=== PATIENT | female | born 1950 | race Caucasian/White ===

== ENCOUNTER → 2016-12-08 | Outpatient (CLI) | payer OTHER ==
[~2016-12-08] MED LIST: ADVIN25/60 INH; ALBU1AER9 INH; BROM0.07 OPL; BUME1TAB43 PO; DIFL0.0519 OPL; FOLI1TAB7 PO; LEVO-459 PO; LPR25 PO; MELO15TA4 PO; METH2.5T PO; METO25TA56 PO; MULTTAB5 PO; PLQ200 PO; PRD20 PO; VTMB12 PO
--- NOTE | 2016-12-08 15:45 | DIAGNOSTIC IMAGING REPORT ---
RIGHT HAND MIN 3 VIEWS ROUTINE CLINICAL HISTORY: M06.9 Rheumatoid [id number] SS-A antibody [id number] right hand pain COMPARISON: None. DISCUSSION: The bones are mildly osteopenic. There are mild osteoarthritic type changes at the level of the proximal distal interphalangeal joints. No acute fractures are visualized. There is no erosive disease. There is mild joint space narrowing at the level the second metacarpal phalangeal joint. IMPRESSION: Mild osteopenia. Mild osteoarthritic type changes. No definite bony erosions. Electronically signed by: Hemanth Hernandez M.D. 12/08/2016 3:43 PM Dictated Date/Time: 12/08/2016 3:42 PM
--- NOTE | 2016-12-08 15:47 | DIAGNOSTIC IMAGING REPORT ---
LEFT HAND 3 VIEWS; LEFT WRIST 4 VIEWS CLINICAL HISTORY: Left wrist and hand pain. Rheumatoid arthritis. FINDINGS: 3 views of the left hand and 4 views of the left wrist are obtained. No prior studies are available for comparison at the time of dictation. The skeletal structures are osteopenic. No fracture is identified in the left wrist or hand. There is degenerative narrowing at the radiocarpal articulation. Advanced osteoarthritic changes present at the first carpometacarpal joint with bony sclerosis, overgrowth, subchondral cyst formation, and mild subluxation. Mild arthritic change is seen at the second carpometacarpal joint. There is mild osteoarthritic change involving the interphalangeal joints, distal greater than proximal as well as at the first metacarpophalangeal joint. No significant erosive change is identified. The overlying soft tissues are within normal limits. IMPRESSION: 1. There is no acute bony abnormality seen in the left wrist or hand. 2. Osteoarthritic change as above, greatest involving the first carpometacarpal articulation. 3. No erosive change is identified. Electronically signed by: Ludwig Red M.D. 12/08/2016 3:45 PM Dictated Date/Time: 12/08/2016 3:41 PM
--- NOTE | 2016-12-08 15:48 | DIAGNOSTIC IMAGING REPORT ---
RIGHT WRIST 4 VIEWS CLINICAL HISTORY: Rheumatoid arthritis. FINDINGS: 4 views of the right wrist are obtained. No prior studies are available for comparison at the time of dictation. The skeletal structures are osteopenic. No fracture is seen. There is mild narrowing at the radiocarpal articulation. Mild osteoarthritic change is noted at the first carpometacarpal and metacarpophalangeal joints. No erosive change is suspected. The overlying soft tissues are within normal limits. IMPRESSION: Osteopenia and mild osteoarthritic change as above. No acute bony abnormality is identified. Electronically signed by: Ludwig Red M.D. 12/08/2016 3:46 PM Dictated Date/Time: 12/08/2016 3:45 PM
[2016-12-08 16:57] LABS: URINE APPEARANCE CLEAR (CLEAR); URINE BILIRUBIN NEG (NEG); URINE COLOR YELLOW; URINE EPITHELIAL CELL AUTO 20-30 /lpf (0-5); URINE NITRITE NEG (NEG); URINE SPECIFIC GRAVITY 1.012 (1.000-1.030); UROBILINOGEN NEG (NEG)
[2016-12-08 17:28] LABS: MANUAL MICROSCOPIC REQUIRED? NO; REVIEW REQ? NO
[2016-12-08 20:42] LABS: LYME DISEASE AB IGG NEG (NEG); LYME DISEASE AB IGM NEG (NEG)
[2016-12-14 06:31] LABS: ANTI-CENTROMERE AB <1.0 NEG AI (<1.0 NEG); ANTI-SS-A <1.0 NEG AI (<1.0 NEG); ANTI-SS-B <1.0 NEG AI (<1.0 NEG); CYCLIC CITRULLINATED PEPT IGG >250 UNITS (<20); DNA ds CRITHIDIA NEGATIVE (NEGATIVE); MICROSOMAL AB <1 IU/ML (<9); Sm Antibody <1.0 NEG AI (<1.0 NEG)
== END | disposition home or self-care (01) ==
LOC: C.RAD1850 15:03
PROVIDERS: ATTEND Internal Medicine Rheumatology
DX: M06.9 Rheumatoid arthritis, unspecified (principal); R76.8 Other specified abnormal immunological findings in serum; M79.1 Myalgia; M19.90 Unspecified osteoarthritis, unspecified site

== ENCOUNTER → 2017-03-21 | Outpatient (CLI) | payer OTHER ==
[~2017-03-21] MED LIST changes: +CYAN250T PO; +PRED10TA PO; +VBRT100 PO
[2017-03-21 12:39] LABS: BASO % 0.3 %; BASO ABS # 0.03 K/uL (0-0.2); COMPLETE YES; EOS % 1.9 %; HEMATOCRIT 46.8 % (37-47); IG% 0.2 %; LYMPH % 22.6 %; LYMPH ABS # 2.05 K/uL (1.2-3.4); MEAN CELL VOLUME 98.1 fL (80-100); MEAN CORPUSCULAR HEMOGLOBIN 31.7 pg (25-34); MEAN CORPUSCULAR HGB CONC 32.3 g/dl (32-36); MEAN PLATELET VOLUME 10.2 fL (7.4-10.4); MONO % 5.1 %; NEUT % 69.9 %; PLATELET COUNT 304 K/uL (130-400); RED BLOOD COUNT 4.77 M/uL (4.2-5.4); WHITE BLOOD COUNT 9.06 K/uL (4.8-10.8)
[2017-03-21 13:11] LABS: ALT/SGPT 24 U/L (12-78)
[2017-03-21 13:14] LABS: ALKALINE PHOSPHATASE 73 U/L (45-117); AST/SGOT 22 U/L (15-37)
== END | disposition home or self-care (01) ==
LOC: C.LABPBG 10:32
PROVIDERS: ATTEND Internal Medicine Rheumatology
DX: M79.1 Myalgia (principal); M06.9 Rheumatoid arthritis, unspecified; R76.8 Other specified abnormal immunological findings in serum; Z51.81 Encounter for therapeutic drug level monitoring; Z79.1 Long term (current) use of non-steroidal anti-inflammatories (NSAID); Z79.899 Other long term (current) drug therapy

== ENCOUNTER → 2017-04-01 | Outpatient (CLI) | payer OTHER ==
--- NOTE | 2017-04-01 14:38 | DIAGNOSTIC IMAGING REPORT ---
CHEST 2 VIEWS ROUTINE CLINICAL HISTORY: Abnormal lung sounds. Possible pneumonia. COMPARISON STUDY: 10/29/2016 FINDINGS: The cardiac and mediastinal contours are normal. There is no evidence of focal pulmonary consolidation. There is no evidence of failure. No pleural effusions are visualized.[ There is prominence of central pulmonary arteries. Pulmonary arterial hypertension is suspected. IMPRESSION: No active disease in the chest. Electronically signed by: Hemanth Hernandez M.D. 04/01/2017 2:37 PM Dictated Date/Time: 04/01/2017 2:35 PM
== END | disposition home or self-care (01) ==
LOC: C.RAD1850 14:23
PROVIDERS: ATTEND Physician Assistant
DX: R07.89 Other chest pain (principal)

== ENCOUNTER → 2017-06-06 | Outpatient (CLI) | payer OTHER ==
[~2017-06-06] MED LIST changes: -CYAN250T PO; -PRED10TA PO; -VBRT100 PO
--- NOTE | 2017-06-13 08:40 | CODING QUERY MEDICAL NECESSITY ---
SUPPORTING DIAGNOSIS NEEDED A supporting diagnosis is required for the test/procedure performed on this patient in order for us to be reimbursed by the patient's insurance. Please provide a supporting diagnosis for the following test/procedure listed below next to the test name along with your signature. *If there is no additional diagnosis for this patient that would support the following test/procedure please document that below next to the test/procedure. Test(s)/Procedure(s) that require a supporting diagnosis: * VITAMIN D, 25-HYDROXY DIAGNOSIS: Provider Signature: Date: Thank you Yaneth Macedo [employer] Once completed, please kindly fax back to [phone] For questions please call [phone]
== END | disposition home or self-care (01) ==
LOC: C.LABPBG 10:06
PROVIDERS: ATTEND Physician Assistant
DX: R53.83 Other fatigue (principal); Z13.21 Encounter for screening for nutritional disorder

== ENCOUNTER → 2017-06-28 | Outpatient (CLI) | payer OTHER ==
[~2017-06-28] MED LIST changes: -LEVO-459 PO; -LPR25 PO; -PRD20 PO; -VTMB12 PO
--- NOTE | 2017-06-28 11:46 | DIAGNOSTIC IMAGING REPORT ---
CHEST 2 VIEWS ROUTINE CLINICAL HISTORY: R09.89 Abnormal lung [id number] COMPARISON STUDY: 04/01/2017 FINDINGS: The cardiac and mediastinal contours are normal. There is no evidence of focal pulmonary consolidation. There is no evidence of failure. No pleural effusions are visualized.[ There is persistent prominence of the central pulmonary arteries. This could indicate pulmonary arterial hypertension IMPRESSION: No active disease in the chest. Electronically signed by: Hemanth Hernandez M.D. 06/28/2017 11:45 AM Dictated Date/Time: 06/28/2017 11:44 AM
== END | disposition home or self-care (01) ==
LOC: C.RAD1850 10:49
PROVIDERS: ATTEND Physician Assistant
DX: R09.89 Other specified symptoms and signs involving the circulatory and respiratory systems (principal)

== ENCOUNTER → 2017-07-05 | Day surgery (SDC) | payer OTHER ==
[2017-06-10 15:04] VITALS: Ht 170.2 cm; Wt 79.1 kg
[~2017-07-05] VITALS: Ht 170.2 cm; Wt 79.1 kg
[~2017-07-05] MED LIST changes: +500ML BSS 0.3ML EPI 1:1000PF IRRIG ONE; +ACETAMINOPHEN 325 MG TAB PO PRN; +ALBUT/IPRATROP 3MG/0.5MG NEB 3 ML VIAL INH STA; +ALBUT/IPRATROP 3MG/0.5MG NEB 3 ML VIAL ONE; +AMVISC PLUS 0.8ML SYRINGE INT OCU ONE; +ATROPINE SULFATE 0.1 MG/ML 5ML SYR IV PRN; +BSS FLUSH ONE; +EpHEDrine SULFATE INJ 50 MG/ML AMP IV PRN; +EpINEphrine INJ 1MG/ML AMP 1 MG/ML AMP ONE; +LACTATED RINGER'S 1000ML 500 ML IV SCH; +LIDOCAINE 3.5% OPH GEL PER APPLICATION CHARGE ONE; +LIDOCAINE HCL 1% MPF 2 ML VIAL ONE; +MIDAZOLAM HCL 1 MG/ML 2ML VIAL ONE; +OCUCOAT 1 ML SOLN IO ONE; +POVIDONE-IODINE OP SOLN 30 ML BTL ONE; +PROPARACAINE 0.5% OP SOLN PER DROP CHARGE OPL SCH; +TOBRAMYCIN/DEXAMETHASONE OPH OINT PER APPLN CHARGE ONE
[2017-07-05] MEDS: PHENYLEPHRINE HCL 2.5% OP SOLN PER DROP CHARGE OPL SCH ×2 (08:22→08:27)
[2017-07-05] MEDS: TROPICAMIDE 1% OP SOLN PER DROP CHARGE OPL SCH ×2 (08:23→08:28)
[2017-07-05] MEDS: CYCLOPENTOLATE HCL 1% OP SOLN PER DROP CHARGE OPL SCH ×2 (08:24→08:29)
[2017-07-05] MEDS: KETOROLAC 0.5% OP SOLN PER DROP CHARGE OPL SCH ×2 (08:25→08:30)
[2017-07-05] MEDS: GATIFLOXACIN OP SOLN PER DROP CHARGE OPL SCH ×2 (08:26→08:36)
--- NOTE | 2017-07-05 08:26 | History & Physical Bridge - [place] ---
H&P Re-Evaluation Bridge Note: I have examined the patient, reviewed the History & Physical and in the interval since the performance of the History & Physical I have noted the following changes of clinical significance: Diagnosis: Left Cataract Procedure: Left Cataract Removal with Lens Implant No changes noted
--- NOTE | 2017-07-05 09:02 | Discharge Instructions-SurgCtr ---
Discharge Instructions Date of Service Jul 05, 2017. Visit Reason for Visit: Left Cataract Discharge Discharge Diagnosis / Problem: cataract Discharge Goals Goal(s): Improve function Activity Recommendations Activity Limitations: per Instructions/Follow-up section Anesthesia . Post Anesthesia Instructions: If you have had General Anesthesia or IV Sedation: * Do not drive today. * Resume driving when surgeon permits. * Do not make important decisions or sign legal documents today. * Call surgeon for: 1. Temperature elevations greater than 101 degrees F. 2. Uncontrollable pain. 3. Excessive bleeding. 4. Persistent nausea and vomiting. 5. Medication intolerance (nausea, vomiting or rash). * For nausea and vomiting use only clear liquids such as: tea, soda, bouillon until nausea subsides, then gradually increase diet as tolerated. * If you have any concerns or questions, call your surgeon's office. If physician is unavailable and it is an emergency, call 911 or go to the nearest emergency room. . Instructions / Follow-Up Instructions / Follow-Up ACTIVITY RECOMMENDATIONS: * No strenuous lifting, jogging or running for 4 days * No swimming or yard work for 1 week. * Limited bending is permitted, such as putting on shoes. RETURN TO SCHOOL/WORK: No work until seen by physician in office. MEDICATIONS: Resume previous medications unless instructed otherwise by your surgeon. This includes eye drops for glaucoma. Zymaxid/Gatifloxacin (burgos cap) - one drop every 2 hours until bedtime Nevanac/Ilevro/Prolensa/Ketorolac (solis cap) - one drop every 4 hours until bedtime Prednisolone/Durezol (white/pink cap, SHAKE WELL) - one drop every 2 hours until bedtime Starting tomorrow - all 3 drops every 4 hours until seen in the office Optive drops - as needed for discomfort SPECIAL CARE INSTRUCTIONS: * Wear eyeshield when sleeping, for four nights. * You may wear your own glasses or sunglasses while awake. * You may read or watch TV * You may shower and wash your face, but be gentle around the eye and pat dry. * Blurry vision and mild irritation are normal. * Call office if pain is more severe or vision becomes dark at . FOLLOW UP VISIT: Follow-up with Dr Dia tomorrow. Diet Recommendations Home Diet: resume previous diet Procedures Procedures Performed: Left Cataract Phacoemulsification With Intraocular Lens Implant Pending Studies Studies pending at discharge: no Medical Emergencies . Who to Call and When: Medical Emergencies: If at any time you feel your situation is an emergency, please call 911 immediately. . Non-Emergent Contact Non-Emergency issues call your: [employer] . . "Provider Documentation" section prepared by Wesley Dia. .
--- NOTE | 2017-07-05 09:02 | [facility] Operative Report ---
Operative Report Date of Service Jul 05, 2017. Operative Report 1. PREOPERATIVE DIAGNOSIS: Cataract of the left eye. 2. POSTOPERATIVE DIAGNOSIS: Same. 3. PROCEDURE: Phacoemulsification with intraocular lens implantation of the left eye. SURGEON: Dr. Wesley Dia. ANESTHESIA: Topical Lidocaine gel, 1% Non- Preserved intracameral Lidocaine, and monitored intravenous sedation. INDICATIONS FOR THE PROCEDURE: The patient is a 66 - year-old female with a history of cataract of the left eye causing significant visual impairment. The details of the proposed procedure were explained to the patient who asked appropriate questions and following discussion of all risks, benefits and alternatives agreed to have the procedure done. 4. OPERATION AND FINDINGS: DESCRIPTION OF PROCEDURE: After informed consent was obtained, the patient was brought to the Operating Room at the [facility]. The patient was placed in a supine position and then the left eye was prepped and draped in the usual sterile fashion for intraocular surgery. A drop of topical Lidocaine gel was placed in the operative eye. A wire lid speculum was then placed in the fornices. A corneal paracentesis was then created temporally. The Non-Preserved Lidocaine was then instilled into the anterior chamber. The anterior chamber was then pressurized with viscoelastic. A 2.0 mm clear corneal incision was then created temporally. A cystotome was inserted into the anterior chamber and used to create a tear in the anterior lens capsule. This capsular tear was then used to create a small flap and the flap was dragged in a counterclockwise direction in order to create a continuous curvilinear capsulorrhexis. Hydrodissection was accomplished with balanced salt solution. Phacoemulsification of the lens nucleus was then performed in a standard [id number] technique. The phaco time was 26 seconds with an average power of 15 %. The remaining cortical material was removed using irrigation aspiration. The capsular bag was then filled with viscoelastic. A [employer]ch [employer] Lomb MI60L +18.0 diopters lens was then loaded into the injector and injected into the capsular bag. The remaining viscoelastic was removed with the irrigation aspiration handpiece. The wound was hydrated and then checked and found to be watertight. The intraocular pressure was checked and found to be adequate. The wire lid speculum was removed and the patient's face was cleaned and dried. TobraDex ointment was placed in the inferior fornix. The patient was discharged to the Recovery Room having tolerated the procedure well. There were no complications. The patient will be seen tomorrow in the office for follow-up. I attest to the content of the Intraoperative Record and any orders documented therein. Any exceptions are noted below.
[2017-07-05 09:05] VITALS: TEMP 36.9
--- NOTE | 2017-07-05 09:08 | Anesthesia Progress Nt - [facility] ---
Anesthesia Post Op Note Date & Time Jul 05, 2017 at 09:08 Vital Signs Pain Intensity: 0 Vital Signs Past 12 Hours Date Time Temp Pulse Resp B/P (MAP) Pulse Ox O2 Delivery O2 Flow Rate FiO2 07/05/17 07:40 36.6 70 16 114/73 (87) 95 Room Air Notes Mental Status: alert / awake / arousable, participated in evaluation Pt Amnestic to Procedure: Yes Nausea / Vomiting: adequately controlled Pain: adequately controlled Airway Patency, RR, SpO2: stable & adequate BP & HR: stable & adequate Hydration State: stable & adequate Anesthetic Complications: no major complications apparent
[2017-07-05 09:30] VITALS: BP 106/65; PULSE 73; O2SAT 95
== END | disposition home or self-care (01) ==
LOC: X.SURG 07:10
PROVIDERS: ATTEND Ophthalmology
DX: H26.9 Unspecified cataract (principal); M19.90 Unspecified osteoarthritis, unspecified site; I27.81 Cor pulmonale (chronic); I11.0 Hypertensive heart disease with heart failure; I50.9 Heart failure, unspecified; J44.9 Chronic obstructive pulmonary disease, unspecified; M06.9 Rheumatoid arthritis, unspecified; F17.200 Nicotine dependence, unspecified, uncomplicated; I27.2 Other secondary pulmonary hypertension; Z82.49 Family history of ischemic heart disease and other diseases of the circulatory system; Z82.3 Family history of stroke

== ENCOUNTER → 2017-07-26 | Day surgery (SDC) | payer OTHER ==
[2017-07-19 08:47] VITALS: Ht 170.2 cm; Wt 79.1 kg
[~2017-07-26] VITALS: Ht 170.2 cm; Wt 79.1 kg
[~2017-07-26] MED LIST changes: -ALBUT/IPRATROP 3MG/0.5MG NEB 3 ML VIAL INH STA; -ALBUT/IPRATROP 3MG/0.5MG NEB 3 ML VIAL ONE; +LACTATED RINGER'S 1000ML 1,000 ML IV SCH; -LACTATED RINGER'S 1000ML 500 ML IV SCH; -PROPARACAINE 0.5% OP SOLN PER DROP CHARGE OPL SCH; +PROPARACAINE 0.5% OP SOLN PER DROP CHARGE OPR SCH
[2017-07-26] MEDS: PHENYLEPHRINE HCL 2.5% OP SOLN PER DROP CHARGE OPR SCH ×2 (09:30→09:43)
[2017-07-26] MEDS: TROPICAMIDE 1% OP SOLN PER DROP CHARGE OPR SCH ×2 (09:33→09:44)
[2017-07-26] MEDS: CYCLOPENTOLATE HCL 1% OP SOLN PER DROP CHARGE OPR SCH ×2 (09:34→09:46)
[2017-07-26] MEDS: KETOROLAC 0.5% OP SOLN PER DROP CHARGE OPR SCH ×2 (09:35→09:47)
[2017-07-26] MEDS: GATIFLOXACIN OP SOLN PER DROP CHARGE OPR SCH ×2 (09:37→09:48)
--- NOTE | 2017-07-26 09:42 | History & Physical Bridge - [place] ---
H&P Re-Evaluation Bridge Note: I have examined the patient, reviewed the History & Physical and in the interval since the performance of the History & Physical I have noted the following changes of clinical significance: Diagnosis: Right Cataract Procedure: Right Cataract Removal with Lens Implant No changes noted
--- NOTE | 2017-07-26 10:34 | [facility] Operative Report ---
Operative Report Date of Service Jul 26, 2017. Operative Report 1. PREOPERATIVE DIAGNOSIS: Cataract of the right eye. 2. POSTOPERATIVE DIAGNOSIS: Same. 3. PROCEDURE: Phacoemulsification with intraocular lens implantation of the right eye. SURGEON: Dr. Wesley Dia. ANESTHESIA: Topical Lidocaine gel, 1% Non- Preserved intracameral Lidocaine, and monitored intravenous sedation. INDICATIONS FOR THE PROCEDURE: The patient is a 66 - year-old female with a history of cataract of the right eye causing significant visual impairment. The details of the proposed procedure were explained to the patient who asked appropriate questions and following discussion of all risks, benefits and alternatives agreed to have the procedure done. 4. OPERATION AND FINDINGS: DESCRIPTION OF PROCEDURE: After informed consent was obtained, the patient was brought to the Operating Room at the [facility]. The patient was placed in a supine position and then the right eye was prepped and draped in the usual sterile fashion for intraocular surgery. A drop of topical Lidocaine gel was placed in the operative eye. A wire lid speculum was then placed in the fornices. A corneal paracentesis was then created temporally. The Non-Preserved Lidocaine was then instilled into the anterior chamber. The anterior chamber was then pressurized with viscoelastic. A 2.0 mm clear corneal incision was then created temporally. A cystotome was inserted into the anterior chamber and used to create a tear in the anterior lens capsule. This capsular tear was then used to create a small flap and the flap was dragged in a counterclockwise direction in order to create a continuous curvilinear capsulorrhexis. Hydrodissection was accomplished with balanced salt solution. Phacoemulsification of the lens nucleus was then performed in a standard [id number] technique. The phaco time was 25 seconds with an average power of 14 %. The remaining cortical material was removed using irrigation aspiration. The capsular bag was then filled with viscoelastic. A Bausch & Lomb MI60L +18.5 diopters lens was then loaded into the injector and injected into the capsular bag. The remaining viscoelastic was removed with the irrigation aspiration handpiece. The wound was hydrated and then checked and found to be watertight. The intraocular pressure was checked and found to be adequate. The wire lid speculum was removed and the patient's face was cleaned and dried. TobraDex ointment was placed in the inferior fornix. The patient was discharged to the Recovery Room having tolerated the procedure well. There were no complications. The patient will be seen tomorrow in the office for follow-up. I attest to the content of the Intraoperative Record and any orders documented therein. Any exceptions are noted below.
--- NOTE | 2017-07-26 10:34 | Discharge Instructions-SurgCtr ---
Discharge Instructions Date of Service Jul 26, 2017. Visit Reason for Visit: Cataract Right Eye Discharge Discharge Diagnosis / Problem: cataract Discharge Goals Goal(s): Improve function Activity Recommendations Activity Limitations: per Instructions/Follow-up section Anesthesia . Post Anesthesia Instructions: If you have had General Anesthesia or IV Sedation: * Do not drive today. * Resume driving when surgeon permits. * Do not make important decisions or sign legal documents today. * Call surgeon for: 1. Temperature elevations greater than 101 degrees F. 2. Uncontrollable pain. 3. Excessive bleeding. 4. Persistent nausea and vomiting. 5. Medication intolerance (nausea, vomiting or rash). * For nausea and vomiting use only clear liquids such as: tea, soda, bouillon until nausea subsides, then gradually increase diet as tolerated. * If you have any concerns or questions, call your surgeon's office. If physician is unavailable and it is an emergency, call 911 or go to the nearest emergency room. . Instructions / Follow-Up Instructions / Follow-Up ACTIVITY RECOMMENDATIONS: * No strenuous lifting, jogging or running for 4 days * No swimming or yard work for 1 week. * Limited bending is permitted, such as putting on shoes. RETURN TO SCHOOL/WORK: No work until seen by physician in office. MEDICATIONS: Resume previous medications unless instructed otherwise by your surgeon. This includes eye drops for glaucoma. Zymaxid/Gatifloxacin (burgos cap) - one drop every 2 hours until bedtime Nevanac/Ilevro/Prolensa/Ketorolac (solis cap) - one drop every 4 hours until bedtime Prednisolone/Durezol (white/pink cap, SHAKE WELL) - one drop every 2 hours until bedtime Starting tomorrow - all 3 drops every 4 hours until seen in the office Optive drops - as needed for discomfort SPECIAL CARE INSTRUCTIONS: * Wear eyeshield when sleeping, for four nights. * You may wear your own glasses or sunglasses while awake. * You may read or watch TV * You may shower and wash your face, but be gentle around the eye and pat dry. * Blurry vision and mild irritation are normal. * Call office if pain is more severe or vision becomes dark at . FOLLOW UP VISIT: Follow-up with Dr Dia tomorrow. Diet Recommendations Home Diet: resume previous diet Procedures Procedures Performed: Right Cataract Phacoemulsification With Intraocular Lens Implant Pending Studies Studies pending at discharge: no Medical Emergencies . Who to Call and When: Medical Emergencies: If at any time you feel your situation is an emergency, please call 911 immediately. . Non-Emergent Contact Non-Emergency issues call your: [employer] . . "Provider Documentation" section prepared by Wesley Dia. .
[2017-07-26 10:35] VITALS: TEMP 36.5
--- NOTE | 2017-07-26 10:54 | Anesthesia Progress Nt - [facility] ---
Anesthesia Post Op Note Date & Time Jul 26, 2017 at 10:54 Vital Signs Pain Intensity: 0 Vital Signs Past 12 Hours Date Time Temp Pulse Resp B/P (MAP) Pulse Ox O2 Delivery O2 Flow Rate FiO2 07/26/17 10:35 36.5 70 16 106/68 (81) 97 Room Air 07/26/17 09:10 36.9 64 20 120/72 (88) 97 Nasal Cannula 2 Notes Mental Status: alert / awake / arousable, participated in evaluation Pt Amnestic to Procedure: Yes Nausea / Vomiting: adequately controlled Pain: adequately controlled Airway Patency, RR, SpO2: stable & adequate BP & HR: stable & adequate Hydration State: stable & adequate Anesthetic Complications: no major complications apparent
[2017-07-26 10:55] VITALS: BP 116/70; PULSE 69; O2SAT 96
== END | disposition home or self-care (01) ==
LOC: X.SURG 08:43
PROVIDERS: ATTEND Ophthalmology
DX: H26.9 Unspecified cataract (principal); I27.81 Cor pulmonale (chronic); J44.9 Chronic obstructive pulmonary disease, unspecified; I11.0 Hypertensive heart disease with heart failure; I50.9 Heart failure, unspecified; I51.9 Heart disease, unspecified; F17.210 Nicotine dependence, cigarettes, uncomplicated; I07.1 Rheumatic tricuspid insufficiency; I27.2 Other secondary pulmonary hypertension; I87.2 Venous insufficiency (chronic) (peripheral); M13.0 Polyarthritis, unspecified; M06.9 Rheumatoid arthritis, unspecified; Z79.1 Long term (current) use of non-steroidal anti-inflammatories (NSAID); Z79.899 Other long term (current) drug therapy

== ENCOUNTER → 2017-10-10 | Outpatient (CLI) | payer OTHER ==
[~2017-10-10] MED LIST changes: -500ML BSS 0.3ML EPI 1:1000PF IRRIG ONE; -ACETAMINOPHEN 325 MG TAB PO PRN; -AMVISC PLUS 0.8ML SYRINGE INT OCU ONE; -ATROPINE SULFATE 0.1 MG/ML 5ML SYR IV PRN; -BROM0.07 OPL; -BSS FLUSH ONE; +CYAN250T PO; -DIFL0.0519 OPL; -EpHEDrine SULFATE INJ 50 MG/ML AMP IV PRN; -EpINEphrine INJ 1MG/ML AMP 1 MG/ML AMP ONE; -LACTATED RINGER'S 1000ML 1,000 ML IV SCH; -LIDOCAINE 3.5% OPH GEL PER APPLICATION CHARGE ONE; -LIDOCAINE HCL 1% MPF 2 ML VIAL ONE; -MIDAZOLAM HCL 1 MG/ML 2ML VIAL ONE; -OCUCOAT 1 ML SOLN IO ONE; -POVIDONE-IODINE OP SOLN 30 ML BTL ONE; +PRED10TA PO; -PROPARACAINE 0.5% OP SOLN PER DROP CHARGE OPR SCH; -TOBRAMYCIN/DEXAMETHASONE OPH OINT PER APPLN CHARGE ONE; +VBRT100 PO
[2017-10-10 12:24] LABS: BASO % 0.1 %; BASO ABS # 0.01 K/uL (0-0.2); COMPLETE YES; EOS % 0.2 %; HEMATOCRIT 42.2 % (37-47); IG% 0.4 %; LYMPH % 6.5 %; LYMPH ABS # 1.03 K/uL (1.2-3.4); MEAN CELL VOLUME 101.7 fL (80-100); MEAN CORPUSCULAR HEMOGLOBIN 32.3 pg (25-34); MEAN CORPUSCULAR HGB CONC 31.8 g/dl (32-36); MEAN PLATELET VOLUME 10.3 fL (7.4-10.4); MONO % 3.1 %; NEUT % 89.7 %; PLATELET COUNT 257 K/uL (130-400); RED BLOOD COUNT 4.15 M/uL (4.2-5.4); WHITE BLOOD COUNT 15.78 K/uL (4.8-10.8)
[2017-10-10 12:33] LABS: ARTERIAL BLD GAS O2 SATURATION 87.2 % (90-95); ARTERIAL BLOOD GAS BASE EXCESS 10.8 mEq/L (-9-1.8); ARTERIAL BLOOD GAS HCO3 37 mmol/L (19-24); ARTERIAL BLOOD GAS PO2 53 mm/Hg (80-95); ARTERIAL BLOOD GAS pH 7.43 (7.35-7.45)
[2017-10-10 12:36] LABS: ALLEN TEST POS (POS); O2 ADMINISTRATION ROOM AIR
[2017-10-10 12:46] LABS: ALT/SGPT 28 U/L (12-78); BLOOD UREA NITROGEN 21 mg/dl (7-18); BUN/CREATININE RATIO 28.8 (10-20); CALCIUM 9.1 mg/dl (8.5-10.1); CARBON DIOXIDE 34 mmol/L (21-32); CHLORIDE 95 mmol/L (98-107); CHOLESTEROL 197 mg/dl (0-200); CREATININE 0.74 mg/dl (0.60-1.20); GLUCOSE 112 mg/dl (70-99); POTASSIUM 4.1 mmol/L (3.5-5.1); SODIUM 135 mmol/L (136-145); TRIGLYCERIDES 76 mg/dl (0-150); VERY LOW DENSITY LIPOPROT CALC 15 mg/dl
[2017-10-10 12:49] LABS: ALB/GLOB RATIO 0.9 (0.9-2); ALKALINE PHOSPHATASE 48 U/L (45-117); AST/SGOT 19 U/L (15-37); CHOLESTEROL/HDL RATIO 1.9; HDL CHOLESTEROL 104 mg/dl; LDL CHOLESTEROL CALCULATED 78 mg/dl
== END | disposition home or self-care (01) ==
LOC: C.LAB 11:37
PROVIDERS: ATTEND Internal Medicine Pulmonary Disease
DX: J44.9 Chronic obstructive pulmonary disease, unspecified (principal); I50.9 Heart failure, unspecified; I10 Essential (primary) hypertension; I27.81 Cor pulmonale (chronic); I51.9 Heart disease, unspecified; M06.9 Rheumatoid arthritis, unspecified; R76.8 Other specified abnormal immunological findings in serum; Z79.899 Other long term (current) drug therapy

== ENCOUNTER → 2017-12-08 | Outpatient (CLI) | payer OTHER ==
[~2017-12-08] MED LIST changes: -FOLI1TAB7 PO; +FOLI1TAB8 PO; -PRED10TA PO
[2017-12-08 18:12] LABS: BASO % 0.7 %; BASO ABS # 0.07 K/uL (0-0.2); EOS % 2.1 %; EOS ABS # 0.21 K/uL (0-0.5); HEMATOCRIT 43.6 % (37-47); IG# 0.03 K/uL (0.00-0.02); LYMPH % 25.8 %; LYMPH ABS # 2.54 K/uL (1.2-3.4); MEAN CELL VOLUME 101.2 fL (80-100); MEAN CORPUSCULAR HEMOGLOBIN 32.5 pg (25-34); MEAN CORPUSCULAR HGB CONC 32.1 g/dl (32-36); MEAN PLATELET VOLUME 10.5 fL (7.4-10.4); MONO % 9.1 %; NEUT ABS # 6.11 K/uL (1.4-6.5); PLATELET COUNT 316 K/uL (130-400); RED CELL DISTRIBUTION WIDTH SD 48.2 fL (36.4-46.3); WHITE BLOOD COUNT 9.86 K/uL (4.8-10.8)
[2017-12-08 18:36] LABS: ALBUMIN 3.7 gm/dl (3.4-5.0); ALT/SGPT 24 U/L (12-78); AST/SGOT 17 U/L (15-37); CREATININE 0.92 mg/dl (0.60-1.20)
[2017-12-08 18:39] LABS: ALKALINE PHOSPHATASE 75 U/L (45-117); TOTAL PROTEIN 7.8 gm/dl (6.4-8.2)
== END | disposition home or self-care (01) ==
LOC: C.LABPBG 11:34
PROVIDERS: ATTEND Internal Medicine Rheumatology
DX: M06.9 Rheumatoid arthritis, unspecified (principal); M35.1 Other overlap syndromes; Z51.81 Encounter for therapeutic drug level monitoring; Z79.899 Other long term (current) drug therapy; R76.8 Other specified abnormal immunological findings in serum

== ENCOUNTER 2020-10-08 17:41 | Inpatient (IN) ==
[2020-10-08] MEDS ORDERED: ACETAMINOPHEN 325 MG TAB PO STA (18:44)
--- NOTE | 2020-10-08 18:50 | Emergency Department Note ---
History of Present Illness General Chief complaint: Shortness of Breath/Dyspnea Stated complaint: COV + 10/08, DYSPNEA, HYPOXIC Time Seen by Provider: 10/08/20 18:32 Source: patient History of Present Illness Provider complaint: Flulike symptoms Onset (ago): week(s) Location: chest Severity: moderate Pain Consistency: + other (Now improving) Quality: + other (Cough and shortness of breath) Relieved By: + other (Oxygen) Associated symptoms: + cough, + fever/chills and + shortness of breath; no chest pain and no nausea/vomiting This is a 70-year-old female with a history of COPD presenting with flulike symptoms for the past 8 days. She was tested 3 days ago and was told today that she had COVID-19. She has had a productive cough with green sputum for 8 days with some shortness of breath. She normally uses oxygen in the evenings but has been using it all day recently. She had a fever of 100. She has loss of taste and smell. She denies any chest discomfort or pain, vomiting, abdominal pain, diarrhea, leg swelling or pain or prior history of PE or DVT. She states currently she is feeling better and her symptoms have been improving. Her daughter had called the emergency department today after getting the positive result and she had been advised to bring her mother in for evaluation. Home Medications Medication Instructions Recorded Confirmed Type oxyyedbwzetd-uhnszqwb-upswkh tablet 1 tab PO DAILY 08/17/19 10/08/20 History albuterol sulfate 2.5 mg INH Q4H PRN #540 ml 08/22/19 10/08/20 Rx albuterol sulfate 90 mcg/actuation 1 - 2 puffs INHALATION Q4H PRN #51 09/27/19 10/08/20 History aerosol inhaler gm bumetanide 1 mg tablet 1 mg PO DAILY #90 tab 09/27/19 10/08/20 History hydroxychloroquine 200 mg tablet 200 mg PO DAILY #90 tab 09/27/19 10/08/20 History methotrexate sodium 2.5 mg tablet 15 mg PO WEEKLY #39 tab 09/27/19 10/08/20 History fluticasone fur. 100 mcg-umeclid 1 puffs INH DAILY #90 ea 02/27/20 10/08/20 Rx 62.5 mcg-vilant 25 mcg inhalat.powder folic acid 1 mg tablet 2 mg PO DAILY #180 tab 03/26/20 10/08/20 Rx sertraline 50 mg tablet 75 mg PO DAILY #135 tab 09/22/20 10/08/20 Rx metoprolol tartrate 25 mg tablet 12.5 mg PO BID #90 tab 09/30/20 10/08/20 Rx prednisone 5 mg PO DAILY PRN 10/08/20 10/08/20 History Allergies Allergy/AdvReac Type Severity Reaction Status Date / Time No Known Drug Allergies Allergy Unknown . Verified 10/08/20 21:26 Past Med/Surg History Medical History (Updated 10/08/20 @ 22:20 by Aminah Herrmann DO) Basal cell carcinoma of chest Benign neoplasm of colon COPD (chronic obstructive pulmonary disease) Cor pulmonale (chronic) HTN (hypertension) Immunosuppression due to drug therapy Lung nodule NSAID long-term use Pneumonia Pulmonary arterial hypertension Pulmonary hypertension Rheumatoid arthritis Tricuspid regurgitation Venous insufficiency Surgical History H/O arthroscopic knee surgery H/O colonoscopy H/O tubal ligation S/P left knee arthroscopy 1978 Family History Brother Coronary heart disease Father Cardiomegaly Stroke Hypertension Denies family history of Ovarian cancer Prostate cancer Myocardial infarction Breast cancer Lung cancer Colorectal cancer Social History Smoking Status: Former smoker Tobacco Type: Cigarettes Age Started Using Tobacco: 23; packs per day: 1; Years Smoked: 45; Cigarettes Per Day: 20; Hx Alcohol Use: No Hx Substance Use: No Preferred Language: Georgian Communication Ability: Effective Visual Impairment: No Limitations Hearing Ability: Normal Hematologist Oncologist Required: No Beliefs That Will Affect Care: None marital status: / Current Living Situation: Alone current occupational status: retired Feels Safe at Home: Yes Childhood Exposure to Second-Hand Smoke: No Diet Comment: regular caffeine: Yes (coffee) during the past year weight has: other Dental Care, Regularly: Yes Physical Activity Frequency: 3-4 Times per Week Physical Activity Frequency Comment: walk Seatbelt Use: always Sunscreen Use: Yes Assistive Devices: Denture - Upper, Denture - Lower and Glasses Review of Systems See HPI for pertinent positives & negatives. and A total of 10 systems reviewed and were otherwise negative Physical Exam Vital Signs Vital Signs - 24 hr 10/08/20 17:59 10/08/20 18:00 10/08/20 18:04 Temperature 38.3 C H Temperature Source Oral Pulse Rate 79 80 Pulse Rate [Left Brachial] Pulse Rate from SpO2 Sensor 80 Pulse Rhythm Regular Pulse Strength Normal Respiratory Rate 30 H 20 Respiratory Effort / Characteristics Respiratory Depth Shallow Respiratory Pattern Tachypnea Blood Pressure 121/69 121/69 Blood Pressure [Right Arm] Blood Pressure Mean 86 81 Blood Pressure Mean [Right Arm] Blood Pressure Position Sitting Pulse Oximetry 84 L 94 95 Oxygen Delivery Method Room Air Nasal Cannula Oxygen Flow Rate 3 Sepsis Recent Fever Within 48 Hours Yes Sepsis New/Unexplained Change in Mental Status No Sepsis Action Taken by Nursing No Action Required 10/08/20 18:05 10/08/20 18:15 10/08/20 18:30 Temperature Temperature Source Pulse Rate 79 78 Pulse Rate [Left Brachial] Pulse Rate from SpO2 Sensor 79 78 Pulse Rhythm Pulse Strength Respiratory Rate 24 25 H Respiratory Effort / Characteristics Short of Breath SOB on Exertion Respiratory Depth Normal Respiratory Pattern Tachypnea Blood Pressure 121/56 L Blood Pressure [Right Arm] Blood Pressure Mean 84 Blood Pressure Mean [Right Arm] Blood Pressure Position Pulse Oximetry 95 98 Oxygen Delivery Method Oxygen Flow Rate Sepsis Recent Fever Within 48 Hours Sepsis New/Unexplained Change in Mental Status Sepsis Action Taken by Nursing 10/08/20 18:47 10/08/20 19:00 10/08/20 19:30 Temperature Temperature Source Pulse Rate 80 72 Pulse Rate [Left Brachial] Pulse Rate from SpO2 Sensor 73 Pulse Rhythm Pulse Strength Respiratory Rate 17 22 Respiratory Effort / Characteristics Respiratory Depth Respiratory Pattern Blood Pressure 109/61 117/60 Blood Pressure [Right Arm] Blood Pressure Mean 65 73 Blood Pressure Mean [Right Arm] Blood Pressure Position Pulse Oximetry 94 94 Oxygen Delivery Method Nasal Cannula Oxygen Flow Rate Sepsis Recent Fever Within 48 Hours Sepsis New/Unexplained Change in Mental Status Sepsis Action Taken by Nursing 10/08/20 19:31 10/08/20 20:00 10/08/20 20:01 Temperature Temperature Source Pulse Rate 69 70 72 Pulse Rate [Left Brachial] Pulse Rate from SpO2 Sensor 69 71 72 Pulse Rhythm Pulse Strength Respiratory Rate 20 21 24 Respiratory Effort / Characteristics Respiratory Depth Respiratory Pattern Blood Pressure 110/53 L Blood Pressure [Right Arm] Blood Pressure Mean 72 Blood Pressure Mean [Right Arm] Blood Pressure Position Pulse Oximetry 94 91 93 Oxygen Delivery Method Oxygen Flow Rate Sepsis Recent Fever Within 48 Hours Sepsis New/Unexplained Change in Mental Status Sepsis Action Taken by Nursing 10/08/20 20:30 10/08/20 20:31 10/08/20 21:00 Temperature Temperature Source Pulse Rate 66 68 67 Pulse Rate [Left Brachial] Pulse Rate from SpO2 Sensor 66 68 67 Pulse Rhythm Pulse Strength Respiratory Rate 22 23 24 Respiratory Effort / Characteristics Respiratory Depth Respiratory Pattern Blood Pressure 106/59 L 98/53 L Blood Pressure [Right Arm] Blood Pressure Mean 65 72 Blood Pressure Mean [Right Arm] Blood Pressure Position Pulse Oximetry 92 94 93 Oxygen Delivery Method Nasal Cannula Oxygen Flow Rate 3 Sepsis Recent Fever Within 48 Hours Sepsis New/Unexplained Change in Mental Status Sepsis Action Taken by Nursing 10/08/20 21:30 10/08/20 21:31 10/08/20 21:39 Temperature 36.8 C Temperature Source Oral Pulse Rate 62 66 Pulse Rate [Left Brachial] Pulse Rate from SpO2 Sensor 62 66 Pulse Rhythm Pulse Strength Respiratory Rate 24 25 H Respiratory Effort / Characteristics Respiratory Depth Respiratory Pattern Blood Pressure 115/65 Blood Pressure [Right Arm] Blood Pressure Mean 82 Blood Pressure Mean [Right Arm] Blood Pressure Position Pulse Oximetry 93 93 Oxygen Delivery Method Oxygen Flow Rate Sepsis Recent Fever Within 48 Hours Sepsis New/Unexplained Change in Mental Status Sepsis Action Taken by Nursing 10/08/20 22:00 10/08/20 22:30 10/08/20 22:31 Temperature Temperature Source Pulse Rate 66 65 63 Pulse Rate [Left Brachial] Pulse Rate from SpO2 Sensor 65 66 64 Pulse Rhythm Pulse Strength Respiratory Rate 23 23 23 Respiratory Effort / Characteristics Respiratory Depth Respiratory Pattern Blood Pressure 104/52 L 130/69 Blood Pressure [Right Arm] Blood Pressure Mean 67 88 Blood Pressure Mean [Right Arm] Blood Pressure Position Pulse Oximetry 95 92 93 Oxygen Delivery Method Oxygen Flow Rate Sepsis Recent Fever Within 48 Hours Sepsis New/Unexplained Change in Mental Status Sepsis Action Taken by Nursing 10/08/20 23:00 10/08/20 23:01 10/08/20 23:30 Temperature Temperature Source Pulse Rate 60 61 60 Pulse Rate [Left Brachial] Pulse Rate from SpO2 Sensor 60 61 60 Pulse Rhythm Pulse Strength Respiratory Rate 23 17 26 H Respiratory Effort / Characteristics Respiratory Depth Respiratory Pattern Blood Pressure 112/58 L 107/57 L Blood Pressure [Right Arm] Blood Pressure Mean 74 74 Blood Pressure Mean [Right Arm] Blood Pressure Position Pulse Oximetry 93 94 94 Oxygen Delivery Method Oxygen Flow Rate Sepsis Recent Fever Within 48 Hours Sepsis New/Unexplained Change in Mental Status Sepsis Action Taken by Nursing 10/08/20 23:31 10/09/20 00:05 Temperature 36.4 C L Temperature Source Oral Pulse Rate 59 L Pulse Rate [Left Brachial] 75 Pulse Rate from SpO2 Sensor 59 L Pulse Rhythm Pulse Strength Respiratory Rate 22 20 Respiratory Effort / Characteristics Respiratory Depth Respiratory Pattern Blood Pressure Blood Pressure [Right Arm] 129/75 Blood Pressure Mean Blood Pressure Mean [Right Arm] 93 Blood Pressure Position Pulse Oximetry 94 93 Oxygen Delivery Method Nasal Cannula Oxygen Flow Rate 3 Sepsis Recent Fever Within 48 Hours Sepsis New/Unexplained Change in Mental Status Sepsis Action Taken by Nursing Constitutional: Vital signs reviewed. Eyes: Pupils are equal round reactive to light. Conjunctiva are noninjected. ENT: Pharynx is clear without erythema or exudate. Mucous membranes are moist. Neck supple without meningeal signs. Respiratory: Clear to auscultation bilaterally with minimal scattered wheezing. Breath sounds are equal bilaterally. Cardiovascular: Regular rate and rhythm. No rubs or gallops. GI: Soft, nondistended and nontender. Bowel sounds are present. Musculoskeletal: No peripheral edema. No lower extremity tenderness. Integumentary: No cyanosis. or jaundice. Neurological: The patient is awake and alert. No focal deficits. Psychiatric: Normal affect. Not anxious appearing. Course Administered Medications Discontinued Medications Acetaminophen (Acetaminophen 325 Mg Tab) 650 mg PO NOW STA Stop: 10/08/20 18:45 Last Admin: 10/08/20 19:14 Dose: 650 mg Documented by: [id number] Dexamethasone (Dexamethasone Sod Inj 4 Mg/Ml Vial) 6 mg IV NOW STA Stop: 10/08/20 20:03 Last Admin: 10/08/20 20:20 Dose: 6 mg Documented by: [id number] Medical Decision Making Differential Diagnosis COVID-19, pneumonia, COPD exacerbation, hypoxemia, cardiac Medical Records Attestation: I reviewed the patient's medical records. The patient had a positive COVID-19 test from October 05. Home Medications Current Medication List: was personally reviewed by me Laboratory Data Attestation: I reviewed the patient's lab results. Result diagrams: 10/08/20 18:10 10/08/20 18:10 Lab Results 11/18/20 11/18/20 11/18/20 Range/Units 18:10 18:10 18:10 WBC 6.93 (4.8-10.8) K/uL RBC 4.27 (4.2-5.4) M/uL Hgb 13.5 (12.0-16.0) g/dL Hct 41.5 (37-47) % MCV 97.2 (80-100) fL MCH 31.6 (25-34) pg MCHC 32.5 (32-36) g/dL RDW Std Deviation 47.0 H (36.4-46.3) fL RDW Coeff of Marc 13.4 (11.5-14.5) % Plt Count 266 (130-400) K/uL MPV 10.7 H (7.4-10.4) fL Immature Gran % (Auto) 0.1 % Neut % (Auto) 78.9 % Lymph % (Auto) 13.3 % Leake % (Auto) 7.6 % Eos % (Auto) 0.0 % Baso % (Auto) 0.1 % Neut # (Auto) 5.46 (1.4-6.5) K/uL Lymph # (Auto) 0.92 L (1.2-3.4) K/uL Leake # (Auto) 0.53 (0.11-0.59) K/uL Eos # (Auto) 0.00 (0-0.5) K/uL Baso # (Auto) 0.01 (0-0.2) K/uL Immature Gran # (Auto) 0.01 (0.00-0.02) K/uL PT 10.9 (9.0-12.0) Seconds INR 1.0 (0.9-1.1) APTT 26.8 (21.0-31.0) Seconds PTT Ratio 1.0 Sodium 132 L (136-145) mmol/L Potassium (3.5-5.1) mmol/L Chloride 92 L (98-107) mmol/L Carbon Dioxide 35 H (21-32) mmol/L Anion Gap 5.0 (3-11) BUN 17 (7-18) mg/dl Creatinine 1.05 (0.6-1.2) mg/dl Est Cr Clr Drug Dosing 62.8 ml/min Est GFR ( Amer) 61.4 Est GFR (Non-Af Amer) 53.0 BUN/Creatinine Ratio 15.8 (10-20) Glucose 99 (70-99) mg/dl Calcium 8.7 (8.5-10.1) mg/dl Total Bilirubin 0.5 (0.2-1) mg/dl AST (15-37) U/L ALT 46 (12-78) U/L Alkaline Phosphatase 71 (45-117) U/L Troponin I < 0.015 (0-0.045) ng/ml Total Protein 8.4 H (6.4-8.2) gm/dl Albumin 3.2 L (3.4-5.0) gm/dl Globulin 5.2 H (2.5-4.0) gm/dl Albumin/Globulin Ratio 0.6 L (0.9-2) Imaging Data Radiologist's Impression: SINGLE VIEW CHEST CLINICAL HISTORY: Covid. FINDINGS: 2 AP, portable, upright chest radiographs are compared to study dated 10/05/2020 and correlated with chest CT dated 06/26/2020. The heart is top normal for projection noting atherosclerotic calcification of the thoracic aorta. The pulmonary vasculature is noncongested. Emphysema and chronic interstitial thickening is similar to previous. Increasing airspace opacities are seen at the left lung base. No large pleural effusion or pneumothorax is seen. The skeletal structures are osteopenic. The bony thorax is grossly intact. IMPRESSION: 1. Emphysema. 2. There are increasing airspace opacities at the left lung base. This could represent scarring/atelectasis versus an infectious/inflammatory pneumonitis and clinical correlation will be required. ACT 112: Negative or not required by law. Electronically signed by: Ludwig Red M.D. 10/08/2020 7:35 PM ECG Data Attestation: I personally reviewed and interpreted this ECG as follows: Indication: + SOB/dyspnea Rate (beats per minute): 79 Rhythm: + normal sinus ECG [place]: + Normal ECG ST segments: + Nonspecific ST abnormalities ECG Findings: no PVCs MDM Narrative I did evaluate the patient as noted above. The patient was placed in respiratory isolation. She was placed on supplemental oxygen via nasal cannula 3 L with an O2 sat of 94%. IV access was established. I did place an order for continuous cardiac monitoring. The monitor showed normal sinus rhythm at a rate of 78 bpm. I did order and personally review the patient's 12-lead EKG as described above. She does have some nonspecific ST abnormalities. I did order and personally reviewed the images of the patient's chest x-ray as described above. She does appear to have some infiltrates at the left lung base. I did order and review the patient's blood work as noted in the electronic medical record. Her white blood cell count is not elevated. She is not anemic. She has hyponatremia. Her carbon dioxide is 35 which is baseline for her. Troponin is negative. I did discuss the test results with the patient. She was given Tylenol for her fever. She remains tachypneic here and requiring oxygen /. I did treat her with Decadron 6 mg IV. She will be hospitalized for further care and evaluation. I did discuss case with the hospitalist and case briefer. Impression & Plan Pneumonia due to COVID-19 virus, COPD (chronic obstructive pulmonary disease), Hypoxemia, Acute hyponatremia Discharge Plan Visit Data Chief Complaint: Shortness of Breath/Dyspnea Stated Complaint: COV + 10/08, DYSPNEA, HYPOXIC ED Provider: Sony Acevedo Discharge Problem: Pneumonia due to COVID-19 virus, COPD (chronic obstructive pulmonary disease), Hypoxemia, Acute hyponatremia Patient Disposition: Being Evaluated by Hospitalist Discharge Instructions Interventions: ED Discharge Assessment Last Done: 10/08/20 23:48 Forms Stand Alone Forms: My [facility] [place]ena Prescriptions Prescriptions: No Action folic acid 1 mg tablet 2 mg PO DAILY Qty: 180 RF: 3 sertraline 50 mg tablet 75 mg PO DAILY Qty: 135 RF: 1 metoprolol tartrate 25 mg tablet 12.5 mg PO BID Qty: 90 RF: 3 albuterol sulfate 2.5 mg /3 mL (0.083 %) solution for nebulization 2.5 mg INH Q4H PRN (Reason: shortness of breath or wheezing) Qty: 540 RF: 0 Trelegy Ellipta 100-62.5-25 mcg blister with device 1 puffs INH DAILY Qty: 90 RF: 3 ctperahbzofy-bnkbfrwz-qnlvmm tablet 1 tab PO DAILY RF: 0 bumetanide 1 mg tablet 1 mg PO DAILY Qty: 90 RF: 0 hydroxychloroquine 200 mg tablet 200 mg PO DAILY Qty: 90 RF: 0 methotrexate sodium 2.5 mg tablet 15 mg PO WEEKLY Qty: 39 RF: 0 albuterol sulfate 90 mcg/actuation HFA aerosol inhaler 1 - 2 puffs inhalation Q4H PRN (Reason: shortness of breath) Qty: 51 RF: 0 prednisone 5 mg tablet 5 mg PO DAILY PRN (Reason: flare ups) RF: 0 Referrals Referrals: Demetris Gonzalez MD [Primary Care Provider] - Discharge Problem: COPD (chronic obstructive pulmonary disease) Qualifiers: COPD type: unspecified COPD Qualified Code(s): J44.9 - Chronic obstructive pulmonary disease, unspecified
[2020-10-08 19:00] LABS: Basophils # (auto) 0.01 K/uL (0-0.2); Basophils % (auto) 0.1 %; Hematocrit (blood only) 41.5 % (37-47); Hemoglobin 13.5 g/dL (12.0-16.0); Immature Granulocytes # (auto) 0.01 K/uL (0.00-0.02); Immature Granulocytes % (auto) 0.1 %; Lymphocytes # (auto) 0.92 K/uL (1.2-3.4); Lymphocytes % (auto) 13.3 %; Mean Corpuscular Hemoglobin 31.6 pg (25-34); Mean Corpuscular Hgb Conc 32.5 g/dL (32-36); Mean Corpuscular Volume 97.2 fL (80-100); Mean Platelet Volume 10.7 fL (7.4-10.4); Monocytes # (auto) 0.53 K/uL (0.11-0.59); Monocytes % (auto) 7.6 %; Neutrophils # (auto) 5.46 K/uL (1.4-6.5); Neutrophils % (auto) 78.9 %; Platelet Count 266 K/uL (130-400); RDW Coefficient of Variation 13.4 % (11.5-14.5); Red Blood Count 4.27 M/uL (4.2-5.4); White Blood Count 6.93 K/uL (4.8-10.8)
[2020-10-08 19:11] LABS: Partial Thromboplastin Time 26.8 Seconds (21.0-31.0); Prothrombin Time 10.9 Seconds (9.0-12.0)
[2020-10-08 19:15] LABS: Alanine Aminotransferase 46 U/L (12-78); Albumin Globulin Ratio 0.6 (0.9-2); Albumin Level 3.2 gm/dl (3.4-5.0); Alkaline Phosphatase 71 U/L (45-117); BUN Creatinine Ratio 15.8 (10-20); Bilirubin,Total 0.5 mg/dl (0.2-1); Blood Urea Nitrogen 17 mg/dl (7-18); Calcium 8.7 mg/dl (8.5-10.1); Carbon Dioxide 35 mmol/L (21-32); Chloride 92 mmol/L (98-107); Creatinine Clr Calc Pharmacy 62.8 ml/min; Est GFR (African American) 61.4; Globulin 5.2 gm/dl (2.5-4.0); Glucose 99 mg/dl (70-99); Sodium 132 mmol/L (136-145); Total Protein 8.4 gm/dl (6.4-8.2); Troponin I < 0.015 ng/ml (0-0.045)
--- NOTE | 2020-10-08 19:36 | XRay Report ---
SINGLE VIEW CHEST CLINICAL HISTORY: Covid. FINDINGS: 2 AP, portable, upright chest radiographs are compared to study dated 10/05/2020 and correl ated with chest CT dated 06/26/2020. The heart is top normal for projection noting atherosclerotic calc ification of the thoracic aorta. The pulmonary vasculature is noncongested. Emphysema and chronic int erstitial thickening is similar to previous. Increasing airspace opacities are seen at the left lung base. No large pleural effusion or pneumothorax is seen. The skeletal structures are osteopenic. The bony thorax is grossly intact. IMPRESSION: 1. Emphysema. 2. There are increasing airspace opacities at the left lung base. This could represent scarring/atele ctasis versus an infectious/inflammatory pneumonitis and clinical correlation will be required. ACT 112: Negative or not required by law. Electronically signed by: Ludwig Red M.D. 10/08/2020 7:35 PM
[2020-10-08] MEDS ORDERED: DEXAMETHASONE SOD INJ 4 MG/ML VIAL IV STA (20:02)
--- NOTE | 2020-10-08 20:56 | History & Physical Report ---
Date of Service October 08, 2020 Assessment & Plan (1) Pneumonia due to COVID-19 virus: 70yo C female with severe, O2 dependent COPD, recent Covid-19 diagnosis presenting with productive cough, SOB and hypoxia. Some concern for superimposed bacterial process as well as patient is coughing up thick, green sputum. Patient's saturation of 84% on room air not helpful as she is on home oxygen - she does not worsening SOB and increase in O2 requirement, however. She is currently doing well with adequate oxygenation on 3L. No respiratory distress. Lymphopenic with Lymph=0.92 -Admit to Covid unit, medical with telemetry -Isolation precautions - Airborne and contact -Continue supplemental O2 - goal saturation 90% in patient with COPD -Check inflammatory markers - ESR, CRP, Ferritin, Ddimer, LDH -Check Procalcitonin -Dexamethasone 6mg IV daily -Convalescent plasma - patient consented in the ER - form placed in chart -Remdesivir to be discussed with Pulmonary team -Zinc 220 mg po daily -Pepcid 20mg IV BID -Melatonin qHS -Lovenox 40 BID -Tylenol as needed for fever Present on Admission?: Yes (2) HTN (hypertension): Blood pressure stable -Continue metoprolol BID -Continue to monitor Present on Admission?: Yes (3) Rheumatoid arthritis: Chronic. Stable with no active flare. -Continue Hydroxychloroquine 200mg po daily for RA -Continue MTX at home dosage -Continue Folic acid Present on Admission?: Yes (4) Acute hyponatremia: Tj=[id number]. No neurological issues at present. Patient appears euvolemic on exam -continue to monitor -Repeat labs in AM Present on Admission?: Yes (5) COPD (chronic obstructive pulmonary disease): Chronic. Concern for exacerbation in setting of active Covid-19 disease -Continue Trelegy inhaler -Albuterol HFA as needed -Supplemental O2 as needed - goal saturation 90% -Dexamethasone as above -Patient on Bumex 1mg po daily for edema, ?cor pulmonale. Will continue. She may need an extra dose after receiving plasma Present on Admission?: Yes (6) Depression: Chronic. Stable -Continue Sertraline 75mg po daily F/E/N - Heplock. Hyponatremia as above, K not resulted due to hemolysis, checking Mg and PO4, Regular diet as tolerated Ppx - Lovenox BID Code - Full Dispo - Admit to medical/telemetry Present on Admission?: Yes History of Present Illness Chief Complaint: SOB Primary Care Provider: Demetris Gonzalez MD Bharati Kenney is a 70yo C female with history of severe, O2 dependent COPD (PFTs on 02/19/19 with FEV1 35% predicted, patient uses 2L O2 qHS, with exertion and PRN), RA on MTX/Hydroxychloroquine, HTN. She has been having flu-like symptoms for the last 8 days. Found to be positive for SARS-CoV-2 virus three days ago. She has fevers, chills, body aches, loss of taste and smell as well as watery diarrhea. Cough over the last two days productive for thick, green sputum. She has been feeling short of breath and has been wearing her O2 constantly over the last 2 days. Patient febrile on arrival, HD stable. Tachypneic to 30bpm, saturating 84% on room air. Oxygenation improved with nasal cannula, currently 93% on 3L ER course: Tylenol, Dexamethasone Allergies Allergy/AdvReac Type Severity Reaction Status Date / Time No Known Drug Allergies Allergy Unknown . Verified 10/08/20 21:26 Home Medications Medication Instructions Recorded Confirmed Type agecdstigzhg-drgeuvvi-xddtpp tablet 1 tab PO DAILY 08/17/19 10/08/20 History albuterol sulfate 2.5 mg INH Q4H PRN #540 ml 08/22/19 10/08/20 Rx albuterol sulfate 90 mcg/actuation 1 - 2 puffs INHALATION Q4H PRN #51 09/27/19 10/08/20 History aerosol inhaler gm bumetanide 1 mg tablet 1 mg PO DAILY #90 tab 09/27/19 10/08/20 History hydroxychloroquine 200 mg tablet 200 mg PO DAILY #90 tab 09/27/19 10/08/20 History methotrexate sodium 2.5 mg tablet 15 mg PO WEEKLY #39 tab 09/27/19 10/08/20 History fluticasone fur. 100 mcg-umeclid 1 puffs INH DAILY #90 ea 02/27/20 10/08/20 Rx 62.5 mcg-vilant 25 mcg inhalat.powder folic acid 1 mg tablet 2 mg PO DAILY #180 tab 03/26/20 10/08/20 Rx sertraline 50 mg tablet 75 mg PO DAILY #135 tab 09/22/20 10/08/20 Rx metoprolol tartrate 25 mg tablet 12.5 mg PO BID #90 tab 09/30/20 10/08/20 Rx prednisone 5 mg PO DAILY PRN 10/08/20 10/08/20 History Past Med/Surg History Medical History (Updated 10/08/20 @ 22:20 by Aminah Herrmann DO) Basal cell carcinoma of chest Benign neoplasm of colon COPD (chronic obstructive pulmonary disease) Cor pulmonale (chronic) HTN (hypertension) Immunosuppression due to drug therapy Lung nodule NSAID long-term use Pneumonia Pulmonary arterial hypertension Pulmonary hypertension Rheumatoid arthritis Tricuspid regurgitation Venous insufficiency Surgical History H/O arthroscopic knee surgery H/O colonoscopy H/O tubal ligation S/P left knee arthroscopy 1978 Family History Brother Coronary heart disease Father Cardiomegaly Stroke Hypertension Denies family history of Ovarian cancer Prostate cancer Myocardial infarction Breast cancer Lung cancer Colorectal cancer Social History Smoking Status: Former smoker Tobacco Type: Cigarettes Age Started Using Tobacco: 23; packs per day: 1; Years Smoked: 45; Cigarettes Per Day: 20; Hx Alcohol Use: No Hx Substance Use: No Preferred Language: Croatian Communication Ability: Effective Visual Impairment: No Limitations Hearing Ability: Normal Net Repairer Required: No Beliefs That Will Affect Care: None marital status: / Current Living Situation: Alone current occupational status: retired Feels Safe at Home: Yes Childhood Exposure to Second-Hand Smoke: No Diet Comment: regular caffeine: Yes (coffee) during the past year weight has: other Dental Care, Regularly: Yes Physical Activity Frequency: 3-4 Times per Week Physical Activity Frequency Comment: walk Seatbelt Use: always Sunscreen Use: Yes Review of Systems Review of Systems: All systems reviewed & are unremarkable except as noted in HPI & below Physical Exam Physical Exam: General: patient resting comfortably, NAD, non-toxic in appearance, AA&O x 4 Skin: warm, dry, intact, no rashes or lesions HEENT: NC/AT, PERRL, EOMI, anicteric sclera, conjunctiva without injection, external ear normal to inspection and nontender, nares patent, moist mucus m embranes, dentition intact, no oropharyngeal lesions, neck supple, trachea midline, no LAD, no thyromegaly, no JVD Heart: +S1/S2, regular, no m/r/g Lungs: equal air entry bilaterally, +crackles and focal wheezing noted in left base and lateral lung field, no wheezing Abd: +BS, soft, NT/ND, no masses/organomegaly/ascites Ext: warm, 2+ pulses in UE/LE bilaterally, no clubbing/cyanosis or edema Neuro: nonfocal, patient AA&O x 4, speech intact, no facial droop, moving all extremities on command with equal strength 5/5 Results & Data Results & Data ([facility]) Vital Signs (Past 12 Hours) Vital Signs Temp Pulse Resp BP Pulse Ox 10/08/20 18:47 94 10/08/20 18:30 78 25 H 121/56 L 98 10/08/20 18:05 79 24 95 10/08/20 18:04 95 10/08/20 18:00 80 20 121/69 94 10/08/20 17:59 38.3 C H 79 30 H 121/69 84 L Laboratory Results Lab Results 10/08/20 10/08/20 10/08/20 Range/Units 18:10 18:10 18:10 WBC 6.93 (4.8-10.8) K/uL RBC 4.27 (4.2-5.4) M/uL Hgb 13.5 (12.0-16.0) g/dL Hct 41.5 (37-47) % MCV 97.2 (80-100) fL MCH 31.6 (25-34) pg MCHC 32.5 (32-36) g/dL RDW Std Deviation 47.0 H (36.4-46.3) fL RDW Coeff of Marc 13.4 (11.5-14.5) % Plt Count 266 (130-400) K/uL MPV 10.7 H (7.4-10.4) fL Immature Gran % (Auto) 0.1 % Neut % (Auto) 78.9 % Lymph % (Auto) 13.3 % Perkins % (Auto) 7.6 % Eos % (Auto) 0.0 % Baso % (Auto) 0.1 % Neut # (Auto) 5.46 (1.4-6.5) K/uL Lymph # (Auto) 0.92 L (1.2-3.4) K/uL Perkins # (Auto) 0.53 (0.11-0.59) K/uL Eos # (Auto) 0.00 (0-0.5) K/uL Baso # (Auto) 0.01 (0-0.2) K/uL Immature Gran # (Auto) 0.01 (0.00-0.02) K/uL PT 10.9 (9.0-12.0) Seconds INR 1.0 (0.9-1.1) APTT 26.8 (21.0-31.0) Seconds PTT Ratio 1.0 Sodium 132 L (136-145) mmol/L Potassium (3.5-5.1) mmol/L Chloride 92 L (98-107) mmol/L Carbon Dioxide 35 H (21-32) mmol/L Anion Gap 5.0 (3-11) BUN 17 (7-18) mg/dl Creatinine 1.05 (0.6-1.2) mg/dl Est Cr Clr Drug Dosing 62.8 ml/min Est GFR ( Amer) 61.4 Est GFR (Non-Af Amer) 53.0 BUN/Creatinine Ratio 15.8 (10-20) Glucose 99 (70-99) mg/dl Calcium 8.7 (8.5-10.1) mg/dl Total Bilirubin 0.5 (0.2-1) mg/dl AST (15-37) U/L ALT 46 (12-78) U/L Alkaline Phosphatase 71 (45-117) U/L Troponin I < 0.015 (0-0.045) ng/ml Total Protein 8.4 H (6.4-8.2) gm/dl Albumin 3.2 L (3.4-5.0) gm/dl Globulin 5.2 H (2.5-4.0) gm/dl Albumin/Globulin Ratio 0.6 L (0.9-2) Diagnostic Findings SINGLE VIEW CHEST CLINICAL HISTORY: Covid. FINDINGS: 2 AP, portable, upright chest radiographs are compared to study dated 10/05/2020 and correlated with chest CT dated 06/26/2020. The heart is top normal for projection noting atherosclerotic calcification of the thoracic aorta. The pulmonary vasculature is noncongested. Emphysema and chronic interstitial thickening is similar to previous. Increasing airspace opacities are seen at the left lung base. No large pleural effusion or pneumothorax is seen. The skeletal structures are osteopenic. The bony thorax is grossly intact. IMPRESSION: 1. Emphysema. 2. There are increasing airspace opacities at the left lung base. This could represent scarring/atelectasis versus an infectious/inflammatory pneumonitis and clinical correlation will be required. ACT 112: Negative or not required by law. Electronically signed by: Ludwig Red M.D. 10/08/2020 7:35 PM Dictated: 10/08/201931Transcribed: 10/08/201931 Code Status & VTE Plan VTE Prophylaxis Plan VTE Prophylaxis will be ordered: Yes PG Care Time/CCT Total # of Minutes Spent Total Time Spent with Patient: Total time spent is greater than 50% in coordination of care (as documented) at patient's floor/unit and/or counseling patient: Coding Level of Care Code 28613 Initial Inpt Care Lvl 3 Diagnoses Pneumonia due to COVID-19 virus U07.1; J12.89 HTN (hypertension) I10 Hypertension type: essential hypertension Rheumatoid arthritis M06.9 Rheumatoid arthritis location: unspecified site Rheumatoid factor presence: unspecified presence Acute hyponatremia E87.1 COPD (chronic obstructive pulmonary disease) J44.9 COPD type: unspecified COPD Depression F32.9 Depression Type: unspecified (1) HTN (hypertension) Hypertension type: essential hypertension Qualified Code(s): I10 - Essential (primary) hypertension (2) Rheumatoid arthritis Rheumatoid arthritis location: unspecified site Rheumatoid factor presence: unspecified presence Qualified Code(s): M06.9 - Rheumatoid arthritis, unspecified (3) COPD (chronic obstructive pulmonary disease) COPD type: unspecified COPD Qualified Code(s): J44.9 - Chronic obstructive pulmonary disease, unspecified (4) Depression Depression Type: unspecified Qualified Code(s): F32.9 - Major depressive disorder, single episode, unspecified
[2020-10-09] MEDS ORDERED: ONDANSETRON INJ 2 MG/ML 2 ML VIAL IV PRN (00:52)
[2020-10-09] MEDS ORDERED: ALBUTEROL HFA 8 GM INHALER INH PRN (00:52)
[2020-10-09] MEDS ORDERED: ACETAMINOPHEN 325 MG TAB PO PRN (00:52)
[2020-10-09] MEDS: MELATONIN 3 MG TAB PO SCH ×2 (01:45→21:17)
[2020-10-09] MEDS: DOXYCYCLINE HYCLATE 100 MG CAP PO SCH ×3 (01:45→21:16)
[2020-10-09] MEDS: FAMOTIDINE 20 MG in SYRINGE 3 ML IV SCH ×3 (01:48→21:13)
[2020-10-09 02:05] LABS: C Reactive Protein 12.9 mg/dl (0-0.29); D Dimer 1690 ug/L FEU (0-500); Ferritin 233.4 ng/ml (8-388); Magnesium 2.3 mg/dl (1.8-2.4); Phosphorus 3.9 mg/dl (2.5-4.9)
[2020-10-09 06:15] LABS: Hematocrit (blood only) 39.2 % (37-47); Hemoglobin 12.4 g/dL (12.0-16.0); Immature Granulocytes # (auto) 0.01 K/uL (0.00-0.02); Immature Granulocytes % (auto) 0.2 %; Lymphocytes # (auto) 0.47 K/uL (1.2-3.4); Lymphocytes % (auto) 11.5 %; Mean Corpuscular Hemoglobin 30.8 pg (25-34); Mean Corpuscular Hgb Conc 31.6 g/dL (32-36); Mean Corpuscular Volume 97.5 fL (80-100); Mean Platelet Volume 10.6 fL (7.4-10.4); Monocytes # (auto) 0.29 K/uL (0.11-0.59); Monocytes % (auto) 7.1 %; Neutrophils # (auto) 3.32 K/uL (1.4-6.5); Neutrophils % (auto) 81.2 %; Platelet Count 234 K/uL (130-400); RDW Coefficient of Variation 13.2 % (11.5-14.5); RDW Standard Deviation 46.8 fL (36.4-46.3); Red Blood Count 4.02 M/uL (4.2-5.4); White Blood Count 4.09 K/uL (4.8-10.8)
[2020-10-09 06:43] LABS: Albumin Level 2.8 gm/dl (3.4-5.0); BUN Creatinine Ratio 22.2 (10-20); Bilirubin Direct 0.2 mg/dl (0-0.2); Calcium 8.5 mg/dl (8.5-10.1); Creatinine Clr Calc Pharmacy 65.3 ml/min; Est GFR (African American) 82.9; Est GFR (Non-African American) 71.5
[2020-10-09 06:45] LABS: Bilirubin,Total 0.5 mg/dl (0.2-1); Total Protein 7.4 gm/dl (6.4-8.2)
--- NOTE | 2020-10-09 08:20 | Hospitalist Progress Note ---
Date of Service October 09, 2020 Assessment & Plan (1) Pneumonia due to COVID-19 virus: 70yo C female with severe, O2 dependent COPD, recent Covid-19 diagnosis presenting with productive cough, SOB and hypoxia. Some concern for superimposed bacterial process as well as patient is coughing up thick, green sputum. Patient's saturation of 84% on room air not helpful as she is on home oxygen - she does not worsening SOB and increase in O2 requirement, however. She is currently doing well with adequate oxygenation on 3L. No respiratory distress. Lymphopenic with Lymph=0.92 -Continue supplemental O2 - goal saturation 90% in patient with COPD -Elevated inflammatory markers - Ferritin & Ddimer are elevated Negative procalcitonin -Dexamethasone 6mg IV daily -Convalescent plasma - patient consented in the ER - form placed in chart -Remdesivir started 10/09 -Zinc 220 mg po daily -Pepcid 20mg IV BID -Melatonin qHS -Lovenox 40 BID -Tylenol as needed for fever (2) HTN (hypertension): Blood pressure stable -Continue metoprolol BID (3) Rheumatoid arthritis: Chronic. Stable with no active flare. We will need to hold hydroxychloroquine 200mg po daily for RA while taking remdesivir -Hold methotrexate in the face of acute infection -Continue Folic acid (4) Acute hyponatremia: [id number]=[id number]. Has improved but not normalized (5) COPD (chronic obstructive pulmonary disease): Chronic. Concern for exacerbation in setting of active Covid-19 disease -Continue Trelegy inhaler -Albuterol HFA as needed -Supplemental O2 as needed - goal saturation 90% -Dexamethasone as above -Patient on Bumex 1mg po daily for edema, ?cor pulmonale. continue. (6) Depression: Chronic. Stable -Continue Sertraline 75mg po daily F/E/N - Heplock. Hyponatremia as above, K not resulted due to hemolysis, checking Mg and PO4, Regular diet as tolerated Ppx - Lovenox BID Code - Full Dispo - Admit to medical/telemetry Admission and Anticipated Discharge Date Admission Date: October 09, 2020 Subjective Patient is agreeable taking remdesivir. She has increased oxygen demands over her baseline. Evidence of pneumonia on x-ray did receive convalescent plasma and dexamethasone she remains febrile to 100 degrees Review of Systems Review of Systems: Mild distress and fatigue no headache, blurry or double vision no speech or swallowing issues no chest pain, pressure or palpitations Increase shortness of breath over baseline coughing that is loose and productive at times no abdominal pain, nausea or vomiting, diarrhea or constipation no dysuria, hematuria or frequency no focal joint pain or swelling no back pain, CVA tenderness or radicular pain no bruising, bleeding or rashes no focal signs of weakness or numbness or altered sensation no complaints of anxiety or depression. Physical Exam Physical Exam: The patient appeared chronically ill and in mild distress Vital signs as documented. Head exam is normocephalic atraumatic no scleral icterus Neck is without JVD, thyromegaly, or carotid bruits. Lungs are coarse bilaterally prolonged expiratory phase consistent with COPD Cardiac exam, Rhythm is regular.. No murmurs, rubs or gallops. Abdominal exam reveals normal bowel sounds, soft non tender, no masses Extremities are nonedematous and both pedal pulses are present Neurologic exam is alert and oriented, no focal loss of strength or sensation Skin is without bruises or rashes Psychologically is without concerns for anxiety or depression. Results & Data Results & Data ([facility]) Vital Signs (Past 12 Hours) Vital Signs Temp Pulse Pulse Pulse Resp BP BP 10/09/20 04:47 98.4 F 64 16 102/60 10/09/20 02:04 65 10/09/20 00:05 97.5 F L 75 20 10/08/20 23:31 59 L 22 10/08/20 23:30 60 26 H 107/57 L 10/08/20 23:01 61 17 10/08/20 23:00 60 23 112/58 L 10/08/20 22:31 63 23 10/08/20 22:30 65 23 130/69 10/08/20 22:00 66 23 104/52 L 10/08/20 21:39 98.2 F 10/08/20 21:31 66 25 H 10/08/20 21:30 62 24 115/65 10/08/20 21:00 67 24 98/53 L 10/08/20 20:31 68 23 10/08/20 20:30 66 22 106/59 L BP Pulse Ox 10/09/20 04:47 98 10/09/20 02:04 10/09/20 00:05 129/75 93 10/08/20 23:31 94 11/18/20 23:30 94 10/08/20 23:01 94 10/08/20 23:00 93 10/08/20 22:31 93 10/08/20 22:30 92 10/08/20 22:00 95 10/08/20 21:39 10/08/20 21:31 93 10/08/20 21:30 93 10/08/20 21:00 93 10/08/20 20:31 94 10/08/20 20:30 92 PG Care Time/CCT Total # of Minutes Spent Total Time Spent with Patient: Total time spent is greater than 50% in coordination of care (as documented) at patient's floor/unit and/or counseling patient: Coding Level of Care Code 53577 Subseq Hosp Care Lvl 3 Diagnoses Pneumonia due to COVID-19 virus U07.1; J12.89 HTN (hypertension) I10 Hypertension type: essential hypertension Rheumatoid arthritis M06.9 Rheumatoid arthritis location: unspecified site Rheumatoid factor presence: unspecified presence Acute hyponatremia E87.1 COPD (chronic obstructive pulmonary disease) J44.9 COPD type: unspecified COPD Depression F32.9 Depression Type: unspecified (1) Rheumatoid arthritis Rheumatoid arthritis location: unspecified site Rheumatoid factor presence: unspecified presence Qualified Code(s): M06.9 - Rheumatoid arthritis, unspecified (2) Depression Depression Type: unspecified Qualified Code(s): F32.9 - Major depressive disorder, single episode, unspecified (3) COPD (chronic obstructive pulmonary disease) COPD type: unspecified COPD Qualified Code(s): J44.9 - Chronic obstructive pulmonary disease, unspecified (4) HTN (hypertension) Hypertension type: essential hypertension Qualified Code(s): I10 - Essential (primary) hypertension
[2020-10-09] MEDS: ZINC SULFATE 220 MG CAPSULE PO SCH (08:42)
[2020-10-09] MEDS: FLUTICASONE FUROATE 100MCG 14 PUFFS/INHALER INH SCH (08:42)
[2020-10-09] MEDS: UMECLIDINIUM/VILANTEROL 62.5/25MCG 7 PUFFS/INHALER INH SCH (08:42)
[2020-10-09] MEDS: BUMETANIDE 1 MG TAB PO SCH (08:43)
[2020-10-09] MEDS: METOPROLOL TARTRATE 25 MG TAB PO SCH ×2 (08:44→21:16)
[2020-10-09] MEDS: FOLIC ACID 1 MG TAB PO SCH (08:44)
[2020-10-09] MEDS: ENOXAPARIN INJ 40 MG/0.4 ML SYR SQ SCH ×2 (08:45→21:17)
[2020-10-09] MEDS: SERTRALINE HCL 50 MG TABLET PO SCH (08:46)
[2020-10-09] MEDS ORDERED: ZINC SULFATE 220 MG CAPSULE PO SCH (09:00)
[2020-10-09] MEDS ORDERED: HYDROXYCHLOROQUINE SULFATE 200 MG TAB PO SCH (09:00)
[2020-10-09] MEDS ORDERED: DEXAMETHASONE SOD INJ 10 MG/ML VIAL IV SCH (09:00)
[2020-10-09] MEDS ORDERED: REMDESIVIR 200 MG in SODIUM CHLORIDE 0.9% 210 ML IV ONE (12:00)
--- NOTE | 2020-10-09 15:19 | Electrocardiogram Report ---
Test Reason : Blood Pressure : / mmHG Vent. Rate : 076 BPM Atrial Rate : 076 BPM P-R Int : 132 ms QRS Dur : 072 ms QT Int : 396 ms P-R-T Axes : 084 065 070 degrees QTc Int : 445 ms Normal sinus rhythm Possible Left atrial enlargement When compared with ECG of 25-SEP-2017 17:47, No significant change Confirmed by Aston Grayson ([id number]) on 10/09/2020 3:19:28 PM Referred By: REFERRED SELF Confirmed By:Aston Grayson
[2020-10-09] MEDS: SODIUM CHLORIDE 0.9% 10ML FLUSH IV SCH (16:02)
[2020-10-09] MEDS: DEXAMETHASONE SOD PHOSPHATE 6 MG in SYRINGE 0 ML IV SCH (19:52)
[2020-10-10] MEDS: UMECLIDINIUM/VILANTEROL 62.5/25MCG 7 PUFFS/INHALER INH SCH (08:19)
[2020-10-10] MEDS: FLUTICASONE FUROATE 100MCG 14 PUFFS/INHALER INH SCH (08:19)
[2020-10-10] MEDS: ZINC SULFATE 220 MG CAPSULE PO SCH (08:19)
[2020-10-10] MEDS: BUMETANIDE 1 MG TAB PO SCH (08:20)
[2020-10-10] MEDS: METOPROLOL TARTRATE 25 MG TAB PO SCH ×2 (08:20→20:17)
[2020-10-10] MEDS: FOLIC ACID 1 MG TAB PO SCH (08:20)
[2020-10-10] MEDS: DOXYCYCLINE HYCLATE 100 MG CAP PO SCH ×2 (08:21→20:16)
[2020-10-10] MEDS: SERTRALINE HCL 50 MG TABLET PO SCH (08:22)
[2020-10-10] MEDS: ENOXAPARIN INJ 40 MG/0.4 ML SYR SQ SCH ×2 (09:14→20:17)
[2020-10-10] MEDS: FAMOTIDINE 20 MG TAB PO SCH ×2 (09:14→20:18)
[2020-10-10] MEDS: REMDESIVIR 100 MG in SODIUM CHLORIDE 0.9% 230 ML IV SCH (11:55)
[2020-10-10] MEDS: SODIUM CHLORIDE 0.9% 10ML FLUSH IV SCH (12:58)
--- NOTE | 2020-10-10 18:56 | Hospitalist Progress Note ---
Date of Service October 10, 2020 Assessment & Plan (1) Pneumonia due to COVID-19 virus: 70yo C female with severe, O2 dependent COPD, recent Covid-19 diagnosis presenting with productive cough, SOB and hypoxia. Some concern for superimposed bacterial process as well as patient is coughing up thick, green sputum. Patient's saturation of 84% on room air not helpful as she is on home oxygen - she does not worsening SOB and increase in O2 requirement, however. She is currently doing well with adequate oxygenation on 3L. No respiratory distress. Lymphopenic with Lymph=0.92 -Continue supplemental O2 - goal saturation 90% in patient with COPD -Elevated inflammatory markers - Ferritin & Ddimer are elevated Negative procalcitonin -Dexamethasone 6mg IV daily -Convalescent plasma - patient consented in the ER - form placed in chart -Remdesivir started 10/09 -Zinc 220 mg po daily -Pepcid 20mg IV BID -Melatonin qHS -Lovenox 40 BID -Tylenol as needed for fever (2) HTN (hypertension): Blood pressure stable -Continue metoprolol BID (3) Rheumatoid arthritis: Chronic. Stable with no active flare. We will need to hold hydroxychloroquine 200mg po daily for RA while taking remdesivir -Hold methotrexate in the face of acute infection -Continue Folic acid (4) Acute hyponatremia: Hd=162. Has improved but not normalized (5) COPD (chronic obstructive pulmonary disease): Chronic. Concern for exacerbation in setting of active Covid-19 disease -Continue Trelegy inhaler -Albuterol HFA as needed -Supplemental O2 as needed - goal saturation 90% -Dexamethasone as above -Patient on Bumex 1mg po daily for edema, ?cor pulmonale. continue. (6) Depression: Chronic. Stable -Continue Sertraline 75mg po daily F/E/N - Heplock. Hyponatremia as above, K not resulted due to hemolysis, checking Mg and PO4, Regular diet as tolerated Ppx - Lovenox BID Code - Full Dispo - Admit to medical/telemetry Admission and Anticipated Discharge Date Admission Date: October 08, 2020 Subjective Patient is doing well after taking remdesivir. She has increased oxygen demands over her baseline. Evidence of pneumonia on x-ray she did receive convalescent plasma and dexamethasone Review of Systems Review of Systems: Mild distress and fatigue no headache, blurry or double vision no speech or swallowing issues no chest pain, pressure or palpitations Increase shortness of breath over baseline coughing that is loose and productive at times no abdominal pain, nausea or vomiting, diarrhea or constipation no dysuria, hematuria or frequency no focal joint pain or swelling no back pain, CVA tenderness or radicular pain no bruising, bleeding or rashes no focal signs of weakness or numbness or altered sensation no complaints of anxiety or depression. Physical Exam Physical Exam: The patient appeared chronically ill and in mild distress Vital signs as documented. Head exam is normocephalic atraumatic no scleral icterus Neck is without JVD, thyromegaly, or carotid bruits. Lungs are coarse bilaterally prolonged expiratory phase consistent with COPD Cardiac exam, Rhythm is regular.. No murmurs, rubs or gallops. Abdominal exam reveals normal bowel sounds, soft non tender, no masses Extremities are nonedematous and both pedal pulses are present Neurologic exam is alert and oriented, no focal loss of strength or sensation Skin is without bruises or rashes Psychologically is without concerns for anxiety or depression. Results & Data Results & Data ([facility]) Vital Signs (Past 12 Hours) Vital Signs Temp Pulse Pulse Resp BP BP Pulse Ox 10/10/20 15:09 82 10/10/20 12:24 77 92 10/10/20 11:57 98.4 F 16 119/64 10/10/20 08:17 98.4 F 60 16 110/57 L 95 10/10/20 07:36 58 L PG Care Time/CCT Total # of Minutes Spent Total Time Spent with Patient: Total time spent is greater than 50% in coordination of care (as documented) at patient's floor/unit and/or counseling patient: Coding Level of Care Code 24315 Subseq Hosp Care Lvl 3 Diagnoses Pneumonia due to COVID-19 virus U07.1; J12.89 HTN (hypertension) I10 Hypertension type: essential hypertension Rheumatoid arthritis M06.9 Rheumatoid arthritis location: unspecified site Rheumatoid factor presence: unspecified presence Acute hyponatremia E87.1 COPD (chronic obstructive pulmonary disease) J44.9 COPD type: unspecified COPD Depression F32.9 Depression Type: unspecified (1) HTN (hypertension) Hypertension type: essential hypertension Qualified Code(s): I10 - Essential (primary) hypertension (2) Rheumatoid arthritis Rheumatoid arthritis location: unspecified site Rheumatoid factor presence: unspecified presence Qualified Code(s): M06.9 - Rheumatoid arthritis, unspecified (3) COPD (chronic obstructive pulmonary disease) COPD type: unspecified COPD Qualified Code(s): J44.9 - Chronic obstructive pulmonary disease, unspecified (4) Depression Depression Type: unspecified Qualified Code(s): F32.9 - Major depressive disorder, single episode, unspecified
[2020-10-10] MEDS: DEXAMETHASONE SOD PHOSPHATE 6 MG in SYRINGE 0 ML IV SCH (20:16)
[2020-10-10] MEDS: MELATONIN 3 MG TAB PO SCH (20:16)
[2020-10-11 05:54] LABS: Hematocrit (blood only) 35.8 % (37-47); Hemoglobin 11.5 g/dL (12.0-16.0); Mean Corpuscular Hgb Conc 32.1 g/dL (32-36); Mean Corpuscular Volume 96.5 fL (80-100); Platelet Count 239 K/uL (130-400); RDW Coefficient of Variation 13.1 % (11.5-14.5); RDW Standard Deviation 46.1 fL (36.4-46.3); Red Blood Count 3.71 M/uL (4.2-5.4); White Blood Count 5.57 K/uL (4.8-10.8)
[2020-10-11 06:19] LABS: BUN Creatinine Ratio 22.8 (10-20); Calcium 8.1 mg/dl (8.5-10.1); Creatinine Clr Calc Pharmacy 80.9 ml/min; Est GFR (African American) 100.3; Est GFR (Non-African American) 86.6; Potassium 3.7 mmol/L (3.5-5.1)
[2020-10-11] MEDS: FLUTICASONE FUROATE 100MCG 14 PUFFS/INHALER INH SCH (07:56)
[2020-10-11] MEDS: DOXYCYCLINE HYCLATE 100 MG CAP PO SCH ×2 (07:56→21:14)
[2020-10-11] MEDS: UMECLIDINIUM/VILANTEROL 62.5/25MCG 7 PUFFS/INHALER INH SCH (07:56)
[2020-10-11] MEDS: SERTRALINE HCL 50 MG TABLET PO SCH (07:56)
[2020-10-11] MEDS: FAMOTIDINE 20 MG TAB PO SCH ×2 (07:57→21:13)
[2020-10-11] MEDS: METOPROLOL TARTRATE 25 MG TAB PO SCH ×2 (07:57→21:11)
[2020-10-11] MEDS: BUMETANIDE 1 MG TAB PO SCH (07:57)
[2020-10-11] MEDS: ENOXAPARIN INJ 40 MG/0.4 ML SYR SQ SCH ×2 (07:57→21:13)
[2020-10-11] MEDS: ZINC SULFATE 220 MG CAPSULE PO SCH (07:58)
[2020-10-11] MEDS: FOLIC ACID 1 MG TAB PO SCH (07:58)
--- NOTE | 2020-10-11 08:12 | Hospitalist Progress Note ---
Date of Service October 11, 2020 Assessment & Plan (1) Pneumonia due to COVID-19 virus: 70yo C female with severe, O2 dependent COPD, recent Covid-19 diagnosis presenting with productive cough, SOB and hypoxia. Some concern for superimposed bacterial process as well as patient is coughing up thick, green sputum. Patient's saturation of 84% on room air not helpful as she is on home oxygen - she does not worsening SOB and increase in O2 requirement, however. She is currently doing well with adequate oxygenation on 3L. No respiratory distress. Lymphopenic with Lymph=0.92 -Continue supplemental O2 - goal saturation 90% in patient with COPD -Elevated inflammatory markers - Ferritin & Ddimer are elevated Negative procalcitonin -Dexamethasone 6mg IV daily LD 10/18 -Convalescent plasma - patient consented in the ER - form placed in chart -Remdesivir started 10/09-> LD 10/13 -Zinc 220 mg po daily -Pepcid 20mg IV BID -Melatonin qHS -Lovenox 40 BID -Tylenol as needed for fever (2) HTN (hypertension): Blood pressure stable remains on 12.5 metoprolol BID (3) Rheumatoid arthritis: Chronic. Stable with no active flare. We will need to hold hydroxychloroquine 200mg po daily for RA while taking remdesivir -Hold methotrexate in the face of acute infection -Continue Folic acid (4) Acute hyponatremia: Kp=514. Has improved now normalized (5) COPD (chronic obstructive pulmonary disease): Chronic. Not concern for exacerbation in setting of active Covid-19 disease -Continue Trelegy inhaler -Albuterol HFA as needed -Supplemental O2 as needed - goal saturation 90% -Dexamethasone as above -Patient on Bumex 1mg po daily for edema, ?cor pulmonale. continue. (6) Depression: Chronic. Stable -Continue Sertraline 75mg po daily F/E/N - Heplock. Hyponatremia as above, K not resulted due to hemolysis, checking Mg and PO4, Regular diet as tolerated Ppx - Lovenox BID Code - Full Dispo - Admit to medical/telemetry Admission and Anticipated Discharge Date Admission Date: October 08, 2020 Subjective Patient continues to do well after taking remdesivir. She has reduced her oxygen demands to her baseline. Evidence of pneumonia on x-ray she did receive convalescent plasma and dexamethasone Review of Systems Review of Systems: Mild distress and fatigue no headache, blurry or double vision no speech or swallowing issues no chest pain, pressure or palpitations Increase shortness of breath over baseline coughing that is loose and productive at times no abdominal pain, nausea or vomiting, diarrhea or constipation no dysuria, hematuria or frequency no focal joint pain or swelling no back pain, CVA tenderness or radicular pain no bruising, bleeding or rashes no focal signs of weakness or numbness or altered sensation no complaints of anxiety or depression. Physical Exam Physical Exam: The patient appeared chronically ill and in mild distress Vital signs as documented. Head exam is normocephalic atraumatic no scleral icterus Neck is without JVD, thyromegaly, or carotid bruits. Lungs are coarse bilaterally prolonged expiratory phase consistent with COPD Cardiac exam, Rhythm is regular.. No murmurs, rubs or gallops. Abdominal exam reveals normal bowel sounds, soft non tender, no masses Extremities are nonedematous and both pedal pulses are present Neurologic exam is alert and oriented, no focal loss of strength or sensation Skin is without bruises or rashes Psychologically is without concerns for anxiety or depression. Results & Data Results & Data ([facility]) Vital Signs (Past 12 Hours) Vital Signs Temp Pulse Pulse Resp BP Pulse Ox 10/11/20 03:43 98.1 F 65 18 96/51 L 93 10/11/20 00:00 72 10/10/20 23:45 98.2 F 72 22 105/58 L 90 PG Care Time/CCT Total # of Minutes Spent Total Time Spent with Patient: Total time spent is greater than 50% in coordination of care (as documented) at patient's floor/unit and/or counseling patient: Coding Level of Care Code 84870 Subseq Hosp Care Lvl 2 Diagnoses Pneumonia due to COVID-19 virus U07.1; J12.89 HTN (hypertension) I10 Hypertension type: essential hypertension Rheumatoid arthritis M06.9 Rheumatoid arthritis location: unspecified site Rheumatoid factor presence: unspecified presence Acute hyponatremia E87.1 COPD (chronic obstructive pulmonary disease) J44.9 COPD type: unspecified COPD Depression F32.9 Depression Type: unspecified (1) Rheumatoid arthritis Rheumatoid arthritis location: unspecified site Rheumatoid factor presence: unspecified presence Qualified Code(s): M06.9 - Rheumatoid arthritis, unspecified (2) Depression Depression Type: unspecified Qualified Code(s): F32.9 - Major depressive disorder, single episode, unspecified (3) COPD (chronic obstructive pulmonary disease) COPD type: unspecified COPD Qualified Code(s): J44.9 - Chronic obstructive pulmonary disease, unspecified (4) HTN (hypertension) Hypertension type: essential hypertension Qualified Code(s): I10 - Essential (primary) hypertension
[2020-10-11] MEDS ORDERED: metHOTREXate sodium 2.5 MG TAB PO SCH (09:00)
[2020-10-11] MEDS: REMDESIVIR 100 MG in SODIUM CHLORIDE 0.9% 230 ML IV SCH (12:15)
[2020-10-11] MEDS: SODIUM CHLORIDE 0.9% 10ML FLUSH IV SCH (13:44)
[2020-10-11] MEDS: DEXAMETHASONE SOD PHOSPHATE 6 MG in SYRINGE 0 ML IV SCH (17:03)
[2020-10-11] MEDS: MELATONIN 3 MG TAB PO SCH (21:15)
[2020-10-12] MEDS: ENOXAPARIN INJ 40 MG/0.4 ML SYR SQ SCH ×2 (08:17→20:54)
[2020-10-12] MEDS: FLUTICASONE FUROATE 100MCG 14 PUFFS/INHALER INH SCH (08:17)
[2020-10-12] MEDS: UMECLIDINIUM/VILANTEROL 62.5/25MCG 7 PUFFS/INHALER INH SCH (08:17)
[2020-10-12] MEDS: SERTRALINE HCL 50 MG TABLET PO SCH (08:17)
[2020-10-12] MEDS: FOLIC ACID 1 MG TAB PO SCH (08:18)
[2020-10-12] MEDS: DOXYCYCLINE HYCLATE 100 MG CAP PO SCH ×2 (08:18→20:55)
[2020-10-12] MEDS: METOPROLOL TARTRATE 25 MG TAB PO SCH ×2 (08:18→22:41)
[2020-10-12] MEDS: ZINC SULFATE 220 MG CAPSULE PO SCH (08:18)
[2020-10-12] MEDS: BUMETANIDE 1 MG TAB PO SCH (08:18)
[2020-10-12] MEDS: FAMOTIDINE 20 MG TAB PO SCH ×2 (08:18→20:56)
[2020-10-12] MEDS: REMDESIVIR 100 MG in SODIUM CHLORIDE 0.9% 230 ML IV SCH (11:58)
[2020-10-12] MEDS: SODIUM CHLORIDE 0.9% 10ML FLUSH IV SCH (13:28)
--- NOTE | 2020-10-12 15:35 | Hospitalist Progress Note ---
Date of Service October 12, 2020 Assessment & Plan (1) Pneumonia due to COVID-19 virus: 70yo C female with severe, O2 dependent COPD, recent Covid-19 diagnosis presenting with productive cough, SOB and hypoxia. Some concern for superimposed bacterial process as well as patient is coughing up thick, green sputum. Patient's saturation of 84% on room air not helpful as she is on home oxygen - she does not worsening SOB and increase in O2 requirement, however. She is currently doing well with adequate oxygenation on 3L. No respiratory distress. Lymphopenic with Lymph=0.92 -Continue supplemental O2 - goal saturation 90% in patient with COPD -Elevated inflammatory markers - Ferritin & Ddimer are elevated Negative procalcitonin goes against bacterial infection -Dexamethasone 6mg IV daily LD 10/18 -Convalescent plasma - patient consented in the ER - form placed in chart -Remdesivir started 10/09-> LD 10/13 -Zinc 220 mg po daily -Pepcid 20mg IV BID -Melatonin qHS -Lovenox 40 BID -Tylenol as needed for fever (2) HTN (hypertension): Blood pressure stable remains on 12.5 metoprolol BID (3) Rheumatoid arthritis: Chronic. Stable with no active flare. We will need to hold hydroxychloroquine 200mg po daily for RA while taking remdesivir -Hold methotrexate in the face of acute infection -Continue Folic acid (4) Acute hyponatremia: Nm=401. Has improved now normalized (5) COPD (chronic obstructive pulmonary disease): Chronic. Not concern for exacerbation in setting of active Covid-19 disease -Continue Trelegy inhaler -Albuterol HFA as needed -Supplemental O2 as needed - goal saturation 90% -Dexamethasone as above -Patient on Bumex 1mg po daily for edema, ?cor pulmonale. continue. (6) Depression: Chronic. Stable -Continue Sertraline 75mg po daily F/E/N - Heplock. Hyponatremia as above, K not resulted due to hemolysis, checking Mg and PO4, Regular diet as tolerated Ppx - Lovenox BID Code - Full Dispo - Admit to medical/telemetry Admission and Anticipated Discharge Date Admission Date: October 08, 2020 Subjective Patient continues to do well after taking remdesivir. She has reduced her oxygen demands to her baseline. Evidence of pneumonia on x-ray suspected to be viral she did receive convalescent plasma and dexamethasone Review of Systems Review of Systems: Mild distress and fatigue no headache, blurry or double vision no speech or swallowing issues no chest pain, pressure or palpitations Increase shortness of breath over baseline coughing that is loose and productive at times no abdominal pain, nausea or vomiting, diarrhea or constipation no dysuria, hematuria or frequency no focal joint pain or swelling no back pain, CVA tenderness or radicular pain no bruising, bleeding or rashes no focal signs of weakness or numbness or altered sensation no complaints of anxiety or depression. Physical Exam Physical Exam: The patient appeared chronically ill and in mild distress Vital signs as documented. Head exam is normocephalic atraumatic no scleral icterus Neck is without JVD, thyromegaly, or carotid bruits. Lungs are coarse bilaterally prolonged expiratory phase consistent with COPD Cardiac exam, Rhythm is regular.. No murmurs, rubs or gallops. Abdominal exam reveals normal bowel sounds, soft non tender, no masses Extremities are nonedematous and both pedal pulses are present Neurologic exam is alert and oriented, no focal loss of strength or sensation Skin is without bruises or rashes Psychologically is without concerns for anxiety or depression. Results & Data Results & Data ([facility]) Vital Signs (Past 12 Hours) Vital Signs Temp Pulse Pulse Resp BP BP Pulse Ox 10/12/20 15:09 57 L 10/12/20 15:03 101.3 F H 60 20 122/68 96 10/12/20 12:33 97.5 F L 59 L 20 113/70 90 10/12/20 07:24 97.7 F 55 L 18 117/64 95 10/12/20 04:00 97.7 F 59 L 18 112/68 97 PG Care Time/CCT Total # of Minutes Spent Total Time Spent with Patient: Total time spent is greater than 50% in coordination of care (as documented) at patient's floor/unit and/or counseling patient: Coding Level of Care Code 90387 Subseq Hosp Care Lvl 2 Diagnoses Pneumonia due to COVID-19 virus U07.1; J12.89 HTN (hypertension) I10 Hypertension type: essential hypertension Rheumatoid arthritis M06.9 Rheumatoid arthritis location: unspecified site Rheumatoid factor presence: unspecified presence Acute hyponatremia E87.1 COPD (chronic obstructive pulmonary disease) J44.9 COPD type: unspecified COPD Depression F32.9 Depression Type: unspecified (1) HTN (hypertension) Hypertension type: essential hypertension Qualified Code(s): I10 - Essential (primary) hypertension (2) Rheumatoid arthritis Rheumatoid arthritis location: unspecified site Rheumatoid factor presence: unspecified presence Qualified Code(s): M06.9 - Rheumatoid arthritis, unspecified (3) COPD (chronic obstructive pulmonary disease) COPD type: unspecified COPD Qualified Code(s): J44.9 - Chronic obstructive pulmonary disease, unspecified (4) Depression Depression Type: unspecified Qualified Code(s): F32.9 - Major depressive disorder, single episode, unspecified
[2020-10-12] MEDS: DEXAMETHASONE SOD PHOSPHATE 6 MG in SYRINGE 0 ML IV SCH (16:12)
[2020-10-12] MEDS: MELATONIN 3 MG TAB PO SCH (21:06)
[2020-10-13 06:46] LABS: Hematocrit (blood only) 36.6 % (37-47); Hemoglobin 11.8 g/dL (12.0-16.0); Mean Corpuscular Hemoglobin 31.1 pg (25-34); Mean Corpuscular Hgb Conc 32.2 g/dL (32-36); Mean Corpuscular Volume 96.3 fL (80-100); Mean Platelet Volume 10.1 fL (7.4-10.4); Platelet Count 301 K/uL (130-400); RDW Standard Deviation 45.3 fL (36.4-46.3); White Blood Count 5.97 K/uL (4.8-10.8)
[2020-10-13 07:11] LABS: BUN Creatinine Ratio 31.2 (10-20); Calcium 8.3 mg/dl (8.5-10.1); Creatinine Clr Calc Pharmacy 92.9 ml/min; Est GFR (African American) 104.4; Est GFR (Non-African American) 90.1; Potassium 3.5 mmol/L (3.5-5.1)
[2020-10-13] MEDS: ENOXAPARIN INJ 40 MG/0.4 ML SYR SQ SCH (08:19)
[2020-10-13] MEDS: FLUTICASONE FUROATE 100MCG 14 PUFFS/INHALER INH SCH (08:19)
[2020-10-13] MEDS: UMECLIDINIUM/VILANTEROL 62.5/25MCG 7 PUFFS/INHALER INH SCH (08:19)
[2020-10-13] MEDS: FAMOTIDINE 20 MG TAB PO SCH (08:20)
[2020-10-13] MEDS: ZINC SULFATE 220 MG CAPSULE PO SCH (08:20)
[2020-10-13] MEDS: SERTRALINE HCL 50 MG TABLET PO SCH (08:20)
[2020-10-13] MEDS: METOPROLOL TARTRATE 25 MG TAB PO SCH (08:20)
[2020-10-13] MEDS: BUMETANIDE 1 MG TAB PO SCH (08:20)
[2020-10-13] MEDS: DOXYCYCLINE HYCLATE 100 MG CAP PO SCH (08:20)
[2020-10-13] MEDS: FOLIC ACID 1 MG TAB PO SCH (08:21)
[2020-10-13] MEDS: REMDESIVIR 100 MG in SODIUM CHLORIDE 0.9% 230 ML IV SCH (12:05)
[2020-10-13] MEDS: SODIUM CHLORIDE 0.9% 10ML FLUSH IV SCH (13:20)
--- NOTE | 2020-10-13 13:51 | Discharge Summary ---
Date of Service October 13, 2020 Admission HPI Per Admitting Provider Bharati Kenney is a 70yo C female with history of severe, O2 dependent COPD (PFTs on 02/19/19 with FEV1 35% predicted, patient uses 2L O2 qHS, with exertion and PRN), RA on MTX/Hydroxychloroquine, HTN. She has been having flu-like symptoms for the last 8 days. Found to be positive for SARS-CoV-2 virus three days ago. She has fevers, chills, body aches, loss of taste and smell as well as watery diarrhea. Cough over the last two days productive for thick, green sputum. She has been feeling short of breath and has been wearing her O2 constantly over the last 2 days. Patient febrile on arrival, HD stable. Tachypneic to 30bpm, saturating 84% on room air. Oxygenation improved with nasal cannula, currently 93% on 3L ER course: Tylenol, Dexamethasone Principal Diagnosis COVID 19 pneumonia Discharge Exam Constitutional WD/WN, vitals as above Neck trachea midline, no thyromegaly Respiratory normal respiratory effort, lungs clear to auscultation Cardiovascular RRR, no murmur, no edema Gastrointestinal (Abdomen) normal bowel sounds, soft, nontender, no hepatosplenomegaly Musculoskeletal no cyanosis or clubbing, extremities motor strength 5/5 Skin no rashes, warm and dry Neurologic patellar DTR's 2+ bilat, sensation intact and PERRL, EOMI, accommodation nl, no face palsy, no dysarthria Psychiatric A+Ox3, euthymic affect Lymphatic no cervical or axillary lymphadenopathy Discharge Data Allergies Allergy/AdvReac Type Severity Reaction Status Date / Time No Known Drug Allergies Allergy Unknown . Verified 10/08/20 21:26 Consultations 10/08/20 20:02 ED Decision to Admit Stat Hospital Course (1) Pneumonia due to COVID-19 virus: 70yo C female with severe, O2 dependent COPD, recent Covid-19 diagnosis presenting with productive cough, SOB and hypoxia. Some concern for superimposed bacterial process as well as patient is coughing up thick, green sp utum. Patient's saturation of 84% on room air not helpful as she is on home oxygen - she does not worsening SOB and increase in O2 requirement, however. She is currently doing well with adequate oxygenation on 3L. No respiratory distress. Lymphopenic with Lymph=0.92 responded well to treatment completed 5 days of Remdesivir continue on Dexamethasone, several more days needed instructed to remain in quarantine until 10/19 (2) HTN (hypertension): Blood pressure stable remains on 12.5 metoprolol BID (3) Rheumatoid arthritis: Chronic. Stable with no active flare. resume hydroxychloroquine 200mg po daily for RA can resume Methotrexate next week -Continue Folic acid (4) Acute hyponatremia: most likely due to poor solute intake Has improved now normalized (5) COPD (chronic obstructive pulmonary disease): Chronic. Not concern for exacerbation in setting of active Covid-19 disease -Continue Trelegy inhaler -Albuterol HFA as needed -Supplemental O2 as needed - goal saturation 90% -Dexamethasone as above -Patient on Bumex 1mg po daily for edema (6) Depression: Chronic. Stable -Continue Sertraline 75mg po daily F/E/N - Heplock. Hyponatremia as above, K not resulted due to hemolysis, checking Mg and PO4, Regular diet as tolerated Ppx - Lovenox BID Code - Full discharge to home Total Time Total Time Spent Total Time Spent (In Minutes): 33 minutes Total Time Includes: Examination of the Patient, Discharge Planning and Medication Reconciliation Discharge Plan Discharge Items Patient Disposition: Home - Self-Care Reason For Visit: COV + PNA, HYPOXIA Discharge Diagnosis: Acute hypoxic respiratory failure COVID 19 pneumonia Condition on Discharge: Good Goals: stay well rested and well hydrated, well nourished Activity: Resume your previous activity Activity Comment: stay in quarantine until 10/19 Exercise/Sports: Gradually increase as tolerated Weightbearing: Full weightbearing Non-emergency contact: Primary Care Provider Call non-emergency contact if: you have any medication questions, your symptoms worsen and you have a fever Follow-up/Referrals: Demetris Gonzalez MD [Primary Care Provider] - (The office will call you with a follow up appt date and time ) Diet: Heart Healthy Addtl Attending Provider Instructions: Medications: - DEXAMETHASONE: continue to take 6mg daily for several more days, script sent, this will complete 10 days total therapy COVID 19 pneumonia with acute hypoxic respiratory failure much improved over past several days completed Remdesivir today, need several more days of dexamethasone I recommend that you remain in quarantine until 10/19, this would be 14 days from beginning of your symptoms if you have family visit I recommend that you and family wear a mask, maintain 6 feet separation most of the time and keep visits brief for their safety continue on the oxygen 2L at all times, use your finger pulse oximeter, if your oxygen levels are above 90% on room air then you don't have to wear the oxygen Pending Studies at Discharge: No Stand-Alone Forms: My [facility], Smoking Cessation Medications and DC Order Prescriptions: Continued folic acid 1 mg tablet 2 mg PO DAILY Qty: 180 RF: 3 sertraline 50 mg tablet 75 mg PO DAILY Qty: 135 RF: 1 metoprolol tartrate 25 mg tablet 12.5 mg PO BID Qty: 90 RF: 3 albuterol sulfate 2.5 mg /3 mL (0.083 %) solution for nebulization 2.5 mg INH Q4H PRN (Reason: shortness of breath or wheezing) Qty: 540 RF: 0 Trelegy Ellipta 100-62.5-25 mcg blister with device 1 puffs INH DAILY Qty: 90 RF: 3 rmzvhxydbbxb-lsipixbc-mwytub tablet 1 tab PO DAILY RF: 0 bumetanide 1 mg tablet 1 mg PO DAILY Qty: 90 RF: 0 hydroxychloroquine 200 mg tablet 200 mg PO DAILY Qty: 90 RF: 0 methotrexate sodium 2.5 mg tablet 15 mg PO WEEKLY Qty: 39 RF: 0 albuterol sulfate 90 mcg/actuation HFA aerosol inhaler 1 - 2 puffs inhalation Q4H PRN (Reason: shortness of breath) Qty: 51 RF: 0 prednisone 5 mg tablet 5 mg PO DAILY PRN (Reason: flare ups) RF: 0 Discharge Orders: Discharge Order (Routine); Ordered 10/13/20 Ordered By: Brown Cardoza Admission Data Admit Date/Time: 10/08/20 20:55 Attending Provider: Brown Cardoza Admit Provider: Aminah Herrmann Primary Care Provider: Demetris Gonzalez Other Providers: Aminah Herrmann Other Interventions: Discharge Summary Assessment (RN) Last Done: 10/13/20 13:54 Coding Level of Care Code D/C Day Management >30 mins Diagnoses Pneumonia due to COVID-19 virus U07.1; J12.89 HTN (hypertension) I10 Hypertension type: essential hypertension Rheumatoid arthritis M06.9 Rheumatoid arthritis location: unspecified site Rheumatoid factor presence: unspecified presence Acute hyponatremia E87.1 COPD (chronic obstructive pulmonary disease) J44.9 COPD type: unspecified COPD Depression F32.9 Depression Type: unspecified
== END 2020-10-13 15:33 | disposition home or self-care (01) | DRG 177 ==
LOC: ED 17:41 → SUATTDRO 20:55 → 2N 23:48 → SUATTDRO 10-09

== ENCOUNTER 2021-04-03 12:51 | Inpatient (IN) ==
--- NOTE | 2021-03-31 10:08 | Anesthesiology Consultation ---
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 Verified 03/30/21 12:42 Medications Home Medications Medication Instructions Recorded Confirmed Last Taken hlquvjpqammn-xpfcpsml-ywunqw tablet 1 tab PO DAILY 08/17/19 03/30/21 Unknown albuterol sulfate 2.5 mg INH Q4H PRN #540 ml 08/22/19 03/30/21 Unknown albuterol sulfate 90 mcg/actuation 1 - 2 puffs INHALATION Q4H PRN #51 09/27/19 03/30/21 Unknown aerosol inhaler gm bumetanide 1 mg tablet 1 mg PO QAM #90 tab 09/27/19 03/30/21 Unknown hydroxychloroquine 200 mg tablet 200 mg PO BID #90 tab 09/27/19 03/30/21 Unknown methotrexate sodium 2.5 mg tablet 20 mg PO WEEKLY #39 tab 09/27/19 03/30/21 Unknown metoprolol tartrate 25 mg tablet 12.5 mg PO BID #90 tab 09/30/20 03/30/21 Unknown prednisone 5 mg PO DAILY PRN 10/08/20 03/30/21 Unknown cholecalciferol (vitamin D3) 125 mcg PO QAM 03/30/21 03/30/21 Unknown [Vitamin D3] crxupjpcejs-jnmepjggp-lbzuirsq 1 inh INH QAM 03/30/21 03/30/21 Unknown [Trelegy Ellipta] folic acid 2 mg PO QAM 03/30/21 03/30/21 Unknown sertraline 75 mg PO QAM 03/30/21 03/30/21 Unknown Past Medical History Medical History Basal cell carcinoma of chest Chronic steroid use Congestive heart failure COPD (chronic obstructive pulmonary disease) Cor pulmonale (chronic) History of COVID-09 October 2020. hospitalized at [facility] for 5 days. symptoms included fever, difficulty standing, hallucinations/brain fog, sob & loss of taste/smell. no current symptoms. History of Holter monitoring current holter monitor prescribed by Dr Alston "to monitor for a stroke" HTN (hypertension) Hx of colonic polyps Lung nodule monitoring Nocturnal hypoxemia On home oxygen therapy lpm via n/c HS AIRAM (obstructive sleep apnea) no sleep study done. Pneumonia due to COVID-19 virus Pulmonary hypertension hx Rheumatoid arthritis Tricuspid regurgitation Venous insufficiency Past Family History Family History Brother Coronary heart disease Father Cardiomegaly Hypertension Stroke Other No family history of adverse response to anesthesia Denies family history of Ovarian cancer Prostate cancer Myocardial infarction Breast cancer Lung cancer Colorectal cancer Past Surgical History Surgical History H/O arthroscopic knee surgery left knee H/O colonoscopy History of bilateral tubal ligation History of cataract surgery bilateral Social History Smoking Status: Former smoker tobacco type: cigarettes Do You Dip or Chew Tobacco: No Smoking End Date: 2014 Hx Alcohol Use: No Hx Substance Use: No substance use type: does not use Testing Laboratory Results Laboratory Tests 10/01/19 10/08/20 10/13/20 15:18 18:10 06:28 WBC 5.97 Hgb 11.8 L Hct 36.6 L Plt Count 301 PT 10.9 INR 1.0 APTT 26.8 Sodium Potassium Chloride Carbon Dioxide BUN Creatinine Glucose TSH 1.990 10/13/20 06:28 WBC Hgb Hct Plt Count PT INR APTT Sodium 141 Potassium 3.5 Chloride 102 Carbon Dioxide 38 H BUN 19 H Creatinine 0.62 Glucose 89 TSH Electrocardiogram Date: 10/08/20 Findings: + NSR @ (HR 76) Echocardiogram Date: 11/05/19 EF: 55-59% LV Function: normal Other Findings: + diastolic dysfunction (grade 1) Valvular Disease: + no significant valvular disease
--- NOTE | 2021-04-03 15:01 | History & Physical Report ---
Date of Service April 03, 2021 Assessment & Plan (1) Encounter for pre-operative examination: Patient was explained in detail regarding risks, benefits, limitations and alternatives of the above endoscopic procedure. Risks of intravenous sedation used for procedure were also explained. Risks include, but not limited to perforation, bleeding, infection, respiratory distress, cardiac arrest and . Patient is also aware about the possibility of missed lesion. Patient's questions were answered. The patient verbalized understanding the information and agreed to undergo the procedure. History of Present Illness Primary Care Provider: Demetris Gonzalez MD Colonoscopy for diarrhea Allergies Allergy/AdvReac Type Severity Reaction Status Date / Time No Known Drug Allergies Allergy Unknown . Verified 04/03/21 13:33 Home Medications Medication Instructions Recorded Confirmed Type vjyseeclyrtm-xpehefjg-wmzmry tablet 1 tab PO DAILY 08/17/19 04/03/21 History albuterol sulfate 2.5 mg INH Q4H PRN #540 ml 08/22/19 04/03/21 Rx albuterol sulfate 90 mcg/actuation 1 - 2 puffs INHALATION Q4H PRN #51 09/27/19 04/03/21 History aerosol inhaler gm bumetanide 1 mg tablet 1 mg PO QAM #90 tab 09/27/19 04/03/21 History hydroxychloroquine 200 mg tablet 200 mg PO BID #90 tab 09/27/19 04/03/21 History methotrexate sodium 2.5 mg tablet 20 mg PO WEEKLY #39 tab 09/27/19 04/03/21 History metoprolol tartrate 25 mg tablet 12.5 mg PO BID #90 tab 09/30/20 04/03/21 Rx prednisone 5 mg PO DAILY PRN 10/08/20 04/03/21 History cholecalciferol (vitamin D3) 125 mcg PO QAM 03/30/21 04/03/21 History [Vitamin D3] jotxqkoqkde-ofmkxxgcr-opmpovhp 1 inh INH QAM 03/30/21 04/03/21 History [Trelegy Ellipta] folic acid 2 mg PO QAM 03/30/21 04/03/21 History sertraline 75 mg PO QAM 03/30/21 04/03/21 History Past Med/Surg History Medical History Basal cell carcinoma of chest Chronic steroid use Congestive heart failure COPD (chronic obstructive pulmonary disease) Cor pulmonale (chronic) History of COVID-09 October 2020. hospitalized at [facility] for 5 days. symptoms included fever, difficulty standing, hallucinations/brain fog, sob & loss of taste/smell. no current symptoms. History of Holter monitoring current holter monitor prescribed by Dr Alston "to monitor for a stroke" HTN (hypertension) Hx of colonic polyps Lung nodule monitoring Nocturnal hypoxemia On home oxygen therapy lpm via n/c HS AIRAM (obstructive sleep apnea) no sleep study done. Pneumonia due to COVID-19 virus Pulmonary hypertension hx Rheumatoid arthritis Tricuspid regurgitation Venous insufficiency Surgical History H/O arthroscopic knee surgery left knee H/O colonoscopy History of bilateral tubal ligation History of cataract surgery bilateral Family History Brother Coronary heart disease Father Cardiomegaly Hypertension Stroke Other No family history of adverse response to anesthesia Denies family history of Ovarian cancer Prostate cancer Myocardial infarction Breast cancer Lung cancer Colorectal cancer Social History Smoking Status: Former smoker Tobacco Type: Cigarettes Age Started Using Tobacco: 23; packs per day: 1; Years Smoked: 43; Smoking End Date: 2014; Second Hand Exposure: Yes (hx); Do You Dip or Chew Tobacco: No; Tobacco Cessation Education Requested by Patient: No Hx Alcohol Use: No Hx Substance Use: No Preferred Language: Occitan Communication Ability: Effective Visual Impairment: No Limitations Hearing Ability: Normal Proof Technician Helper Required: No Beliefs That Will Affect Care: None marital status: / Current Living Situation: Alone current occupational status: retired Other Information That Helps Us Care for You: No Feels Safe at Home: Yes Safety Concerns: Feels Safe At This Time Childhood Exposure to Second-Hand Smoke: No Diet Comment: regular caffeine: Yes (coffee) during the past year weight has: other Dental Care, Regularly: Yes Physical Activity Frequency: 3-4 Times per Week Physical Activity Frequency Comment: walk Seatbelt Use: always Sunscreen Use: Yes Assistive Devices: Denture - Upper, Denture - Lower, Glasses and Oxygen - at Night Review of Systems All systems reviewed & are unremarkable except as noted in HPI & below Physical Exam Constitutional: comfortable; no acute distress Respiratory: normal respiratory effort, lungs clear to auscultation Cardiovascular: RRR, no murmur, no edema Gastrointestinal (Abdomen): normal bowel sounds, soft, nontender, no hepatosplenomegaly Results & Data ([facility]) Vital Signs (Past 12 Hours) Vital Signs Temp Pulse Resp BP Pulse Ox 04/03/21 13:38 37.4 C 73 20 118/89 97
[2021-04-03] MEDS ORDERED: LIDOCAINE 2% 2 ML VIAL/AMP(20MG/ML) INFIL ONE ×2 (16:07→18:26)
[2021-04-03] MEDS ORDERED: PROPOFOL IV EMULSION 10 MG/ML 20 ML VIAL IV ONE ×2 (16:07→18:26)
--- NOTE | 2021-04-03 17:02 | GI REPORT ---
Patient Name: Bharati Kenney Procedure Date: 04/03/2021 3:17 PM Date of : 1950 Admit Type: Outpatient Age: 70 Gender: Female Attending MD: Fabiana Munroe MD Procedure: Colonoscopy Providers: Fabiana Munroe MD Referring MD: Demetris Gonzalez Indications: Change in bowel habits Medicines: Propofol per Anesthesia Complications: No immediate complications. Estimated Blood Loss: Estimated blood loss: none. Procedure: Pre-Anesthesia Assessment: - Prior to the procedure, a History and Physical was performed, and patient medications, allergies and sensitivities were reviewed. The patient's tolerance of previous anesthesia was reviewed. - The risks and benefits of the procedure and the sedation options and risks were discussed with the patient. All questions were answered and informed consent was obtained. - Patient identification and proposed procedure were verified prior to the procedure by the physician and the nurse. The procedure was verified in the procedure room. - Pre-procedure physical examination revealed no contraindications to sedation. After I obtained informed consent, the scope was passed under direct vision. Throughout the procedure, the patient's blood pressure, pulse, and oxygen saturations were monitored continuously. The scope was introduced through the anus with the intention of advancing to the cecum. The scope was advanced to the ascending colon before the procedure was aborted. Medications were given. The colonoscopy was technically difficult and complex due to bowel stenosis and restricted mobility of the colon. The patient tolerated the procedure well. The quality of the bowel preparation was fair. Findings: The perianal and digital rectal examinations were normal. Restricted colon mobility due to a benign-appearing, intrinsic severe diverticular related stenosis was found in the sigmoid colon and at 20 cm proximal to the anus and was traversed. This could not be traversed with adult or pediatrics colonoscope. The adult gastroscope was then used and after extensive maneuvering was able to pass that area. There was upstream colonic dilation and liquid fecal retention. Scattered small and large-mouthed diverticula were found in the sigmoid colon. Normal mucosa was found in the entire colon. Biopsies for histology were taken with a cold forceps for evaluation of microscopic colitis. Verification of patient identification for the specimen was done by the physician and nurse using the patient's name and date. The pathology specimen was placed into Bottle A. 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 - Normal mucosa in the entire examined colon. Biopsied. Recommendation: - Discharge patient to home. - Await pathology results. - Refer to a colorectal surgeon. - Return to referring physician. Fabiana Munroe MD 04/03/2021 5:01:34 PM This report has been signed electronically. Note Initiated On: 04/03/2021 3:17 PM Number of Addenda: 0 I attest to the content of the Intraoperative Record and orders documented therein, exceptions below {[id number]}
--- NOTE | 2021-04-03 17:18 | Anesthesiology Progress Note ---
Date of Service April 03, 2021 Anesthesia Post Procedure Vital Signs Vital Signs: Temp Pulse Resp BP Pulse Ox 04/03/21 17:01 74 20 142/81 H 98 04/03/21 16:46 74 20 124/60 98 04/03/21 13:38 37.4 C 73 20 118/89 97 Transfer of Care Handoff Completed per policy Notes Mental Status: alert / awake / arousable and participated in evaluation Patient Amnestic to Procedure: Yes Nausea / Vomiting: adequately controlled Pain: adequately controlled Airway Patency, RR, SpO2: stable & adequate BP & HR: stable & adequate Hydration State: stable & adequate Anesthetic Complications: no major complications apparent
--- NOTE | 2021-04-03 17:49 | XRay Report ---
KUB CLINICAL HISTORY: colon stricture, check for trapped gas COMPARISON STUDY: None. FINDINGS: Sensitivity for detection of free air is diminished on this supine exam but there is no karen dence for free air on this exam. Mild gaseous distention of the transverse colon is noted. Inferior p eliud was not included on this exam. IMPRESSION: No free air identified although sensitivity decreased on this supine exam. If indicated, an upright abdominal radiograph could be obtained. ACT 112: Negative or not required by law. Electronically signed by: Nabeel Clancy M.D. 04/03/2021 5:47 PM
[2021-04-03] MEDS ORDERED: PIPERACILL/TAZOBAC CONSULT ACTIVE PRN ×2 (17:56→22:28)
--- NOTE | 2021-04-03 17:59 | XRay Report ---
KUB CLINICAL HISTORY: colonic distention. Evaluate for perforation. COMPARISON STUDY: KUB April 03, 2021 at 5:19 PM. FINDINGS: Note is made of lucency under the hemidiaphragms consistent with small to moderate pneumope ritoneum. Device projects over the left chest. IMPRESSION: Small to moderate pneumoperitoneum suggestive of a perforated hollow viscus. Findings di scussed with Dr. Munroe at time of dictation. ACT 112: Negative or not required by law. Electronically signed by: Nabeel Clancy M.D. 04/03/2021 5:57 PM
--- NOTE | 2021-04-03 18:05 | Gastroenterology Progress Note ---
Date of Service April 03, 2021 Subjective Patient underwent colonoscopy today for change in bowel habit, the colonoscopy was extremely difficult due to severe diverticular stenosis in the sigmoid colon which could be eventually passed with a small size adult gastroscope. Post procedure patient has mild abdominal distension with 5/10 abdominal pain, KUB showed air under the diaphragm. She may have leak from the stricture or one of the surrounding diverticulate. Will consult surgery for possible sigmoid resection. Discussed with patient and her daughter at bedside. Results & Data ([facility]) Vital Signs (Past 12 Hours) Vital Signs Temp Pulse Resp BP Pulse Ox 04/03/21 17:28 69 20 136/83 95 04/03/21 17:16 71 20 111/60 96 04/03/21 17:01 74 20 142/81 H 98 04/03/21 16:46 74 20 124/60 98 04/03/21 13:38 37.4 C 73 20 118/89 97
[2021-04-03] MEDS: PIPERACILLIN/TAZOBACTAM 3.375 GM in DEXTROSE 5% 100 ML IV ONE ×2 (18:14→22:32)
[2021-04-03] MEDS ORDERED: ONDANSETRON INJ 2 MG/ML 2 ML VIAL ONE (18:26)
[2021-04-03] MEDS ORDERED: DEXAMETHASONE SOD INJ 4 MG/ML VIAL ONE (18:26)
[2021-04-03] MEDS ORDERED: NEOSTIGMINE METHYLSULFATE 5 MG/5 ML SYR ONE (18:26)
[2021-04-03] MEDS ORDERED: GLYCOPYRROLATE 0.2 MG/ML VIAL ONE (18:26)
[2021-04-03] MEDS ORDERED: MIDAZOLAM HCL 1 MG/ML 2ML VIAL ONE ×2 (18:27→21:25)
[2021-04-03] MEDS ORDERED: fentaNYL citrate 100 MCG/2 ML VIAL ONE (18:27)
--- NOTE | 2021-04-03 19:04 | Anesthesiology Consultation ---
Date of Service April 03, 2021 Assessment & Plan Chart Review Chart Review: Acceptable Risk for Surgery Consults Requested none History Surgery Operation Date: 04/03/21 13:45 Proposed Procedures p Colonoscopy Dr Munroe - Fabiana Munroe MD Operation Date: 04/03/21 18:15 Proposed Procedures p Exploratory Laparotomy - Lavelle José DO Height/Weight Height: 5 ft 7 in Weight: 88.7 kg Allergies Allergy/AdvReac Type Severity Reaction Status Date / Time No Known Drug Allergies Allergy Unknown . Verified 04/03/21 13:33 Medications Home Medications Medication Instructions Recorded Confirmed Last Taken gdudfpjllrbx-vvmexdyy-mfseib tablet 1 tab PO DAILY 08/17/19 04/03/21 04/02/21 albuterol sulfate 2.5 mg INH Q4H PRN #540 ml 08/22/19 04/03/21 03/20/21 albuterol sulfate 90 mcg/actuation 1 - 2 puffs INHALATION Q4H PRN #51 09/27/19 04/03/21 02/01/21 aerosol inhaler gm bumetanide 1 mg tablet 1 mg PO QAM #90 tab 09/27/19 04/03/21 04/02/21 hydroxychloroquine 200 mg tablet 200 mg PO BID #90 tab 09/27/19 04/03/21 04/03/21 methotrexate sodium 2.5 mg tablet 20 mg PO WEEKLY #39 tab 09/27/19 04/03/21 03/28/21 metoprolol tartrate 25 mg tablet 12.5 mg PO BID #90 tab 09/30/20 04/03/21 04/03/21 prednisone 5 mg PO DAILY PRN 10/08/20 04/03/21 Unknown Trelegy Ellipta 1 inh INH QAM 03/30/21 04/03/21 04/03/21 08:00 cholecalciferol (vitamin D3) 125 mcg PO QAM 03/30/21 04/03/21 04/02/21 [Vitamin D3] folic acid 2 mg PO QAM 03/30/21 04/03/21 04/02/21 sertraline 75 mg PO QAM 03/30/21 04/03/21 04/03/21 NPO Date Last Intake of Fluids: 04/03/21 Time Last Intake of Fluids: 08:00 Date Last Intake of Solids: 04/01/21 Time Last Intake of Solids: 20:00 Past Medical History Medical History Basal cell carcinoma of chest Chronic steroid use Congestive heart failure COPD (chronic obstructive pulmonary disease) Cor pulmonale (chronic) History of COVID-09 October 2020. hospitalized at [facility] for 5 days. symptoms included fever, difficulty standing, hallucinations/brain fog, sob & loss of taste/smell. no current symptoms. History of Holter monitoring current holter monitor prescribed by Dr Alston "to monitor for a stroke" HTN (hypertension) Hx of colonic polyps Lung nodule monitoring Nocturnal hypoxemia On home oxygen therapy lpm via n/c HS AIRAM (obstructive sleep apnea) no sleep study done. Pneumonia due to COVID-19 virus Pulmonary hypertension hx Rheumatoid arthritis Tricuspid regurgitation Venous insufficiency Past Family History Family History Brother Coronary heart disease Father Cardiomegaly Hypertension Stroke Other No family history of adverse response to anesthesia Denies family history of Ovarian cancer Prostate cancer Myocardial infarction Breast cancer Lung cancer Colorectal cancer Past Surgical History Surgical History H/O arthroscopic knee surgery left knee H/O colonoscopy History of bilateral tubal ligation History of cataract surgery bilateral Social History Smoking Status: Former smoker tobacco type: cigarettes Do You Dip or Chew Tobacco: No Smoking End Date: 2014 Hx Alcohol Use: No Hx Substance Use: No substance use type: does not use Physical Exam Vital Signs Last Vital Signs Temp 36.1 C L 04/03/21 18:37 Pulse 65 04/03/21 18:37 Resp 20 04/03/21 18:37 BP 111/60 04/03/21 18:37 Pulse Ox 95 04/03/21 18:37
--- NOTE | 2021-04-03 19:06 | History & Physical Report ---
Date of Service April 03, 2021 Assessment & Plan (1) Large bowel perforation: -CXR revealed free air and patient has peritoneal signs on exam -Will proceed with exploratory laparotomy, possible bowel resection, possible ostomy -Consent obtained, risks discussed including bleeding, infection, anastomotic leak, abscess, hernia formation -Will plan on resection of the diseased area with anastomosis but she may need diversion due to her chronic steroid and RA meds History of Present Illness Chief Complaint: Abdominal pain Primary Care Provider: Demetris Gonzalez MD This is a 70 yo female who is seen urgently at the request of GI in the endoscopy suite. She was undergoing a colonoscopy and developed abdominal pain after the procedure. She currently has 5/10 abdominal pain, generalized, worse with palpation, no relieving factors, no radiation. She denies any N/V. She is on chronic steroids, methotrexate and hydroxychloroquine for RA. No blood thinners. Allergies Allergy/AdvReac Type Severity Reaction Status Date / Time No Known Drug Allergies Allergy Unknown . Verified 04/03/21 13:33 Home Medications Medication Instructions Recorded Confirmed Type uppbnasytlxf-csmolgaj-hfbnxq tablet 1 tab PO DAILY 08/17/19 04/03/21 History albuterol sulfate 2.5 mg INH Q4H PRN #540 ml 08/22/19 04/03/21 Rx albuterol sulfate 90 mcg/actuation 1 - 2 puffs INHALATION Q4H PRN #51 09/27/19 04/03/21 History aerosol inhaler gm bumetanide 1 mg tablet 1 mg PO QAM #90 tab 09/27/19 04/03/21 History hydroxychloroquine 200 mg tablet 200 mg PO BID #90 tab 09/27/19 04/03/21 History methotrexate sodium 2.5 mg tablet 20 mg PO WEEKLY #39 tab 09/27/19 04/03/21 History metoprolol tartrate 25 mg tablet 12.5 mg PO BID #90 tab 09/30/20 04/03/21 Rx prednisone 5 mg PO DAILY PRN 10/08/20 04/03/21 History Trelegy Ellipta 1 inh INH QAM 03/30/21 04/03/21 History cholecalciferol (vitamin D3) 125 mcg PO QAM 03/30/21 04/03/21 History [Vitamin D3] folic acid 2 mg PO QAM 03/30/21 04/03/21 History sertraline 75 mg PO QAM 03/30/21 04/03/21 History Past Med/Surg History Medical History Basal cell carcinoma of chest Chronic steroid use Congestive heart failure COPD (chronic obstructive pulmonary disease) Cor pulmonale (chronic) History of COVID-09 October 2020. hospitalized at [facility] for 5 days. symptoms included fever, difficulty standing, hallucinations/brain fog, sob & loss of taste/smell. no current symptoms. History of Holter monitoring current holter monitor prescribed by Dr Alston "to monitor for a stroke" HTN (hypertension) Hx of colonic polyps Lung nodule monitoring Nocturnal hypoxemia On home oxygen therapy lpm via n/c HS AIRAM (obstructive sleep apnea) no sleep study done. Pneumonia due to COVID-19 virus Pulmonary hypertension hx Rheumatoid arthritis Tricuspid regurgitation Venous insufficiency Surgical History H/O arthroscopic knee surgery left knee H/O colonoscopy History of bilateral tubal ligation History of cataract surgery bilateral Family History Brother Coronary heart disease Father Cardiomegaly Hypertension Stroke Other No family history of adverse response to anesthesia Denies family history of Ovarian cancer Prostate cancer Myocardial infarction Breast cancer Lung cancer Colorectal cancer Social History Smoking Status: Former smoker Tobacco Type: Cigarettes Age Started Using Tobacco: 23; packs per day: 1; Years Smoked: 43; Smoking End Date: 2014; Second Hand Exposure: Yes (hx); Do You Dip or Chew Tobacco: No; Tobacco Cessation Education Requested by Patient: No Hx Alcohol Use: No Hx Substance Use: No Preferred Language: Grenadian Communication Ability: Effective Visual Impairment: No Limitations Hearing Ability: Normal Sponge Clipper Required: No Beliefs That Will Affect Care: None marital status: / Current Living Situation: Alone current occupational status: retired Other Information That Helps Us Care for You: No Feels Safe at Home: Yes Safety Concerns: Feels Safe At This Time Childhood Exposure to Second-Hand Smoke: No Diet Comment: regular caffeine: Yes (coffee) during the past year weight has: other Dental Care, Regularly: Yes Physical Activity Frequency: 3-4 Times per Week Physical Activity Frequency Comment: walk Seatbelt Use: always Sunscreen Use: Yes Assistive Devices: Denture - Upper, Denture - Lower, Glasses and Oxygen - at Night Review of Systems Review of Systems: All systems reviewed & are unremarkable except as noted in HPI & below Physical Exam Constitutional: well developed, well nourished and + obese Eyes: PERRL, conjunctivae normal, anicteric sclerae ENMT: external ear and nose normal, oropharynx normal Neck: trachea midline, no thyromegaly Respiratory: normal respiratory effort, lungs clear to auscultation Cardiovascular: RRR, no murmur, no edema Gastrointestinal (Abdomen): Inspection/Auscultation: + abdomen distended Percussion/Palpation: + abdomen tender (generalized), + guarding and abdomen soft; abdomen not rigid Musculoskeletal: no cyanosis or clubbing, extremities motor strength 5/5 Skin: no rashes, warm and dry Neurologic: PERRL, EOMI, accommodation nl, no face palsy, no dysarthria Psychiatric: A+Ox3, euthymic affect Results & Data Results & Data ([facility]) Vital Signs (Past 12 Hours) Vital Signs Temp Pulse Resp BP Pulse Ox 04/03/21 18:37 36.1 C L 65 20 111/60 95 04/03/21 17:28 69 20 136/83 95 04/03/21 17:16 71 20 111/60 96 04/03/21 17:01 74 20 142/81 H 98 04/03/21 16:46 74 20 124/60 98 04/03/21 13:38 37.4 C 73 20 118/89 97 PG Care Time/CCT Total # of Minutes Spent Total Time Spent with Patient: Total time spent is greater than 50% in coordina tion of care (as documented) at patient's floor/unit and/or counseling patient: Coding Level of Care Code 60539 Initial Inpt Care Lvl 3 Diagnoses Large bowel perforation K63.1
[2021-04-03] MEDS ORDERED: METOCLOPRAMIDE HCL INJ 5 MG/ML 2 ML VIAL IV PRN (19:11)
[2021-04-03] MEDS ORDERED: ATROPINE SULFATE 0.1 MG/ML 10ML SYR IV PRN (19:11)
[2021-04-03] MEDS ORDERED: HYDROmorphone INJ 2 MG/ML SYR/VIAL IV PRN (19:11)
[2021-04-03] MEDS ORDERED: ONDANSETRON INJ 2 MG/ML 2 ML VIAL IV PRN ×2 (19:11→22:28)
[2021-04-03] MEDS ORDERED: PROMETHAZINE HCL 12.5 MG in SODIUM CHLORIDE 0.9% 50 ML IV PRN (19:11)
[2021-04-03] MEDS ORDERED: fentaNYL citrate 100 MCG/2 ML VIAL IV PRN (19:11)
[2021-04-03] MEDS ORDERED: ePHEDrine sulfate 50 MG/ML AMP IV PRN (19:11)
[2021-04-03 19:29] LABS: Hematocrit (blood only) 41.3 % (37-47); Hemoglobin 13.5 g/dL (12.0-16.0); Mean Corpuscular Hemoglobin 31.4 pg (25-34); Mean Platelet Volume 9.7 fL (7.4-10.4); Platelet Count 376 K/uL (130-400); RDW Coefficient of Variation 13.8 % (11.5-14.5); RDW Standard Deviation 48.1 fL (36.4-46.3); White Blood Count 9.36 K/uL (4.8-10.8)
[2021-04-03 19:31] LABS: Mean Corpuscular Hgb Conc 32.7 g/dL (32-36)
[2021-04-03 19:46] LABS: BUN Creatinine Ratio 16.9 (10-20); Creatinine Clr Calc Pharmacy 78.6 ml/min; Est GFR (African American) 93.8 ml/min; Est GFR (Non-African American) 80.9 ml/min; Potassium 3.6 mmol/L (3.5-5.1)
[2021-04-03] MEDS ORDERED: HYDROmorphone INJ 2 MG/ML SYR/VIAL ONE (21:25)
[2021-04-03] MEDS ORDERED: MoRPHine SULFATE PF 1 MG/ML 10 ML AMP/VIAL ONE (21:29)
--- NOTE | 2021-04-03 22:09 | Post Operative Brief Note ---
PG Immediate Post Op with CF Date of Surgery April 03, 2021 Pre & Post Diagnosis Operation Date: 04/03/21 18:15 Pre-Op Diagnosis: Large bowel perforation Post-Op Diagnosis: Cecal perforation I identified the patient and participated in the time-out.: Yes Procedure Operation Date: 04/03/21 18:15 Actual Procedures p Exploratory Laparotomy, Partial Omentectomy, Right Hemicolectomy with Ileocolonic Anastomosis(Not Applicable) - Lavelle José DO Surgeon Lavelle José DO Astronautical Engineer Fredo Anderson PA-C Estimated Blood Loss 50 Findings See Below 2cm Cecal perforation Fluids 2200mL Crystalloid Specimens Specimen Description: A. Right Colon B. Omentum Drains Nichole Catheter and Angel Drain (Midline Abdomen, 1/2") Anesthesia Type General Complications none Disposition Disposition: Recovery Room
[2021-04-03] MEDS ORDERED: ALBUTEROL 0.083% NEBU SOLN 3 ML VIAL INH PRN (22:28)
[2021-04-03] MEDS ORDERED: MoRPHine SULFATE 4 MG/ML 1 ML CARP\\VIAL IV PRN (22:28)
[2021-04-03] MEDS ORDERED: PROPOFOL BOLUS FROM BAG IV PRN (22:32)
[2021-04-03] MEDS ORDERED: ICU PROTOCOL FOR HYPERGLYCEMIA PRN (22:32)
[2021-04-03] MEDS ORDERED: STAT IV Infusion **Titration per Protocol STA (22:32)
--- NOTE | 2021-04-03 22:32 | Operative Report ---
PG Post Operative Report Pre & Post Diagnosis Operation Date: 04/03/21 18:15 Pre-Op Diagnosis: Large bowel perforation Post-Op Diagnosis: Cecal perforation I identified the patient and participated in the time-out.: Yes Procedure Operation Date: 04/03/21 18:15 Actual Procedures p Exploratory Laparotomy, Partial omentectomy, Right Hemicolectomy with Ile ocolonic Anastomosis(Not Applicable) - Lavelle José DO Surgeon Lavelle José DO Spare Hand Fredo Anderson PA-C Estimated Blood Loss 50 Findings See Below 2cm cecal perforation with fecal contamination Fluids 2200mL crystalloid Specimens Right colon and omentum to pathology Drains None Anesthesia Type General Complications none Disposition Disposition: Recovery Room Indications 70 yo female with free intraperitoneal air s/p colonoscopy Description of Procedure The patient was brought to the OR and placed in the supine position with both arms abducted. At this time she underwent general endotracheal anesthesia without any problems. She was given appropriate pre-operative antibiotics. Her abdomen was prepped and draped in the usual sterile fashion. Timeout was called. The procedure was verified as Exploratory laparotomy, possible bowel resection, possible ostomy. Surgical, anesthesia and nursing teams agreed and the procedure was begun. A standard lower midline incision was made using a #10 blade scalpel. This was carried down to the fascia using electrocautery. The midline fascia was then incised with electrocautery. The peritoneum was then entered bluntly. The incision was then opened up through its entirety. There was immediate murky brown fluid found and suctioned. At this point the small bowel was eviscerated and ran from the ligament of Treitz to the cecum and was normal. There was no ischemic changes noted. The bowel was of normal caliber. The contamination was coming from a 2cm perforation from the cecum. There was fecal spillage initially, but this was controlled using a Joshua clamp. The entire anterior portion of the cecum had ischemic changes. I then made the decision to proceed with a right hemicolectomy. The right colon was mobilized laterally along the white line of Toldt using sharp dissection. The hepatic flexure was then mobilized. The duodenum was visualized swept downwards and protected. At this time using a HENRI 60mm purple load stapler the ileum was transected about 10cm proximal to the ileocecal valve. The middle colic vessels were identified and preserved. The colon was then transected using a HENRI 60mm purple load stapler just proximal to the middle colic vessels. The mesentery was then transected using Ligasure device. The specimen was passed off. Next a side to side stapled anastomosis was fashioned using a HENRI 60 mm purple load stapler to form the common channel. Next the enterotomy was closed using a [id number] purple load as well. The staple line was then oversewn in a Lembert fashion using 3-0 silk suture. The anastomosis was free of tension, had excellent blood supply and widely patent. The resulting mesenteric defect was closed using a 2-0 Vicryl suture in a running fashion. The bowel was then placed back into the abdomen. At this point the abdomen was then irrigated until clear with multiple liters of warm saline. Hemostasis was achieved using electrocautery. Hemostasis was complete. The fascia was then closed in a running fashion using 2 #1 looped PDS suture starting superiorly and inferiorly and meeting in the middle. Skin was closed with saman over a Angel drain. Sterile dressing was applied. All needle and sponge counts were correct x 2. At this point the patient was awakened from anesthesia, and transported to PACU in stable condition. The physician's wet process assistant head miller was present and scrubbed for the entirety of the case. He was critical in positioning the patient, prepping and draping, retraction and exposure, closure of the incision and placement of the dressings. I attest to the content of the Intraoperative Record and any orders documented therein. Any exceptions are noted below.
[2021-04-03] MEDS ORDERED: fentaNYL DRIP 1,250 MCG/250 ML BAG IV SCH (22:45)
--- NOTE | 2021-04-03 22:45 | Critical Care Consultation ---
Date of Consultation April 03, 2021 Assessment & Plan (1) Admitted to intensive care unit: Reason Critically Ill: 70-year-old female with large bowel perforation who is status post exploratory laparotomy with partial lobectomy and RIGHT hemicolectomy with ileocolonic anastomosis requiring ongoing ventilator management status post surgical intervention. NEURO - * CAM ICU: Unable to assess secondary to level of sedation * Sedation: Propofol * Pain: Fentanyl CARDIAC/VASCULAR - * Hypertension: * Hold current home medications currently while requiring multiple drips. * Monitor on telemetry. RESPIRATORY - * Ventilator management: * Unfortunately, the patient has extensive underlying lung disease including COPD, cor pulmonale, obstructive sleep apnea, nocturnal hypoxia, and chronic respiratory failure. * Given the extent of the patient's surgical intervention and likely tenuous status over the next several hours, agree with keeping the patient intubated and sedated. * Will titrate down ventilator settings as tolerated. * ABGs as needed. * Continue with home inhalers as needed. * Chest x-ray without infiltrative findings. GI/NUTRITION - * Large bowel perforation: * Status post ex lap with hemicolectomy and ileocecal anastomosis. * Reported spillage of GI contents. * Hopefully source control achieved status post surgical intervention. * Extensive abdominal washout performed. * Currently covered with Zosyn. Please see ID * NGT in place to LIS * Continue per general surgery recommendations. * Prophylaxis: Famotidine RENAL/LYTES - * No significant electrolyte derangements noted. * Monitor urine output closely status post extensive abdominal surgery. * Fluid boluses as needed. Anticipate ongoing fluid shifting. * IVF: LR at 125 mL's per hour. - * Nichole in place - Strict I&Os. ENDO - * No history of diabetes or thyroid disease. * BSGs per unit protocol. ISS --> gtt per unit policy. HEME - * Stable H&H. ID - * Large bowel perforation with feculent spillage into abdominal cavity. * Agree with broad-spectrum antibiotics to include anaerobic coverage. * Continue with Zosyn. * Patient chronically immunosuppressed with history of RA as well as mixed connective tissue disease. Patient on methotrexate and utilizes steroids as well. * Given the level of likely underlying immunosuppression, will cover her aggressively with antifungals in the setting of GI contamination. * Received first dose of caspofungin. * Thankfully, patient without overt symptoms of sepsis. Would obtain systemic blood cultures in the event of development of fever or other signs/symptoms of bacteremia. LINES/IV ACCESS - * PIVs x2 * ET tube * NG tube * ARIE drain * Nichole catheter DVT PROPHYLAXIS - * Will hold pending general surgery recommendation. * SCDs CODE STATUS - * Spoke with patient's daughter, Mallory Jimenez ([phone]). FULL CODE per our conversation. Mallory gives verbal consent for any/all life saving procedures including CVL and a-line placement. I have personally spent 45 minutes of critical care time in the direct management of this patient. This is a life/limb threatening event. This includes time spent evaluating patient, direct bedside care, chart review, placing orders, interpretation of diagnostic studies, discussion with consultants, patient, and family members, as well as other required patient management activities. This time is exclusive of all separately billable procedures, and teaching time and separate from and in addition to any other critical care service time. Thank you for allowing us to participate in the care of this patient. Please refer to my attending physician's documentation for any further recommendations. (2) Large bowel perforation: (3) Immunosuppression due to drug therapy: (4) Mixed connective tissue disease: (5) Chronic respiratory failure: (6) Nocturnal hypoxemia: (7) AIRAM (obstructive sleep apnea): (8) Cor pulmonale (chronic): (9) HTN (hypertension): (10) Rheumatoid arthritis: (11) COPD (chronic obstructive pulmonary disease): History of Present Illness Attending Physician: Fabiana Munroe MD History of Present Illness Patient is a 70-year-old female with a significant past medical history of COPD, cor pulmonale, obstructive sleep apnea, nocturnal hypoxia, chronic respiratory failure, hypertension, rheumatoid arthritis, and mixed connective tissue disease. Patient underwent outpatient colonoscopy today. This was complicated by large bowel perforation. Patient was taken emergently to the operating room where she underwent exploratory laparotomy, partial omentectomy, and right hemic olectomy with ileal cecal anastomosis. Reported large amounts of feculent material noted in the intra-abdominal cavity. Patient had extensive abdominal washout status post repair of bowel. Patient remains intubated status post intervention where she is transported to the ICU for ongoing management. Upon arrival in the ICU, the patient is intubated and sedated. She is unable to contribute to history of present illness. Allergies Allergy/AdvReac Type Severity Reaction Status Date / Time No Known Drug Allergies Allergy Unknown . Verified 04/03/21 13:33 Home Medications Medication Instructions Recorded Confirmed Type uwzsysxpxkdm-[id number]-wwcqsw tablet 1 tab PO DAILY 08/17/19 04/03/21 History albuterol sulfate 2.5 mg INH Q4H PRN #540 ml 08/22/19 04/03/21 Rx albuterol sulfate 90 mcg/actuation 1 - 2 puffs INHALATION Q4H PRN #51 09/27/19 04/03/21 History aerosol inhaler gm bumetanide 1 mg tablet 1 mg PO QAM #90 tab 09/27/19 04/03/21 History hydroxychloroquine 200 mg tablet 200 mg PO BID #90 tab 09/27/19 04/03/21 History methotrexate sodium 2.5 mg tablet 20 mg PO WEEKLY #39 tab 09/27/19 04/03/21 History metoprolol tartrate 25 mg tablet 12.5 mg PO BID #90 tab 09/30/20 04/03/21 Rx prednisone 5 mg PO DAILY PRN 10/08/20 04/03/21 History Trelegy Ellipta 1 inh INH QAM 03/30/21 04/03/21 History cholecalciferol (vitamin D3) 125 mcg PO QAM 03/30/21 04/03/21 History [Vitamin D3] folic acid 2 mg PO QAM 03/30/21 04/03/21 History sertraline 75 mg PO QAM 03/30/21 04/03/21 History Patient History Medical History Basal cell carcinoma of chest Chronic steroid use Congestive heart failure COPD (chronic obstructive pulmonary disease) Cor pulmonale (chronic) History of COVID-09 October 2020. hospitalized at [facility] for 5 days. symptoms included fever, difficulty standing, hallucinations/brain fog, sob & loss of taste/smell. no current symptoms. History of Holter monitoring current holter monitor prescribed by Dr Alston "to monitor for a stroke" HTN (hypertension) Hx of colonic polyps Lung nodule monitoring Nocturnal hypoxemia On home oxygen therapy lpm via n/c HS AIRAM (obstructive sleep apnea) no sleep study done. Pneumonia due to COVID-19 virus Pulmonary hypertension hx Rheumatoid arthritis Tricuspid regurgitation Venous insufficiency Surgical History H/O arthroscopic knee surgery left knee H/O colonoscopy History of bilateral tubal ligation History of cataract surgery bilateral Family History Brother Coronary heart disease Father Cardiomegaly Hypertension Stroke Other No family history of adverse response to anesthesia Denies family history of Ovarian cancer Prostate cancer Myocardial infarction Breast cancer Lung cancer Colorectal cancer Social History Smoking Status: Unknown if ever smoked Tobacco Type: Cigarettes Age Started Using Tobacco: 23; packs per day: 1; Years Smoked: 45; Smoking End Date: 2014; Second Hand Exposure: Yes (hx); Tobacco Cessation Education Requested by Patient: No Hx Substance Use: No Preferred Language: Urdu Communication Ability: Effective Visual Impairment: No Limitations Hearing Ability: Normal Funeral Location Manager Required: No Beliefs That Will Affect Care: None marital status: / Current Living Situation: Alone current occupational status: retired Other Information That Helps Us Care for You: No Feels Safe at Home: Yes Safety Concerns: Feels Safe At This Time Childhood Exposure to Second-Hand Smoke: No Diet Comment: regular caffeine: Yes (coffee) during the past year weight has: other Dental Care, Regularly: Yes Physical Activity Frequency: 3-4 Times per Week Physical Activity Frequency Comment: walk Seatbelt Use: always Sunscreen Use: Yes Assistive Devices: Denture - Upper, Denture - Lower, Glasses and Oxygen - at Night Review of Systems Review of Systems: Unobtainable due to endotracheal tube and Unobtainable due to reduced consciousness Physical Exam Physical Exam: VITAL SIGNS - Vital signs and nursing notes were reviewed. GENERAL - 70-year-old female appearing her stated age who is in no acute distress. Intubated and sedated. HEAD - NC/AT. EYES - PERRL bilaterally. Sclera anicteric. EARS - No deformities of external structures noted on gross examination bilaterally. NOSE - Midline and without cyanosis. No epistaxis or purulent drainage noted. NGT in place. MOUTH/OROPHARYNX - Without perioral cyanosis. ET Tube in place. Buccal mucosa pink and moist and without leukoplakia. NECK - Neck with FROM. Supple to palpation. No nuchal rigidity. LUNGS - Chest wall symmetric without accessory muscle use, intercostals retractions, or central cyanosis. Distant breath sounds noted. CARDIAC - RRR with S1/S2. No murmur, rubs, or gallops appreciated. ABDOMEN - Abdominal contour obese without pulsations or visible masses. Midline incision dressing clean, dry, and intact. No bowel sounds appreciated. EXTREMITIES - No clubbing or peripheral cyanosis. No pretibial edema present. +3/5 radial and dorsalis pedis pulses palpated throughout. NEUROLOGIC - No focal neurological deficits noted. Unable to fully assess secondary to level of sedation. Results & Data Results & Data ([facility]) Vital Signs (Past 12 Hours) Vital Signs Temp Pulse Pulse Resp BP BP Pulse Ox 04/03/21 22:41 98 H 18 94 04/03/21 22:27 37.4 C 104 H 132/82 93 04/03/21 22:25 37.4 C 104 H 139/85 96 04/03/21 22:22 37.3 C 102 H 139/85 97 04/03/21 22:20 102 H 140/84 100 04/03/21 22:17 37.6 C H 101 H 143/85 H 100 04/03/21 22:07 95 H 18 136/79 04/03/21 18:37 36.1 C L 65 20 111/60 95 04/03/21 17:28 69 20 136/83 95 04/03/21 17:16 71 20 111/60 96 04/03/21 17:01 74 20 142/81 H 98 04/03/21 16:46 74 20 124/60 98 04/03/21 13:38 37.4 C 73 20 118/89 97 Coding Level of Care Code Critical Care 1st 30-74 mins Diagnoses Admitted to intensive care unit Z78.9 Large bowel perforation K63.1 Immunosuppression due to drug therapy Z79.899 Mixed connective tissue disease M35.1 Chronic respiratory failure J96.10 Nocturnal hypoxemia G47.34 AIRAM (obstructive sleep apnea) G47.33 Cor pulmonale (chronic) I27.81 HTN (hypertension) I10 Hypertension type: essential hypertension Rheumatoid arthritis M06.9 Rheumatoid arthritis location: unspecified site Rheumatoid factor presence: unspecified presence COPD (chronic obstructive pulmonary disease) J44.9 COPD type: unspecified COPD Time Spent (min) 45 (1) Rheumatoid arthritis Rheumatoid arthritis location: unspecified site Rheumatoid factor presence: unspecified presence Qualified Code(s): M06.9 - Rheumatoid arthritis, unspecified (2) COPD (chronic obstructive pulmonary disease) COPD type: unspecified COPD Qualified Code(s): J44.9 - Chronic obstructive pulmonary disease, unspecified (3) HTN (hypertension) Hypertension type: essential hypertension Qualified Code(s): I10 - Essential (primary) hypertension
[2021-04-03] MEDS ORDERED: CASPOFUNGIN 70 MG in SODIUM CHLORIDE 0.9% 250 ML IV ONE (23:00)
--- NOTE | 2021-04-03 23:01 | Anesthesiology Progress Note ---
Date of Service April 03, 2021 Anesthesia Post Procedure Vital Signs Vital Signs: Temp Pulse Pulse Pulse Resp BP BP 04/03/21 22:41 98 H 18 04/03/21 22:34 37.5 C 103 H 22 129/76 04/03/21 22:27 37.4 C 104 H 132/82 04/03/21 22:25 37.4 C 104 H 139/85 04/03/21 22:22 37.3 C 102 H 139/85 04/03/21 22:20 102 H 140/84 04/03/21 22:17 37.6 C H 101 H 143/85 H 04/03/21 22:07 95 H 18 136/79 04/03/21 18:37 36.1 C L 65 20 111/60 04/03/21 17:28 69 20 136/83 04/03/21 17:16 71 20 111/60 04/03/21 17:01 74 20 142/81 H 04/03/21 16:46 74 20 124/60 04/03/21 13:38 37.4 C 73 20 118/89 Pulse Ox 04/03/21 22:41 94 04/03/21 22:34 92 04/03/21 22:27 93 04/03/21 22:25 96 04/03/21 22:22 97 04/03/21 22:20 100 04/03/21 22:17 100 04/03/21 22:07 04/03/21 18:37 95 04/03/21 17:28 95 04/03/21 17:16 96 04/03/21 17:01 98 04/03/21 16:46 98 04/03/21 13:38 97 Transfer of Care Handoff Completed per policy Notes Patient Amnestic to Procedure: Yes Nausea / Vomiting: adequately controlled Pain: adequately controlled Airway Patency, RR, SpO2: stable & adequate BP & HR: stable & adequate Hydration State: stable & adequate Anesthetic Complications: no major complications apparent Notes: Pt had exploratory laparotomy for perforated bowel. Intraoperatively, SaO2 fell from high 90's to 80% despite increasing FiO2 to 100%. No rales were audible on auscultation but suspected possible pulmonary vascular congestion in pt with CHF by history. 2 two liters of crystalloid had infused intraoperatively. Furosemide 20 mg IV plus morphine 10 mg IV was given. Diuresis ensued. SaO2 improved to 90's by end of case. Pt not emerged. Discussed need for post-op vent with SICU staff. Transported to SICU with 100% O2 Ambu-bag, ECG, NIBP, SaO2 monitored and stable during transport. Report given. CXR Pending
[2021-04-03] MEDS: propofoL 1,000 MG/100 ML VIAL IV SCH (23:07)
[2021-04-03] MEDS: PIPERACILLIN/TAZOBACTAM 4.5 GM in DEXTROSE 5% 100 ML IV SCH (23:07)
[2021-04-03] MEDS: ACETAMINOPHEN 1,000 MG/100 ML VIAL IV SCH (23:07)
[2021-04-03] MEDS: FAMOTIDINE 20 MG in SYRINGE 3 ML IV SCH (23:07)
[2021-04-03] MEDS: LACTATED RINGER'S 1,000 ML IV SCH (23:08)
[2021-04-03 23:31] LABS: Hemoglobin 16.3 g/dL (12.0-16.0)
[2021-04-03 23:49] LABS: BUN Creatinine Ratio 17.1 (10-20); Bilirubin Direct 0.8 mg/dl (0-0.2); Calcium 8.8 mg/dl (8.5-10.1); Creatinine Clr Calc Pharmacy 80.8 ml/min; Est GFR (Non-African American) 83.7 ml/min; Magnesium 2.2 mg/dl (1.8-2.4); Potassium 3.7 mmol/L (3.5-5.1)
[2021-04-03 23:52] LABS: Bilirubin,Total 1.3 mg/dl (0.2-1); Phosphorus 3.6 mg/dl (2.5-4.9); Total Protein 7.5 gm/dl (6.4-8.2)
[2021-04-04 04:10] LABS: iSTAT Arterial Blood Gas HCO3 24 meg/L (19-24); iSTAT Arterial Blood Gas pCO2 32 mmHg (35-46); iSTAT Arterial Blood Gas pH 7.48 (7.35-7.45); iSTAT Arterial Blood Gas pO2 78 mmHg (80-95); iSTAT Carbon Dioxide 25 mmol/L (24-31); iSTAT Hematocrit 38 % (37-47); iSTAT Hemoglobin 12.9 g/dl (12.0-16.0); iSTAT Potassium 3.4 mmol/L (3.3-5.0); iSTAT Sodium 134 mmol/L (135-144)
[2021-04-04 04:57] LABS: Hematocrit (blood only) 42.3 % (37-47); Hemoglobin 13.7 g/dL (12.0-16.0); Mean Corpuscular Volume 95.7 fL (80-100); Mean Platelet Volume 9.7 fL (7.4-10.4); Platelet Count 364 K/uL (130-400); RDW Coefficient of Variation 13.8 % (11.5-14.5); RDW Standard Deviation 48.1 fL (36.4-46.3); Red Blood Count 4.42 M/uL (4.2-5.4); White Blood Count 5.88 K/uL (4.8-10.8)
[2021-04-04 05:22] LABS: Eosinophils # (auto) 0.01 K/uL (0-0.5); Eosinophils % (auto) 0.2 %; Immature Granulocytes # (auto) 0.03 K/uL (0.00-0.02); Immature Granulocytes % (auto) 0.5 %; Lymphocytes # (auto) 0.48 K/uL (1.2-3.4); Lymphocytes % (auto) 8.2 %; Mean Corpuscular Hgb Conc 32.4 g/dL (32-36); Monocytes # (auto) 0.43 K/uL (0.11-0.59); Monocytes % (auto) 7.3 %; Neutrophils # (auto) 4.93 K/uL (1.4-6.5); Neutrophils % (auto) 83.8 %; Toxic Vacuolation 1+
[2021-04-04 05:23] LABS: Albumin Level 2.2 gm/dl (3.4-5.0); BUN Creatinine Ratio 15.9 (10-20); Bilirubin Direct 0.7 mg/dl (0-0.2); Bilirubin,Total 1.1 mg/dl (0.2-1); Calcium 7.2 mg/dl (8.5-10.1); Creatinine Clr Calc Pharmacy 68.4 ml/min; Est GFR (African American) 79.3 ml/min; Est GFR (Non-African American) 68.5 ml/min; Magnesium 1.8 mg/dl (1.8-2.4); Phosphorus 3.4 mg/dl (2.5-4.9); Potassium 3.7 mmol/L (3.5-5.1); Total Protein 5.7 gm/dl (6.4-8.2)
[2021-04-04] MEDS: ACETAMINOPHEN 1,000 MG/100 ML VIAL IV SCH ×3 (06:19→21:04)
[2021-04-04] MEDS: propofoL 1,000 MG/100 ML VIAL IV SCH (07:09)
--- NOTE | 2021-04-04 07:30 | XRay Report ---
XR chest 1V portable CLINICAL HISTORY: Respiratory failure COMPARISON STUDY: 10/08/2020 FINDINGS: There is an endotracheal tube 6 cm above the kaley. There is an enteric tube which passes into the stomach. The cardiac and mediastinal contours remain stable. No pneumothorax is visualized. There are no significant pleural effusions. There are linear left basilar opacities likely atelectati c. Electronic device projects over the left upper chest wall.[ IMPRESSION: 1. Enteric tube which passes into the stomach 2. Endotracheal tube 6 cm above the kaley ACT 112: Negative or not required by law. Electronically signed by: Hemanth Hernandez M.D. 04/04/2021 7:29 AM
--- NOTE | 2021-04-04 07:34 | Surgery Progress Note ---
Date of Service April 04, 2021 Assessment & Plan (1) Large bowel perforation: Postop day #1 right hemicolectomy Vent management as directed by the ICU team We will keep the patient n.p.o. while on vent and once extubated until return of bowel function is noted Continue analgesics Provide antiemetics if needed Once extubated mobilize as able and encourage use of incentive spirometer SCDs are in place for DVT prevention. We will consider adding subcutaneous heparin or Lovenox. Admission and Anticipated Discharge Date Admission Date: April 03, 2021 Subjective Patient has remained on ventilator overnight. She is currently awake and responding appropriately to commands. Discussed with maintenance supervisor 2nd shift RN and no issues have been identified overnight. Physical Exam Neck: trachea midline Respiratory: Breath sounds are present bilaterally Cardiovascular: Rate/Rhythm: regular rate and regular rhythm Gastrointestinal (Abdomen): Abdomen is mildly distended. Bowel sounds are hypoactive. Neurologic: Patient can follow simple commands and move all 4 extremities Results & Data ([facility]) Vital Signs (Past 12 Hours) Vital Signs Temp Pulse Pulse Pulse Resp BP BP 04/04/21 06:00 37.1 C 78 04/04/21 05:47 37.1 C 80 110/73 04/04/21 05:32 37.2 C 81 114/69 04/04/21 05:17 37.2 C 80 113/67 04/04/21 05:02 37.2 C 79 107/68 04/04/21 05:00 37.2 C 79 04/04/21 04:47 37.3 C 79 102/67 04/04/21 04:32 37.3 C 81 102/62 04/04/21 04:17 37.3 C 81 109/74 04/04/21 04:02 37.3 C 80 111/69 04/04/21 04:00 37.3 C 81 04/04/21 03:47 37.3 C 80 103/70 04/04/21 03:32 37.3 C 82 108/73 04/04/21 03:25 81 18 04/04/21 03:17 37.3 C 83 111/69 04/04/21 03:02 37.3 C 83 101/70 04/04/21 03:00 37.3 C 84 04/04/21 02:47 37.4 C 84 104/72 04/04/21 02:32 37.4 C 86 108/72 04/04/21 02:17 37.4 C 85 103/71 04/04/21 02:02 37.5 C 86 106/72 04/04/21 02:00 37.5 C 86 04/04/21 01:46 37.5 C 86 111/71 04/04/21 01:31 37.5 C 85 104/73 04/04/21 01:16 37.6 C H 87 102/73 04/04/21 01:01 37.7 C H 89 112/70 04/04/21 01:00 37.7 C H 89 04/04/21 00:46 37.7 C H 91 H 105/72 04/04/21 00:31 37.8 C H 91 H 107/72 04/04/21 00:16 37.8 C H 91 H 101/73 04/04/21 00:01 37.9 C H 92 H 102/69 04/04/21 00:00 37.9 C H 91 H 04/03/21 23:47 37.9 C H 90 106/04/03/21 23:45 37.9 C H 88 04/03/21 23:32 37.9 C H 90 108/69 04/03/21 23:30 37.9 C H 90 04/03/21 23:19 37.9 C H 91 H 121/04/03/21 23:15 37.8 C H 93 H 04/03/21 23:01 37.7 C H 95 H 04/03/21 22:59 37.7 C H 94 H 04/03/21 22:55 37.7 C H 90 126/71 04/03/21 22:52 37.6 C H 96 H 119/73 04/03/21 22:50 37.6 C H 96 H 122/75 04/03/21 22:47 37.6 C H 98 H 114/89 04/03/21 22:45 37.5 C 98 H 131/75 04/03/21 22:42 37.5 C 98 H 121/76 04/03/21 22:41 98 H 18 04/03/21 22:40 37.5 C 100 H 134/77 04/03/21 22:37 37.5 C 102 H 127/75 04/03/21 22:35 37.5 C 102 H 129/76 04/03/21 22:34 37.5 C 103 H 22 129/76 04/03/21 22:33 04/03/21 22:32 37.4 C 104 H 134/77 04/03/21 22:30 37.4 C 105 H 136/80 04/03/21 22:27 37.4 C 104 H 132/82 04/03/21 22:25 37.4 C 104 H 139/85 04/03/21 22:22 37.3 C 102 H 139/85 04/03/21 22:20 102 H 140/84 04/03/21 22:17 37.6 C H 101 H 143/85 H 04/03/21 22:07 95 H 18 136/79 Pulse Ox Pulse Ox 04/04/21 06:00 97 04/04/21 05:47 98 04/04/21 05:32 99 04/04/21 05:17 97 04/04/21 05:02 97 04/04/21 05:00 98 04/04/21 04:47 98 04/04/21 04:32 98 04/04/21 04:17 99 04/04/21 04:02 97 04/04/21 04:00 97 04/04/21 03:47 97 04/04/21 03:32 97 04/04/21 03:25 97 04/04/21 03:17 100 04/04/21 03:02 100 04/04/21 03:00 100 04/04/21 02:47 100 04/04/21 02:32 100 04/04/21 02:17 100 04/04/21 02:02 100 04/04/21 02:00 04/04/21 01:46 100 04/04/21 01:31 100 04/04/21 01:16 100 04/04/21 01:01 04/04/21 01:00 04/04/21 00:46 93 04/04/21 00:31 92 04/04/21 00:16 92 04/04/21 00:01 94 04/04/21 00:00 94 04/03/21 23:47 96 04/03/21 23:45 95 04/03/21 23:32 95 04/03/21 23:30 95 04/03/21 23:19 97 04/03/21 23:15 96 04/03/21 23:01 96 04/03/21 22:59 96 04/03/21 22:55 95 04/03/21 22:52 95 04/03/21 22:50 95 04/03/21 22:47 96 04/03/21 22:45 95 04/03/21 22:42 94 04/03/21 22:41 94 04/03/21 22:40 93 04/03/21 22:37 93 04/03/21 22:35 92 04/03/21 22:34 92 04/03/21 22:33 95 04/03/21 22:32 91 04/03/21 22:30 91 04/03/21 22:27 93 04/03/21 22:25 96 04/03/21 22:22 97 04/03/21 22:20 100 04/03/21 22:17 100 04/03/21 22:07 PG Care Time/CCT Total # of Minutes Spent Total Time Spent with Patient: Total time spent is greater than 50% in coordination of care (as documented) at patient's floor/unit and/or counseling patient: Coding Level of Care Code None Diagnoses Large bowel perforation K63.1
[2021-04-04] MEDS: LACTATED RINGER'S 1,000 ML IV SCH ×2 (07:45→15:40)
[2021-04-04] MEDS: FAMOTIDINE 20 MG in SYRINGE 3 ML IV SCH ×2 (08:49→21:04)
[2021-04-04] MEDS: PIPERACILLIN/TAZOBACTAM 4.5 GM in DEXTROSE 5% 100 ML IV SCH ×2 (08:49→16:41)
[2021-04-04] MEDS ORDERED: MAGNESIUM SULFATE / D5W 1 GM/100 ML BAG IV ONE (09:00)
--- NOTE | 2021-04-04 09:01 | XRay Report ---
XR chest 1V portable CLINICAL HISTORY: Respiratory failure. Follow-up study COMPARISON STUDY: 04/03/2021 FINDINGS: r the endotracheal tube termination is difficult to visualize but appears to be approximate ly 6.5 cm above the kaley. There is an enteric tube which passes into the stomach. The cardiac and m ediastinal contours remain stable. There is no lobar consolidation. There are no pleural effusions. T here is minor left basilar atelectasis. An electronic device projects over the left upper chest.[ IMPRESSION: 1. Lines and tubes as described above 2. No evidence of failure. No evidence of lobar consolidation ACT 112: Negative or not required by law. Electronically signed by: Hemanth Hernandez M.D. 04/04/2021 9:00 AM
--- NOTE | 2021-04-04 12:12 | Critical Care Progress Note ---
Date of Service April 04, 2021 Assessment & Plan (1) Admitted to intensive care unit: Reason Critically Ill: 70-year-old female with large bowel perforation who is status post exploratory laparotomy with partial lobectomy and RIGHT hemicolectomy with ileocolonic anastomosis requiring ongoing ventilator management status post surgical intervention. NEURO - CAM ICU: Negative Sedation: Propofol Pain: Fentanyl CARDIAC/VASCULAR - Hypertension: Hold current home medications currently while requiring multiple drips. Monitor on telemetry. RESPIRATORY - Ventilator management: Unfortunately, the patient has extensive underlying lung disease including COPD, cor pulmonale, obstructive sleep apnea, nocturnal hypoxia, and chronic respiratory failure. Given the extent of the patient's surgical intervention and likely tenuous status over the next several hours, agree with keeping the patient intubated and sedated. Will titrate down ventilator settings as tolerated. ABGs as needed. Continue with home inhalers as needed. Chest x-ray without infiltrative findings. GI/NUTRITION - Large bowel perforation: Status post ex lap with hemicolectomy and ileocecal anastomosis. 04/03/2021 Reported spillage of GI contents. Extensive abdominal washout performed. NGT in place to LIS Continue per general surgery recommendations. RENAL/LYTES - No significant electrolyte derangements noted. Monitor urine output closely status post extensive abdominal surgery. - Nichole in place - Strict I&Os. ENDO - No history of diabetes or thyroid disease. BSGs per unit protocol. ISS --> gtt per unit policy. HEME - Stable H&H. ID - Large bowel perforation with feculent spillage into abdominal cavity. Agree with broad-spectrum antibiotics to include anaerobic coverage. Continue with Zosyn. Patient chronically immunosuppressed with history of RA as well as mixed connective tissue disease. Patient on methotrexate and utilizes steroids as well. Given the level of likely underlying immunosuppression, will cover her aggressively with antifungals in the setting of GI contamination. --Prophylaxis VTE: Heparin GI: Pepcid Lines:PIVs x2, ARIE drain, Nichole catheter Diet: N.p.o. Plan: In/out: +318, urine output 1400 mL AB.48 Continue with Zosyn to cover for gram-negative and anaerobic the belly. Patient does have history of methotrexate which makes her immunosuppressed. There is no acute indication to cover for antifungals she is currently on caspo fungin. Can discontinue it unless surgery wants to be continued. Hypomagnesemia being replaced. Trial of extubation today. DC IV fluids. I have personally spent 38 minutes of critical care time in the direct management of this patient. This is a life/limb threatening event. This includes time spent evaluating patient, direct bedside care, chart review, placing orders, interpretation of diagnostic studies, discussion with consultants, patient, and family members, as well as other required patient management activities. This time is exclusive of all separately billable procedures, and teaching time and separate from and in addition to any other critical care service time. Please note the above document was generated using voice recognition software. It may contain grammatical, syntax or spelling errors. (2) Large bowel perforation: (3) Immunosuppression due to drug therapy: (4) Mixed connective tissue disease: (5) Chronic respiratory failure: (6) Nocturnal hypoxemia: (7) AIRAM (obstructive sleep apnea): (8) Cor pulmonale (chronic): (9) HTN (hypertension): (10) Rheumatoid arthritis: (11) COPD (chronic obstructive pulmonary disease): Admission and Anticipated Discharge Date Admission Date: April 03, 2021 Subjective Patient seen and examined at bedside. No acute distress, no adverse events overnight. Patient was on 10 of propofol 25 fentanyl at the time of examination. She was RASS -1. Answering all the questions appropriately. Moving all extremities. Denies any chest pain, no abdominal pain, no nausea or vomiting. No headache, no dizziness. Review of Systems Review of Systems: All systems reviewed & are unremarkable except as noted in Subjective Physical Exam Physical Exam: Constitutional: No acute distress HEENT: EOMI, PERRLA, positive ETT Respiratory system: Good air entry bilaterally, no wheeze, rhonchi, mild crackles bilateral lower lobes CVS: S1-S2 positive, no murmurs or gallops Abdomen: Soft, nontender, nondistended, positive bowel sounds x4, surgical dressing in place Extremities: +2 pulses bilaterally radialis/ dorsalis pedis, no cyanosis, no edema Neuro: Awake alert oriented x3 Psych: Normal mood and affect G/U: Positive Nichole Skin: no rashes, warm and dry Lymphatic: no cervical or axillary lymphadenopathy Results & Data Results & Data ([facility]) Vital Signs (Past 12 Hours) Vital Signs Temp Pulse Resp BP Pulse Ox 04/04/21 09:10 92 H 24 96 04/04/21 09:00 37.5 C 89 97 04/04/21 08:47 37.5 C 85 115/68 97 04/04/21 08:32 37.4 C 86 116/68 98 04/04/21 08:17 37.4 C 86 125/68 98 04/04/21 08:02 37.3 C 85 110/72 98 04/04/21 08:00 37.3 C 86 97 04/04/21 07:47 37.3 C 86 109/71 97 04/04/21 07:32 37.3 C 85 107/66 98 04/04/21 07:20 82 20 97 04/04/21 07:17 37.2 C 85 106/64 97 04/04/21 07:02 37.2 C 82 110/68 97 04/04/21 07:00 37.2 C 82 96 04/04/21 06:00 37.1 C 78 97 04/04/21 05:47 37.1 C 80 110/73 98 04/04/21 05:32 37.2 C 81 114/69 99 04/04/21 05:17 37.2 C 80 113/67 97 04/04/21 05:02 37.2 C 79 107/68 97 04/04/21 05:00 37.2 C 79 98 04/04/21 04:47 37.3 C 79 102/67 98 04/04/21 04:32 37.3 C 81 102/62 98 04/04/21 04:17 37.3 C 81 109/74 99 04/04/21 04:02 37.3 C 80 111/69 97 04/04/21 04:00 37.3 C 81 97 04/04/21 03:47 37.3 C 80 103/70 97 04/04/21 03:32 37.3 C 82 108/73 97 04/04/21 03:25 81 18 97 04/04/21 03:17 37.3 C 83 111/69 100 04/04/21 03:02 37.3 C 83 101/70 100 04/04/21 03:00 37.3 C 84 100 04/04/21 02:47 37.4 C 84 104/72 100 04/04/21 02:32 37.4 C 86 108/72 100 04/04/21 02:17 37.4 C 85 103/71 100 04/04/21 02:02 37.5 C 86 106/72 100 04/04/21 02:00 37.5 C 86 100 04/04/21 01:46 37.5 C 86 111/71 100 04/04/21 01:31 37.5 C 85 104/73 100 04/04/21 01:16 37.6 C H 87 102/73 100 04/04/21 01:01 37.7 C H 89 112/70 91 04/04/21 01:00 37.7 C H 89 92 04/04/21 00:46 37.7 C H 91 H 105/72 93 04/04/21 00:31 37.8 C H 91 H 107/72 92 04/04/21 00:16 37.8 C H 91 H 101/73 92 04/04/21 04:43 04/04/21 04:43 Coding Level of Care Code Critical Care 1st 30-74 mins Diagnoses Admitted to intensive care unit Z78.9 Large bowel perforation K63.1 Immunosuppression due to drug therapy Z79.899 Mixed connective tissue disease M35.1 Chronic respiratory failure J96.10 Nocturnal hypoxemia G47.34 AIRAM (obstructive sleep apnea) G47.33 Cor pulmonale (chronic) I27.81 HTN (hypertension) I10 Hypertension type: essential hypertension Rheumatoid arthritis M06.9 Rheumatoid arthritis location: unspecified site Rheumatoid factor presence: unspecified presence COPD (chronic obstructive pulmonary disease) J44.9 COPD type: unspecified COPD Time Spent (min) 38 (1) HTN (hypertension) Hypertension type: essential hypertension Qualified Code(s): I10 - Essential (primary) hypertension (2) Rheumatoid arthritis Rheumatoid arthritis location: unspecified site Rheumatoid factor presence: unspecified presence Qualified Code(s): M06.9 - Rheumatoid arthritis, unspecified (3) COPD (chronic obstructive pulmonary disease) COPD type: unspecified COPD Qualified Code(s): J44.9 - Chronic obstructive pulmonary disease, unspecified
[2021-04-04] MEDS ORDERED: ALBUT/IPRATROP 3MG/0.5MG NEB 3 ML VIAL NEB PRN (12:41)
[2021-04-04] MEDS: UMECLIDINIUM BROMIDE 62.5MCG/BLISTER 7 PUFFS/INHALER INH SCH (14:21)
[2021-04-04] MEDS: FLUTICASONE/VILANTEROL 100/25MCG 14 PUFFS/INHALER INH SCH (14:22)
[2021-04-04] MEDS: HEPARIN SOD 5,000 UNIT/0.5 ML VIAL SQ SCH ×2 (14:22→21:06)
[2021-04-04] MEDS ORDERED: CASPOFUNGIN 50 MG in SODIUM CHLORIDE 0.9% 250 ML IV SCH (22:00)
[2021-04-05] MEDS: PIPERACILLIN/TAZOBACTAM 4.5 GM in DEXTROSE 5% 100 ML IV SCH ×3 (00:07→16:29)
[2021-04-05] MEDS: LACTATED RINGER'S 1,000 ML IV SCH ×3 (04:47→21:10)
[2021-04-05 05:02] LABS: Hematocrit (blood only) 35.8 % (37-47); Hemoglobin 11.6 g/dL (12.0-16.0); Mean Corpuscular Hemoglobin 31.2 pg (25-34); Mean Corpuscular Hgb Conc 32.4 g/dL (32-36); Mean Corpuscular Volume 96.2 fL (80-100); Mean Platelet Volume 9.7 fL (7.4-10.4); Platelet Count 322 K/uL (130-400); RDW Coefficient of Variation 13.9 % (11.5-14.5); RDW Standard Deviation 48.6 fL (36.4-46.3); Red Blood Count 3.72 M/uL (4.2-5.4)
[2021-04-05 05:31] LABS: Immature Granulocytes # (auto) 0.09 K/uL (0.00-0.02); Immature Granulocytes % (auto) 0.6 %; Lymphocytes # (auto) 0.65 K/uL (1.2-3.4); Lymphocytes % (auto) 4.4 %; Monocytes # (auto) 0.65 K/uL (0.11-0.59); Monocytes % (auto) 4.4 %; Neutrophils # (auto) 13.51 K/uL (1.4-6.5); Neutrophils % (auto) 90.6 %; Toxic Granulation 1+
[2021-04-05 05:32] LABS: BUN Creatinine Ratio 25.1 (10-20); Bilirubin Direct 0.3 mg/dl (0-0.2); Bilirubin,Total 0.6 mg/dl (0.2-1); Calcium 7.9 mg/dl (8.5-10.1); Creatinine Clr Calc Pharmacy 74.6 ml/min; Magnesium 2.3 mg/dl (1.8-2.4); Phosphorus 2.8 mg/dl (2.5-4.9); Potassium 3.6 mmol/L (3.5-5.1); Total Protein 5.7 gm/dl (6.4-8.2)
--- NOTE | 2021-04-05 05:46 | Surgery Progress Note ---
Date of Service April 05, 2021 Assessment & Plan (1) Large bowel perforation: Postop day #2 right hemicolectomy We will keep the patient n.p.o. until return of bowel function is noted -Continue NG tube for the present time. It is drained 500 cc last shift. Continue analgesics Provide antiemetics if needed Encourage use of incentive spirometer -Increase mobilization -Continue antibiotics in the form of Zosyn Continue IV fluids until oral intake is able to be increased Subcu heparin is in place for DVT prevention Admission and Anticipated Discharge Date Admission Date: April 03, 2021 Supervising Physician Co-Signing Physician Notes I personally saw and evaluated the patient with Fredo Anderson PA-C and agree with the assessment and plan 70 yo female POD#2 Exploratory laparotomy, right hemicolectomy, partial omentectomy -Doing well s/p extubation -D/C NGT, start sips/chips -Encourage ambulation/IS -Ok to transfer out of ICU -Hospitalist consult for medical co-management -DVT prophylaxis with Heparin TID Subjective Patient successfully extubated yesterday. Patient does note some abdominal pain related to her surgery. She denies any nausea or vomiting with her NG tube in place. She denies passing any gas or having a bowel movement since her surgery. She was up out of bed in a chair yesterday. Physical Exam Neck: trachea midline Respiratory: normal respiratory effort; no respiratory distress and no labored breathing Gastrointestinal (Abdomen): Abdomen is soft. There is pain with palpation near surgical incisions. Bowel sounds are hypoactive. Psychiatric: A+Ox3, euthymic affect Results & Data ([facility]) Vital Signs (Past 12 Hours) Vital Signs Temp Pulse Resp BP Pulse Ox Pulse Ox 04/05/21 04:00 93 H 24 95 04/05/21 03:41 36.6 C 95 H 23 125/74 94 04/05/21 03:00 93 H 22 95 04/05/21 02:41 93 H 24 124/73 95 04/05/21 02:00 92 H 26 H 95 04/05/21 01:41 90 28 H 128/71 96 04/05/21 01:00 94 H 22 94 04/05/21 00:41 96 H 21 127/75 94 04/05/21 00:05 36.5 C 04/05/21 00:00 102 H 28 H 89 L 04/04/21 23:41 92 H 22 140/80 95 04/04/21 23:00 94 H 24 95 04/04/21 22:41 91 H 22 129/68 96 04/04/21 22:00 98 H 24 96 04/04/21 21:41 101 H 25 H 115/78 95 04/04/21 21:00 119 H 25 H 04/04/21 20:41 37.6 C H 103 H 29 H 128/72 89 L 04/04/21 20:00 37.6 C H 101 H 26 H 89 L 04/04/21 19:50 89 L 04/04/21 19:41 37.5 C 101 H 27 H 127/76 88 L 04/04/21 19:00 37.4 C 99 H 24 90 04/04/21 18:57 37.4 C 97 H 28 H 119/76 87 L 04/04/21 18:41 37.4 C 102 H 25 H 119/76 88 L 04/04/21 18:00 37.3 C 97 H 24 89 L PG Care Time/CCT Total # of Minutes Spent Total Time Spent with Patient: Total time spent is greater than 50% in coordination of care (as documented) at patient's floor/unit and/or counseling patient: Coding Level of Care Code None Diagnoses Large bowel perforation K63.1
[2021-04-05] MEDS: HEPARIN SOD 5,000 UNIT/0.5 ML VIAL SQ SCH ×3 (06:35→21:07)
[2021-04-05] MEDS: ACETAMINOPHEN 1,000 MG/100 ML VIAL IV SCH ×3 (06:35→21:07)
--- NOTE | 2021-04-05 09:23 | Critical Care Progress Note ---
Date of Service April 05, 2021 Assessment & Plan (1) Admitted to intensive care unit: Reason Critically Ill: 70-year-old female with large bowel perforation who is status post exploratory laparotomy with partial lobectomy and RIGHT hemicolectomy with ileocolonic anastomosis requiring ongoing ventilator management status post surgical intervention. 24-hour events: Patient is extubated. She is on nasal cannula. She is tolerating it well. She is been hemodynamically stable. NEURO -no current issues. Pain management per surgery CARDIAC/VASCULAR -hypertension: Restarting home medications as tolerated. RESPIRATORY -hypoxemic respiratory failure. Continue to titrate oxygen as needed. History of COPD. Continue inhalers as needed GI/NUTRITION - Large bowel perforation: Status post ex lap with hemicolectomy and ileocecal anastomosis. 04/03/2021. Diet per surgery. RENAL/LYTES - No significant electrolyte derangements noted. Monitor urine output closely status post extensive abdominal surgery. - Okay to discontinue Nichole catheter at this point. ENDO - Glycemic control per protocol. At risk for relative adrenal insufficiency given chronic prednisone use. Follow closely and consider stress dose steroids should she develop signs of adrenal insufficiency. HEME - Stable H&H. ID - Large bowel perforation with feculent spillage into abdominal cavity. She is chronically immunosuppressed on methotrexate, Plaquenil, and prednisone. Day #3 Zosyn/caspofungin. No current culture data. Defer antibiotics to surgery. Given her immunocompromise state, consultation with ID may be beneficial. Procalcitonin is trending down --Prophylaxis VTE: Heparin GI: Pepcid Lines:PIVs x2, ARIE drain, Nichole catheter Diet: Per surgery I have personally spent 38 minutes of critical care time in the direct management of this patient. This is a life/limb threatening event. This includes time spent evaluating patient, direct bedside care, chart review, placing orders, interpretation of diagnostic studies, discussion with consultants, patient, and family members, as well as other required patient management activities. This time is exclusive of all separately billable procedures, and teaching time and separate from and in addition to any other critical care service time. Please note the above document was generated using voice recognition software. It may contain grammatical, syntax or spelling errors. Patient stable to transfer out of the ICU. We will sign off when she leaves the intensive care unit. (2) Large bowel perforation: (3) Immunosuppression due to drug therapy: (4) Mixed connective tissue disease: (5) Chronic respiratory failure: (6) Nocturnal hypoxemia: (7) AIRAM (obstructive sleep apnea): (8) Cor pulmonale (chronic): (9) HTN (hypertension): (10) Rheumatoid arthritis: (11) COPD (chronic obstructive pulmonary disease): Admission and Anticipated Discharge Date Admission Date: April 03, 2021 Subjective She is being transferred out of the ICU to the floor. Patient seen and examined. Discussed with off going supervisor cigar making hand. Discussed with the critical care nurse at bedside and with patient. The patient is doing well clinically. She complains of some mild abdominal tenderness but is having no chest pain palpitations or shortness of breath. She tolerated liquids without a problem. Review of Systems Review of Systems: All systems reviewed & are unremarkable except as noted in HPI & below Physical Exam Neck: trachea midline Respiratory: normal respiratory effort; no respiratory distress and no labored breathing Gastrointestinal (Abdomen): Abdomen is soft. There is pain with palpation near surgical incisions. Bowel sounds are hypoactive. Psychiatric: A+Ox3, euthymic affect Results & Data Results & Data ([facility]) Vital Signs (Past 12 Hours) Vital Signs Temp Pulse Resp BP Pulse Ox 04/05/21 06:00 95 H 23 95 04/05/21 05:41 94 H 22 125/71 94 04/05/21 05:00 92 H 22 95 04/05/21 04:41 92 H 22 123/69 94 04/05/21 04:00 93 H 24 95 04/05/21 03:41 36.6 C 95 H 23 125/74 94 04/05/21 03:00 93 H 22 95 04/05/21 02:41 93 H 24 124/73 95 04/05/21 02:00 92 H 26 H 95 04/05/21 01:41 90 28 H 128/71 96 04/05/21 01:00 94 H 22 94 04/05/21 00:41 96 H 21 127/75 94 04/05/21 00:05 36.5 C 04/05/21 00:00 102 H 28 H 89 L 04/04/21 23:41 92 H 22 140/80 95 04/04/21 23:00 94 H 24 95 04/04/21 22:41 91 H 22 129/68 96 04/04/21 22:00 98 H 24 96 04/04/21 21:41 101 H 25 H 115/78 95 Laboratory Results 04/05/21 04:25 04/05/21 04:25 Diagnostic Findings No new imaging Coding Level of Care Code 37367 Subseq Hosp Care Lvl 3 Diagnoses Admitted to intensive care unit Z78.9 Large bowel perforation K63.1 Immunosuppression due to drug therapy Z79.899 Mixed connective tissue disease M35.1 Chronic respiratory failure J96.10 Nocturnal hypoxemia G47.34 AIRAM (obstructive sleep apnea) G47.33 Cor pulmonale (chronic) I27.81 HTN (hypertension) I10 Hypertension type: essential hypertension Rheumatoid arthritis M06.9 Rheumatoid arthritis location: unspecified site Rheumatoid factor presence: unspecified presence COPD (chronic obstructive pulmonary disease) J44.9 COPD type: unspecified COPD Time Spent (min) 40 (1) HTN (hypertension) Hypertension type: essential hypertension Qualified Code(s): I10 - Essential (primary) hypertension (2) Rheumatoid arthritis Rheumatoid arthritis location: unspecified site Rheumatoid factor presence: unspecified presence Qualified Code(s): M06.9 - Rheumatoid arthritis, unspecified (3) COPD (chronic obstructive pulmonary disease) COPD type: unspecified COPD Qualified Code(s): J44.9 - Chronic obstructive pulmonary disease, unspecified
[2021-04-05] MEDS: UMECLIDINIUM BROMIDE 62.5MCG/BLISTER 7 PUFFS/INHALER INH SCH (09:41)
[2021-04-05] MEDS: FAMOTIDINE 20 MG in SYRINGE 3 ML IV SCH ×2 (09:41→21:04)
--- NOTE | 2021-04-05 09:41 | Gastroenterology Progress Note ---
Date of Service April 05, 2021 Assessment & Plan (1) Spontaneous perforation of colon: Admission and Anticipated Discharge Date Admission Date: April 03, 2021 Subjective I have seen and examined the patient today, she is doing very well, extubated and sitting on the chair reading her newspaper. Denies any abdominal pain, nausea or vomiting. Did not require pain meds. Feels rumbling of her bowel but did not pass gas yet. Recall she had colonoscopy which could only be advanced to the ascending colon due to a diverticular related sigmoid stricture. Post procedure she developed abdominal distention and mild pain, later found to have a spontaneous cecal perforation likely related to trapped air. On exam: Vitals normal. Abdomen, soft , nontender with no distention. Impression: Spontaneous cecal perforation due to trapped air post colonoscopy with underlying tight sigmoid colon diverticular stricture. Recommend: Continue ABx. Encourage ambulation. Avoid Opioids. Diet per surgery team. We discussed future management of her sigmoid stricture, will need to try medical therapy first and see how she does. I will continue to follow up the patient, please contact me as needed anytime. Results & Data ([facility]) Vital Signs (Past 12 Hours) Vital Signs Temp Pulse Resp BP Pulse Ox 04/05/21 06:00 95 H 23 95 04/05/21 05:41 94 H 22 125/71 94 04/05/21 05:00 92 H 22 95 04/05/21 04:41 92 H 22 123/69 94 04/05/21 04:00 93 H 24 95 04/05/21 03:41 36.6 C 95 H 23 125/74 94 04/05/21 03:00 93 H 22 95 04/05/21 02:41 93 H 24 124/73 95 04/05/21 02:00 92 H 26 H 95 04/05/21 01:41 90 28 H 128/71 96 04/05/21 01:00 94 H 22 94 04/05/21 00:41 96 H 21 127/75 94 04/05/21 00:05 36.5 C 04/05/21 00:00 102 H 28 H 89 L 04/04/21 23:41 92 H 22 140/80 95 04/04/21 23:00 94 H 24 95 04/04/21 22:41 91 H 22 129/68 96 04/04/21 22:00 98 H 24 96
[2021-04-05] MEDS: FLUTICASONE/VILANTEROL 100/25MCG 14 PUFFS/INHALER INH SCH (09:42)
[2021-04-05] MEDS: propofoL 1,000 MG/100 ML VIAL IV SCH (09:49)
--- NOTE | 2021-04-05 10:20 | Hospitalist Consultation ---
Date of Consultation April 05, 2021 Assessment & Plan (1) Large bowel perforation: Occurring after colonoscopy S/p right hemicolectomy with ileocolonic anastomosis 04/03/2021. Not yet passing flatus with no bowel sounds on auscultation. Continue Zosyn. Can discontinue caspofungin, preparation was lower GI no blood or peritoneal cultures taken at the time to suggest need coverage for this. Procalcitonin downtrending although WBC increased. Appreciate surgery management of postoperative pain and diet. NG tube removed this morning. (2) Chronic respiratory failure: Baseline 2 LPM O2 at night. (3) AIRAM (obstructive sleep apnea): Mild without CPAP supplementation. Nocturnal hypoxia with 2 LPM O2. (4) Cor pulmonale (chronic): Continue to monitor for fluid overload. We will continue LR @ 80 ml/hr currently but if becoming more hypoxic would recommend repeat chest x-ray. (5) HTN (hypertension): Restart metoprolol tartrate 12.5 mg p.o. twice daily (6) COPD (chronic obstructive pulmonary disease): Continue Breo Ellipta and Incruse Ellipta inhalers once daily (7) Depression: Restart sertraline 75 mg p.o. every morning (8) Immunosuppression due to drug therapy: Hold methotrexate, prednisone and hydroxychloroquine. (9) Mixed connective tissue disease: As above (10) Rheumatoid arthritis: Methotrexate and prednisone on hold as above. (11) DVT prophylaxis: Continue heparin 5000 units every 8 hourly History of Present Illness Reason for Consultation: Medical management Requesting Physician: Jimmy Anderson PA-C Attending Physician: Lavelle José DO History of Present Illness Bharati Kenney is a 70 year old female who underwent colonoscopy 2 days ago performed by Dr. Munroe due to change in bowel habit. 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 The colonoscopy was notably extremely difficult due to severe diverticular stenosis. Initial plan was to discharge home. Postoperatively the patient had mild abdominal distention with 5/2 abdominal pain and subsequent KUB showing underneath the diaphragm. She was admitted to hospital under surgery and exploratory laparotomy showed a cecal perforation requiring right hemicolectomy with ileocolonic anastomosis the same night. Extensive abdominal washout performed. NG tube placed postoperatively. Postoperatively she was admitted to the ICU as she remained intubated and sedated. Today she has been extubated and NG tube is being removed. She is doing well on 2 LPM O2. She is hemodynamically stable. She has not yet had a bowel movement or pass flatus since the operation. No nausea, vomiting or abdominal pain. Allergies Allergy/AdvReac Type Severity Reaction Status Date / Time No Known Drug Allergies Allergy Unknown . Verified 04/03/21 13:33 Home Medications Medication Instructions Recorded Confirmed Type sqrceupizumo-[id number]-[id number] tablet 1 tab PO DAILY 08/17/19 04/03/21 History albuterol sulfate 2.5 mg INH Q4H PRN #540 ml 08/22/19 04/03/21 Rx albuterol sulfate 90 mcg/actuation 1 - 2 puffs INHALATION Q4H PRN #51 09/27/19 04/03/21 History aerosol inhaler gm bumetanide 1 mg tablet 1 mg PO QAM #90 tab 09/27/19 04/03/21 History hydroxychloroquine 200 mg tablet 200 mg PO BID #90 tab 09/27/19 04/03/21 History methotrexate sodium 2.5 mg tablet 20 mg PO WEEKLY #39 tab 09/27/19 04/03/21 History metoprolol tartrate 25 mg tablet 12.5 mg PO BID #90 tab 09/30/20 04/03/21 Rx prednisone 5 mg PO DAILY PRN 10/08/20 04/03/21 History Trelegy Ellipta 1 inh INH QAM 03/30/21 04/03/21 History cholecalciferol (vitamin D3) 125 mcg PO QAM 03/30/21 04/03/21 History [Vitamin D3] folic acid 2 mg PO QAM 03/30/21 04/03/21 History sertraline 75 mg PO QAM 03/30/21 04/03/21 History Patient History Medical History Basal cell carcinoma of chest Chronic steroid use Congestive heart failure COPD (chronic obstructive pulmonary disease) Cor pulmonale (chronic) History of COVID-09 October [address] [facility] for 5 days. symptoms included fever, difficulty standing, hallucinations/brain fog, sob & loss of taste/smell. no current symptoms. History of Holter monitoring current holter monitor prescribed by Dr Alston "to monitor for a stroke" HTN (hypertension) Hx of colonic polyps Lung nodule monitoring Nocturnal hypoxemia On home oxygen therapy lpm via n/c HS AIRAM (obstructive sleep apnea) no sleep study done. Pneumonia due to COVID-19 virus Pulmonary hypertension hx Rheumatoid arthritis Tricuspid regurgitation Venous insufficiency Surgical History H/O arthroscopic knee surgery left knee H/O colonoscopy History of bilateral tubal ligation History of cataract surgery bilateral Family History Brother Coronary heart disease Father Cardiomegaly Hypertension Stroke Other No family history of adverse response to anesthesia Denies family history of Ovarian cancer Prostate cancer Myocardial infarction Breast cancer Lung cancer Colorectal cancer Social History (Updated 04/05/21 @ 23:18 by Taye Briscoe MD) Smoking Status: Former smoker Tobacco Type: Cigarettes Age Started Using Tobacco: 23; packs per day: 1; Years Smoked: 45; Smoking End Date: 2014; Second Hand Exposure: Yes (hx); Tobacco Cessation Education Requested by Patient: No Hx Substance Use: No Preferred Language: Turkmen Communication Ability: Effective Visual Impairment: No Limitations Hearing Ability: Normal Etl Consultant Required: No Beliefs That Will Affect Care: None marital status: / Current Living Situation: Alone current occupational status: retired Other Information That Helps Us Care for You: No Feels Safe at Home: Yes Safety Concerns: Feels Safe At This Time Childhood Exposure to Second-Hand Smoke: No Diet Comment: regular caffeine: Yes (coffee) during the past year weight has: other Dental Care, Regularly: Yes Physical Activity Frequency: 3-4 Times per Week Physical Activity Frequency Comment: walk Seatbelt Use: always Sunscreen Use: Yes Assistive Devices: Glasses, Oxygen - Continuous and Walker Review of Systems Review of Systems: All systems reviewed & are unremarkable except as noted in HPI & below Physical Exam Constitutional: WD/WN, vitals as above Eyes: + anicteric sclerae; normal pupil size Neck: trachea midline Respiratory: normal respiratory effort; no respiratory distress Auscultation: + wheezes (Mild end expiratory); no diminished lung sounds and no crackles Cardiovascular: Rate/Rhythm: regular rate and regular rhythm Heart Sounds: no murmur Extremities: normal capillary refill; no calf tenderness and no pedal edema Gastrointestinal (Abdomen): Inspection/Auscultation: + abdomen distended; + abnormal bowel sounds (absent) Percussion/Palpation: abdomen soft; abdomen nontender, no guarding and abdomen not rigid Musculoskeletal: no cyanosis or clubbing, extremities motor strength 5/5 Skin: no rashes, warm and dry Neurologic: moves all extremities and awake; not confused Psychiatric: A+Ox3, euthymic affect Genitourinary: no CVA tenderness Results & Data Results & Data ([facility]) Vital Signs (Past 12 Hours) Vital Signs Temp Pulse Resp BP Pulse Ox 04/05/21 10:00 91 04/05/21 09:00 93 H 24 95 04/05/21 08:41 94 H 24 123/73 95 04/05/21 08:00 96 H 20 94 04/05/21 07:41 95 H 23 122/69 95 04/05/21 07:00 95 H 24 95 04/05/21 06:41 96 H 24 123/74 95 04/05/21 06:00 95 H 23 95 04/05/21 05:41 94 H 22 125/71 94 04/05/21 05:00 92 H 22 95 04/05/21 04:41 92 H 22 123/69 94 04/05/21 04:00 93 H 24 95 04/05/21 03:41 36.6 C 95 H 23 125/74 94 04/05/21 03:00 93 H 22 95 04/05/21 02:41 93 H 24 124/73 95 04/05/21 02:00 92 H 26 H 95 04/05/21 01:41 90 28 H 128/71 96 04/05/21 01:00 94 H 22 94 04/05/21 00:41 96 H 21 127/75 94 04/05/21 00:05 36.5 C 04/05/21 00:00 102 H 28 H 89 L 04/04/21 23:41 92 H 22 140/80 95 04/04/21 23:00 94 H 24 95 04/04/21 22:41 91 H 22 129/68 96 PG Care Time/CCT Total # of Minutes Spent Total Time Spent with Patient: Total time spent is greater than 50% in coordination of care (as documented) at patient's floor/unit and/or counseling patient: Coding Level of Care Code 75525 Inpt Consult Level 5 Diagnoses Large bowel perforation K63.1 Chronic respiratory failure J96.10 AIRAM (obstructive sleep apnea) G47.33 Cor pulmonale (chronic) I27.81 HTN (hypertension) I10 Hypertension type: essential hypertension COPD (chronic obstructive pulmonary disease) J44.9 COPD type: unspecified COPD Depression F32.9 Depression Type: unspecified Immunosuppression due to drug therapy Z79.899 Mixed connective tissue disease M35.1 Rheumatoid arthritis M06.9 Rheumatoid arthritis location: unspecified site Rheumatoid factor presence: unspecified presence DVT prophylaxis Z29.9 (1) Rheumatoid arthritis Rheumatoid arthritis location: unspecified site Rheumatoid factor presence: unspecified presence Qualified Code(s): M06.9 - Rheumatoid arthritis, unspecified (2) Depression Depression Type: unspecified Qualified Code(s): F32.9 - Major depressive disorder, single episode, unspecified (3) COPD (chronic obstructive pulmonary disease) COPD type: unspecified COPD Qualified Code(s): J44.9 - Chronic obstructive pulmonary disease, unspecified (4) HTN (hypertension) Hypertension type: essential hypertension Qualified Code(s): I10 - Essential (primary) hypertension
[2021-04-05] MEDS: METOPROLOL TARTRATE 25 MG TAB PO SCH (21:06)
[2021-04-06] MEDS: PIPERACILLIN/TAZOBACTAM 4.5 GM in DEXTROSE 5% 100 ML IV SCH ×4 (00:15→23:23)
[2021-04-06] MEDS: ACETAMINOPHEN 1,000 MG/100 ML VIAL IV SCH ×3 (05:51→21:37)
[2021-04-06] MEDS: HEPARIN SOD 5,000 UNIT/0.5 ML VIAL SQ SCH ×3 (05:53→21:41)
[2021-04-06 07:19] LABS: Eosinophils # (auto) 0.01 K/uL (0-0.5); Eosinophils % (auto) 0.1 %; Hematocrit (blood only) 30.8 % (37-47); Hemoglobin 9.9 g/dL (12.0-16.0); Immature Granulocytes # (auto) 0.06 K/uL (0.00-0.02); Immature Granulocytes % (auto) 0.4 %; Lymphocytes # (auto) 0.77 K/uL (1.2-3.4); Lymphocytes % (auto) 5.6 %; Mean Corpuscular Hemoglobin 31.2 pg (25-34); Mean Corpuscular Hgb Conc 32.1 g/dL (32-36); Mean Corpuscular Volume 97.2 fL (80-100); Mean Platelet Volume 9.4 fL (7.4-10.4); Monocytes # (auto) 0.51 K/uL (0.11-0.59); Monocytes % (auto) 3.7 %; Neutrophils # (auto) 12.49 K/uL (1.4-6.5); Neutrophils % (auto) 90.2 %; Platelet Count 304 K/uL (130-400); RDW Coefficient of Variation 13.8 % (11.5-14.5); RDW Standard Deviation 48.5 fL (36.4-46.3); Red Blood Count 3.17 M/uL (4.2-5.4); White Blood Count 13.84 K/uL (4.8-10.8)
[2021-04-06 08:04] LABS: BUN Creatinine Ratio 22.6 (10-20); Calcium 8.5 mg/dl (8.5-10.1); Creatinine Clr Calc Pharmacy 127.7 ml/min; Est GFR (African American) 114.4 ml/min; Est GFR (Non-African American) 98.7 ml/min; Magnesium 2.4 mg/dl (1.8-2.4); Phosphorus 1.9 mg/dl (2.5-4.9); Potassium 3.2 mmol/L (3.5-5.1)
--- NOTE | 2021-04-06 08:26 | Hospitalist Progress Note ---
Date of Service April 06, 2021 Assessment & Plan (1) Large bowel perforation: Occurring after colonoscopy with Dr. Reddy and brought from endo suite to medical bed Found to have perforated large bowel (likely secondary to stricture/c-scope and air trapping) POD #3 S/p right hemicolectomy with ileocolonic anastomosis 04/03/2021. NPO except chips/sips No flatus/BM yet No NGT Repeat imaging per attending Continued on Zosyn (no further antifungal) Procalcitonin downtrending although WBC increased. Appreciate surgery management of postoperative pain and diet. K low today as well as phos -- ordered K riders and Kphos Labs/electrolyte replacement as needed (2) Chronic respiratory failure: Baseline 2 LPM O2 at night. (3) AIRAM (obstructive sleep apnea): Mild without CPAP supplementation. Nocturnal hypoxia with 2 LPM O2. Currently requiring 1L for O2 sat 94% -- continuing incentive spirometer and titrate O2 to maintain O2 sat >=92% (4) Cor pulmonale (chronic): Continue to monitor for fluid overload. We will continue LR @ 80 ml/hr currently but if becoming more hypoxic would recommend repeat chest x-ray. (5) HTN (hypertension): Metoprolol tartrate 12.5 mg p.o. twice daily BP 116/71 Continue to monitor (6) COPD (chronic obstructive pulmonary disease): Continue Breo Ellipta and Incruse Ellipta inhalers once daily (7) Depression: Restart sertraline 75 mg p.o. every morning (8) Immunosuppression due to drug therapy: Hold methotrexate, prednisone and hydroxychloroquine. --> patient states MTX to be increased at last visit but she did not have worsening symptoms and does not believe she will be continuing this in the future (9) Mixed connective tissue disease: As above (10) Rheumatoid arthritis: Methotrexate and prednisone on hold as above. (11) DVT prophylaxis: Continue heparin 5000 units every 8 hourly Dispo: continued inpatient stay Admission and Anticipated Discharge Date Admission Date: April 03, 2021 Subjective Patient evaluated this afternoon. Feeling ok. No flatus or BM yet. Tolerating sips/chips. Questions regarding repeating abdominal imaging --- discussed RN to notify attending but given no worsening. Discussed if they do worsen that would warrant more urgent evaluation. She states breathing about the same but because she had been in bed for days. Continues to use incentive spirometer. Voiding without difficulty. No fever, chills, chest pain, nausea or vomiting at this time. Review of Systems Review of Systems: All systems reviewed & are unremarkable except as noted in HPI & below Physical Exam Constitutional: WD/WN, vitals as above Eyes: + anicteric sclerae; normal pupil size ENMT: dry mm Neck: trachea midline Respiratory: normal respiratory effort; no respiratory distress Auscultation: + diminished lung sounds (bases); no crackles and no wheezes Cardiovascular: Rate/Rhythm: regular rate and regular rhythm Heart Sounds: no murmur Extremities: normal capillary refill; no calf tenderness and no pedal edema Gastrointestinal (Abdomen): Inspection/Auscultation: + abdomen distended; + abnormal bowel sounds (hypoactive) Percussion/Palpation: + abdomen tender (carmen-incisional, dressing c/d/i) and abdomen soft; no guarding and abdomen not rigid Musculoskeletal: no cyanosis or clubbing, extremities motor strength 5/5 (RA appearance b/l hands) Skin: no rashes, warm and dry Neurologic: moves all extremities and awake; not confused Psychiatric: A+Ox3, euthymic affect Genitourinary: no CVA tenderness Results & Data Results & Data ([facility]) Vital Signs (Past 12 Hours) Vital Signs Temp Pulse Pulse Pulse Pulse Resp BP 04/06/21 07:37 36.6 C 75 18 117/71 04/06/21 04:30 36.7 C 85 18 04/06/21 00:11 36.8 C 93 H 18 04/05/21 22:20 96 H 04/05/21 21:24 111 H 152/77 H BP Pulse Ox 04/06/21 07:37 97 04/06/21 04:30 125/75 95 04/06/21 00:11 109/63 94 04/05/21 22:20 04/05/21 21:24 Laboratory Results 04/06/21 04/06/21 04/06/21 Range/Units 06:48 06:48 06:01 WBC 13.84 H (4.8-10.8) K/uL RBC 3.17 L (4.2-5.4) M/uL Hgb 9.9 L (12.0-16.0) g/dL Hct 30.8 L (37-47) % MCV 97.2 (80-100) fL MCH 31.2 (25-34) pg MCHC 32.1 (32-36) g/dL RDW Std Deviation 48.5 H (36.4-46.3) fL RDW Coeff of Marc 13.8 (11.5-14.5) % Plt Count 304 (130-400) K/uL MPV 9.4 (7.4-10.4) fL Immature Gran % (Auto) 0.4 % Neut % (Auto) 90.2 % Lymph % (Auto) 5.6 % Fountain % (Auto) 3.7 % Eos % (Auto) 0.1 % Baso % (Auto) 0.0 % Neut # (Auto) 12.49 H (1.4-6.5) K/uL Lymph # (Auto) 0.77 L (1.2-3.4) K/uL Fountain # (Auto) 0.51 (0.11-0.59) K/uL Eos # (Auto) 0.01 (0-0.5) K/uL Baso # (Auto) 0.00 (0-0.2) K/uL Immature Gran # (Auto) 0.06 H (0.00-0.02) K/uL Sodium 142 (136-145) mmol/L Potassium 3.2 L (3.5-5.1) mmol/L Chloride 104 (98-107) mmol/L Carbon Dioxide 34 H (21-32) mmol/L Anion Gap 3.0 (3-11) BUN 11 (7-18) mg/dl Creatinine 0.47 L D (0.6-1.2) mg/dl Est Cr Clr Drug Dosing 127.7 ml/min Est GFR ( Amer) 114.4 ml/min Est GFR (Non-Af Amer) 98.7 ml/min BUN/Creatinine Ratio 22.6 H (10-20) Glucose 78 (70-99) mg/dl POC Glucose 73 (70-99) mg/dl Calcium 8.5 (8.5-10.1) mg/dl Phosphorus 1.9 L (2.5-4.9) mg/dl Magnesium 2.4 (1.8-2.4) mg/dl 04/06/21 04/05/21 04/05/21 Range/Units 00:16 16:26 11:11 WBC (4.8-10.8) K/uL RBC (4.2-5.4) M/uL Hgb (12.0-16.0) g/dL Hct (37-47) % MCV (80-100) fL MCH (25-34) pg MCHC (32-36) g/dL RDW Std Deviation (36.4-46.3) fL RDW Coeff of Marc (11.5-14.5) % Plt Count (130-400) K/uL MPV (7.4-10.4) fL Immature Gran % (Auto) % Neut % (Auto) % Lymph % (Auto) % Fountain % (Auto) % Eos % (Auto) % Baso % (Auto) % Neut # (Auto) (1.4-6.5) K/uL Lymph # (Auto) (1.2-3.4) K/uL Fountain # (Auto) (0.11-0.59) K/uL Eos # (Auto) (0-0.5) K/uL Baso # (Auto) (0-0.2) K/uL Immature Gran # (Auto) (0.00-0.02) K/uL Sodium (136-145) mmol/L Potassium (3.5-5.1) mmol/L Chloride (98-107) mmol/L Carbon Dioxide (21-32) mmol/L Anion Gap (3-11) BUN (7-18) mg/dl Creatinine (0.6-1.2) mg/dl Est Cr Clr Drug Dosing ml/min Est GFR ( Amer) ml/min Est GFR (Non-Af Amer) ml/min BUN/Creatinine Ratio (10-20) Glucose (70-99) mg/dl POC Glucose 92 91 95 (70-99) mg/dl Calcium (8.5-10.1) mg/dl Phosphorus (2.5-4.9) mg/dl Magnesium (1.8-2.4) mg/dl PG Care Time/CCT Total # of Minutes Spent Total Time Spent with Patient: Total time spent is greater than 50% in coordination of care (as documented) at patient's floor/unit and/or counseling patient: Coding Level of Care Code 77346 Subseq Hosp Care Lvl 3 Diagnoses Large bowel perforation K63.1 Chronic respiratory failure J96.10 AIRAM (obstructive sleep apnea) G47.33 Cor pulmonale (chronic) I27.81 HTN (hypertension) I10 Hypertension type: essential hypertension COPD (chronic obstructive pulmonary disease) J44.9 COPD type: unspecified COPD Depression F32.9 Depression Type: unspecified Immunosuppression due to drug therapy Z79.899 Mixed connective tissue disease M35.1 Rheumatoid arthritis M06.9 Rheumatoid arthritis location: unspecified site Rheumatoid factor presence: unspecified presence DVT prophylaxis Z29.9 (1) Rheumatoid arthritis Rheumatoid arthritis location: unspecified site Rheumatoid factor presence: unspecified presence Qualified Code(s): M06.9 - Rheumatoid arthritis, unspecified (2) Depression Depression Type: unspecified Qualified Code(s): F32.9 - Major depressive disorder, single episode, unspecified (3) COPD (chronic obstructive pulmonary disease) COPD type: unspecified COPD Qualified Code(s): J44.9 - Chronic obstructive pulmonary disease, unspecified (4) HTN (hypertension) Hypertension type: essential hypertension Qualified Code(s): I10 - Essential (primary) hypertension
[2021-04-06] MEDS: SERTRALINE HCL 50 MG TABLET PO SCH (08:49)
[2021-04-06] MEDS: FAMOTIDINE 20 MG in SYRINGE 3 ML IV SCH ×2 (08:50→20:14)
[2021-04-06] MEDS: UMECLIDINIUM BROMIDE 62.5MCG/BLISTER 7 PUFFS/INHALER INH SCH (08:50)
[2021-04-06] MEDS: FLUTICASONE/VILANTEROL 100/25MCG 14 PUFFS/INHALER INH SCH (08:50)
[2021-04-06] MEDS: METOPROLOL TARTRATE 25 MG TAB PO SCH ×2 (08:50→20:15)
[2021-04-06] MEDS: POTASSIUM CHLORIDE / WTR 10 MEQ/100 ML PLCT IV SCH ×4 (09:22→14:05)
--- NOTE | 2021-04-06 09:44 | Surgery Progress Note ---
Date of Service April 06, 2021 Assessment & Plan (1) Spontaneous perforation of colon: POD#3 right hemicolectomy WBC 13, VSS Denies nausea/vomiting, pain controlled. Awaiting return of bowel function, continue ice/sips for now Incision c/d/i with michele in place, dressing changed Encouraged ambulating in the hallways as tolerates Admission and Anticipated Discharge Date Admission Date: April 03, 2021 Subjective Patient says she is feeling okay. No flatus or BM yet, says she is burping some. Has some carmen-incisional pain that is being managed. Denies nausea/vomiting. Not much of an appetite. Physical Exam Physical Exam: awake/alert Constitutional: no acute distress Respiratory: normal respiratory effort Gastrointestinal (Abdomen): Inspection/Auscultation: + abdomen distended (mild) and + abdominal surgical incision (c/d/i with surgical saman and michele drain (dressing changed)) Percussion/Palpation: + abdomen tender (mild carmen-incisional ttp) and abdomen soft Results & Data ([facility]) Vital Signs (Past 12 Hours) Vital Signs Temp Pulse Pulse Pulse Resp BP BP 04/06/21 07:37 36.6 C 75 18 117/71 04/06/21 04:30 36.7 C 85 18 125/75 04/06/21 00:11 36.8 C 93 H 18 109/63 04/05/21 22:20 96 H Pulse Ox 04/06/21 07:37 97 04/06/21 04:30 95 04/06/21 00:11 94 04/05/21 22:20 PG Care Time/CCT Total # of Minutes Spent Total Time Spent with Patient: Total time spent is greater than 50% in coordination of care (as documented) at patient's floor/unit and/or counseling patient: Coding Level of Care Code None Diagnoses Spontaneous perforation of colon K63.1
[2021-04-06] MEDS ORDERED: POTASSIUM PHOS 3 MMOL/1 ML INFUSION IV STA (12:24)
[2021-04-06] MEDS ORDERED: POTASSIUM PHOSPHATE 15 MMOL in SODIUM CHLORIDE 0.9% 250 ML IV SCH (13:00)
[2021-04-06] MEDS: LACTATED RINGER'S 1,000 ML IV SCH ×2 (15:13→23:42)
[2021-04-07] MEDS: LACTATED RINGER'S 1,000 ML IV SCH (03:14)
[2021-04-07] MEDS: HEPARIN SOD 5,000 UNIT/0.5 ML VIAL SQ SCH ×3 (06:31→22:36)
--- NOTE | 2021-04-07 07:06 | XRay Report ---
XR chest 1V portable HISTORY: 70 years-old Female f/u hypoxia, volume status acute hypoxia with volume loss COMPARISON: Chest radiograph 04/04/2021 TECHNIQUE: Portable AP view of the chest FINDINGS: Cardiac mediastinal and hilar silhouettes are within normal limits. Interval extubation with removal of the enteric tube. A battery pack projects over the left chest wall. No pneumothorax, pleural effus ion or overt pulmonary edema. Mild somewhat linear bibasilar opacities. Degenerative changes of the s houlders and spine. IMPRESSION: 1. Interval extubation with removal of the enteric tube. 2. No overt pulmonary edema. 3. Mild bibasilar opacities suggest atelectasis. ACT 112: Negative or not required by law. The above report was generated using voice recognition software. It may contain grammatical, syntax o r spelling errors. Electronically signed by: David Ramos M.D. 04/07/2021 7:05 AM
[2021-04-07] MEDS ORDERED: ACETAMINOPHEN 325 MG TAB PO PRN (07:49)
[2021-04-07] MEDS ORDERED: oxyCODONE HCL IR 5 MG TAB (IMMEDIATE RELEASE) PO PRN (07:49)
--- NOTE | 2021-04-07 07:49 | Surgery Progress Note ---
Date of Service April 07, 2021 Assessment & Plan (1) Spontaneous perforation of colon: POD#4 right hemicolectomy VSS, on 2L nasal cannula Patient feeling well, denies much abdominal pain. No nausea/vomiting Had a BM this AM, still not passing much flatus yet Tolerating clears...will advance to full liquids this AM Will order prn PO pain medication Encourage ongoing ambulation as tolerates Admission and Anticipated Discharge Date Admission Date: April 03, 2021 Supervising Physician Co-Signing Physician Notes I personally saw and evaluated the patient with Sherrie Koroma PA-C and agree with the assessment and plan 70 yo female POD#4 Exploratory laparotomy, right hemicolectomy, partial omentectomy -Advance to full liquids -Encourage ambulation/IS -WBC trending down -DVT prophylaxis with Heparin TID Subjective Patient evaluated resting in bed. Says her abdominal pain is manageable. She is tolerating clears without nausea/vomiting. She had a loose BM this AM. Not passing much flatus yet. Said she ambulated yesterday. Physical Exam 2 Physical Exam: awake Constitutional: no acute distress Respiratory: normal respiratory effort Gastrointestinal (Abdomen): Inspection/Auscultation: + abdomen distended (mild) and + abdominal surgical incision (c/d/i) Percussion/Palpation: abdomen soft; abdomen nontender Results & Data ([facility]) Vital Signs (Past 12 Hours) Vital Signs Temp Pulse Pulse Resp BP Pulse Ox 04/07/21 06:49 36.6 C 79 20 132/74 98 04/07/21 03:59 36.7 C 77 20 130/73 95 04/06/21 23:30 36.5 C 75 18 129/76 94 04/06/21 22:19 81 PG Care Time/CCT Total # of Minutes Spent Total Time Spent with Patient: Total time spent is greater than 50% in coordination of care (as documented) at patient's floor/unit and/or counseling patient: Coding Level of Care Code None Diagnoses Spontaneous perforation of colon K63.1
[2021-04-07 08:17] LABS: Hematocrit (blood only) 33.2 % (37-47); Hemoglobin 10.8 g/dL (12.0-16.0); Mean Corpuscular Hgb Conc 32.5 g/dL (32-36); Mean Corpuscular Volume 95.4 fL (80-100); Mean Platelet Volume 9.5 fL (7.4-10.4); Platelet Count 359 K/uL (130-400); RDW Coefficient of Variation 13.9 % (11.5-14.5); RDW Standard Deviation 47.8 fL (36.4-46.3); Red Blood Count 3.48 M/uL (4.2-5.4); White Blood Count 11.54 K/uL (4.8-10.8)
--- NOTE | 2021-04-07 08:33 | Hospitalist Progress Note ---
Date of Service April 07, 2021 Assessment & Plan (1) Large bowel perforation: Occurring after colonoscopy with Dr. Reddy and brought from endo suite to medical bed Found to have perforated large bowel (likely secondary to stricture/c-scope and air trapping) POD #4 S/p right hemicolectomy with ileocolonic anastomosis 04/03/2021. +BM 04/07 -- diet advanced to full liquid No flatus/BM yet No NGT Continued on Zosyn (no further antifungal) Procalcitonin downtrending, WBC now also downtrending, afebrile Appreciate surgery management of postoperative pain and diet. -- ordered K phos today for phos 2.2, K 3.2. Also 20meq PO Kcl Labs/electrolyte replacement as needed (2) Chronic respiratory failure: Baseline 2 LPM O2 at night. (3) AIRAM (obstructive sleep apnea): Mild without CPAP supplementation. Nocturnal hypoxia with 2 LPM O2. Currently requiring 2L for O2 sat 98% -- continuing incentive spirometer and titrate O2 to maintain O2 sat >=92% CXR without congestion but does note atelectasis -- encouraged continued use of incentive spirometer 98% on 2L currently (4) Cor pulmonale (chronic): Continue to monitor for fluid overload. CXR without congestion Continued on LR @ 80cc/hr for now -- consider d/c if able to keep up with PO (5) HTN (hypertension): Metoprolol tartrate 12.5 mg p.o. twice daily BP 132/74 Continue to monitor (6) COPD (chronic obstructive pulmonary disease): Continue Breo Ellipta and Incruse Ellipta inhalers once daily (7) Depression: Restart sertraline 75 mg p.o. every morning (8) Immunosuppression due to drug therapy: Hold methotrexate, prednisone and hydroxychloroquine. --> patient states MTX to be increased at last visit but she did not have worsening symptoms and does not believe she will be continuing this in the future (9) Mixed connective tissue disease: As above (10) Rheumatoid arthritis: Methotrexate and prednisone on hold as above. (11) DVT prophylaxis: Continue heparin 5000 units every 8 hourly Hypokalemia/Hypophosphatemia --K 3.2 -- ordered 20meq PO in addition to 21mmol K Phos for phos 2.2 Labs in AM Dispo: continued inpatient stay Admission and Anticipated Discharge Date Admission Date: April 03, 2021 Subjective Patient evaluated this morning. Did not get much sleep but has been passing gas and having multiple bowel movements, loose. Twice last night and a "mess" overnight, then twice again this morning. Had some apple juice this morning and no n/v. Currently with liquid diet and eating some but looking forward to getting some sleep tonight. She does not feel she needs any medication to help with sleep. Abdominal bloating/distension less, not endorsing pain. Dressing changed this morning. No fever, chills, chest pain, nausea, vomiting, dysuria at this time. Shortness of breath reported but better, thoughts from laying in bed. Has been using incentive spirometer and encouraged continued use. Questions/concerns addressed at this time. Review of Systems Review of Systems: All systems reviewed & are unremarkable except as noted in HPI & below Physical Exam Constitutional: WD/WN, vitals as above Eyes: + anicteric sclerae; normal pupil size Neck: trachea midline Respiratory: normal respiratory effort; no respiratory distress Auscultation: + diminished lung sounds (bases) and + crackles (bibasilar); no wheezes Cardiovascular: Rate/Rhythm: regular rate and regular rhythm Heart Sounds: no murmur Extremities: normal capillary refill; no calf tenderness and no pedal edema Gastrointestinal (Abdomen): Inspection/Auscultation: + abdomen distended (less) and normal bowel sounds Percussion/Palpation: + abdomen tender ( minimal. dressing c/d/i) and abdomen soft; no guarding and abdomen not rigid Musculoskeletal: no cyanosis or clubbing, extremities motor strength 5/5 (RA appearance b/l hands) Skin: no rashes, warm and dry Neurologic: moves all extremities and awake; not confused Psychiatric: A+Ox3, euthymic affect Genitourinary: no CVA tenderness Results & Data Results & Data ([facility]) Vital Signs (Past 12 Hours) Vital Signs Temp Pulse Pulse Resp BP Pulse Ox 04/07/21 06:49 36.6 C 79 20 132/74 98 04/07/21 03:59 36.7 C 77 20 130/73 95 04/06/21 23:30 36.5 C 75 18 129/76 94 04/06/21 22:19 81 Laboratory Results 04/07/21 04/07/21 04/07/21 Range/Units 07:39 07:39 07:39 WBC 11.54 H (4.8-10.8) K/uL RBC 3.48 L (4.2-5.4) M/uL Hgb 10.8 L (12.0-16.0) g/dL Hct 33.2 L (37-47) % MCV 95.4 (80-100) fL MCH 31.0 (25-34) pg MCHC 32.5 (32-36) g/dL RDW Std Deviation 47.8 H (36.4-46.3) fL RDW Coeff of Marc 13.9 (11.5-14.5) % Plt Count 359 (130-400) K/uL MPV 9.5 (7.4-10.4) fL Sodium 141 (136-145) mmol/L Potassium 3.2 L (3.5-5.1) mmol/L Chloride 104 (98-107) mmol/L Carbon Dioxide 32 (21-32) mmol/L Anion Gap 5.0 (3-11) BUN 10 (7-18) mg/dl Creatinine 0.45 L (0.6-1.2) mg/dl Est Cr Clr Drug Dosing 134.1 ml/min Est GFR ( Amer) 116.0 ml/min Est GFR (Non-Af Amer) 100.1 ml/min BUN/Creatinine Ratio 22.4 H (10-20) Glucose 90 (70-99) mg/dl Calcium 8.3 L (8.5-10.1) mg/dl Phosphorus 2.2 L (2.5-4.9) mg/dl Magnesium 2.2 (1.8-2.4) mg/dl Total Bilirubin 0.7 (0.2-1) mg/dl AST 29 (15-37) U/L ALT 23 (12-78) U/L Alkaline Phosphatase 72 (45-117) U/L Total Protein 5.8 L (6.4-8.2) gm/dl Albumin 1.8 L (3.4-5.0) gm/dl Globulin 4.0 (2.5-4.0) gm/dl Albumin/Globulin Ratio 0.5 L (0.9-2) Vitamin B12 > 2000 H (193-986) pg/ml Folate 15.60 (>5.38) ng/ml Random Cortisol mcg/dl 04/04/21 Range/Units 04:43 WBC (4.8-10.8) K/uL RBC (4.2-5.4) M/uL Hgb (12.0-16.0) g/dL Hct (37-47) % MCV (80-100) fL MCH (25-34) pg MCHC (32-36) g/dL RDW Std Deviation (36.4-46.3) fL RDW Coeff of Marc (11.5-14.5) % Plt Count (130-400) K/uL MPV (7.4-10.4) fL Sodium (136-145) mmol/L Potassium (3.5-5.1) mmol/L Chloride (98-107) mmol/L Carbon Dioxide (21-32) mmol/L Anion Gap (3-11) BUN (7-18) mg/dl Creatinine (0.6-1.2) mg/dl Est Cr Clr Drug Dosing ml/min Est GFR ( Amer) ml/min Est GFR (Non-Af Amer) ml/min BUN/Creatinine Ratio (10-20) Glucose (70-99) mg/dl Calcium (8.5-10.1) mg/dl Phosphorus (2.5-4.9) mg/dl Magnesium (1.8-2.4) mg/dl Total Bilirubin (0.2-1) mg/dl AST (15-37) U/L ALT (12-78) U/L Alkaline Phosphatase (45-117) U/L Total Protein (6.4-8.2) gm/dl Albumin (3.4-5.0) gm/dl Globulin (2.5-4.0) gm/dl Albumin/Globulin Ratio (0.9-2) Vitamin B12 (193-986) pg/ml Folate (>5.38) ng/ml Random Cortisol 114.82 mcg/dl PG Care Time/CCT Total # of Minutes Spent Total Time Spent with Patient: Total time spent is greater than 50% in coordination of care (as documented) at patient's floor/unit and/or counseling patient: Coding Level of Care Code 93020 Subseq Hosp Care Lvl 3 Diagnoses Large bowel perforation K63.1 Chronic respiratory failure J96.10 AIRAM (obstructive sleep apnea) G47.33 Cor pulmonale (chronic) I27.81 HTN (hypertension) I10 Hypertension type: essential hypertension COPD (chronic obstructive pulmonary disease) J44.9 COPD type: unspecified COPD Depression F32.9 Depression Type: unspecified Immunosuppression due to drug therapy Z79.899 Mixed connective tissue disease M35.1 Rheumatoid arthritis M06.9 Rheumatoid arthritis location: unspecified site Rheumatoid factor presence: unspecified presence DVT prophylaxis Z29.9 (1) Rheumatoid arthritis Rheumatoid arthritis location: unspecified site Rheumatoid factor presence: unspecified presence Qualified Code(s): M06.9 - Rheumatoid arthritis, unspecified (2) Depression Depression Type: unspecified Qualified Code(s): F32.9 - Major depressive disorder, single episode, unspecified (3) COPD (chronic obstructive pulmonary disease) COPD type: unspecified COPD Qualified Code(s): J44.9 - Chronic obstructive pulmonary disease, unspecified (4) HTN (hypertension) Hypertension type: essential hypertension Qualified Code(s): I10 - Essential (primary) hypertension
[2021-04-07 08:44] LABS: Albumin Level 1.8 gm/dl (3.4-5.0); BUN Creatinine Ratio 22.4 (10-20); Calcium 8.3 mg/dl (8.5-10.1); Creatinine Clr Calc Pharmacy 134.1 ml/min; Est GFR (Non-African American) 100.1 ml/min; Magnesium 2.2 mg/dl (1.8-2.4); Potassium 3.2 mmol/L (3.5-5.1)
[2021-04-07 08:47] LABS: Albumin Globulin Ratio 0.5 (0.9-2); Bilirubin,Total 0.7 mg/dl (0.2-1); Phosphorus 2.2 mg/dl (2.5-4.9); Total Protein 5.8 gm/dl (6.4-8.2)
[2021-04-07 09:06] LABS: Vitamin B12 > 2000 pg/ml (193-986)
[2021-04-07] MEDS: FAMOTIDINE 20 MG in SYRINGE 3 ML IV SCH ×2 (09:26→20:28)
[2021-04-07] MEDS: METOPROLOL TARTRATE 25 MG TAB PO SCH ×2 (09:26→20:28)
[2021-04-07] MEDS: SERTRALINE HCL 50 MG TABLET PO SCH (09:26)
[2021-04-07] MEDS: PIPERACILLIN/TAZOBACTAM 4.5 GM in DEXTROSE 5% 100 ML IV SCH ×3 (09:26→23:48)
[2021-04-07] MEDS: FLUTICASONE/VILANTEROL 100/25MCG 14 PUFFS/INHALER INH SCH (09:27)
[2021-04-07] MEDS: UMECLIDINIUM BROMIDE 62.5MCG/BLISTER 7 PUFFS/INHALER INH SCH (09:27)
[2021-04-07] MEDS ORDERED: POTASSIUM PHOS 3 MMOL/1 ML INFUSION IV STA (09:42)
[2021-04-07] MEDS ORDERED: POTASSIUM CHLORIDE CRTAB 20 MEQ TABCR PO STA ×2 (09:45→10:26)
[2021-04-07] MEDS ORDERED: POTASSIUM PHOSPHATE 21 MMOL in SODIUM CHLORIDE 0.9% 500 ML IV ONE (10:00)
[2021-04-07] MEDS: POTASSIUM CHLORIDE 20 MEQ in LACTATED RINGER'S 1,000 ML IV SCH ×2 (11:23→22:36)
[2021-04-08] MEDS: HEPARIN SOD 5,000 UNIT/0.5 ML VIAL SQ SCH ×3 (05:47→22:18)
[2021-04-08 07:36] LABS: Hemoglobin 10.5 g/dL (12.0-16.0); Mean Corpuscular Hemoglobin 30.3 pg (25-34); Mean Corpuscular Hgb Conc 31.8 g/dL (32-36); Mean Corpuscular Volume 95.1 fL (80-100); Platelet Count 347 K/uL (130-400); RDW Standard Deviation 48.4 fL (36.4-46.3); Red Blood Count 3.47 M/uL (4.2-5.4); White Blood Count 7.98 K/uL (4.8-10.8)
--- NOTE | 2021-04-08 07:56 | Hospitalist Progress Note ---
Date of Service April 08, 2021 Assessment & Plan (1) Large bowel perforation: Occurring after colonoscopy with Dr. Reddy and brought from endo suite to medical bed Found to have perforated large bowel (likely secondary to stricture/c-scope and air trapping) * POD #5 S/p right hemicolectomy with ileocolonic anastomosis 04/03/2021. * +BM 04/07 and multipe today --> diet being advaned to low fiber today * Continued on Zosyn (no further antifungal) * Procalcitonin downtrending, WBC now also downtrending (now wnl), afebrile * Appreciate surgery management of postoperative pain and diet. * -- repeat IV Kphos for phos 2.2. K wnl 3.9 but trying to maintain >4. Mag wnl. * No further IVF * Labs/electrolyte replacement as needed (2) Chronic respiratory failure: * Baseline 2 LPM O2 at night. * CXR 04/07 without congestion but does note atelectasis -- encouraged continued use of incentive spirometer * 98% on 2L this AM -- repeat CXR with progression of R basilar opacity pneumonitis vs PNA * --> WBC wnl, afebrile * On Room air currently. * States breathing improved after duoneb -- keep scheduled for now * No further IVF * Carbon dioxide elevated -- likely due to continued O2 with sats in upper 90s over past 2 days without titration down * Will monitor CXR in AM * Has albuterol HFA at home can continue * 2 step prior to d/c if needed (3) AIRAM (obstructive sleep apnea): * Mild without CPAP supplementation. * Nocturnal hypoxia with 2 LPM O2. * Currently requiring 2L for O2 sat 98% this morning-- continuing incentive spirometer and titrate O2 to maintain O2 sat >=90 (4) Cor pulmonale (chronic): * Continue to monitor for fluid overload. * CXR without congestion * Resuming bumex 1mg daily today * No further IVF as above (5) HTN (hypertension): * BP 132/82 * Metoprolol tartrate 12.5 mg p.o. twice daily * Continue to monitor (6) COPD (chronic obstructive pulmonary disease): * Chronic * Continue Breo Ellipta and Incruse Ellipta inhalers once daily * Duonebs as above * Can add atypical coverage for COPD exacerbation if needed/pneumonitis as above (7) Depression: * Sertraline 75 mg p.o. every morning (8) Immunosuppression due to drug therapy: * Hold methotrexate, prednisone and hydroxychloroquine --> resume prednisone * --> patient states MTX to be increased at last visit but she did not have worsening symptoms and does not believe she will be continuing this in the future (9) Mixed connective tissue disease: * As above (10) Rheumatoid arthritis: * Methotrexate and prednisone on hold as above (resuming prednisone) (11) DVT prophylaxis: * Continue heparin 5000 units every 8 hourly Hypokalemia/Hypophosphatemia No further hypokalemia. Replacing phos with IV today 9mmol. Follow on AM labs Dispo: continued inpatient stay. hopeful for d/c tomorrow with home health services. CM following Hospitalist service will follow along. Admission and Anticipated Discharge Date Admission Date: April 03, 2021 Supervising Physician Co-Signing Physician Notes IVANA Supervision Note: I did not personally see or examine the patient today, but I verified all terrell points of IVANA Ortiz's assessment and plan with the following exceptions/additions: Improving, advancing diet as per Surgery Subjective Patient evaluated this afternoon. Feeling better. Still with diarrhea but not as bad. Pain better. Eating/drinking without issue -- currently on low fiber diet. Intermittent need for O2. CXR with aspiration pneumonitis but could also be concerning for pneumonia. Patient states SOB not worsened. Got duoneb this morning which did make her cough but stated breathing improved. She has hx chronic resp failure and bronchitis requiring zpack. She states it has been several years since she needed this but also has an albuterol inhaler at home. Discussed will repeat imaging in am. Patient now on Room Air 91%. WBC wnl. Afebrile. Continues to use incentive spirometer. No fever, chills, chest pain, nausea, vomiting, dysuria at this time. Review of Systems Review of Systems: All systems reviewed & are unremarkable except as noted in HPI & below Physical Exam Constitutional: WD/WN, vitals as above Eyes: + anicteric sclerae; normal pupil size Neck: trachea midline Respiratory: normal respiratory effort and able to speak in complete sentences; no respiratory distress, no labored breathing, no cough and not tachypneic Auscultation: + diminished lung sounds (bases) and + crackles (R base (improved with cough)); no rales, no rhonchi and no wheezes (faint end expiratory wheeze R posterior field) Cardiovascular: Rate/Rhythm: regular rate and regular rhythm Heart Sounds: no murmur Extremities: normal capillary refill; no calf tenderness and no pedal edema Gastrointestinal (Abdomen): Inspection/Auscultation: + abdomen distended (less) and normal bowel sounds Percussion/Palpation: + abdomen tender (minimal. dressing c/d/i) and abdomen soft; no guarding and abdomen not rigid Musculoskeletal: no cyanosis or clubbing, extremities motor strength 5/5 (RA appearance b/l hands) Skin: no rashes, warm and dry Neurologic: moves all extremities and awake; not confused Psychiatric: A+Ox3, euthymic affect Genitourinary: no CVA tenderness Results & Data Results & Data ([facility]) Vital Signs (Past 12 Hours) Vital Signs Temp Pulse Pulse Pulse Resp BP BP 04/08/21 07:16 36.6 C 76 14 146/80 H 04/08/21 03:41 75 04/08/21 03:00 36.6 C 78 20 129/67 04/07/21 23:00 36.7 C 75 20 132/79 Pulse Ox 04/08/21 07:16 99 04/08/21 03:41 04/08/21 03:00 96 04/07/21 23:00 98 Laboratory Results 04/08/21 04/08/21 04/07/21 Range/Units 07:19 07:19 21:30 WBC 7.98 (4.8-10.8) K/uL RBC 3.47 L (4.2-5.4) M/uL Hgb 10.5 L (12.0-16.0) g/dL Hct 33.0 L (37-47) % MCV 95.1 (80-100) fL MCH 30.3 (25-34) pg MCHC 31.8 L (32-36) g/dL RDW Std Deviation 48.4 H (36.4-46.3) fL RDW Coeff of Marc 14.0 (11.5-14.5) % Plt Count 347 (130-400) K/uL MPV 9.0 (7.4-10.4) fL Sodium 141 (136-145) mmol/L Potassium 3.9 D (3.5-5.1) mmol/L Chloride 104 (98-107) mmol/L Carbon Dioxide 36 H (21-32) mmol/L Anion Gap 0 L (3-11) BUN 7 (7-18) mg/dl Creatinine 0.46 L (0.6-1.2) mg/dl Est Cr Clr Drug Dosing 133.7 ml/min Est GFR ( Amer) 115.2 ml/min Est GFR (Non-Af Amer) 99.4 ml/min BUN/Creatinine Ratio 15.9 (10-20) Glucose 100 H (70-99) mg/dl Calcium 8.1 L (8.5-10.1) mg/dl Phosphorus 2.2 L (2.5-4.9) mg/dl Magnesium 2.0 (1.8-2.4) mg/dl Vitamin B12 (193-986) pg/ml Folate (>5.38) ng/ml Stl C. diff Tox B Gene Negative Cdiff Gene (Neg) 04/07/21 Range/Units 07:39 WBC (4.8-10.8) K/uL RBC (4.2-5.4) M/uL Hgb (12.0-16.0) g/dL Hct (37-47) % MCV (80-100) fL MCH (25-34) pg MCHC (32-36) g/dL RDW Std Deviation (36.4-46.3) fL RDW Coeff of Marc (11.5-14.5) % Plt Count (130-400) K/uL MPV (7.4-10.4) fL Sodium (136-145) mmol/L Potassium (3.5-5.1) mmol/L Chloride (98-107) mmol/L Carbon Dioxide (21-32) mmol/L Anion Gap (3-11) BUN (7-18) mg/dl Creatinine (0.6-1.2) mg/dl Est Cr Clr Drug Dosing ml/min Est GFR ( Amer) ml/min Est GFR (Non-Af Amer) ml/min BUN/Creatinine Ratio (10-20) Glucose (70-99) mg/dl Calcium (8.5-10.1) mg/dl Phosphorus (2.5-4.9) mg/dl Magnesium (1.8-2.4) mg/dl Vitamin B12 > 2000 H (193-986) pg/ml Folate 15.60 (>5.38) ng/ml Stl C. diff Tox B Gene (Neg) PG Care Time/CCT Total # of Minutes Spent Total Time Spent with Patient: Total time spent is greater than 50% in coordination of care (as documented) at patient's floor/unit and/or counseling patient: Coding Level of Care Code 81959 Subseq Hosp Care Lvl 3 Diagnoses Large bowel perforation K63.1 Chronic respiratory failure J96.10 AIRAM (obstructive sleep apnea) G47.33 Cor pulmonale (chronic) I27.81 HTN (hypertension) I10 Hypertension type: essential hypertension COPD (chronic obstructive pulmonary disease) J44.9 COPD type: unspecified COPD Depression F32.9 Depression Type: unspecified Immunosuppression due to drug therapy Z79.899 Mixed connective tissue disease M35.1 Rheumatoid arthritis M06.9 Rheumatoid arthritis location: unspecified site Rheumatoid factor presence: unspecified presence DVT prophylaxis Z29.9 (1) Rheumatoid arthritis Rheumatoid arthritis location: unspecified site Rheumatoid factor presence: unspecified presence Qualified Code(s): M06.9 - Rheumatoid arthritis, unspecified (2) Depression Depression Type: unspecified Qualified Code(s): F32.9 - Major depressive disorder, single episode, unspecified (3) COPD (chronic obstructive pulmonary disease) COPD type: unspecified COPD Qualified Code(s): J44.9 - Chronic obstructive pulmonary disease, unspecified (4) HTN (hypertension) Hypertension type: essential hypertension Qualified Code(s): I10 - Essential (primary) hypertension
[2021-04-08 08:12] LABS: BUN Creatinine Ratio 15.9 (10-20); Calcium 8.1 mg/dl (8.5-10.1); Creatinine Clr Calc Pharmacy 133.7 ml/min; Est GFR (African American) 115.2 ml/min; Est GFR (Non-African American) 99.4 ml/min; Phosphorus 2.2 mg/dl (2.5-4.9); Potassium 3.9 mmol/L (3.5-5.1)
--- NOTE | 2021-04-08 08:43 | Surgery Progress Note ---
Date of Service April 08, 2021 Assessment & Plan (1) Spontaneous perforation of colon: POD#5 right hemicolectomy WBC 7.9. VSS, afebrile Patient clinically doing well Denies abdominal complaints, having + bowel function Doing well with liquid diet, will advance to low fiber this AM Continue ongoing ambulation and pulmonary toilet Hopeful for discharge to home tomorrow pt seen.. +BM's. doing well. as above. advance diet. d/c planning Admission and Anticipated Discharge Date Admission Date: April 03, 2021 Subjective Patient says she is feeling well. Having + bowel function. Tolerating full liquid diet. Offers no complaints. Physical Exam Physical Exam: awake/alert Constitutional: well developed and well nourished; no acute distress Gastrointestinal (Abdomen): Inspection/Auscultation: + abdominal surgical incision (c/d/i) Results & Data ([facility]) Vital Signs (Past 12 Hours) Vital Signs Temp Pulse Pulse Pulse Resp BP BP 04/08/21 07:16 36.6 C 76 14 146/80 H 04/08/21 03:41 75 04/08/21 03:00 36.6 C 78 20 129/67 04/07/21 23:00 36.7 C 75 20 132/79 Pulse Ox 04/08/21 07:16 99 04/08/21 03:41 04/08/21 03:00 96 04/07/21 23:00 98 PG Care Time/CCT Total # of Minutes Spent Total Time Spent with Patient: Total time spent is greater than 50% in coordination of care (as documented) at patient's floor/unit and/or counseling patient: Coding Level of Care Code None Diagnoses Spontaneous perforation of colon K63.1
[2021-04-08] MEDS: SERTRALINE HCL 50 MG TABLET PO SCH (08:51)
[2021-04-08] MEDS: FLUTICASONE/VILANTEROL 100/25MCG 14 PUFFS/INHALER INH SCH (08:51)
[2021-04-08] MEDS: UMECLIDINIUM BROMIDE 62.5MCG/BLISTER 7 PUFFS/INHALER INH SCH (08:51)
[2021-04-08] MEDS: METOPROLOL TARTRATE 25 MG TAB PO SCH ×2 (08:52→22:17)
[2021-04-08] MEDS: PIPERACILLIN/TAZOBACTAM 4.5 GM in DEXTROSE 5% 100 ML IV SCH ×2 (08:52→16:05)
[2021-04-08] MEDS: FAMOTIDINE 20 MG in SYRINGE 3 ML IV SCH ×2 (08:52→22:18)
[2021-04-08] MEDS ORDERED: POTASSIUM PHOS 3 MMOL/1 ML INFUSION IV STA (08:54)
[2021-04-08] MEDS ORDERED: POTASSIUM PHOSPHATE 9 MMOL in SODIUM CHLORIDE 0.9% 250 ML IV ONE (09:30)
--- NOTE | 2021-04-08 10:34 | XRay Report ---
XR chest 1V portable HISTORY: 70 years-old Female f/u atelectasis, hypoxia acute hypoxia COMPARISON: Chest radiograph 04/07/2021, chest CT 12/08/2020 TECHNIQUE: Portable AP view of the chest FINDINGS: Cardiac mediastinal and hilar silhouettes are within normal limits. Battery pack of the left chest wa ll. There are persistent mild right greater left bibasilar opacities, progressively worsened on the r ight. No pneumothorax, large pleural effusion or overt pulmonary edema. Degenerative changes of the s houlders and spine. IMPRESSION: Progressively worsened right lung base opacities suspicious for pneumonia or aspiration p neumonitis. ACT 112: Negative or not required by law. The above report was generated using voice recognition software. It may contain grammatical, syntax o r spelling errors. Electronically signed by: David Ramos M.D. 04/08/2021 10:33 AM
[2021-04-08] MEDS: ALBUT/IPRATROP 3MG/0.5MG NEB 3 ML VIAL NEB SCH ×3 (11:43→19:10)
[2021-04-08] MEDS ORDERED: predniSONE 5 MG TAB PO SCH (14:00)
[2021-04-08 14:27] LABS: Basophils # (auto) 0.01 K/uL (0-0.2); Basophils % (auto) 0.1 %; Eosinophils # (auto) 0.04 K/uL (0-0.5); Eosinophils % (auto) 0.5 %; Immature Granulocytes # (auto) 0.16 K/uL (0.00-0.02); Lymphocytes # (auto) 1.26 K/uL (1.2-3.4); Lymphocytes % (auto) 15.9 %; Monocytes # (auto) 1.06 K/uL (0.11-0.59); Monocytes % (auto) 13.4 %; Neutrophils # (auto) 5.37 K/uL (1.4-6.5); Neutrophils % (auto) 68.1 %
[2021-04-08] MEDS: BUMETANIDE 1 MG TAB PO SCH (14:44)
[2021-04-08] MEDS ORDERED: FUROSEMIDE 20 MG in SYRINGE 0 ML IV ONE (18:00)
[2021-04-08] MEDS ORDERED: POTASSIUM CHLORIDE CRTAB 20 MEQ TABCR PO STA (18:29)
[2021-04-08] MEDS ORDERED: FUROSEMIDE 40 MG in SYRINGE 0 ML IV ONE (18:45)
[2021-04-09] MEDS: PIPERACILLIN/TAZOBACTAM 4.5 GM in DEXTROSE 5% 100 ML IV SCH ×2 (01:37→08:47)
[2021-04-09] MEDS: HEPARIN SOD 5,000 UNIT/0.5 ML VIAL SQ SCH ×2 (06:05→13:17)
[2021-04-09 06:37] LABS: Basophils # (auto) 0.02 K/uL (0-0.2); Basophils % (auto) 0.2 %; Eosinophils # (auto) 0.04 K/uL (0-0.5); Eosinophils % (auto) 0.5 %; Hematocrit (blood only) 33.8 % (37-47); Hemoglobin 10.8 g/dL (12.0-16.0); Immature Granulocytes # (auto) 0.32 K/uL (0.00-0.02); Immature Granulocytes % (auto) 3.8 %; Lymphocytes # (auto) 1.13 K/uL (1.2-3.4); Lymphocytes % (auto) 13.4 %; Mean Corpuscular Hemoglobin 31.1 pg (25-34); Mean Corpuscular Volume 97.4 fL (80-100); Monocytes # (auto) 0.93 K/uL (0.11-0.59); Neutrophils # (auto) 6.02 K/uL (1.4-6.5); Neutrophils % (auto) 71.1 %; Platelet Count 339 K/uL (130-400); RDW Coefficient of Variation 14.3 % (11.5-14.5); RDW Standard Deviation 50.3 fL (36.4-46.3); Red Blood Count 3.47 M/uL (4.2-5.4); White Blood Count 8.46 K/uL (4.8-10.8)
[2021-04-09] MEDS: ALBUT/IPRATROP 3MG/0.5MG NEB 3 ML VIAL NEB SCH ×3 (07:12→15:40)
[2021-04-09 07:16] LABS: BUN Creatinine Ratio 14.4 (10-20); Calcium 8.7 mg/dl (8.5-10.1); Est GFR (African American) 110.6 ml/min; Est GFR (Non-African American) 95.5 ml/min; Potassium 3.7 mmol/L (3.5-5.1)
[2021-04-09 07:24] LABS: Phosphorus 3.4 mg/dl (2.5-4.9)
--- NOTE | 2021-04-09 08:36 | XRay Report ---
TWO VIEW CHEST CLINICAL HISTORY: Follow-up pneumonia. FINDINGS: PA and lateral chest radiographs are compared to study dated 04/08/2021 and correlated with chest CT dated 12/08/2020. An electronic device projects over the left mid chest. The heart is top nor mal for projection. Emphysema and chronic interstitial thickening is similar to previous. There are s mall pleural effusions with bibasilar consolidation. No pneumothorax is seen. The skeletal structures are osteopenic. The bony thorax appears intact. IMPRESSION: 1. Emphysema. 2. There are small pleural effusions with bibasilar consolidation. This could represent pneumonia and /or an infectious/inflammatory pneumonitis and clinical correlation will be required ACT 112: Negative or not required by law. Electronically signed by: Ludwig Red M.D. 04/09/2021 8:35 AM
[2021-04-09] MEDS: FAMOTIDINE 20 MG in SYRINGE 3 ML IV SCH (08:44)
[2021-04-09] MEDS: BUMETANIDE 1 MG TAB PO SCH (08:45)
[2021-04-09] MEDS: SERTRALINE HCL 50 MG TABLET PO SCH (08:45)
[2021-04-09] MEDS: UMECLIDINIUM BROMIDE 62.5MCG/BLISTER 7 PUFFS/INHALER INH SCH (08:46)
[2021-04-09] MEDS: METOPROLOL TARTRATE 25 MG TAB PO SCH (08:46)
[2021-04-09] MEDS: FLUTICASONE/VILANTEROL 100/25MCG 14 PUFFS/INHALER INH SCH (08:46)
[2021-04-09] MEDS ORDERED: FOLIC ACID 1 MG TAB PO SCH (09:00)
--- NOTE | 2021-04-09 09:18 | Hospitalist Progress Note ---
Date of Service April 09, 2021 Assessment & Plan (1) Large bowel perforation: Occurring after colonoscopy with Dr. Reddy and brought from endo suite to medical bed Found to have perforated large bowel (likely secondary to stricture/c-scope and air trapping) * POD #6 S/p right hemicolectomy with ileocolonic anastomosis 04/03/2021. * Diarrhea slowing * On Zosyn -- no further abx at d/c * WBC wnl, afebrile * Electrolytes acceptable Weight up from surgery/volume overload leading to sob/need for O2 Lasix 40mg IV given evening 04/08 with PO potassium. Resumed bumex Extra 1mg Bumex this morning and given dose of diamox x 1 250mg given 98% on 2L and some CO2 retention in pt w chronic resp failure --> Obtaining repeat labs early afternoon and will check 2 step to see if needs supplemental with ambulation --> Could increase bumex for next 1-2 days and repeat labs outpatient as patient adamant about being able to go home and get better rest GI to further manage sigmoid strictures and will need f/u outpatient (2) Chronic respiratory failure: * Baseline 2 LPM O2 at night. * CXR 04/07 without congestion but does note atelectasis -- encouraged continued use of incentive spirometer * 98% on 2L -- repeat CXR with progression of R basilar opacity pneumonitis vs PNA * --> WBC wnl, afebrile * States breathing improved after duoneb -- keep scheduled for now * No further IVF * Carbon dioxide elevated -- likely due to continued O2 with sats in upper 90s over past 2 days without titration down as well as volume overload given large amt IVF carmen-operative period * --> See above regarding extra diuretics. 2step prior to d/c * Has albuterol HFA at home can continue and will be resuming her usual Trelegy which she notes has been increasingly beneficial for her breathing and has been without for over a week as this is non-formulary in the hospital (3) AIRAM (obstructive sleep apnea): * Mild without CPAP supplementation. * Nocturnal hypoxia with 2 LPM O2. * Currently requiring 2L for O2 sat 98% this morning-- continuing incentive spirometer and titrate O2 to maintain O2 sat >=90 (4) Cor pulmonale (chronic): * Continue to monitor for fluid overload. * CXR without congestion * Resuming bumex 1mg daily and given extra dose this morning. Lasix 40mg IV last evening and not further IVF (5) HTN (hypertension): * BP 126/71 * Metoprolol tartrate 12.5 mg p.o. twice daily * Continue to monitor (6) COPD (chronic obstructive pulmonary disease): * Chronic * Continue Breo Ellipta and Incruse Ellipta inhalers once daily * Duonebs as above * Can add atypical coverage for COPD exacerbation if needed/pneumonitis as above * Has not had her trelegy in over a week and could be also contributing (7) Depression: * Sertraline 75 mg p.o. every morning (8) Immunosuppression due to drug therapy: * Hold methotrexate, prednisone and hydroxychloroquine * --> patient states MTX to be increased at last visit but she did not have worsening symptoms and does not believe she will be continuing this in the future (9) Mixed connective tissue disease: * As above (10) Rheumatoid arthritis: * See above (11) DVT prophylaxis: * Continue heparin 5000 units every 8 hourly Hypokalemia/Hypophosphatemia RESOLVED WITH REPLACEMENT Dispo: extra diuretics given as above. repeating lasb this afternoon with 2step to see if needs supplemental with ambulation. could increase diuretics at d/c for next couple days with repeat labs outpatient if needed. Admission and Anticipated Discharge Date Admission Date: April 03, 2021 Supervising Physician Co-Signing Physician Notes PA Supervision Note: I personally saw and examined the patient. I verified all terrell points and agree with IVANA Ortiz with the following exceptions and/or additions: S-Pt feeling improved, abd pain controlled, no SOB, no CP. Is ready to go home. Seen later in the afternoon and has diuresed quite a bit more urine today but declined to have extra IV Bumex prior to discharge to home. O- Vitals reviewed Gen: [AAOx3, NAD] HEENT: [anicteric sclerae, EOMI] CV: [RRR no mgr nl S1S2] Pulm: [CTAB no wcr] Abd: [+BS soft mild TTP at incision site, dressing c/d/i, ND no masses or hernias] Ext: [1+ pitting edema legs to mid tibia bilat, 2+ DP pulses] Skin: [no rashes, warm/dry] Neuro: [full strength throughout] A/P-70 yo female here with ceccal perforation requiring emergent hemicolectomy s/p colonoscopy for sigmoid stricture and overflow diarrhea. Improved from surgical standpoint. With some volume overload and diuresed prior to discharge. To continue diuresis with extra bumex over the next 3 days at home and f/u with PCP. Subjective Patient evaluated this morning. Doing well. Minimal SOB. Will continue diuresis given sig volume of fluid from surgery/post- op period. Given extra dose of bumex this morning (resumed last evening) and has increased UO. Weight down. Given dose of diamox as well for CO2 retention as has been on 2L this afternoon with O2 sat 98%. She states she will be going home today as she has not gotten any sleep while here. Discussed improvement of electrolytes on labs but will repeat labs this afternoon after medication administration and patient agreeable to plan. Will obtain 2 step prior to d/c to ensure no continued needs but she is agreeable to increased bumex for next several days if needed and repeat labs outpatient if needed if that means she could be discharged today. No fever, chills, chest pain, sputum production, controlled abd discomfort, no nausea, vomiting, or dysuria at this time. Review of Systems Review of Systems: All systems reviewed & are unremarkable except as noted in HPI & below Physical Exam Constitutional: WD/WN, vitals as above Eyes: + anicteric sclerae; normal pupil size Neck: trachea midline Respiratory: normal respiratory effort and able to speak in complete sentences; no respiratory distress, no labored breathing, no cough and not tachypneic Auscultation: + diminished lung sounds (bases) and + crackles (R base (improved with cough)); no rales, no rhonchi and no wheezes (faint end expiratory wheeze R posterior field) Cardiovascular: Rate/Rhythm: regular rate and regular rhythm Heart Sounds: no murmur Extremities: normal capillary refill; no calf tenderness and no pedal edema Gastrointestinal (Abdomen): Inspection/Auscultation: + abdomen distended (less) and normal bowel sounds Percussion/Palpation: + abdomen tender (minimal. dressing c/d/i) and abdomen soft; no guarding and abdomen not rigid Musculoskeletal: no cyanosis or clubbing, extremities motor strength 5/5 (RA appearance b/l hands) Skin: no rashes, warm and dry Neurologic: moves all extremities and awake; not confused Psychiatric: A+Ox3, euthymic affect Genitourinary: no CVA tenderness Results & Data Results & Data ([facility]) Vital Signs (Past 12 Hours) Vital Signs Temp Pulse Pulse Pulse Resp BP BP 04/09/21 08:15 36.4 C L 84 18 126/71 04/09/21 07:12 80 18 04/09/21 03:00 36.7 C 89 20 132/72 04/08/21 23:51 87 04/08/21 23:00 36.6 C 102 H 20 137/73 Pulse Ox 04/09/21 08:15 98 04/09/21 07:12 98 04/09/21 03:00 95 04/08/21 23:51 04/08/21 23:00 95 Laboratory Results 04/09/21 04/09/21 04/08/21 Range/Units 06:19 06:19 07:19 WBC 8.46 7.98 (4.8-10.8) K/uL RBC 3.47 L 3.47 L (4.2-5.4) M/uL Hgb 10.8 L 10.5 L (12.0-16.0) g/dL Hct 33.8 L 33.0 L (37-47) % MCV 97.4 95.1 (80-100) fL MCH 31.1 30.3 (25-34) pg MCHC 32.0 31.8 L (32-36) g/dL RDW Std Deviation 50.3 H 48.4 H (36.4-46.3) fL RDW Coeff of Marc 14.3 14.0 (11.5-14.5) % Plt Count 339 347 (130-400) K/uL MPV 9.0 9.0 (7.4-10.4) fL Immature Gran % (Auto) 3.8 2.0 % Neut % (Auto) 71.1 68.1 % Lymph % (Auto) 13.4 15.9 % Maury % (Auto) 11.0 13.4 % Eos % (Auto) 0.5 0.5 % Baso % (Auto) 0.2 0.1 % Neut # (Auto) 6.02 5.37 (1.4-6.5) K/uL Lymph # (Auto) 1.13 L 1.26 (1.2-3.4) K/uL Maury # (Auto) 0.93 H 1.06 H (0.11-0.59) K/uL Eos # (Auto) 0.04 0.04 (0-0.5) K/uL Baso # (Auto) 0.02 0.01 (0-0.2) K/uL Immature Gran # (Auto) 0.32 H 0.16 H (0.00-0.02) K/uL Sodium 141 (136-145) mmol/L Potassium 3.7 (3.5-5.1) mmol/L Chloride 101 (98-107) mmol/L Carbon Dioxide 38 H (21-32) mmol/L Anion Gap 2.0 L (3-11) BUN 8 (7-18) mg/dl Creatinine 0.52 L (0.6-1.2) mg/dl Est Cr Clr Drug Dosing 115.0 ml/min Est GFR ( Amer) 110.6 ml/min Est GFR (Non-Af Amer) 95.5 ml/min BUN/Creatinine Ratio 14.4 (10-20) Glucose 94 (70-99) mg/dl Calcium 8.7 (8.5-10.1) mg/dl Phosphorus 3.4 D (2.5-4.9) mg/dl Magnesium 2.0 (1.8-2.4) mg/dl PG Care Time/CCT Total # of Minutes Spent Total Time Spent with Patient: Total time spent is greater than 50% in coordination of care (as documented) at patient's floor/unit and/or counseling p atient: Coding Level of Care Code 21233 Subseq Hosp Care Lvl 3 Diagnoses Large bowel perforation K63.1 Chronic respiratory failure J96.10 AIRAM (obstructive sleep apnea) G47.33 Cor pulmonale (chronic) I27.81 HTN (hypertension) I10 Hypertension type: essential hypertension COPD (chronic obstructive pulmonary disease) J44.9 COPD type: unspecified COPD Depression F32.9 Depression Type: unspecified Immunosuppression due to drug therapy Z79.899 Mixed connective tissue disease M35.1 Rheumatoid arthritis M06.9 Rheumatoid arthritis location: unspecified site Rheumatoid factor presence: unspecified presence DVT prophylaxis Z29.9 (1) Rheumatoid arthritis Rheumatoid arthritis location: unspecified site Rheumatoid factor presence: unspecified presence Qualified Code(s): M06.9 - Rheumatoid arthritis, unspecified (2) Depression Depression Type: unspecified Qualified Code(s): F32.9 - Major depressive disorder, single episode, unspecified (3) COPD (chronic obstructive pulmonary disease) COPD type: unspecified COPD Qualified Code(s): J44.9 - Chronic obstructive pulmonary disease, unspecified (4) HTN (hypertension) Hypertension type: essential hypertension Qualified Code(s): I10 - Essential (primary) hypertension
[2021-04-09] MEDS ORDERED: acetaZOLAMIDE 250 MG TAB PO ONE (10:00)
[2021-04-09] MEDS ORDERED: POTASSIUM CHLORIDE CRTAB 20 MEQ TABCR PO STA ×2 (10:03→14:52)
--- NOTE | 2021-04-09 10:06 | Surgery Progress Note ---
Date of Service April 09, 2021 Assessment & Plan (1) Large bowel perforation: POD#6 R macario Doing well, afebrile without leukocytosis Tolerating diet and has return of bowel function Ok to d/c ABX Ok to discharge from surgical standpoint Will remove michele drain prior to discharge and arrange for follow up in 1 week for staple removal Admission and Anticipated Discharge Date Admission Date: April 03, 2021 Subjective Pt seen and examined. Tolerating regular diet without N/V. +BM's and flatus. Minimal abdominal pain. Afebrile. Physical Exam Constitutional: WD/WN, vitals as above Gastrointestinal (Abdomen): Inspection/Auscultation: abdomen not distended Percussion/Palpation: + abdomen tender (appropriately ) and abdomen soft Incision with saman and michele drain present, no erythema or drainage. Results & Data ([facility]) Vital Signs (Past 12 Hours) Vital Signs Temp Pulse Pulse Pulse Resp BP BP 04/09/21 08:15 36.4 C L 84 18 126/71 04/09/21 07:12 80 18 04/09/21 03:00 36.7 C 89 20 132/72 04/08/21 23:51 87 04/08/21 23:00 36.6 C 102 H 20 137/73 Pulse Ox 04/09/21 08:15 98 04/09/21 07:12 98 04/09/21 03:00 95 04/08/21 23:51 04/08/21 23:00 95 PG Care Time/CCT Total # of Minutes Spent Total Time Spent with Patient: Total time spent is greater than 50% in coordination of care (as documented) at patient's floor/unit and/or counseling patient: Coding Level of Care Code None Diagnoses Large bowel perforation K63.1
[2021-04-09] MEDS ORDERED: BUMETANIDE 1 MG TAB PO ONE (10:15)
[2021-04-09 14:37] LABS: BUN Creatinine Ratio 11.6 (10-20); Calcium 8.8 mg/dl (8.5-10.1); Creatinine Clr Calc Pharmacy 93.4 ml/min; Est GFR (African American) 103.3 ml/min; Est GFR (Non-African American) 89.2 ml/min; Potassium 3.5 mmol/L (3.5-5.1)
[2021-04-09] MEDS ORDERED: BUMETANIDE 1 MG in SYRINGE 0 ML IV ONE (15:00)
[2021-04-09] MEDS ORDERED: FAMOTIDINE 20 MG TAB PO SCH (21:00)
--- NOTE | 2021-04-10 10:13 | Discharge Summary ---
Date of Service April 10, 2021 Admission HPI Per Admitting Provider This is a 70 yo female who is seen urgently at the request of GI in the endoscopy suite. She was undergoing a colonoscopy and developed abdominal pain after the procedure. She currently has 5/10 abdominal pain, generalized, worse with palpation, no relieving factors, no radiation. She denies any N/V. She is on chronic steroids, methotrexate and hydroxychloroquine for RA. No blood thinners. Principal Diagnosis Cecal perforation Discharge Data Allergies Allergy/AdvReac Type Severity Reaction Status Date / Time No Known Drug Allergies Allergy Unknown . Verified 04/03/21 13:33 Consultations 04/05/21 09:01 Consult Hospitalist Routine Procedures Performed Operation Date: 04/03/21 13:45 Actual Procedures p Colonoscopy Biopsy Cytology - Fabiana Munroe MD Operation Date: 04/03/21 18:15 Actual Procedures p Exploratory Laparotomy, Right Hemicolectomy with Ileocolonic Anastamosis(Not Applicable) - Lavelle José DO Total Time Total Time Spent Total Time Spent (In Minutes): 20 Discharge Plan Discharge Items Patient Disposition: Home - Self-Care Reason For Visit: Llamas in Bowel Habits Discharge Diagnosis: Right colon resection Activity: Resume your previous activity Lifting: No more than 10 pounds Bathing Comment: may shower; no soaking in tubs/pools Exercise/Sports: Wait until after follow-up appointment Driving/Machine Use: do not resume driving while taking narcotics for pain Non-emergency contact: Surgeon Call non-emergency contact if: you have any medication questions, your symptoms worsen, your pain is not controlled, your pain is worsening, your pain is concerning for you, you have a fever, your temperature is above 101.5, your wound has increased redness, your wound has increased drainage and your wound pain has increased Follow-up/Referrals: Demetris Gonzalez MD [Primary Care Provider] - Lavelle José DO [Physician] - (Please call to schedule follow up in clinic within 1 week for staple removal) Diet: Low Fiber Ambulatory Orders: Basic Metabolic Panel (Routine) Timeframe: 3 Days Location: Determined by Patient Ordered By: Rufina Brock Attending Provider Instructions: IF YOU EXPERIENCE ANY OF THE FOLLOWING SYMPTOMS AFTER YOUR PROCEDURE CALL YOUR PRIMARY CARE PHYSICIAN IMMEDIATELY OR SEEK MEDICAL ATTENTION AT YOUR NEAREST EMERGENCY ROOM: 1. SEVERE abdominal pain or bloating 2. FEVER greater than 101.1 degrees within 24 hours after the procedure 3. LARGE AMOUNTS OF BLEEDING greater than 2-3 tablespoons. If you had a polyp/s removed or have hemorrhoids, a small amount of blood from the rectum is to be expected. 4. A localized irritation of the vein may occur at the site of the IV injection. Hot moist packs to the vein applied 4-6 times per day may reduce pain and irritation. A tender lump may develop and remain for several weeks to several months, but goes away eventually. If the area continues to be painful or becomes red and hot to the touch. For routine questions call [facility] at [phone]. * Avoid the use of alcohol and sedatives for 24 hours. You may purchase Tylenol and/or Ibuprofen over the counter if needed for pain control. Please change your abdominal dressing daily with dry 4x4 gauze and cover with medical tape, until your wounds are healed and no longer draining. You have surgical saman in place that will be removed at one of your follow up appointments within 1 week. Addtl Supervisor Cytogenetic Laboratory Provider Instructions: You were giving copious amounts of IV fluids during hospitalization for surgery and post-operatively due to taking nothing by mouth. You have been given extra diuretics and this has improved, and it is recommended that you TAKE 2MG OF BUMEX (TWICE YOUR USUAL DOSE) for the next THREE DAYS and then resume your usual 1mg dose daily. You have been sent in a prescription for potassium supplementation while on this increased dose for the next 3 days. You are to have repeat BMP to assess kidney function to ensure stability in the next 3 days as discussed and these results will be forwarded to Dr. Gonzalez. This is likely why you have required supplemental oxygen with ambulation prior to discharge and you should be able to discontinue this once back to your usual weight. Please follow up with your primary care in the next couple of days to monitor your progress. Please return to the emergency department if you have any fevers, worsening shortness of breath, or for any other symptoms that are concerning for you. You will also need follow up with general surgery and gastroenterology for further monitoring and management of your surgery/bowels. It has been a pleasure being a part of the medical team providing for you while you have been in the hospital. Take care! Pending Studies at Discharge: No Stand-Alone Forms: Anesthesia/Sedation, Adult, [facility] Medications and DC Order Prescriptions: New bumetanide 2 mg tablet 2 mg PO DAILY 3 Days Qty: 3 RF: 0 potassium chloride 20 mEq tablet extended release 40 meq PO DAILY 3 Days Qty: 6 RF: 0 Continued metoprolol tartrate 25 mg tablet 12.5 mg PO BID Qty: 90 RF: 3 albuterol sulfate 2.5 mg /3 mL (0.083 %) solution for nebulization 2.5 mg INH Q4H PRN (Reason: shortness of breath or wheezing) Qty: 540 RF: 0 pzcwuujmqaym-ovrvdmcw-ohbcea tablet 1 tab PO DAILY RF: 0 bumetanide 1 mg tablet 1 mg PO QAM Qty: 90 RF: 0 hydroxychloroquine 200 mg tablet 200 mg PO BID Qty: 90 RF: 0 methotrexate sodium 2.5 mg tablet 20 mg PO WEEKLY Qty: 39 RF: 0 albuterol sulfate 90 mcg/actuation HFA aerosol inhaler 1 - 2 puffs inhalation Q4H PRN (Reason: shortness of breath) Qty: 51 RF: 0 prednisone 5 mg tablet 5 mg PO DAILY PRN (Reason: flare ups) RF: 0 folic acid 1 mg tablet 2 mg PO QAM RF: 0 sertraline 50 mg tablet 75 mg PO QAM RF: 0 Trelegy Ellipta 100-62.5-25 mcg blister with device 1 inh INH QAM RF: 0 cholecalciferol (vitamin D3) [Vitamin D3] 125 mcg (5,000 unit) Tablet 125 mcg PO QAM RF: 0 Discharge Orders: Discharge Order (Routine); Ordered 04/09/21 Ordered By: Sherrie Reina/Other Patient Handouts: Low-Fiber Diet Admission Data Admit Date/Time: 04/03/21 18:33 Attending Provider: Lavelle José Admit Provider: Fabiana Munroe Primary Care Provider: Demetris Gonzalez Other Providers: Lalo Berry ; Nolberto Flores [facility] Other Interventions: Discharge Summary Assessment (RN) Last Done: 04/09/21 16:30 Coding Level of Care Code D/C Day Management <30 mins
--- NOTE | 2021-04-16 12:09 | Coding Query ---
CODING QUERY To promote full compliance with coding requirements relating to patient care, provider participation is requested in all cases of guardian family member uncertainty. Please assist us with the question(s) below: Coding Question(s): Cecal Perforation is documented in the record with GI Progress Note on 04/05/21 documenting, "Spontaneous cecal perforation due to trapped air post colonoscopy with underlying tight sigmoid colon diverticular stricture", and Hospitalist's Progress Notes, as on 04/08/21 documenting, "Large bowel perforation: Occurring after colonoscopy with Dr. Reddy and brought from endo suite to medical bed Found to have perforated large bowel (likely secondary to stricture/c-scope and air trapping)". Please specify below in your clinical opinion, regarding the Cecal Perforation/Large Bowel Perforation. ( * ) likely a Postprocedural Complication ( ) likely an Intraoperative Complication ( ) Not a Postoperative or Intraoperative Complication ( ) Other: Please Specify Physician's Response(s): Thank you Beatriz Grant Principal Diagnosis: "that condition established after study, to be chiefly responsible for occasioning the admission of the patient to the hospital for care." Co-Existing Principal Diagnosis: "when two or more diagnoses equally meet the criteria for principal diagnosis as determined by the circumstances of admission, diagnostic work up, and/or therapy provided, and the Alphabetic Index, Tabular List, or another coding guideline does not provide sequencing direction, any one of the diagnoses may be sequenced first." "When the physician has documented what appears to be a current diagnosis in the body of the record, but has not included the diagnosis in the final diagnostic statement, the physician should be asked whether the diagnosis should be added." (Source Coding [facility] 2 QTR90. p3-4) KATERINA
--- NOTE | 2021-04-16 12:12 | Coding Query ---
PATHOLOGY To promote full compliance with coding requirements relating to patient care, physician participation is requested in all cases of braille coder uncertainty. Please assist us with the question(s) below: Please review the Pathology report from the Right Colon Hemicolectomy procedure and please document any relevant diagnosis(es) below: Diagnosis(es): Thank you Beatriz BORGES
--- NOTE | 2021-04-16 12:16 | Coding Query ---
To promote full compliance with coding requirements relating to patient care, provider participation is requested in all cases of supplemental nurse uncertainty. Please assist us with the question(s) below: Coding Question(s): The diagnosis(es) below was documented in the Hospitalist Progress Note on 04/08/21 with, "CXR with aspiration pneumonitis but could also be concerning for pneumonia", then subsequently fell off all further documentation. Please indicate if it is still a possible diagnosis or ruled out. Physician's Response(s): POSSIBLE ASPIRATION PNEUMONITIS ( ) Diagnosed and POA ( ) Diagnosed and not POA ( x ) Ruled out ( ) Other (please specify) POSSIBLE PNEUMONIA ( ) Diagnosed and POA ( ) Diagnosed and not POA ( x ) Ruled out ( ) Other (please specify) MTDD
== END 2021-04-09 17:18 | disposition home health service (06) | DRG 329 ==
LOC: ENDO 12:51 → 1E 18:33 → 2N 04-05 07:17

== ENCOUNTER 2022-06-07 08:00 | Observation (INO) ==
--- NOTE | 2022-04-29 08:54 | PAT Medication Instructions ---
Medication Instructions Date of Service April 29, 2022 Home Medications Medication Instructions Recorded albuterol sulfate 2.5 mg INH Q4H PRN #540 ml 08/22/19 metoprolol tartrate 25 mg tablet 12.5 mg PO BID #90 tab 09/30/20 sertraline 50 mg tablet See Rx Instructions .ROUTE 11/24/21 .COMPLEX #135 tab fluticasone fur. 100 mcg-umeclid 1 inh INH QAM #3 inhaler 02/15/22 62.5 mcg-vilant 25 mcg inhalat.powder (Trelegy Ellipta) dqxiuytdezkm-kmqcjcah-jjyhbe tablet 1 tab PO QAM albuterol sulfate 2.5 mg INH Q4H PRN albuterol sulfate 90 mcg/actuation aerosol inhaler 1 - 2 puffs INHALATION Q4H PRN bumetanide 1 mg tablet 1 mg PO QAM metoprolol tartrate 25 mg tablet 12.5 mg PO BID cholecalciferol (vitamin D3) 125 mcg (5,000 unit) tablet (Vitamin D3) 125 mcg PO QAM sertraline 50 mg tablet See Rx Instructions .ROUTE .COMPLEX fluticasone fur. 100 mcg-umeclid 62.5 mcg-vilant 25 mcg inhalat.powder (Trelegy Ellipta) 1 inh INH QAM Lactobacillus rhamnosus GG 10 billion cell capsule (Culturelle) 1 cap PO QAM aspirin 81 mg tablet,delayed release 81 mg PO QAM hydroxychloroquine 200 mg tablet 200 mg PO BID psyllium 1 packet PO QAM Continue as directed sertraline 50 mg tablet See Rx Instructions .ROUTE .COMPLEX ASK your prescriber and surgeon aspirin 81 mg tablet,delayed release 81 mg PO QAM hydroxychloroquine 200 mg tablet 200 mg PO BID DO NOT take the morning of surgery rbytvetncpro-mtlqybrp-zaqddx tablet 1 tab PO QAM bumetanide 1 mg tablet 1 mg PO QAM cholecalciferol (vitamin D3) 125 mcg (5,000 unit) tablet (Vitamin D3) 125 mcg PO QAM Lactobacillus rhamnosus GG 10 billion cell capsule (Culturelle) 1 cap PO QAM psyllium 1 packet PO QAM Take morning of surgery With a small sip of water, OTHERWISE NOTHING TO EAT OR DRINK AFTER MIDNIGHT: albuterol sulfate 2.5 mg INH Q4H PRN(use if needed; please bring with you to hospital day of surgery if possible) albuterol sulfate 90 mcg/actuation aerosol inhaler 1 - 2 puffs INHALATION Q4H PRN(use if needed; please bring with you to hospital day of surgery if possible) metoprolol tartrate 25 mg tablet 12.5 mg PO BID fluticasone fur. 100 mcg-umeclid 62.5 mcg-vilant 25 mcg inhalat.powder (Trelegy Ellipta) 1 inh INH QAM Take evening before surgery albuterol sulfate 2.5 mg INH Q4H PRN(if needed) albuterol sulfate 90 mcg/actuation aerosol inhaler 1 - 2 puffs INHALATION Q4H PRN(if needed) metoprolol tartrate 25 mg tablet 12.5 mg PO BID Other Notes If you have any questions please call us at [phone] or [phone] or [phone] or [phone]
--- NOTE | 2022-05-05 12:06 | Anesthesiology Consultation ---
Date of Service May 05, 2022 Assessment & Plan (1) Encounter for pre-operative examination: - awaiting pre-op stress test ordered by cardio as below, scheduled 05/14/22 per [facility]. - cardio 04/13/22: "...occasional episode of substernal chest discomfort that occurs without rhyme or reason; discomfort is not particularly aggravated by activity...shortness of breath due to COPD and feels that it has worsened because of inactivity due to orthopedic issues...Atypical chest pain. Increased exertional dyspnea. Pending elective right knee replacement as detailed above. Atherosclerotic calcification of the thoracic aorta via June 2020 CT at [facility]. Densely calcified coronary arteries via 2019 CT at [facility]. Severe chronic obstructive lung disease, cor pulmonale...Right heart failure secondary to cor pulmonale. History of transient multifocal atrial tachycardia observed during hospitalization in August 2016 with acute pulmonary exacerbation and right heart failure, quiescent...risk stratification dobutamine stress echoca rdiography (DSE)...prior to elective right total knee replacement surgery. If DSE is OK, patient will be considered an acceptable cardiac risk for the above procedure, with risks notably elevated due to underlying medical issues detailed above. Continue aspirin and metoprolol without interruption..." - pulm 07/09/21 [place]: "...follow-up...waxing and waning pulmonary nodules...nodules appear stable for the most part...new 7 millimeter 1 will be followed up on subsequent imaging...follow-up CT in 6 months. Follow up in 6 months..." Pt states did not f/u d/t COVID and plans to resume care. - COVID screening: Per assessment on 05/05/2022: Travel screen negative, no known COVID-19 positive contacts or current COVID-19 related symptoms in past 2 weeks. Pt vaccinated. Surgeon arranging preop COVID testing, scheduled 06/03/2022. Awaiting results. Chart Review Chart Review: Pending: Refer to Additional Notes / Consult section and Patient seen in Pre Admission Testing Teaching & Discussion Pre-Anesthesia Teaching/Discussion Notes: Instructed NPO after midnight before surgery, except medications with 15 cc of water. Medication instructions provided according to the PAT guidelines. History Surgery Operation Date: 06/07/22 12:30 Proposed Procedures p Right Total Knee Arthroplasty - Jace Ballard, Height/Weight Height: 5 ft 7 in Weight: 84.3 kg Allergies Allergy/AdvReac Type Severity Reaction Status Date / Time No Known Drug Allergies Allergy Unknown . Verified 04/23/22 08:29 Medications Home Medications Medication Instructions Recorded Confirmed Last Taken izwufkwaejzt-xgvruotl-fanjek tablet 1 tab PO QAM 08/17/19 04/23/22 04/02/21 albuterol sulfate 2.5 mg INH Q4H PRN #540 ml 08/22/19 04/23/22 03/20/21 albuterol sulfate 90 mcg/actuation 1 - 2 puffs INHALATION Q4H PRN #51 09/27/19 04/23/22 02/01/21 aerosol inhaler gm bumetanide 1 mg tablet 1 mg PO QAM #90 tab 09/27/19 04/23/22 04/02/21 metoprolol tartrate 25 mg tablet 12.5 mg PO BID #90 tab 09/30/20 04/23/22 04/03/21 cholecalciferol (vitamin D3) 125 125 mcg PO QAM 03/30/21 04/23/22 04/02/21 mcg (5,000 unit) tablet (Vitamin D3) sertraline 50 mg tablet See Rx Instructions .ROUTE 11/24/21 04/23/22 Unknown .COMPLEX #135 tab fluticasone fur. 100 mcg-umeclid 1 inh INH QAM #3 inhaler 02/15/22 04/23/22 Unknown 62.5 mcg-vilant 25 mcg inhalat.powder (Trelegy Ellipta) Lactobacillus rhamnosus GG 10 1 cap PO QAM 04/23/22 04/23/22 Unknown billion cell capsule (Culturelle) aspirin 81 mg tablet,delayed 81 mg PO QAM 04/23/22 04/23/22 Unknown release hydroxychloroquine 200 mg tablet 200 mg PO BID 04/23/22 04/23/22 Unknown psyllium 1 packet PO QAM 04/23/22 04/23/22 Unknown Past Medical History Medical History Atrial tachycardia Basal cell carcinoma of chest s/p excision Congestive heart failure EF 55-59%, Grade I diastolic dysfunction, follows with [facility] COPD (chronic obstructive pulmonary disease) severe Cor pulmonale (chronic) History of COVID-09 October 2020. hospitalized at [facility] for 5 days. COVID pneumonia; symptoms included fever, difficulty standing, hallucinations/brain fog, sob & loss of taste/smell. no current symptoms. HTN (hypertension) Hx of colonic polyps Lung nodule monitoring On home oxygen therapy 2 L HS and prn AIRAM (obstructive sleep apnea) no sleep study done. refused Pulmonary hypertension hx-"no evidence" on 06/16/2021 echo report Rheumatoid arthritis Tricuspid regurgitation Patient denies h/o stroke, seizures, heart attack, DM, blood clots or blood transfusions. Exercise / Class Metabolic Activity III < 4 Walking/Shop/Light housework (ambulates with cane, occ SOB with activities which is chronic and unchanged per pt; occasional chest discomfort following with cardio-upcoming stress test) Past Family History Family History Brother Coronary heart disease Father Cardiomegaly Hypertension Stroke Other No family history of adverse response to anesthesia Denies family history of Ovarian cancer Prostate cancer Myocardial infarction Breast cancer Lung cancer Colorectal cancer Past Surgical History Surgical History H/O arthroscopic knee surgery left knee H/O colonoscopy 1 YR AGO H/O exploratory laparotomy (04/03/21) Exploratory Laparotomy, Partial omentectomy, Right Hemicolectomy with Ileocolonic Anastomosis(Not Applicable) - Lavelle José DO History of bilateral tubal ligation History of cataract surgery bilateral Past Anesthesia History No Hx of Anesthesia Complications and No Family Hx of Anesthesia Complications History of PONV No Hx of PONV and No Hx of Motion Sickness Social History Smoking Status: Former smoker tobacco type: cigarettes Do You Dip or Chew Tobacco: No Smoking End Date: 6 YRS AGO Hx Alcohol Use: Yes alcohol intake frequency: holidays/special occasions only Hx Substance Use: No substance use type: does not use Review of Systems Patient denies reflux, fever, chills or palpitations. Physical Exam Vital Signs Vitals BP 100/57 P 67 TEMP 98.1 SP02 95% on RA RESP 17 Physical Full cervical extension range of motion without pain TMD 3.5 finger breaths Mallampati Score 2 Dentition: edentulous, full upper and lower dentures Lungs: normal respiratory effort. Clear throughout to auscultation, no adventitious breath sounds Cardiac: regular rate and rhythm, no murmurs noted Carotid arteries: negative bruit bilat Lab Results Anesthesia Preop Results Results Anesthesia Widget: WBC 8.73 K/uL (4.8-10.8) 05/05/22 Hgb 13.3 g/dL (12.0-16.0) 05/05/22 Hct 41.1 % (37-47) 05/05/22 Plt 371 K/uL (130-400) 05/05/22 Na 139 mmol/L (136-145) 05/05/22 K 4.1 mmol/L (3.5-5.1) 05/05/22 Cl 98 mmol/L (98-107) 05/05/22 CO2 35 mmol/L (21-32) H 05/05/22 BUN 16 mg/dl (6-23) 05/05/22 Creat 0.79 mg/dl (0.6-1.2) 05/05/22 Glucose Level 85 mg/dl (70-99(Fasting)) 05/05/22 PT 10.6 Seconds (9.0-12.0) 05/05/22 PTT 25.9 Seconds (21.0-31.0) 05/05/22 INR 1.0 (0.9-1.1) 05/05/22 Blood Type AB Positive 05/05/22 Antibody Screen NEGATIVE 05/05/22 Testing Electrocardiogram Date: 10/06/21 NSR, rate 73 bpm Chest X-Ray Date: 05/05/22 FINDINGS: Lung volumes are normal. No consolidation is identified to suggest pneumonia. Linear lingular opacities favor scarring or atelectasis. There is no pneumothorax or pleural effusion. Cardiac size is normal. Mediastinal contours are normal. There is no evidence for pulmonary edema. IMPRESSION: No acute cardiopulmonary findings. Echocardiogram Date: 06/16/21 EF 55-59% Grade I diastolic dysfunction No significant valvular disease No evidence of pulmonary hypertension Cervical Spine Date: 05/05/22 x-ray No fractures or subluxations are identified. Vertebral body heights and disc spaces are well maintained. The alignment is anatomic Prevertebral soft tissues are within normal limits. IMPRESSION: No evidence for acute fracture or subluxation. Other Testing Chest CT 06/23/21 1. Emphysema with new nodular consolidative and groundglass opacities of the lingula and basal left lower lobe with mild associated tree-in-bud nodules. Findings are suggestive of a nonspecific infectious or inflammatory bronchiolitis with pneumonitis. 6 month follow-up chest CT recommended. 2. New subsolid 7 mm nodule of the right lower lobe. Attention at follow-up recommended. 3. No adenopathy or pleural effusion. 4. There are two 3 mm upper lobe solid nodules which have slightly decreased in size from comparison where they each measured 5 mm. 5. Resolution of the previously described 1.4 cm groundglass nodular opacity of the left upper lobe. Abdomen/pelvis CT 12/24/21 1. Extensive colonic diverticulosis. Moderate wall thickening of the sigmoid colon with mild pericolonic stranding may represent sequela of chronic diverticular disease, possibly with an acute on chronic component. No pneumoperitoneum or abscess. 2. There are numerous colocolonic, colorectal and coloenteric fistulas related to chronic diverticular disease. Additionally, there is loss of the fat plane between the left mid uterus and adjacent sigmoid colon with air in the vaginal cuff. A colouterine fistula is considered unlikely, however correlation should be made with patient history and pelvic examination findings. 3. Large bowel and fat filled ventral abdominal wall hernia. 4. No bowel obstruction.
--- NOTE | 2022-06-03 09:46 | History & Physical Report ---
Date of Service June 03, 2022 Assessment & Plan (1) Osteoarthritis of right knee: We will proceed with a right total knee arthroplasty. Postoperatively she will be started on aspirin for DVT prophylaxis and kept overnight in the hospital for postoperative medical management. She plans to use energy physical therapy upon discharge. History of Present Illness Chief Complaint: Osteoarthritis of the right knee. Primary Care Provider: Demetris Gonzalez MD Bharati is a pleasant 71-year-old female who has been dealing with chronic worsening right knee pain. It isreally debilitating. She ambulates with a cane. She saw another orthopedist who had x-rays and MRI of her knee. The MRI showed some arthritis and a complex meniscal tear. She was originally scheduled to have a knee arthroscopy. Unfortunately, she is really struggling with the knee. After failing conservative treatment, she has elected proceed with a right total knee arthroplasty. . Allergies Allergy/AdvReac Type Severity Reaction Status Date / Time No Known Drug Allergies Allergy Unknown . Verified 05/28/22 09:03 Home Medications Medication Instructions Recorded Confirmed Type qcexutgijpnz-hunnzlmh-jgldgb tablet 1 tab PO QAM 08/17/19 05/28/22 History albuterol sulfate 2.5 mg (3 mL) inhalation Q4H PRN 08/22/19 05/28/22 Rx shortness of breath or wheezing #540 mL bumetanide 1 mg tablet 1 mg PO QAM #90 tabs 09/27/19 05/28/22 History metoprolol tartrate 25 mg tablet 12.5 mg PO BID #90 tabs 09/30/20 05/28/22 Rx sertraline 50 mg tablet See Rx Instructions .Route 11/24/21 05/28/22 Rx .COMPLEX #135 tabs fluticasone fur. 100 mcg-umeclid 1 inh inhalation QAM #3 Inhalers 02/15/22 05/28/22 Rx 62.5 mcg-vilant 25 mcg inhalat.powder (Trelegy Ellipta) Lactobacillus rhamnosus GG 10 1 cap PO QAM 04/23/22 05/28/22 History billion cell capsule (Culturelle) aspirin 81 mg tablet,delayed 81 mg PO QAM 04/23/22 05/28/22 History release hydroxychloroquine 200 mg tablet 200 mg PO BID 04/23/22 05/28/22 History psyllium 1 packet PO QAM 04/23/22 05/28/22 History albuterol sulfate 90 mcg/actuation 2 puff inhalation Q4H PRN 06/02/22 06/02/22 Rx aerosol inhaler shortness of breath #3 Inhalers Past Med/Surg History Medical History Atrial tachycardia Basal cell carcinoma of chest s/p excision Congestive heart failure EF 55-59%, Grade I diastolic dysfunction, follows with [facility] COPD (chronic obstructive pulmonary disease) severe Cor pulmonale (chronic) History of COVID-09 October 2020. hospitalized at [facility] for 5 days. COVID pneumonia; symptoms included fever, difficulty standing, hallucinations/brain fog, sob & loss of taste/smell. no current symptoms. HTN (hypertension) Hx of colonic polyps Lung nodule monitoring On home oxygen therapy 2 L HS and prn AIRAM (obstructive sleep apnea) no sleep study done. refused Pulmonary hypertension hx-"no evidence" on 06/16/2021 echo report Rheumatoid arthritis Tricuspid regurgitation Surgical History H/O arthroscopic knee surgery left knee H/O colonoscopy 1 YR AGO H/O exploratory laparotomy (04/03/21) Exploratory Laparotomy, Partial omentectomy, Right Hemicolectomy with Ileocolonic Anastomosis(Not Applicable) - Lavelle José DO History of bilateral tubal ligation History of cataract surgery bilateral Family History Brother Coronary heart disease Father Cardiomegaly Hypertension Stroke Other No family history of adverse response to anesthesia Denies family history of Ovarian cancer Prostate cancer Myocardial infarction Breast cancer Lung cancer Colorectal cancer Social History Smoking Status: Former smoker Tobacco Type: Cigarettes Age Started Using Tobacco: 23; packs per day: 1; Years Smoked: 45; Second Hand Exposure: No; Hx Alcohol Use: Yes Hx Substance Use: No Preferred Language: Iraqi Communication Ability: Effective Visual Impairment: No Limitations Hearing Ability: Normal 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: No Beliefs That Will Affect Care: None marital status: / Current Living Situation: Alone current occupational status: retired Feels Safe at Home: Yes Childhood Exposure to Second-Hand Smoke: No Diet Comment: regular caffeine: Yes (coffee) during the past year weight has: other Dental Care, Regularly: Yes Physical Activity Frequency: 3-4 Times per Week Physical Activity Frequency Comment: walk Seatbelt Use: always Sunscreen Use: Yes Assistive Devices: Cane, Denture - Upper, Denture - Lower, Glasses and Oxygen - at Night Review of Systems All systems reviewed & are unremarkable except as noted in HPI & below. Physical Exam On physical examination of the right knee, she has a slight valgus deformity. She has range of motion from 5 to 115 degrees. No instability.. Constitutional WD/WN, vitals as above Eyes PERRL, conjunctivae normal, anicteric sclerae ENMT external ear and nose normal, oropharynx normal Neck trachea midline, no thyromegaly Respiratory normal respiratory effort, lungs clear to auscultation Cardiovascular RRR, no murmur, no edema Gastrointestinal (Abdomen) normal bowel sounds, soft, nontender, no hepatosplenomegaly Skin no rashes, warm and dry Psychiatric A+Ox3, euthymic affect Results & Data Results & Data Laboratory Results . Diagnostic Findings X-rays of the right knee show advanced osteoarthritis with joint space narrowing osteophyte formation and zqfx-ek-foix articulation. PG Care Time/CCT Total # of Minutes Spent Total Time Spent with Patient: Total time spent is greater than 50% in coordination of care (as documented) at patient's floor/unit and/or counseling patient: Coding Level of Care Code None Diagnoses Osteoarthritis of right knee M17.11
[~2022-06-07 08:00] MED LIST changes: +ACETAMINOPHEN 500 MG TAB PO SCH; -ADVIN25/60 INH; -ALBU1AER9 INH; -BUME1TAB43 PO; +BUPIVACAINE 0.5 % 5 MG/1 ML PF 10ML VIAL ONE; -CYAN250T PO; -FOLI1TAB8 PO; +GABAPENTIN 300 MG CAP PO SCH; +Ketorolac (*for OR use only*) 30 MG, dexAMETHasone 4 MG, KETAMINE HCL (**OR use only) 1... INFIL SCH; +LR 500ML BOLUS, THEN 15ML/HR IV SCH; +LR 60ML/HR IV SCH; -MELO15TA4 PO; -METH2.5T PO; -METO25TA56 PO; -MULTTAB5 PO; -PLQ200 PO; +ROPIVACAINE 0.5% 5 MG/ML 30 ML VIAL ONE; +TRANEXAMIC ACID 1,000 MG **IV Intra-op IV SCH; +TRANEXAMIC ACID 1,000 MG **IV Pre-op IV SCH; -VBRT100 PO; +ceFAZolin 2000MG 2,000 MG/15 ML SYR IV SCH; +dexAMETHasone 4 MG TAB PO SCH
[2022-06-07] MEDS ORDERED: HYDROmorphone INJ 2 MG/ML SYR/VIAL IV PRN (10:01)
[2022-06-07] MEDS ORDERED: ATROPINE SULFATE 0.1 MG/ML 10ML SYR IV PRN (10:01)
[2022-06-07] MEDS ORDERED: ALBUT/IPRATROP 3MG/0.5MG NEB 3 ML VIAL NEB STA (10:01)
[2022-06-07] MEDS ORDERED: ONDANSETRON INJ 2 MG/ML 2 ML VIAL IV PRN (10:01)
[2022-06-07] MEDS ORDERED: fentaNYL citrate 100 MCG/2 ML VIAL IV PRN (10:01)
[2022-06-07] MEDS ORDERED: ePHEDrine sulfate 50 MG/ML AMP IV PRN (10:01)
[2022-06-07] MEDS ORDERED: ALBUT/IPRATROP 3MG/0.5MG NEB 3 ML VIAL ONE (10:05)
[2022-06-07] MEDS ORDERED: MIDAZOLAM HCL 1 MG/ML 2ML VIAL ONE (10:06)
--- NOTE | 2022-06-07 11:06 | History & Physical Bridge Note ---
Date of Service June 07, 2022 History & Physical Bridge Note I have examined the patient, reviewed the History & Physical and in the interval since the performance of the History & Physical I have noted the following changes of clinical significance: no changes noted
[2022-06-07] MEDS ORDERED: ORTHO JOINT ANESTHETIC ONE (11:08)
[2022-06-07] MEDS ORDERED: PROPOFOL IV EMULSION 10 MG/ML 20 ML VIAL IV ONE (13:02)
--- NOTE | 2022-06-07 13:03 | Operative Report ---
PG Post Operative Report Pre & Post Diagnosis Operation Date: 06/07/22 10:40 Pre-Op Diagnosis: Degenerative Joint Disease of Right Knee Post-Op Diagnosis: Degenerative Joint Disease of Right Knee I identified the patient and participated in the time-out.: Yes Procedure Operation Date: 06/07/22 10:40 Actual Procedures p Right Total Knee Arthroplasty(Right) - Jace Ballard DO Surgeon Jace Ballard DO Production Specialist Jose Eduardo Abarca, PAC Estimated Blood Loss 30 Findings Consistent with Post-Op Diagnosis Specimens Right femoral and tibial bone Description of Procedure Implants used: I used a Armando Persona total knee arthroplasty system with a size 8 narrow femur, E tibia, 31 oval patella, and a size 10 medial congruent polyethylene bearing. All components were cemented in place with Biomet cement. Bharati arrived [facility] for the above procedure. She was seen in the preoperative holding area and the operative extremity was identified and signed. She was given a preoperative antibiotic, TXA, a spinal anesthetic and an adductor nerve block. She was taken back to the operating room and laid on the table in supine position. She was given basic sedation. The operative knee was then prepped and draped in sterile fashion. A timeout was done, and the patient and the operative extremity was properly identified. A midline incision was made directly over the patella. Dissection was taken down to the extensor mechanism. A subvastus arthrotomy was used. The medial retinaculum was released and the fat pad was mostly excised. The knee was flexed and the ACL, PCL, and meniscus were removed. A drill was sent down the center of the femoral canal followed by an intramedullary dionicio. Off that dionicio a distal femoral cutting block was placed. 9 mm was resected off the distal femur at 5 of valgus. A posterior referencing AP sizing guide was then placed on the distal femur. The femur measured to be a size 8 narrow. 2 drill holes were placed in 3 of external rotation. A 4-in-1 cutting block was then impacted into place. Anterior, posterior, and chamfer cuts were then made. The proximal tibia was then exposed. An external tibial alignment guide was placed. A tibial cut guide was then anchored in place and the proximal tibia was then resected. The posterior aspect of the knee was then opened up and any additional meniscus fragments and osteophytes were removed. The tibia measured to be a size E. The tibial plate was then placed in the appropriate rotation and the tibia was drilled and punched. Trial components were then placed. I used a size 10 medial congruent polyethylene insert. The knee was brought through a full range of motion and felt to be stable. The peg holes for the femoral component were then drilled. The patella was then everted and 9 mm was resected off the posterior aspect of the patella. The patella measured to be a size 31 oval. 3 peg holes were then drilled. A trial patella was placed. The knee was once again brought through a full range of motion and felt to be stable. Trial components were then removed. The surrounding soft tissues were injected with 100 cc of an orthopedic pain control cocktail. All components were then cemented into place with Biomet cement. The final polyethylene insert was then snapped into place. Once cement was dry the tourniquet was deflated. Hemostasis was obtained. A dilute betadyne lavage was then done for 3 minutes. The joint was then irrigated with normal saline solution. The subvastus arthrotomy was then closed with #1 Vicryl suture. The skin was closed with 2-0 Vicryl, 3-0V lock suture, and saman. A soft compressive dressing was placed. She was then transferred to a hospital bed and taken to the postanesthesia care unit in stable condition. She tolerated the procedure well. Jace Pandey PA-C, was present for the entire procedure. He was critical for patient positioning, prepping, draping, retraction exposure, wound closure and application of sterile dressing. I attest to the content of the Intraoperative Record and any orders documented t herein. Any exceptions are noted below.
--- NOTE | 2022-06-07 13:47 | Anesthesiology Progress Note ---
Date of Service June 07, 2022 Anesthesia Post Procedure Vital Signs Vital Signs: Temp Pulse Resp BP Pulse Ox O2 Del Method O2 Flow Rate 06/07/22 13:44 36.4 C L 55 L 16 99/58 L 99 Nasal Cannula 2 06/07/22 13:35 55 L 16 93/51 L 99 Nasal Cannula 2 06/07/22 13:25 53 L 16 96/50 L 99 Nasal Cannula 2 06/07/22 13:15 53 L 16 93/52 L 96 Nasal Cannula 4 06/07/22 13:06 36.2 C L 56 L 18 101/58 L 94 Nasal Cannula 4 06/07/22 10:11 52 L 18 94 Room Air 06/07/22 08:42 Room Air 06/07/22 08:41 36.7 C 56 L 18 122/68 94 Room Air Transfer of Care Handoff Completed per policy Notes Mental Status: alert / awake / arousable Patient Amnestic to Procedure: Yes Nausea / Vomiting: adequately controlled Pain: adequately controlled Airway Patency, RR, SpO2: stable & adequate BP & HR: stable & adequate Hydration State: stable & adequate Neuraxial Anesthesia: was administered and sensory block is resolving Anesthetic Complications: no major complications apparent and Pt Satisfied with anesthetic care
--- NOTE | 2022-06-07 14:06 | XRay Report ---
RIGHT KNEE 2 VIEWS History: Right total knee arthroplasty. Degenerative arthritis. Postop. FINDINGS: The patient is status post a right total knee arthroplasty. The hardware is intact. No frac ture or dislocation. Skin saman are in place. IMPRESSION: Right total knee arthroplasty. No evidence for hardware complication. ACT 112: Negative or not required by law. Electronically signed by: [place] M.D. 06/07/2022 2:05 PM
[2022-06-07] MEDS ORDERED: ALBUTEROL 0.083% NEBU SOLN 3 ML VIAL INH PRN (15:39)
[2022-06-07] MEDS ORDERED: ALBUTEROL HFA 8 GM INHALER INH PRN (15:39)
[2022-06-07] MEDS ORDERED: oxyCODONE HCL IR 5 MG TAB (IMMEDIATE RELEASE) PO PRN (15:39)
[2022-06-07] MEDS: ceFAZolin 2000MG 2,000 MG/15 ML SYR IV SCH (20:27)
[2022-06-07] MEDS: ASPIRIN 81 MG ECTAB PO SCH (20:31)
[2022-06-07] MEDS: HYDROXYCHLOROQUINE SULFATE 200 MG TAB PO SCH (20:31)
[2022-06-07] MEDS: METOPROLOL TARTRATE 25 MG TAB PO SCH (20:31)
[2022-06-08] MEDS: ceFAZolin 2000MG 2,000 MG/15 ML SYR IV SCH (04:28)
[2022-06-08] MEDS ORDERED: ACETAMINOPHEN 500 MG TAB PO PRN (06:21)
--- NOTE | 2022-06-08 06:37 | Orthopedic Progress Note ---
Date of Service June 08, 2022 Assessment & Plan (1) Status post right knee replacement: Overall she is doing very well. She is not having much pain in the right knee. She will be seen by physical therapy today for ambulation and range of motion exercises. She is on aspirin for DVT prophylaxis. She can be discharged home later today. She will follow-up with orthopedics in 2 weeks. Pedro Calabrese was seen and examined at bedside this morning. Overall she is doing well. She is having much pain in the right knee. She has been up and ambulating around the hallways. She has no complaints.. Review of Systems All systems reviewed & are unremarkable except as noted in HPI & below. Physical Exam On physical examination the right knee, the dressing is clean and dry. Her leg is out in full extension. She has active dorsiflexion and plantarflexion of her right ankle.. Results & Data Results & Data Laboratory Results . Diagnostic Findings Postoperative x-rays of the right knee show the prosthesis to be in anatomic alignment without any evidence of fracture, desiccation, or loosening. PG Care Time/CCT Total # of Minutes Spent Total Time Spent with Patient: Total time spent is greater than 50% in coordination of care (as documented) at patient's floor/unit and/or counseling patient: Coding Level of Care Code 84387 Post Operative Follow-Up Diagnoses Status post right knee replacement Z96.651
--- NOTE | 2022-06-08 06:38 | Discharge Summary ---
Date of Service June 08, 2022 Admission HPI (Per Admitting) Bharati is a pleasant 71-year-old female who has been dealing with chronic worsening right knee pain. It isreally debilitating. She ambulates with a cane. She saw another orthopedist who had x-rays and MRI of her knee. The MRI showed some arthritis and a complex meniscal tear. She was originally scheduled to have a knee arthroscopy. Unfortunately, she is really struggling with the knee. After failing conservative treatment, she has elected proceed with a right total knee arthroplasty. . Admission Exam (Per Admitting) On physical examination of the right knee, she has a slight valgus deformity. She has range of motion from 5 to 115 degrees. No instability.. Principal Diagnosis Same as "Discharge Diagnosis" noted below under Discharge Instructions. Discharge Exam On physical examination the right knee, the dressing is clean and dry. Her leg is out in full extension. She has active dorsiflexion and plantarflexion of her right ankle.. Discharge Data Procedures Performed Operation Date: 06/07/22 10:40 Actual Procedures p Right Total Knee Arthroplasty(Right) - Jace Ballard DO Ordered Studies 06/07/22 05:00 US - OR guided needle placemen Routine Hospital Course (1) Status post right knee replacement: On June 07, 2022 Bharati arrived at [facility] and underwent a right knee replacement without complication. She had a spinal anesthetic. Postoperatively she was started on aspirin for DVT prophylaxis and transferred to the general orthopedic floors. Her hospital course was uneventful. On postop day #1, her vital signs were stable and her pain was well controlled. She was able to participate well with physical therapy doing ambulation and range of motion exercises. She was then discharged home. She will follow-up with orthopedics in 2 weeks. PG Care Time/CCT Total # of Minutes Spent Total Time Spent with Patient: Total time spent is greater than 50% in coordination of care (as documented) at patient's floor/unit and/or counseling patient: Discharge Plan Discharge Items Patient Disposition: Home - Home Health Services Reason For Visit: DJD Right Knee Discharge Diagnosis: Right knee replacement Activity: Per Instructions section Non-emergency contact: Surgeon Call non-emergency contact if: your wound has increased redness and your wound has increased drainage Follow-up/Referrals: Demetris Gonzalez MD [Primary Care Provider] - Diet: Regular Addtl Attending Provider Instructions: Activity and Therapy Recommendations: * If you are using [facility] then therapy will be provided at your home until they feel you have accomplished all of your goals. * If you are using [facility] then Physical Therapy will be provided until they feel you are ready to start Outpatient Physical Therapy. * If you are not using home therapy then Outpatient Physical Therapy should start about 3-5 days from your day of surgery. Therapy will last about 6-10 weeks * It is important not to put a pillow under your knee when you are relaxing or sleeping. It is just as important to make sure you are getting your knee perfectly straight as it is to regain your knee bend. * You were shown a series of exercises in the hospital. Do these exercises three times each day including the exercises you were shown in physical therapy. * Get up and walk several times each day. For the first four weeks, try not to stand or walk for more than one hour at a time. If you do stand or walk for more than one hour, you will not hurt anything, but your leg will likely swe ll. * As you feel comfortable, you may change from the walker or crutches to a cane and then to independent walking. Medications: * Narcotic You will likely be sent home from the hospital with a prescription for the narcotic pain medication that worked best throughout your stay. * Aspirin Most patients will be required to take Aspirin 81mg twice a day for 6 weeks after surgery. This is obtained [id number] and a prescription is not necessary. * Other medications may be prescribed for specific circumstances. If you have any questions, please call the office at . * Resume previous home medications unless otherwise instructed TEDs/Elastic Stockings: The white elastic stockings help limit swelling and prevent blood clots from forming in your legs.~ The more you wear them, the more they work. Wear them for six weeks. Dressing Care: The dressing can be changed after physical therapy on postop day #1. Daily dry dressing changes for a few days, especially if the incision is still draining some. If the incision is not draining then you may leave the saman open to air. If there is a little bit of drainage or if the saman are getting stuck on your clothing then cover the incision with a dry dressing. The saman will be removed at your 2 week follow-up appointment. Showering: You may shower 5 days from the day of surgery as long as the incision is no longer draining. You may shower with the saman exposed. Let soapy water run over the saman and pat them dry. Do not scrub or soak the incision. Things To Watch For: * Drainage from the incision site that occurs more than one week after your surgery. * Increased redness at the incision site. * Fever above 102 degrees Fahrenheit. * Unusual chest pain or shortness of breath. * Call [facility] at with any of the above problems Follow-Up Visit: Follow-up with Dr. Ballard's PA (Jace Pandey) 2-3 weeks after your day of surgery. He will remove your saman and answer any questions. If you have any additional questions or concerns, Dr Ballard is usually in the office at the same time and will be available An appointment was probably scheduled when you signed-up for surgery in the office. If you have any questions call Office Instructions: More detailed instructions as well as Frequently Asked Questions were provided i n a folder by our office when you signed-up for surgery. Please review these instructions when you get home. If you have any further questions or concerns, please feel free to call the office at [phone] Pending Studies at Discharge: No Stand-Alone Forms: My [facility] Medications and DC Order Prescriptions: New oxycodone 5 mg Tablet 5 mg PO Q4H PRN (Reason: pain) Qty: 40 0RF Continued metoprolol tartrate 25 mg tablet 12.5 mg PO BID Qty: 90 3RF sertraline 50 mg tablet See Rx Instructions .ROUTE .COMPLEX Qty: 135 3RF Dose Instruction: TAKE 1 AND 1/2 TABLETS BY MOUTH DAILY Rx Instructions: TAKE 1 AND 1/2 TABLETS BY MOUTH DAILY Trelegy Ellipta 100-62.5-25 mcg blister with device 1 inh INH QAM Qty: 3 1RF albuterol sulfate 2.5 mg /3 mL (0.083 %) solution for nebulization 2.5 mg INH Q4H PRN (Reason: shortness of breath or wheezing) Qty: 540 0RF [id number] tablet 1 tab PO QAM bumetanide 1 mg tablet 1 mg PO QAM Qty: 90 albuterol sulfate 90 mcg/actuation HFA aerosol inhaler 2 puff inhalation Q4H PRN (Reason: shortness of breath) Qty: 3 1RF Metamucil Packet 1 packet PO QAM hydroxychloroquine 200 mg Tablet 200 mg PO BID Culturelle 10 billion cell Capsule 1 cap PO QAM Changed aspirin 81 mg Tablet,Delayed Release (Dr/Ec) 81 mg PO BID 42 Days Qty: 0 0RF Discharge Orders: Discharge Order (Routine); Ordered 06/08/22 Ordered By: Jace Ballard Admission Data Admit Date/Time: 06/07/22 13:15 Attending Provider: Jace Ballard Admit Provider: Jace Ballard Primary Care Provider: Demetris Gonzalez
[2022-06-08 07:55] LABS: Hematocrit (blood only) 36.5 % (34.1-44.9); Hemoglobin 11.7 g/dl (12.0-16.0); Mean Corpuscular Hemoglobin 29.9 pg (25.0-34.0); Mean Corpuscular Hgb Conc 32.1 g/dL (32.0-36.0); Mean Corpuscular Volume 93.4 fL (80.0-100.0); Mean Platelet Volume 9.8 fL (9.4-12.3); Platelet Count 342 K/uL (130-400); RDW Standard Deviation 44.2 fL (36.4-46.3); Red Blood Count 3.91 M/uL (3.93-5.22); White Blood Count 13.64 K/ul (4.8-10.8)
[2022-06-08 08:15] LABS: BUN Creatinine Ratio 31.9 (10-20); Calcium 8.5 mg/dl (8.5-10.1); Est GFR (African American) 100.1 ml/min; Est GFR (Non-African American) 86.4 ml/min; Potassium 3.7 mmol/L (3.5-5.1)
[2022-06-08] MEDS ORDERED: FLUTICASONE FUROATE 100MCG 14 PUFFS/INHALER INH SCH (09:00)
[2022-06-08] MEDS ORDERED: UMECLIDINIUM/VILANTEROL 62.5/25MCG 7 PUFFS/INHALER INH SCH (09:00)
[2022-06-08] MEDS ORDERED: LACTOBACILLUS ACIDOPHILUS 1 GM PACK PO SCH (09:00)
[2022-06-08] MEDS ORDERED: PSYLLIUM or GUAR GUM FIBER POWDER PACKET PO SCH (09:00)
[2022-06-08] MEDS ORDERED: SERTRALINE HCL 50 MG TABLET PO SCH (09:00)
[2022-06-08] MEDS ORDERED: BUMETANIDE 1 MG TAB PO SCH (09:00)
[2022-06-08] MEDS ORDERED: CEROVITE ADV FORMULA TAB PO SCH (09:00)
[2022-06-08] MEDS: ASPIRIN 81 MG ECTAB PO SCH (09:45)
[2022-06-08] MEDS: HYDROXYCHLOROQUINE SULFATE 200 MG TAB PO SCH (09:45)
[2022-06-08] MEDS: METOPROLOL TARTRATE 25 MG TAB PO SCH (09:45)
== END 2022-06-08 11:32 | disposition home health service (06) ==
LOC: 3E 08:00 → ASU 08:00

== ENCOUNTER 2023-04-19 18:11 | Inpatient (IN) ==
--- NOTE | 2023-04-19 18:31 | ED Triage Note ---
Date of Service April 19, 2023 History of Present Illness This patient was briefly evaluated while in triage. An abbreviated physical exam was performed. This patient is a 72-year-old Female who presents to the ED for evaluation of chest pain, trouble breathing, and increased swelling for the past 4-5 days. Symptoms getting progressively worse. She had ileostomy reversal and hernia repair on 04/04/23 at [facility]. She has a history of CHF and has had a 20 lb weight gain since the surgery despite Bumex use. She saw her PCP today and she was noted to have SOB with crackles. PCP was afraid to adjust diuretics due to concerns for ERIKA. Has been coughing, but no change in her cough per patient. She is on 2 L O2 at home, but had to increase to 3 L today. No fevers or URI symptoms. Physical Exam GENERAL: Non-toxic and in no acute distress. HEENT: Pupils equal. No obvious scleral icterus. HEART: Regular rate and rhythm. LUNGS: Rales throughout without wheezing or rhonchi. No accessory muscle use. NEURO: Alert and oriented. No obvious neurological deficits on quick neuro exam. Initial orders for labs and / or imaging were placed and patient was placed in the waiting area until a bed is available. Please see further documentation for the full ED course. MDM / Impression Impression Impression: CHF exacerbation Impression: CHF exacerbation Qualifiers: Heart failure type: diastolic Qualified Code(s): I50.33 - Acute on chronic diastolic (congestive) heart failure
[2023-04-19 19:34] LABS: Basophils # (auto) 0.05 K/uL (0-0.2); Basophils % (auto) 0.5 %; Eosinophils # (auto) 0.15 K/uL (0-0.50); Eosinophils % (auto) 1.5 %; Hematocrit (blood only) 26.3 % (37.0-47.0); Immature Granulocytes # (auto) 0.04 K/uL (0.01-0.20); Immature Granulocytes % (auto) 0.4 %; Lymphocytes # (auto) 1.14 K/uL (1.2-3.4); Lymphocytes % (auto) 11.8 %; Mean Corpuscular Hemoglobin 32.1 pg (25.0-34.0); Mean Corpuscular Hgb Conc 30.4 g/dL (32.0-36.0); Mean Corpuscular Volume 105.6 fL (80.0-100.0); Mean Platelet Volume 9.2 fL (9.4-12.4); Monocytes # (auto) 0.86 K/uL (0.11-0.59); Monocytes % (auto) 8.9 %; Neutrophils # (auto) 7.45 K/uL (1.40-6.50); Neutrophils % (auto) 76.9 %; Platelet Count 476 K/uL (130-400); RDW Coefficient of Variation 13.9 % (11.5-14.5); RDW Standard Deviation 53.1 fL (36.4-46.3); Red Blood Count 2.49 M/uL (4.20-5.40); White Blood Count 9.69 K/ul (4.8-10.8)
[2023-04-19 19:51] LABS: Alanine Aminotransferase 14 U/L (7-52); Albumin Level 3.3 gm/dl (3.4-5.0); Alkaline Phosphatase 67 U/L (34-104); Anion Gap 5 (3-11); Aspartate Aminotransferase 20 U/L (13-39); BUN Creatinine Ratio 10.1 (10-20); Bilirubin,Total 0.3 mg/dl (0.2-1.0); Blood Urea Nitrogen 14 mg/dl (6-23); Calcium 8.6 mg/dl (8.6-10.3); Carbon Dioxide 39 mmol/L (21-32); Chloride 97 mmol/L (98-107); Est GFR (African American) 43.5 ml/min; Est GFR (Non-African American) 37.6 ml/min; Globulin 3.2 gm/dl (2.5-4.0); Glucose 95 mg/dl (70-99(Fasting)); Lipase 29 U/L (11-82); Sodium 141 mmol/L (136-145); Total Protein 6.5 gm/dl (6.0-8.3)
[2023-04-19 19:57] LABS: Troponin I High Sensitivity 18.8 pg/ml (0-14)
[2023-04-19 20:02] LABS: Partial Thromboplastin Ratio 0.8; Partial Thromboplastin Time 23.9 Seconds (21.0-31.0); Prothrombin Time 10.9 Seconds (9.0-12.0)
[2023-04-19 20:11] LABS: Influenza A virus by PCR Negative (Neg); Influenza B virus by PCR Negative (Neg); RSV by PCR Negative (Neg); SARS CoV2 RNA(COVID-19) Ceph NEGATIVE (Negative)
[2023-04-19] MEDS ORDERED: FUROSEMIDE 40 MG/4 ML VIAL IV ONE (21:18)
--- NOTE | 2023-04-19 23:15 | Ultrasound Report ---
Exam(s): US VENOUS BILATERAL LOWER EXTREMITIES EXAM: US Duplex Bilateral Lower Extremities Veins CLINICAL HISTORY: Reason for exam: Bilateral lower extremity swelling s/p surgery. TECHNIQUE: Real-time duplex ultrasound scan of the bilateral lower extremity veins integrating B-mode two-dimensional vascular structure, Doppler spectral analysis, color flow Doppler imaging and compression. COMPARISON: No relevant prior studies available. FINDINGS: Right deep veins: Unremarkable. No DVT in the right common femoral, femoral, proximal deep femoral or popliteal veins. The veins demonstrate normal color flow, are normally compressible, with normal phasic flow and/or augmentation response. Right superficial veins: Unremarkable. No thrombus in the visualized right great saphenous vein. Left deep veins: Unremarkable. No DVT in the left common femoral, femoral, proximal deep femoral or popliteal veins. The veins demonstrate normal color flow, are normally compressible, with normal phasic flow and/or augmentation response. Left superficial veins: Unremarkable. No thrombus in the visualized left great saphenous vein. Soft tissues: No acute findings. No popliteal cyst. IMPRESSION: Normal bilateral lower extremity duplex venous ultrasound. Electronically signed by: Sylvester Herrmann MD 04/19/23 23:14 PM
[2023-04-19 23:50] LABS: Appearance Urine Clear (Clear); Bacteria Urine Automated Negative (Negative); Bilirubin Urine Negative (Negative); Blood Urine Negative (Negative); Color Urine Yellow; Epithelial Cell Urine Auto 0-5 /lpf (0-5); Glucose Urine UA Negative (Negative); Ketones Urine Negative (Negative); Leukocyte Esterase Urine Trace (Negative); Nitrite Urine Negative (Negative); Protein Urine Negative (Negative); RBC Urine Automated 0-4 /hpf (0-4); Specific Gravity Urine 1.006 (1.000-1.030); Urobilinogen Urine Negative (Negative)
--- NOTE | 2023-04-20 01:22 | Emergency Department Note ---
Impression & Plan CHF exacerbation ADMIT ED Provider Note HPI: The patient is a 72-year-old female with history of diastolic CHF, hypertension, COPD, on home oxygen, presents to the emergency department the chief complaint of worsening dyspnea on exertion for about the past 3 days. Patient is noted to be in a postoperative state having had colostomy reversal on 04/04 at [facility]. States that she feels that she had been recovering well from the standpoint of her surgery, states she is having bowel movements, she has not had any vomiting, denies any abdominal pain. Patient denies any chest pain but states that her shortness of breath is getting more severe even with minimal exertion. On arrival here to the ED the patient is stable on her baseline 2 L nasal cannula oxygen that she tells me she normally wears at night, she is otherwise in no acute distress at rest on my initial assessment ROS: - Per HPI *Outpatient medications and allergy history reviewed. *Pertinent external medical records reviewed. 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 Medical Decision Making: Shortly after the patient arrived IV was established and lab work obtained, pat ient was maintained on hand packager, lab work shows no leukocytosis, hemoglobin is 8.0, previous lab work from February of this year showed hemoglobin of 12, patient did have surgery in the interim and this could be postoperative in nature, she denies any stigmata of bleeding recently. Platelet count is at 476, there is a slight neutrophilic predominance on differential. CMP does not show any critical findings, creatinine near baseline at 1.38, troponin slightly elevated at 18, BNP elevated at 1298, chest x-ray shows what appears to be left lower lobe effusion. Urinalysis does not show any evidence of infection. EKG reviewed by myself does not show any acute ischemic changes. On reassessment patient and family members at the bedside state that they would like her admitted to the hospital, she states she can only ambulate short distances without becoming acutely short of breath, she was given IV Lasix for what I suspect is an element of acute on chronic diastolic heart failure with elevated troponin here in the ED. I discussed the patient's presentation with the on-call hospitalist, Dr. Bacon, who is in agreement to admit the patient for further management, diuresis, and likely echocardiography in addition to trending of hemoglobin levels. Patient is in agreement to the above plan as is her family at the bedside and the patient was placed for admission in stable condition. Consultants: Hospitalist, Dr. Bacon Disposition discussion held by myself with: Patient Diagnosis: 1. Dyspnea on exertion, acute 2. Acute on chronic diastolic heart failure exacerbation 3. Elevated BNP 4. Left lower lobe pleural effusion 5. Elevated high-sensitivity troponin 6. Anemia, acute, postoperative Disposition: Admission Jackson Yao DO Emergency Medicine Past Med/Surg History Medical History Atrial tachycardia Basal cell carcinoma of chest Congestive heart failure COPD (chronic obstructive pulmonary disease) Cor pulmonale (chronic) DVT prophylaxis Encounter for pre-operative examination History of COVID-19 HTN (hypertension) Hx of colonic polyps Lung nodule On home oxygen therapy AIRAM (obstructive sleep apnea) Pulmonary hypertension Rheumatoid arthritis Tricuspid regurgitation Surgical History H/O arthroscopic knee surgery H/O colonoscopy H/O exploratory laparotomy (04/03/21) History of bilateral tubal ligation History of cataract surgery Family History Brother Coronary heart disease Father Cardiomegaly Hypertension Stroke Other No family history of adverse response to anesthesia Denies family history of Ovarian cancer Prostate cancer Myocardial infarction Breast cancer Lung cancer Colorectal cancer Social History Smoking Status: Never smoker Tobacco Type: Cigarettes Age Started Using Tobacco: 23; packs per day: 1; Second Hand Exposure: No; Do You Dip or Chew Tobacco: No; Hx Alcohol Use: Yes Hx Substance Use: No Preferred Language: Ukrainian Communication Ability: Effective Visual Impairment: No Limitations Hearing Ability: Normal Sap Administrator Required: No Beliefs That Will Affect Care: None marital status: / Current Living Situation: Alone current occupational status: retired Feels Safe at Home: Yes Childhood Exposure to Second-Hand Smoke: No Diet Comment: regular caffeine: Yes (coffee) during the past year weight has: other Dental Care, Regularly: Yes Physical Activity Frequency: 3-4 Times per Week Physical Activity Frequency Comment: walk Seatbelt Use: always Sunscreen Use: Yes Assistive Devices: Walker Allergies Allergies Allergy/AdvReac Type Severity Reaction Status Date / Time No Known Drug Allergies Allergy Unknown . Verified 04/19/23 16:42 Home Meds Home Medications Medication Instructions Recorded Confirmed krskjrbbbbzg-vgrfsopy-wfwddr tablet 1 tab PO QAM 08/17/19 04/19/23 bumetanide 1 mg tablet 1 mg PO QAM #90 tabs 09/27/19 04/19/23 Lactobacillus rhamnosus GG 10 1 cap PO QAM 04/23/22 04/19/23 billion cell capsule (Culturelle) hydroxychloroquine 200 mg tablet 200 mg PO BID 04/23/22 04/19/23 Prevagen 50 mcg PO 1XD 06/09/22 04/19/23 aspirin 81 mg tablet,delayed 81 mg PO DAILY 03/14/23 04/19/23 release metoprolol tartrate 25 mg tablet 25 mg PO DAILY 03/14/23 04/19/23 psyllium husk 0.4 gram capsule 1.6 g PO DAILY PRN Constipation 04/19/23 04/19/23 (Metamucil) Previous Rx's Medication Instructions Recorded albuterol sulfate 2.5 mg/3 mL 2.5 mg (3 mL) inhalation Q4H PRN 08/22/19 (0.083 %) solution for nebulization shortness of breath or wheezing #540 mL albuterol sulfate 90 mcg/actuation 2 puff inhalation Q4H PRN 08/10/22 aerosol inhaler shortness of breath #3 Inhalers fluticasone fur. 100 mcg-umeclid 1 inh inhalation QAM #3 Inhalers 11/10/22 62.5 mcg-vilant 25 mcg inhalat.powder (Trelegy Ellipta) sertraline 50 mg tablet See Rx Instructions .Route 11/19/22 .COMPLEX #135 tabs Results & Data (ED) Vital Signs Vital Signs - 24 hr 04/19/23 18:30 04/19/23 20:36 04/19/23 20:48 Temperature 36.5 C Temperature Source Temporal Artery Scan Pulse Rate 109 H Pulse Rate [Apical] 73 Respiratory Rate 18 20 Respiratory Effort / Characteristics Non-Labored Non-Labored Respiratory Depth Normal Normal Blood Pressure 122/76 Blood Pressure [Left Arm] 134/65 Blood Pressure Mean 91 Blood Pressure Mean [Left Arm] 88 Pulse Oximetry 99 96 Oxygen Delivery Method Nasal Cannula Room Air Nasal Cannula Oxygen Flow Rate 2 Sepsis Recent Fever Within 48 Hours No Sepsis New/Unexplained Change in Mental Status No Sepsis Action Taken by Nursing No Action Required 04/19/23 20:49 04/19/23 21:20 04/19/23 21:43 Temperature Temperature Source Pulse Rate 68 Pulse Rate [Apical] 61 Respiratory Rate 19 Respiratory Effort / Characteristics Respiratory Depth Blood Pressure Blood Pressure [Left Arm] 133/57 L Blood Pressure Mean Blood Pressure Mean [Left Arm] 82 Pulse Oximetry 94 Oxygen Delivery Method Nasal Cannula Oxygen Flow Rate 2 Sepsis Recent Fever Within 48 Hours Sepsis New/Unexplained Change in Mental Status Sepsis Action Taken by Nursing 04/19/23 23:00 04/19/23 23:40 Temperature Temperature Source Pulse Rate 60 70 Pulse Rate [Apical] Respiratory Rate 21 20 Respiratory Effort / Characteristics Respiratory Depth Blood Pressure Blood Pressure [Left Arm] Blood Pressure Mean Blood Pressure Mean [Left Arm] Pulse Oximetry Oxygen Delivery Method Oxygen Flow Rate Sepsis Recent Fever Within 48 Hours Sepsis New/Unexplained Change in Mental Status Sepsis Action Taken by Nursing Laboratory Data 04/19/23 19:12 04/19/23 19:12 Lab Results 04/19/23 04/19/23 04/19/23 Range/Units 19:12 19:12 19:12 WBC 9.69 (4.8-10.8) K/ul RBC 2.49 L (4.20-5.40) M/uL Hgb 8.0 L (12.0-16.0) g/dl Hct 26.3 L (37.0-47.0) % MCV 105.6 H (80.0-100.0) fL MCH 32.1 (25.0-34.0) pg MCHC 30.4 L (32.0-36.0) g/dL RDW Std Deviation 53.1 H (36.4-46.3) fL RDW Coeff of Marc 13.9 (11.5-14.5) % Plt Count 476 H (130-400) K/uL MPV 9.2 L (9.4-12.4) fL Immature Gran % (Auto) 0.4 % Neut % (Auto) 76.9 % Lymph % (Auto) 11.8 % [place] % (Auto) 8.9 % Eos % (Auto) 1.5 % Baso % (Auto) 0.5 % Neut # (Auto) 7.45 H (1.40-6.50) K/uL Lymph # (Auto) 1.14 L (1.2-3.4) K/uL [place] # (Auto) 0.86 H (0.11-0.59) K/uL Eos # (Auto) 0.15 (0-0.50) K/uL Baso # (Auto) 0.05 (0-0.2) K/uL Immature Gran # (Auto) 0.04 (0.01-0.20) K/uL PT 10.9 (9.0-12.0) Seconds INR 1.0 (0.9-1.1) APTT 23.9 (21.0-31.0) Seconds PTT Ratio 0.8 Sodium 141 (136-145) mmol/L Potassium 4.0 (3.5-5.1) mmol/L Chloride 97 L (98-107) mmol/L Carbon Dioxide 39 H (21-32) mmol/L Anion Gap 5 (3-11) BUN 14 (6-23) mg/dl Creatinine 1.38 H (0.6-1.2) mg/dl Est Cr Clr Drug Dosing Not Reportable Est GFR ( Amer) 43.5 ml/min Est GFR (Non-Af Amer) 37.6 ml/min BUN/Creatinine Ratio 10.1 (10-20) Glucose 95 (70-99(Fasting)) mg/dl Calcium 8.6 (8.6-10.3) mg/dl Total Bilirubin 0.3 (0.2-1.0) mg/dl AST 20 (13-39) U/L ALT 14 (7-52) U/L Alkaline Phosphatase 67 (34-104) U/L Troponin I High Sens 18.8 H (0-14) pg/ml B-Natriuretic Peptide (0-100) pg/ml Total Protein 6.5 (6.0-8.3) gm/dl Albumin 3.3 L (3.4-5.0) gm/dl Globulin 3.2 (2.5-4.0) gm/dl Albumin/Globulin Ratio 1.0 (0.9-2) Lipase 29 (11-82) U/L Urine Color Urine Appearance (Clear) Urine pH (4.5-7.5) Ur Specific [place] (1.000-1.030) Urine Protein (Negative) Urine Glucose (UA) (Negative) Urine Ketones (Negative) Urine Blood (Negative) Urine Nitrite (Negative) Urine Bilirubin (Negative) Urine Urobilinogen (Negative) Ur Leukocyte Esterase (Negative) Urine WBC (Auto) (0-5) /hpf Urine RBC (Auto) (0-4) /hpf U Hyaline Cast (Auto) (0-5) /lpf U Epithel Cells (Auto) (0-5) /lpf Urine Bacteria (Auto) (Negative) SARS-CoV-2 (PCR) (Negative) Influenza Type A (PCR) (Neg) Influenza Type B (PCR) (Neg) RSV (RT-PCR) (Neg) 04/19/23 04/19/23 04/19/23 Range/Units 19:12 19:16 22:32 WBC (4.8-10.8) K/ul RBC (4.20-5.40) M/uL Hgb (12.0-16.0) g/dl Hct (37.0-47.0) % MCV (80.0-100.0) fL MCH (25.0-34.0) pg MCHC (32.0-36.0) g/dL RDW Std Deviation (36.4-46.3) fL RDW Coeff of Marc (11.5-14.5) % Plt Count (130-400) K/uL MPV (9.4-12.4) fL Immature Gran % (Auto) % Neut % (Auto) % Lymph % (Auto) % [place] % (Auto) % Eos % (Auto) % Baso % (Auto) % Neut # (Auto) (1.40-6.50) K/uL Lymph # (Auto) (1.2-3.4) K/uL [place] # (Auto) (0.11-0.59) K/uL Eos # (Auto) (0-0.50) K/uL Baso # (Auto) (0-0.2) K/uL Immature Gran # (Auto) (0.01-0.20) K/uL PT (9.0-12.0) Seconds INR (0.9-1.1) APTT (21.0-31.0) Seconds PTT Ratio Sodium (136-145) mmol/L Potassium (3.5-5.1) mmol/L Chloride (98-107) mmol/L Carbon Dioxide (21-32) mmol/L Anion Gap (3-11) BUN (6-23) mg/dl Creatinine (0.6-1.2) mg/dl Est Cr Clr Drug Dosing Est GFR ( Amer) ml/min Est GFR (Non-Af Amer) ml/min BUN/Creatinine Ratio (10-20) Glucose (70-99(Fasting)) mg/dl Calcium (8.6-10.3) mg/dl Total Bilirubin (0.2-1.0) mg/dl AST (13-39) U/L ALT (7-52) U/L Alkaline Phosphatase (34-104) U/L Troponin I High Sens 19.5 H (0-14) pg/ml B-Natriuretic Peptide 1298 H (0-100) pg/ml Total Protein (6.0-8.3) gm/dl Albumin (3.4-5.0) gm/dl Globulin (2.5-4.0) gm/dl Albumin/Globulin Ratio (0.9-2) Lipase (11-82) U/L Urine Color Urine Appearance (Clear) Urine pH (4.5-7.5) Ur Specific [place] (1.000-1.030) Urine Protein (Negative) Urine Glucose (UA) (Negative) Urine Ketones (Negative) Urine Blood (Negative) Urine Nitrite (Negative) Urine Bilirubin (Negative) Urine Urobilinogen (Negative) Ur Leukocyte Esterase (Negative) Urine WBC (Auto) (0-5) /hpf Urine RBC (Auto) (0-4) /hpf U Hyaline Cast (Auto) (0-5) /lpf U Epithel Cells (Auto) (0-5) /lpf Urine Bacteria (Auto) (Negative) SARS-CoV-2 (PCR) NEGATIVE (Negative) Influenza Type A (PCR) Negative (Neg) Influenza Type B (PCR) Negative (Neg) RSV (RT-PCR) Negative (Neg) 04/19/23 Range/Units 23:22 WBC (4.8-10.8) K/ul RBC (4.20-5.40) M/uL Hgb (12.0-16.0) g/dl Hct (37.0-47.0) % MCV (80.0-100.0) fL MCH (25.0-34.0) pg MCHC (32.0-36.0) g/dL RDW Std Deviation (36.4-46.3) fL RDW Coeff of Marc (11.5-14.5) % Plt Count (130-400) K/uL MPV (9.4-12.4) fL Immature Gran % (Auto) % Neut % (Auto) % Lymph % (Auto) % [place] % (Auto) % Eos % (Auto) % Baso % (Auto) % Neut # (Auto) (1.40-6.50) K/uL Lymph # (Auto) (1.2-3.4) K/uL [place] # (Auto) (0.11-0.59) K/uL Eos # (Auto) (0-0.50) K/uL Baso # (Auto) (0-0.2) K/uL Immature Gran # (Auto) (0.01-0.20) K/uL PT (9.0-12.0) Seconds INR (0.9-1.1) APTT (21.0-31.0) Seconds PTT Ratio Sodium (136-145) mmol/L Potassium (3.5-5.1) mmol/L Chloride (98-107) mmol/L Carbon Dioxide (21-32) mmol/L Anion Gap (3-11) BUN (6-23) mg/dl Creatinine (0.6-1.2) mg/dl Est Cr Clr Drug Dosing Est GFR ( Amer) ml/min Est GFR (Non-Af Amer) ml/min BUN/Creatinine Ratio (10-20) Glucose (70-99(Fasting)) mg/dl Calcium (8.6-10.3) mg/dl Total Bilirubin (0.2-1.0) mg/dl AST (13-39) U/L ALT (7-52) U/L Alkaline Phosphatase (34-104) U/L Troponin I High Sens (0-14) pg/ml B-Natriuretic Peptide (0-100) pg/ml Total Protein (6.0-8.3) gm/dl Albumin (3.4-5.0) gm/dl Globulin (2.5-4.0) gm/dl Albumin/Globulin Ratio (0.9-2) Lipase (11-82) U/L Urine Color Yellow Urine Appearance Clear (Clear) Urine pH 8.0 H (4.5-7.5) Ur Specific [place] 1.006 (1.000-1.030) Urine Protein Negative (Negative) Urine Glucose (UA) Negative (Negative) Urine Ketones Negative (Negative) Urine Blood Negative (Negative) Urine Nitrite Negative (Negative) Urine Bilirubin Negative (Negative) Urine Urobilinogen Negative (Negative) Ur Leukocyte Esterase Trace H (Negative) Urine WBC (Auto) 1-5 (0-5) /hpf Urine RBC (Auto) 0-4 (0-4) /hpf U Hyaline Cast (Auto) 1-5 (0-5) /lpf U Epithel Cells (Auto) 0-5 (0-5) /lpf Urine Bacteria (Auto) Negative (Negative) SARS-CoV-2 (PCR) (Negative) Influenza Type A (PCR) (Neg) Influenza Type B (PCR) (Neg) RSV (RT-PCR) (Neg) Administered Medications Discontinued Medications Furosemide (Furosemide 40 Mg/4 Ml Vial) 40 mg IV ONE ONE Stop: 04/19/23 21:19 Last Admin: 04/19/23 21:33 Dose: 40 mg Documented By: AW Imaging Data Radiologist's Impression: Venous Doppler Study 04/19/23 21:18 Exam(s): US VENOUS BILATERAL LOWER EXTREMITIES EXAM: US Duplex Bilateral Lower Extremities Veins CLINICAL HISTORY: Reason for exam: Bilateral lower extremity swelling s/p surgery. TECHNIQUE: Real-time duplex ultrasound scan of the bilateral lower extremity veins integrating B-mode two-dimensional vascular structure, Doppler spectral analysis, color flow Doppler imaging and compression. COMPARISON: No relevant prior studies available. FINDINGS: Right deep veins: Unremarkable. No DVT in the right common femoral, femoral, proximal deep femoral or popliteal veins. The veins demonstrate normal color flow, are normally compressible, with normal phasic flow and/or augmentation response. Right superficial veins: Unremarkable. No thrombus in the visualized right great saphenous vein. Left deep veins: Unremarkable. No DVT in the left common femoral, femoral, proximal deep femoral or popliteal veins. The veins demonstrate normal color flow, are normally compressible, with normal phasic flow and/or augmentation response. Left superficial veins: Unremarkable. No thrombus in the visualized left great saphenous vein. Soft tissues: No acute findings. No popliteal cyst. IMPRESSION: Normal bilateral lower extremity duplex venous ultrasound. Electronically signed by: Sylvester Herrmann MD 04/19/23 23:14 PM Discharge Plan Visit Data Chief Complaint: Cardiac Assessment Stated Complaint: CHF,SOB,SWELLING ED Provider: Jackson Yao Discharge Problem: CHF exacerbation Forms Stand Alone Forms: [facility] Syndevrx Prescriptions Prescriptions: No Action Prevagen 50 mcg capsule 50 mcg PO 1XD albuterol sulfate 90 mcg/actuation HFA aerosol inhaler 2 puff inhalation Q4H PRN (Reason: shortness of breath) Qty: 3 1RF Trelegy Ellipta 100-62.5-25 mcg blister with device 1 inh INH QAM Qty: 3 1RF sertraline 50 mg tablet See Rx Instructions .ROUTE .COMPLEX Qty: 135 3RF Dose Instruction: TAKE 1 AND 1/2 TABLETS BY MOUTH DAILY Rx Instructions: TAKE 1 AND 1/2 TABLETS BY MOUTH DAILY albuterol sulfate 2.5 mg /3 mL (0.083 %) solution for nebulization 2.5 mg INH Q4H PRN (Reason: shortness of breath or wheezing) Qty: 540 0RF psyllium husk [Metamucil] 0.4 gram capsule 1.6 g PO DAILY PRN (Reason: Constipation) icstyxcwosla-eoqrgqnb-mhkqpj tablet 1 tab PO QAM bumetanide 1 mg tablet 1 mg PO QAM Qty: 90 aspirin 81 mg tablet,delayed release (DR/EC) 81 mg PO DAILY metoprolol tartrate 25 mg tablet 25 mg PO DAILY hydroxychloroquine 200 mg Tablet 200 mg PO BID Culturelle 10 billion cell Capsule 1 cap PO QAM Referrals Referrals: Demetris Gonzalez MD [Primary Care Provider] - CHF exacerbation Qualifiers: Heart failure type: diastolic Qualified Code(s): I50.33 - Acute on chronic diastolic (congestive) heart failure
[2023-04-20] MEDS ORDERED: ALBUTEROL HFA 8 GM INHALER INH PRN (03:55)
[2023-04-20] MEDS ORDERED: PREVAGEN PO SCH (03:55)
[2023-04-20] MEDS ORDERED: ACETAMINOPHEN 325 MG TAB PO PRN (03:55)
[2023-04-20] MEDS ORDERED: ALBUTEROL 0.083% NEBU SOLN 3 ML VIAL INH PRN (03:55)
[2023-04-20] MEDS ORDERED: POLYETHYLENE (MIRALAX) 17 GM PACK PO PRN (03:55)
[2023-04-20] MEDS ORDERED: PSYLLIUM or GUAR GUM FIBER POWDER PACKET PO PRN (04:02)
--- NOTE | 2023-04-20 05:56 | History & Physical Report ---
Date of Service April 20, 2023 Assessment & Plan (1) CHF exacerbation: Plan: Patient presents to ED with complaints of worsening shortness of breath and lower extremity edema. Lab data from ED shows proBNP elevated at 1288 high sensitive troponin slightly elevated 18 with slight elevation in serum creatinine at 1.3. Patient denies any acute chest pain and EKG does not show any ST elevation Patient has a known history of CHF from diastolic heart failure in the past Patient also has severe COPD with accompanying cor pulmonale leading to right heart failure as well. Physical exam reveals bilateral lower extremity edema as well. Start patient on IV loop diuretic therapy and monitor I's and O's closely Obtain transthoracic echo to assess EF (2) COPD with emphysema: Plan: Patient is a known history of COPD and is on home oxygen therapy Continue bronchodilators as needed No evidence of acute exacerbation Patient also has a component of cor pulmonale with accompanying right heart failure that contributes to CHF exacerbation (3) Anemia: Plan: Patient found to have a serum hemoglobin of 8 and prior hemoglobin level was 12 before her bowel surgery. Patient denies any melena or hematochezia. We will recheck CBC in a.m. and anemia could be secondary to blood loss during surgery done in [facility] Obtain records from [place] to see if any acute drop in hemoglobin has occurred since her surgery. (4) AIRAM (obstructive sleep apnea): Plan: Continue oxygen supplementation and CPAP as tolerated (5) Spontaneous perforation of colon: Plan: Patient has a prior history of bowel perforation with colostomy placed. Colostomy reversal done in [facility] recently and patient has no GI complaints at this time Continue to monitor H&H (6) HTN (hypertension): Plan: Continue home dose of metoprolol 25 mg with hold parameters Monitor blood pressure trend titrate meds as tolerated (7) Rheumatoid arthritis: Plan: Patient on hydroxychloroquine 200 mg p.o. twice daily at home and will be be continued Admission and Anticipated Discharge Date Admission Date: April 20, 2023 History of Present Illness Chief Complaint: Patient presents to ED with complaints of worsening shortness of breath and lower extremity swelling Primary Care Provider: Demetris Gonzalez MD This is a 72-year-old female with past medical history significant for history of CHF, COPD on home oxygen therapy, hypertension, obstructive sleep apnea, who presents to the emergency department with complaints of worsening dyspnea on exertion and worsening lower extremity swelling. Patient reports that she has been noticing increasing lower extremity swelling over the past 10 days and also started experiencing worsening shortness of breath for about the past 3 days. Patient had a colostomy reversal surgery done in [facility] about 2 weeks ago and was discharged home in a stable state. Patient reports that she has been having good appetite and bowel movements since the surgery and denies any nausea vomiting symptoms. Patient however reports that over the last 10 days she has been noticing increasing lower extremity swelling associated with presenting shortness of breath that has been worsening over the past few days. Patient however denies any chest pain or fevers or chills. Patient has underlying history of COPD and obstructive sleep apnea and is on home oxygen therapy as well. Patient was evaluated in the ED and was found to have oxygen saturation in the 80s on room air which improved with 2 L oxygen supplementation that patient wears at baseline. During evaluation in the ED patient was found to have a high sensitive troponin of 18 along with serum creatinine 1.38. Patient's hemoglobin was 8 . Patient denies any chest pain Patient is being admitted for further management of her symptoms of CHF . Patient also had a lower extremity Dopplers done that was negative for DVT Allergies Allergy/AdvReac Type Severity Reaction Status Date / Time No Known Drug Allergies Allergy Unknown . Verified 04/19/23 16:42 Home Medications Medication Instructions Recorded Confirmed Type rauvxgoaziyh-szryssqg-vyuhyu tablet 1 tab PO QAM 08/17/19 04/19/23 History albuterol sulfate 2.5 mg/3 mL 2.5 mg (3 mL) inhalation Q4H PRN 08/22/19 04/19/23 Rx (0.083 %) solution for nebulization shortness of breath or wheezing #540 mL bumetanide 1 mg tablet 1 mg PO QAM #90 tabs 09/27/19 04/19/23 History Lactobacillus rhamnosus GG 10 1 cap PO QAM 04/23/22 04/19/23 History billion cell capsule (Culturelle) hydroxychloroquine 200 mg tablet 200 mg PO BID 04/23/22 04/19/23 History Prevagen 50 mcg PO 1XD 06/09/22 04/19/23 History albuterol sulfate 90 mcg/actuation 2 puff inhalation Q4H PRN 08/10/22 04/19/23 Rx aerosol inhaler shortness of breath #3 Inhalers fluticasone fur. 100 mcg-umeclid 1 inh inhalation QAM #3 Inhalers 11/10/22 04/19/23 Rx 62.5 mcg-vilant 25 mcg inhalat.powder (Trelegy Ellipta) sertraline 50 mg tablet See Rx Instructions .Route 11/19/22 04/19/23 Rx .COMPLEX #135 tabs aspirin 81 mg tablet,delayed 81 mg PO DAILY 03/14/23 04/19/23 History release metoprolol tartrate 25 mg tablet 25 mg PO DAILY 03/14/23 04/19/23 History psyllium husk 0.4 gram capsule 1.6 g PO DAILY PRN Constipation 04/19/23 04/19/23 History (Metamucil) Past Med/Surg History Medical History Atrial tachycardia Basal cell carcinoma of chest Congestive heart failure COPD (chronic obstructive pulmonary disease) Cor pulmonale (chronic) DVT prophylaxis Encounter for pre-operative examination History of COVID-19 HTN (hypertension) Hx of colonic polyps Lung nodule On home oxygen therapy AIRAM (obstructive sleep apnea) Pulmonary hypertension Rheumatoid arthritis Tricuspid regurgitation Surgical History H/O arthroscopic knee surgery H/O colonoscopy H/O exploratory laparotomy (04/03/21) History of bilateral tubal ligation History of cataract surgery Family History Brother Coronary heart disease Father Cardiomegaly Hypertension Stroke Other No family history of adverse response to anesthesia Denies family history of Ovarian cancer Prostate cancer Myocardial infarction Breast cancer Lung cancer Colorectal cancer Social History Smoking Status: Former smoker Tobacco Type: Cigarettes Age Started Using Tobacco: 23; packs per day: 1; Cigarettes Per Day: quit 5-6 yrs ago; Second Hand Exposure: No; Do You Dip or Chew Tobacco: No; Hx Alcohol Use: Yes Alcohol type: wine Hx Substance Use: No Preferred Language: Filipino Communication Ability: Effective Visual Impairment: No Limitations Hearing Ability: Normal 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 Beliefs That Will Affect Care: None marital status: / Current Living Situation: Alone current occupational status: retired Feels Safe at Home: Yes Safety Concerns: Feels Safe At This Time Childhood Exposure to Second-Hand Smoke: No Diet Comment: regular caffeine: Yes (coffee) during the past year weight has: other Dental Care, Regularly: Yes Physical Activity Frequency: 3-4 Times per Week Physical Activity Frequency Comment: walk Seatbelt Use: always Sunscreen Use: Yes Assistive Devices: Walker Review of Systems Review of Systems: Constitutional-no fever or chills ENT-no blurred vision, no double vision, no epistaxis, no sore throat Respiratory-reports exertional shortness of breath Cardiac-no palpitations, no chest pain, no syncope GI-no nausea, vomiting, diarrhea, melena, hematochezia -no urinary retention, no urinary incontinence, Musculoskeletal-no joint pain, no muscle tenderness Skin-no bruising, no rashes, no pruritus Neuro-no isolated weakness, no paresthesia, no weakness Physical Exam Physical Exam: Head and ENT no thyroid enlargement trachea midline Cardiovascular S1-S2 are normal no S3 Lungs bilateral air entry fair no wheezing Abdomen soft nondistended positive bowel sounds no rebound tenderness Extremity shows bilateral 1+ edema extending to knee Neurologically no focal deficits Skin shows no rash no cyanosis Results & Data Results & Data Vital Signs (Past 12 Hours) Vital Signs Temp Pulse Pulse Resp BP BP Pulse Ox 04/20/23 02:30 04/20/23 02:05 74 04/20/23 03:34 36.6 C 75 18 100/59 L 89 L 04/20/23 03:25 36.6 C 84 20 124/68 93 04/20/23 01:21 73 23 99/52 L 99 04/19/23 23:40 70 20 04/19/23 23:00 60 21 04/19/23 21:43 61 19 133/57 L 04/19/23 21:20 68 04/19/23 20:49 94 04/19/23 20:48 73 20 134/65 96 04/19/23 20:36 04/19/23 18:30 36.5 C 109 H 18 122/76 99 O2 Del Method O2 Flow Rate 04/20/23 02:30 Nasal Cannula 2 04/20/23 02:05 04/20/23 03:34 Nasal Cannula 2 04/20/23 03:25 Nasal Cannula 2 04/20/23 01:21 Nasal Cannula 2 04/19/23 23:40 04/19/23 23:00 04/19/23 21:43 04/19/23 21:20 04/19/23 20:49 Nasal Cannula 2 04/19/23 20:48 Nasal Cannula 2 04/19/23 20:36 Room Air 04/19/23 18:30 Nasal Cannula Laboratory Results Short CBC 04/19/23 Range/Units 19:12 WBC 9.69 (4.8-10.8) K/ul Hgb 8.0 L (12.0-16.0) g/dl Hct 26.3 L (37.0-47.0) % Plt Count 476 H (130-400) K/uL BMP 04/19/23 19:12 Sodium 141 Potassium 4.0 Chloride 97 L Carbon Dioxide 39 H BUN 14 Creatinine 1.38 H Glucose 95 Calcium 8.6 Liver Function 04/19/23 Range/Units 19:12 Total Bilirubin 0.3 (0.2-1.0) mg/dl AST 20 (13-39) U/L ALT 14 (7-52) U/L Alkaline Phosphatase 67 (34-104) U/L Albumin 3.3 L (3.4-5.0) gm/dl Urine 04/19/23 Range/Units 23:22 Urine Color Yellow Urine Appearance Clear (Clear) Urine pH 8.0 H (4.5-7.5) Ur Specific [place] 1.006 (1.000-1.030) Urine Protein Negative (Negative) Urine Glucose (UA) Negative (Negative) Diagnostic Findings Venous Doppler Study 04/19/23 21:18 Exam(s): US VENOUS BILATERAL LOWER EXTREMITIES EXAM: US Duplex Bilateral Lower Extremities Veins CLINICAL HISTORY: Reason for exam: Bilateral lower extremity swelling s/p surgery. TECHNIQUE: Real-time duplex ultrasound scan of the bilateral lower extremity veins integrating B-mode two-dimensional vascular structure, Doppler spectral analysis, color flow Doppler imaging and compression. COMPARISON: No relevant prior studies available. FINDINGS: Right deep veins: Unremarkable. No DVT in the right common femoral, femoral, proximal deep femoral or popliteal veins. The veins demonstrate normal color flow, are normally compressible, with normal phasic flow and/or augmentation response. Right superficial veins: Unremarkable. No thrombus in the visualized right great saphenous vein. Left deep veins: Unremarkable. No DVT in the left common femoral, femoral, proximal deep femoral or popliteal veins. The veins demonstrate normal color flow, are normally compressible, with normal phasic flow and/or augmentation response. Left superficial veins: Unremarkable. No thrombus in the visualized left great saphenous vein. Soft tissues: No acute findings. No popliteal cyst. IMPRESSION: Normal bilateral lower extremity duplex venous ultrasound. Electronically signed by: Sylvester Herrmann MD 04/19/23 23:14 PM Code Status & VTE Plan VTE Prophylaxis Plan VTE Prophylaxis will be ordered: Yes PG Care Time/CCT Total # of Minutes Spent Total Time Spent with Patient: Total time spent is greater than 50% in coordination of care (as documented) at patient's floor/unit and/or counseling patient: Coding Level of Care Code 88714 INT INP/OBS CARE 2/55MIN Diagnoses CHF exacerbation I50.33 Heart failure type: diastolic COPD with emphysema J43.9 Anemia D64.9 AIRAM (obstructive sleep apnea) G47.33 Spontaneous perforation of colon K63.1 HTN (hypertension) I10 Hypertension type: essential hypertension Rheumatoid arthritis M06.9 Rheumatoid arthritis location: unspecified site Rheumatoid factor presence: unspecified presence (1) CHF exacerbation Heart failure type: diastolic Qualified Code(s): I50.33 - Acute on chronic diastolic (congestive) heart failure (6) HTN (hypertension) Hypertension type: essential hypertension Qualified Code(s): I10 - Essential (primary) hypertension (7) Rheumatoid arthritis Rheumatoid arthritis location: unspecified site Rheumatoid factor presence: unspecified presence Qualified Code(s): M06.9 - Rheumatoid arthritis, unspecified
--- NOTE | 2023-04-20 07:57 | XRay Report ---
XR chest 1V not portable CLINICAL HISTORY: Chest pain, SOB TECHNIQUE: Single frontal radiograph of the chest was obtained. Comparison: Comparison is made to chest radiograph 05/05/2022 FINDINGS: No lines and tubes are seen. The cardiomediastinal silhouette is normal. The lungs are clear. There i s a small right and moderate left pleural effusion, enlarged from prior exam. IMPRESSION: Small right and moderate left pleural effusions have increased from prior exam. ACT 112: Negative or not required by law. Electronically signed by: Brown Gallagher M.D. 04/20/2023 7:56 AM
[2023-04-20] MEDS: UMECLIDINIUM/VILANTEROL 62.5/25MCG 7 PUFFS/INHALER INH SCH (08:12)
[2023-04-20] MEDS: FLUTICASONE FUROATE 100MCG 14 PUFFS/INHALER INH SCH (08:14)
[2023-04-20] MEDS: ADVANCED PROBIOTIC 1250 MG CAPSULE PO SCH (08:15)
[2023-04-20] MEDS: HYDROXYCHLOROQUINE SULFATE 200 MG TAB PO SCH ×2 (08:15→20:04)
[2023-04-20] MEDS: BUMETANIDE 1 MG TAB PO SCH (08:15)
[2023-04-20] MEDS: ASPIRIN 81 MG ECTAB PO SCH (08:15)
[2023-04-20] MEDS: CEROVITE ADV FORMULA TAB PO SCH (08:16)
[2023-04-20] MEDS: METOPROLOL TARTRATE 25 MG TAB PO SCH (08:16)
--- NOTE | 2023-04-20 08:16 | Electrocardiogram Report ---
Test Reason : Blood Pressure : / mmHG Vent. Rate : 069 BPM Atrial Rate : 069 BPM P-R Int : 134 ms QRS Dur : 070 ms QT Int : 430 ms P-R-T Axes : 081 042 052 degrees QTc Int : 460 ms Poor data quality, interpretation may be adversely affected Normal sinus rhythm Low voltage QRS Poor R wave progression, consider anterior ME vs. lead placement vs. LVH T wave abnormality, consider anterior ischemia Abnormal ECG When compared with ECG of 08-OCT-2020 18:15, T wave inversion more evident in Anterior leads Confirmed by Adebayo Brown ([id number]) on 04/20/2023 8:16:27 AM Referred By: REFERRED SELF Confirmed By:Adebayo Brown
[2023-04-20] MEDS: FUROSEMIDE INJ 20 MG/2 ML VIAL IV SCH ×3 (08:21→20:04)
[2023-04-20 08:35] LABS: Hematocrit (blood only) 25.9 % (37.0-47.0); Hemoglobin 7.8 g/dl (12.0-16.0); Mean Corpuscular Hemoglobin 31.5 pg (25.0-34.0); Mean Corpuscular Hgb Conc 30.1 g/dL (32.0-36.0); Mean Corpuscular Volume 104.4 fL (80.0-100.0); Mean Platelet Volume 9.5 fL (9.4-12.4); Platelet Count 468 K/uL (130-400); RDW Coefficient of Variation 13.9 % (11.5-14.5); RDW Standard Deviation 52.3 fL (36.4-46.3); Red Blood Count 2.48 M/uL (4.20-5.40); White Blood Count 8.98 K/ul (4.8-10.8)
[2023-04-20 09:00] LABS: Troponin I High Sensitivity 18.8 pg/ml (0-14)
[2023-04-20] MEDS ORDERED: NON-FORMULARY MEDICATION (Fluticasone-Umeclidin-Vilanter [Trelegy Ellipta] 100-62.5-25 mcg INH SCH (09:00)
[2023-04-20 09:04] LABS: Calcium 8.5 mg/dl (8.6-10.3); Potassium 3.8 mmol/L (3.5-5.1)
[2023-04-20 09:10] LABS: BUN Creatinine Ratio 8.9 (10-20); Creatinine Clr Calc Pharmacy 40.7 ml/min; Est GFR (African American) 44.7 ml/min; Est GFR (Non-African American) 38.6 ml/min
--- NOTE | 2023-04-20 11:39 | Electrocardiogram Report ---
Test Reason : Blood Pressure : / mmHG Vent. Rate : 073 BPM Atrial Rate : 073 BPM P-R Int : 146 ms QRS Dur : 078 ms QT Int : 438 ms P-R-T Axes : 088 054 041 degrees QTc Int : 482 ms Sinus rhythm with Premature atrial complexes Low voltage QRS Prolonged QT Abnormal ECG When compared with ECG of 19-APR-2023 19:11, Premature atrial complexes are now Present Confirmed by Adebayo Brown ([id number]) on 04/20/2023 11:38:47 AM Referred By: REFERRED SELF Confirmed By:Adebayo Brown
--- NOTE | 2023-04-20 15:58 | XCELERA ---
[id number] \\[id number]
--- NOTE | 2023-04-21 05:55 | Hospitalist Progress Note ---
Date of Service April 20, 2023 Assessment & Plan (1) CHF exacerbation: Plan: Patient presents to ED with complaints of worsening shortness of breath and lower extremity edema. Lab data from ED shows proBNP elevated at 1288 high sensitive troponin slightly elevated 18 with slight elevation in serum creatinine at 1.3. Patient denies any acute chest pain and EKG does not show any ST elevation Patient has a known history of CHF from diastolic heart failure in the past Patient also has severe COPD with accompanying cor pulmonale leading to right heart failure as well. Physical exam reveals bilateral lower extremity edema as well. Start patient on IV loop diuretic therapy and monitor I's and O's closely Obtain transthoracic echo to assess EF pending Present on Admission?: Yes (2) COPD with emphysema: Plan: Patient is a known history of COPD and is on home oxygen therapy Continue bronchodilators as needed No evidence of acute exacerbation Patient also has a component of cor pulmonale with accompanying right heart failure that contributes to CHF exacerbation Present on Admission?: Yes (3) Anemia: Plan: Patient found to have a serum hemoglobin of 8 and prior hemoglobin level was 12 before her bowel surgery. Patient denies any melena or hematochezia. We will recheck CBC in a.m. and anemia could be secondary to blood loss during surgery done in [facility] Obtain records from [place] to see if any acute drop in hemoglobin has occurred since her surgery. Present on Admission?: Yes (4) AIRAM (obstructive sleep apnea): Plan: Continue oxygen supplementation and CPAP as tolerated Present on Admission?: Yes (5) Spontaneous perforation of colon: Plan: Patient has a prior history of bowel perforation with colostomy placed. Colostomy reversal done in [facility] recently and patient has no GI complaints at this time Continue to monitor H&H Present on Admission?: Yes (6) HTN (hypertension): Plan: Continue home dose of metoprolol 25 mg with hold parameters Monitor blood pressure trend titrate meds as tolerated Present on Admission?: Yes (7) Rheumatoid arthritis: Plan: Patient on hydroxychloroquine 200 mg p.o. twice daily at home and will be be continued Present on Admission?: Yes Admission and Anticipated Discharge Date Admission Date: April 20, 2023 Subjective Patient admitted with a chief complaint of shortness of breath and swollen feet. She is treated for congestive heart failure with her weight going from 189 down to 184 5 pound weight loss. Patient's symptoms began abruptly just before she came in. On further interview patient had a herniorrhaphy and a reversal of the ileostomy and went home from her surgery Tuesday which would have been April 16. She was receiving home health care from [facility] which should be resumed when she is discharged from [facility]. Her preop hemoglobin was 12 postop was 8 and now she is 7.8 Lets add iron for now Patient's son Wei is in attendance with her and his phone number is area code [phone] review of her specialists includes pulmonary Dr. Best rheumatology [facility] for rheumatoid arthritis and cardiology Dr. Fernandez at [facility] in [place] And the patient has a cardiology appointment on 04/20/2023 oops, that is today Review of Systems Respiratory: Short of breath and feet swell Physical Exam Constitutional: WD/WN, vitals as above Eyes: PERRL, conjunctivae normal, anicteric sclerae Neck: trachea midline, no thyromegaly Respiratory: normal respiratory effort, lungs clear to auscultation Except decreased at bases Cardiovascular: Rate/Rhythm: regular rate Gastrointestinal (Abdomen): normal bowel sounds, soft, nontender, no h epatosplenomegaly Musculoskeletal: no cyanosis or clubbing, extremities motor strength 5/5 Skin: no rashes, warm and dry Neurologic: patellar DTR's 2+ bilat, sensation intact Psychiatric: A+Ox3, euthymic affect Results & Data Results & Data Vital Signs (Past 12 Hours) Vital Signs Temp Pulse Pulse Resp BP Pulse Ox O2 Del Method 04/21/23 03:54 36.6 C 65 18 102/62 98 Nasal Cannula 04/20/23 22:02 68 04/20/23 22:58 36.7 C 68 18 111/66 97 Nasal Cannula 04/20/23 20:10 Nasal Cannula 04/20/23 19:36 36.9 C 78 20 108/65 99 Nasal Cannula O2 Flow Rate 04/21/23 03:54 2 04/20/23 22:02 04/20/23 22:58 3 04/20/23 20:10 2 04/20/23 19:36 3 PG Care Time/CCT Total # of Minutes Spent Total Time Spent with Patient: Total time spent is greater than 50% in coordination of care (as documented) at patient's floor/unit and/or counseling patient: Coding Level of Care Code 13647 SUB INP/OBS CARE MIN Diagnoses CHF exacerbation I50.33 Heart failure type: diastolic COPD with emphysema J43.9 Anemia D64.9 AIRAM (obstructive sleep apnea) G47.33 Spontaneous perforation of colon K63.1 HTN (hypertension) I10 Hypertension type: essential hypertension Rheumatoid arthritis M06.9 Rheumatoid arthritis location: unspecified site Rheumatoid factor presence: unspecified presence (1) CHF exacerbation Heart failure type: diastolic Qualified Code(s): I50.33 - Acute on chronic diastolic (congestive) heart failure (6) HTN (hypertension) Hypertension type: essential hypertension Qualified Code(s): I10 - Essential (primary) hypertension (7) Rheumatoid arthritis Rheumatoid arthritis location: unspecified site Rheumatoid factor presence: unspecified presence Qualified Code(s): M06.9 - Rheumatoid arthritis, unspecified
[2023-04-21] MEDS: FERROUS GLUCONATE 324 MG TAB PO SCH ×2 (08:26→16:28)
[2023-04-21] MEDS: HYDROXYCHLOROQUINE SULFATE 200 MG TAB PO SCH ×2 (08:27→20:39)
[2023-04-21] MEDS: ASPIRIN 81 MG ECTAB PO SCH (08:27)
[2023-04-21] MEDS: BUMETANIDE 1 MG TAB PO SCH (08:27)
[2023-04-21] MEDS: ADVANCED PROBIOTIC 1250 MG CAPSULE PO SCH (08:27)
[2023-04-21] MEDS: UMECLIDINIUM/VILANTEROL 62.5/25MCG 7 PUFFS/INHALER INH SCH (08:28)
[2023-04-21] MEDS: FLUTICASONE FUROATE 100MCG 14 PUFFS/INHALER INH SCH (08:28)
[2023-04-21] MEDS: CEROVITE ADV FORMULA TAB PO SCH (08:28)
[2023-04-21] MEDS: FUROSEMIDE INJ 20 MG/2 ML VIAL IV SCH (08:28)
[2023-04-21] MEDS: METOPROLOL TARTRATE 25 MG TAB PO SCH (08:28)
--- NOTE | 2023-04-21 09:59 | Cardiology Consultation ---
Date of Consultation April 21, 2023 Assessment & Plan (1) Anemia: (2) COPD (chronic obstructive pulmonary disease): (3) Right heart failure: (4) Pulmonary hypertension: Plan The patient is volume overloaded due to a combination of right heart failure from pulmonary hypertension along with profound anemia. I would continue IV Lasix and I have added Aldactone. The patient needs her anemia worked up and corrected. History of Present Illness Attending Physician: David Pablo History of Present Illness This is a 72-year-old female with severe chronic obstructive lung disease with cor pulmonale who recently had a bowel perforation resulting in surgery and a colostomy. Approximately 2 weeks ago she had a revision of her colostomy [facility]. She states she slowly became progressively short of breath and presented with findings consistent with right heart failure and edema to the knees bilaterally. She was also found to be profoundly anemic likely secondary to her surgery and iron deficiency. She has been diuresed the past several days and has found improvement but remains markedly volume overloaded. Past medical history: 1.History of chronic tobacco abuse, reformed as of 11/13/2018. 2.Severe chronic obstructive lung disease, cor pulmonale, pulmonary nodules - [place] [facility] [place] 3.Right heart failure secondary to cor pulmonale 4.Sleep apnea, without CPAP supplementation 5.Nocturnal hypoxemia, treated with supplemental oxygen therapy 6.Transient multifocal atrial tachycardia observed during hospitalization in August 2016 with acute pulmonary exacerbation and right heart failure 7.Rheumatoid arthritis 8.Immunosuppression due to drug therapy. 9.Mild atherosclerotic calcification of the thoracic aorta via June [address] CT at [facility] 10.Densely calcified coronary arteries via 2019 CT at [facility] Allergies Allergy/AdvReac Type Severity Reaction Status Date / Time No Known Drug Allergies Allergy Unknown . Verified 04/19/23 16:42 Home Medications Medication Instructions Recorded Confirmed Type qflzsunrnsai-jlitqcdx-mlfyfa tablet 1 tab PO QAM 08/17/19 04/19/23 History albuterol sulfate 2.5 mg/3 mL 2.5 mg (3 mL) inhalation Q4H PRN 08/22/19 04/19/23 Rx (0.083 %) solution for nebulization shortness of breath or wheezing #540 mL bumetanide 1 mg tablet 1 mg PO QAM #90 tabs 09/27/19 04/19/23 History Lactobacillus rhamnosus GG 10 1 cap PO QAM 04/23/22 04/19/23 History billion cell capsule (Culturelle) hydroxychloroquine 200 mg tablet 200 mg PO BID 04/23/22 04/19/23 History Prevagen 50 mcg PO 1XD 06/09/22 04/19/23 History albuterol sulfate 90 mcg/actuation 2 puff inhalation Q4H PRN 08/10/22 04/19/23 Rx aerosol inhaler shortness of breath #3 Inhalers fluticasone fur. 100 mcg-umeclid 1 inh inhalation QAM #3 Inhalers 11/10/22 04/19/23 Rx 62.5 mcg-vilant 25 mcg inhalat.powder (Trelegy Ellipta) sertraline 50 mg tablet See Rx Instructions .Route 11/19/22 04/19/23 Rx .COMPLEX #135 tabs aspirin 81 mg tablet,delayed 81 mg PO DAILY 03/14/23 04/19/23 History release metoprolol tartrate 25 mg tablet 25 mg PO DAILY 03/14/23 04/19/23 History psyllium husk 0.4 gram capsule 1.6 g PO DAILY PRN Constipation 04/19/23 04/19/23 History (Metamucil) Patient History Medical History Atrial tachycardia Basal cell carcinoma of chest s/p excision Congestive heart failure EF 55-59%, Grade I diastolic dysfunction, follows with S cardio COPD (chronic obstructive pulmonary disease) severe Cor pulmonale (chronic) DVT prophylaxis Encounter for pre-operative examination History of COVID-09 October 2020. hospitalized at [facility] for 5 days. COVID pneumonia; symptoms included fever, difficulty standing, hallucinations/brain fog, sob & loss of taste/smell. no current symptoms. HTN (hypertension) Hx of colonic polyps Lung nodule monitoring On home oxygen therapy 2 L HS and prn AIRAM (obstructive sleep apnea) no sleep study done. refused Pulmonary hypertension hx-"no evidence" on 06/16/2021 echo report Rheumatoid arthritis Tricuspid regurgitation Surgical History H/O arthroscopic knee surgery left knee H/O colonoscopy 1 YR AGO H/O exploratory laparotomy (04/03/21) Exploratory Laparotomy, Partial omentectomy, Right Hemicolectomy with Ileocolonic Anastomosis(Not Applicable) - Lavelle José DO History of bilateral tubal ligation History of cataract surgery bilateral Family History Brother Coronary heart disease Father Cardiomegaly Hypertension Stroke Other No family history of adverse response to anesthesia Denies family history of Ovarian cancer Prostate cancer Myocardial infarction Breast cancer Lung cancer Colorectal cancer Social History Smoking Status: Former smoker Tobacco Type: Cigarettes Age Started Using Tobacco: 23; packs per day: 1; Cigarettes Per Day: quit 5-6 yrs ago; Second Hand Exposure: No; Do You Dip or Chew Tobacco: No; Hx Alcohol Use: Yes Alcohol type: wine Hx Substance Use: No Preferred Language: Urdu Communication Ability: Effective Visual Impairment: No Limitations Hearing Ability: Normal Layout Artist Required: No Beliefs That Will Affect Care: None marital status: / Current Living Situation: Alone current occupational status: retired Feels Safe at Home: Yes Safety Concerns: Feels Safe At This Time Childhood Exposure to Second-Hand Smoke: No Diet Comment: regular caffeine: Yes (coffee) during the past year weight has: other Dental Care, Regularly: Yes Physical Activity Frequency: 3-4 Times per Week Physical Activity Frequency Comment: walk Seatbelt Use: always Sunscreen Use: Yes Assistive Devices: Oxygen - Continuous and Walker Review of Systems Review of Systems: I have reviewed the advance practitioner documentation and agree. I saw and evaluated the patient on the date of service referenced in the note and have performed a medically appropriate history and or exam. Physical Exam Physical Exam: General: no acute distress and stated age Head: normocephalic, no masses, lesions, tenderness or abnormalities Eyes: conjunctiva are pink and non-injected, sclera clear Neck: supple, no adenopathy, no bruits, normal jugular venous pulse, no hepatojugular reflux Chest: normal shape and normal respiratory effort Lungs: clear to auscultation and percussion Cardiac Exam: - regular rate & rhythm, no murmurs gallops or rubs - normal S1, normal S2, S4 Pulses: 2(+) throughout Abdomen: abdomen soft, non-tender, no abnormal masses and no hepatosplenomegaly Musculoskeletal: no gait disturbance, no joint inflammation, no deforming arthritis Extremities: Pitting edema to the mid calfs bilaterally Neuro: grossly normal exam Results & Data Vital Signs (Past 12 Hours) Vital Signs Temp Pulse Pulse Resp BP Pulse Ox O2 Del Method 04/21/23 08:19 36.4 C L 80 18 100/58 L 97 Nasal Cannula 04/21/23 03:54 36.6 C 65 18 102/62 98 Nasal Cannula 04/20/23 22:02 68 04/20/23 22:58 36.7 C 68 18 111/66 97 Nasal Cannula O2 Flow Rate 04/21/23 08:19 2 04/21/23 03:54 2 04/20/23 22:02 04/20/23 22:58 3 Laboratory Results Laboratory Results - last 24 hr 04/20/23 07:41 Hepatitis C Ab (EIA) NON-REACTIVE Hep C Ab Signal/Cutoff 0.03 Medications Administered Current Inpatient Medications Acetaminophen (Acetaminophen 325 Mg Tab) 650 mg PO Q4H PRN PRN Reason: Pain or Fever Stop: 05/20/23 03:54 Albuterol (Albuterol 0.083% Nebu Soln 3 Ml Vial) 2.5 mg INH Q4H PRN; Protocol PRN Reason: shortness of breath or wheezing Stop: 05/20/23 03:54 Albuterol (Albuterol Hfa 8 Gm Inhaler) 2 puffs INH Q4H PRN PRN Reason: shortness of breath Stop: 05/20/23 03:54 Aspirin (Aspirin 81 Mg Ectab) 81 mg PO DAILY [facility] Stop: 05/20/23 08:59 Last Admin: 04/21/23 08:27 Dose: 81 mg Bumetanide (Bumetanide 1 Mg Tab) 1 mg PO QAM [facility] Stop: 05/20/23 08:59 Last Admin: 04/21/23 08:27 Dose: 1 mg Ferrous Gluconate (Ferrous Gluconate 324 Mg Tab) 324 mg PO BIDM [facility] Stop: 05/21/23 07:59 Last Admin: 04/21/23 08:26 Dose: 324 mg Fluticasone Furoate (Fluticasone Furoate 100mcg 14 Puffs/Inhaler) 1 puffs INH DAILY [facility] Stop: 05/20/23 08:59 Last Admin: 04/21/23 08:28 Dose: 1 puffs Furosemide (Furosemide Inj 20 Mg/2 Ml Vial) 20 mg IV TID [facility] Stop: 04/21/23 14:01 Last Admin: 04/21/23 08:28 Dose: 20 mg Hydroxychloroquine Sulfate (Hydroxychloroquine Sulfate 200 Mg Tab) 200 mg PO BID [facility] Stop: 05/20/23 08:59 Last Admin: 04/21/23 08:27 Dose: 200 mg Lactobacillus Acidophilus (Advanced Probiotic 1250 Mg Capsule) 2 cap PO QAM [facility] Stop: 05/20/23 08:59 Last Admin: 04/21/23 08:27 Dose: 2 cap Metoprolol Tartrate (Metoprolol Tartrate 25 Mg Tab) 25 mg PO DAILY [facility] Stop: 05/20/23 08:59 Last Admin: 04/21/23 08:28 Dose: 25 mg Multivitamins/Minerals (Cerovite Adv Formula Tab) 1 tab PO QAM [facility] Stop: 05/20/23 08:59 Last Admin: 04/21/23 08:28 Dose: 1 tab Polyethylene Glycol (Polyethylene (Miralax) 17 Gm Pack) 17 gm PO DAILY PRN PRN Reason: Constipation Stop: 05/20/23 03:54 Psyllium Hydrophilic Mucilloid (Psyllium Or Guar Gum Fiber Powder Packet) 1 pkt PO DAILY PRN PRN Reason: Constipation Stop: 05/20/23 04:01 Umeclidinium/Vilanterol (Umeclidinium/Vilanterol 62.5/25mcg 7 Puffs/Inhaler) 1 puffs INH DAILY [facility] Stop: 05/20/23 08:59 Last Admin: 04/21/23 08:28 Dose: 1 puffs
[2023-04-21] MEDS ORDERED: SPIRONOLACTONE 25 MG TAB PO ONE (10:19)
[2023-04-21 10:35] LABS: Hematocrit (blood only) 28.9 % (37.0-47.0); Hemoglobin 8.7 g/dl (12.0-16.0); Mean Corpuscular Hgb Conc 30.1 g/dL (32.0-36.0); Mean Corpuscular Volume 106.3 fL (80.0-100.0); Mean Platelet Volume 9.6 fL (9.4-12.4); Platelet Count 504 K/uL (130-400); RDW Coefficient of Variation 13.6 % (11.5-14.5); RDW Standard Deviation 53.1 fL (36.4-46.3); Red Blood Count 2.72 M/uL (4.20-5.40); White Blood Count 8.11 K/ul (4.8-10.8)
[2023-04-21 11:06] LABS: BUN Creatinine Ratio 10.6 (10-20); Calcium 8.8 mg/dl (8.6-10.3); Creatinine Clr Calc Pharmacy 33.7 ml/min; Est GFR (African American) 36.1 ml/min; Est GFR (Non-African American) 31.2 ml/min; Potassium 3.9 mmol/L (3.5-5.1)
[2023-04-21] MEDS: MULTIVITAMIN CHEWABLE TAB PO SCH (11:14)
[2023-04-21 11:21] LABS: Reticulocyte % 4.4 % (0.5-2.0); Reticulocytes # 0.12 10^6/uL (0.02-0.10)
[2023-04-21 11:41] LABS: Iron 86 mcg/dl (35-150); Unsaturated Iron Binding Cap 227 mcg/dl (155-355)
[2023-04-21 12:03] LABS: Vitamin B12 311 pg/ml (180-914)
[2023-04-21 20:33] LABS: Calcium 8.6 mg/dl (8.6-10.3); Potassium 4.2 mmol/L (3.5-5.1)
[2023-04-21 20:38] LABS: BUN Creatinine Ratio 12.8 (10-20); Creatinine Clr Calc Pharmacy 26.8 ml/min; Est GFR (African American) 27.3 ml/min; Est GFR (Non-African American) 23.6 ml/min
[2023-04-21] MEDS ORDERED: FUROSEMIDE 40 MG/4 ML VIAL IV SCH (21:00)
--- NOTE | 2023-04-21 23:18 | Hospitalist Progress Note ---
Date of Service April 21, 2023 Assessment & Plan (1) CHF exacerbation: Plan: Patient presents to ED with complaints of worsening shortness of breath and lower extremity edema. Lab data from ED shows proBNP elevated at 1288 high sensitive troponin slightly elevated 18 with slight elevation in serum creatinine at 1.3. Patient denies any acute chest pain and EKG does not show any ST elevation Patient has a known history of CHF from diastolic heart failure in the past Patient also has severe COPD with accompanying cor pulmonale leading to right heart failure as well. Physical exam reveals bilateral lower extremity edema as well. Start patient on IV loop diuretic therapy and monitor I's and O's closely Patient received BUMEX in AM. Cardio consulted, ordered lasix BID, however given worsening of creat and patient is already negative 2 liters. will hold off PM dose of lasix on 04/21 and recheck bmp in AM> (2) COPD with emphysema: Plan: Patient is a known history of COPD and is on home oxygen therapy Continue bronchodilators as needed No evidence of acute exacerbation Patient also has a component of cor pulmonale with accompanying right heart failure that contributes to CHF exacerbation (3) Anemia: Plan: Patient found to have a serum hemoglobin of 8 and prior hemoglobin level was 12 before her bowel surgery. Patient denies any melena or hematochezia. We will recheck CBC in a.m. and anemia could be secondary to blood loss during surgery done in Obtain records from [place] to see if any acute drop in hemoglobin has occurred since her surgery. Patient does not appear to have iron def. anemia. (4) AIRAM (obstructive sleep apnea): Plan: Continue oxygen supplementation and CPAP as tolerated (5) Spontaneous perforation of colon: Plan: Patient has a prior history of bowel perforation with colostomy placed. Colostomy reversal done in recently and patient has no GI complaints at this time Continue to monitor H&H (6) HTN (hypertension): Plan: Continue home dose of metoprolol 25 mg with hold parameters Monitor blood pressure trend titrate meds as tolerated (7) Rheumatoid arthritis: Plan: Patient on hydroxychloroquine 200 mg p.o. twice daily at home and will be be continued Admission and Anticipated Discharge Date Admission Date: April 20, 2023 Subjective Patienrt reports breathing better, she is able to ambulate the halls. She states she does not use oxygen at home. Review of Systems Review of Systems: All systems reviewed & are unremarkable except as noted in HPI & below Physical Exam Physical Exam: Head and ENT no thyroid enlargement trachea midline Cardiovascular S1-S2 are normal no S3 Lungs bilateral air entry fair no wheezing Abdomen soft nondistended positive bowel sounds no rebound tenderness Extremity shows bilateral 2+ edema extending to knee Neurologically no focal deficits Skin shows no rash no cyanosis Results & Data Results & Data Vital Signs (Past 12 Hours) Vital Signs Temp Pulse Pulse Resp BP BP Pulse Ox 04/21/23 21:09 36.5 C 71 20 116/67 99 04/21/23 16:05 36.8 C 69 18 113/59 L 95 04/21/23 14:10 66 04/21/23 11:56 36.8 C 66 18 113/65 94 O2 Del Method O2 Flow Rate 04/21/23 21:09 Nasal Cannula 2.0 04/21/23 16:05 Nasal Cannula 2.0 04/21/23 14:10 04/21/23 11:56 Nasal Cannula 2.0 PG Care Time/CCT Total # of Minutes Spent Total Time Spent with Patient: Total time spent is greater than 50% in coordination of care (as documented) at patient's floor/unit and/or counseling patient: Coding Level of Care Code 20739 SUB INP/OBS CARE 3/50MIN Diagnoses CHF exacerbation I50.33 Heart failure type: diastolic COPD with emphysema J43.9 Anemia D64.9 AIRAM (obstructive sleep apnea) G47.33 Spontaneous perforation of colon K63.1 HTN (hypertension) I10 Hypertension type: essential hypertension Rheumatoid arthritis M06.9 Rheumatoid arthritis location: unspecified site Rheumatoid factor presence: unspecified presence (1) CHF exacerbation Heart failure type: diastolic Qualified Code(s): I50.33 - Acute on chronic diastolic (congestive) heart failure (6) HTN (hypertension) Hypertension type: essential hypertension Qualified Code(s): I10 - Essential (primary) hypertension (7) Rheumatoid arthritis Rheumatoid arthritis location: unspecified site Rheumatoid factor presence: unspecified presence Qualified Code(s): M06.9 - Rheumatoid arthritis, unspecified
[2023-04-22 07:13] LABS: Basophils # (auto) 0.04 K/uL (0-0.2); Basophils % (auto) 0.7 %; Eosinophils # (auto) 0.19 K/uL (0-0.50); Eosinophils % (auto) 3.5 %; Hematocrit (blood only) 25.8 % (37.0-47.0); Hemoglobin 7.8 g/dl (12.0-16.0); Immature Granulocytes # (auto) 0.02 K/uL (0.01-0.20); Immature Granulocytes % (auto) 0.4 %; Lymphocytes # (auto) 1.07 K/uL (1.2-3.4); Lymphocytes % (auto) 19.7 %; Mean Corpuscular Hemoglobin 31.3 pg (25.0-34.0); Mean Corpuscular Hgb Conc 30.2 g/dL (32.0-36.0); Mean Corpuscular Volume 103.6 fL (80.0-100.0); Monocytes # (auto) 0.67 K/uL (0.11-0.59); Monocytes % (auto) 12.3 %; Neutrophils # (auto) 3.45 K/uL (1.40-6.50); Neutrophils % (auto) 63.4 %; Platelet Count 375 K/uL (130-400); RDW Coefficient of Variation 13.2 % (11.5-14.5); RDW Standard Deviation 49.5 fL (36.4-46.3); Red Blood Count 2.49 M/uL (4.20-5.40); White Blood Count 5.44 K/ul (4.8-10.8)
--- NOTE | 2023-04-22 07:15 | XRay Report ---
XR chest 2V PA/lateral HISTORY: pleural effusions COMPARISON: Chest 04/19/2023. FINDINGS: No pneumothorax. Small right and moderate left pleural effusions are again noted. The heart is stable in size. No focal lung consolidations identified. No evidence for pulmonary edema. IMPRESSION: No change in the small right and moderate left pleural effusions. ACT 112: Negative or not required by law. Electronically signed by: [place] M.D. 04/22/2023 7:14 AM
[2023-04-22 07:29] LABS: BUN Creatinine Ratio 13.3 (10-20); Calcium 8.6 mg/dl (8.6-10.3); Creatinine Clr Calc Pharmacy 32.7 ml/min; Est GFR (African American) 34.8 ml/min; Potassium 3.8 mmol/L (3.5-5.1)
[2023-04-22 07:36] LABS: Hypochromasia Present
[2023-04-22] MEDS: UMECLIDINIUM/VILANTEROL 62.5/25MCG 7 PUFFS/INHALER INH SCH (08:22)
[2023-04-22] MEDS: FLUTICASONE FUROATE 100MCG 14 PUFFS/INHALER INH SCH (08:22)
[2023-04-22] MEDS: HYDROXYCHLOROQUINE SULFATE 200 MG TAB PO SCH ×2 (08:27→20:29)
[2023-04-22] MEDS: ASPIRIN 81 MG ECTAB PO SCH (08:27)
[2023-04-22] MEDS: FERROUS GLUCONATE 324 MG TAB PO SCH ×2 (08:27→16:36)
[2023-04-22] MEDS: MULTIVITAMIN CHEWABLE TAB PO SCH (08:28)
[2023-04-22] MEDS: CEROVITE ADV FORMULA TAB PO SCH (08:28)
[2023-04-22] MEDS: METOPROLOL TARTRATE 25 MG TAB PO SCH (08:28)
[2023-04-22] MEDS: ADVANCED PROBIOTIC 1250 MG CAPSULE PO SCH (08:28)
[2023-04-22] MEDS ORDERED: SPIRONOLACTONE 25 MG TAB PO SCH (09:00)
--- NOTE | 2023-04-22 09:53 | Cardiology Progress Note ---
Date of Service April 22, 2023 Assessment & Plan (1) Anemia: (2) COPD (chronic obstructive pulmonary disease): (3) Right heart failure: (4) Pulmonary hypertension: Plan The patient is walking the hallways with physical therapy. She is doing well. She had a large diuresis again yesterday and appears that the majority of her lower extremity edema has now resolved. Due to her cor pulmonale she will require to be discharged on diuretics. I would recommend her usual home dose of Bumex 1 mg daily and Aldactone at 12.5 mg daily. Of note, the patient still remains anemic. Admission and Anticipated Discharge Date Admission Date: April 20, 2023 Subjective The patient has no new complaints today. Review of Systems Review of Systems: Review of Systems: See HPI for pertinent positives. All other 10 point review of systems are negative. Physical Exam Physical Exam: General: no acute distress and stated age Head: normocephalic, no masses, lesions, tenderness or abnormalities Eyes: conjunctiva are pink and non-injected, sclera clear Neck: supple, no adenopathy, no bruits, normal jugular venous pulse, no hepatojugular reflux Chest: normal shape and normal respiratory effort Lungs: clear to auscultation and percussion Cardiac Exam: - regular rate & rhythm, no murmurs gallops or rubs - normal S1, normal S2, S4 Pulses: 2(+) throughout Abdomen: abdomen soft, non-tender, no abnormal masses and no hepatosplenomegaly Musculoskeletal: no gait disturbance, no joint inflammation, no deforming arthritis Extremities: Edema has improved Neuro: grossly normal exam Results & Data Vital Signs (Past 12 Hours) Vital Signs Temp Pulse Pulse Resp BP Pulse Ox O2 Del Method 04/22/23 08:20 36.4 C L 65 18 101/62 92 Nasal Cannula 04/22/23 07:39 Nasal Cannula 04/22/23 07:18 74 04/22/23 03:55 36.7 C 72 18 103/58 L 96 Nasal Cannula 04/21/23 23:06 36.5 C 73 18 108/66 99 Nasal Cannula O2 Flow Rate 04/22/23 08:20 2 04/22/23 07:39 2 04/22/23 07:18 04/22/23 03:55 2 04/21/23 23:06 2.0 Laboratory Results Laboratory Results - last 24 hr 04/20/23 04/21/23 04/21/23 07:41 09:02 09:02 WBC 8.11 RBC 2.72 L Hgb 8.7 L Hct 28.9 L MCV 106.3 H MCH 32.0 MCHC 30.1 L RDW Std Deviation 53.1 H RDW Coeff of Marc 13.6 Plt Count 504 H MPV 9.6 Immature Gran % (Auto) Neut % (Auto) Lymph % (Auto) [place] % (Auto) Eos % (Auto) Baso % (Auto) Reticulocyte % (Auto) Neut # (Auto) Lymph # (Auto) [place] # (Auto) Eos # (Auto) Baso # (Auto) Reticulocyte # Immature Gran # (Auto) Hypochromasia Sodium 142 Potassium 3.9 Chloride 93 L Carbon Dioxide 42 H* Anion Gap 7 BUN 17 Creatinine 1.61 H Est Cr Clr Drug Dosing 33.7 Est GFR ( Amer) 36.1 Est GFR (Non-Af Amer) 31.2 BUN/Creatinine Ratio 10.6 Glucose 107 H Calcium 8.8 Iron Unsaturated IBC B-Natriuretic Peptide Vitamin B12 Folate Hepatitis C Ab (EIA) NON-REACTIVE Hep C Ab Signal/Cutoff 0.03 04/21/23 04/21/23 04/21/23 09:02 11:00 11:00 WBC RBC Hgb Hct MCV MCH MCHC RDW Std Deviation RDW Coeff of Marc Plt Count MPV Immature Gran % (Auto) Neut % (Auto) Lymph % (Auto) [place] % (Auto) Eos % (Auto) Baso % (Auto) Reticulocyte % (Auto) 4.4 H Neut # (Auto) Lymph # (Auto) [place] # (Auto) Eos # (Auto) Baso # (Auto) Reticulocyte # 0.12 H Immature Gran # (Auto) Hypochromasia Sodium Potassium Chloride Carbon Dioxide Anion Gap BUN Creatinine Est Cr Clr Drug Dosing Est GFR ( Amer) Est GFR (Non-Af Amer) BUN/Creatinine Ratio Glucose Calcium Iron 86 Unsaturated IBC 227 B-Natriuretic Peptide 711 H Vitamin B12 Folate Hepatitis C Ab (EIA) Hep C Ab Signal/Cutoff 04/21/23 04/21/23 04/21/23 11:00 20:03 20:03 WBC RBC Hgb Hct MCV MCH MCHC RDW Std Deviation RDW Coeff of Marc Plt Count MPV Immature Gran % (Auto) Neut % (Auto) Lymph % (Auto) [place] % (Auto) Eos % (Auto) Baso % (Auto) Reticulocyte % (Auto) Neut # (Auto) Lymph # (Auto) [place] # (Auto) Eos # (Auto) Baso # (Auto) Reticulocyte # Immature Gran # (Auto) Hypochromasia Sodium 136 Potassium 4.2 Chloride 92 L Carbon Dioxide 36 H Anion Gap 8 BUN 26 H Creatinine 2.03 H D Est Cr Clr Drug Dosing 26.8 Est GFR ( Amer) 27.3 Est GFR (Non-Af Amer) 23.6 BUN/Creatinine Ratio 12.8 Glucose 99 Calcium 8.6 Iron Unsaturated IBC B-Natriuretic Peptide 391 H Vitamin B12 311 Folate > 22.30 Hepatitis C Ab (EIA) Hep C Ab Signal/Cutoff 04/22/23 04/22/23 04/22/23 06:55 06:55 06:55 WBC 5.44 RBC 2.49 L Hgb 7.8 L Hct 25.8 L MCV 103.6 H MCH 31.3 MCHC 30.2 L RDW Std Deviation 49.5 H RDW Coeff of Marc 13.2 Plt Count 375 MPV 9.0 L Immature Gran % (Auto) 0.4 Neut % (Auto) 63.4 Lymph % (Auto) 19.7 [place] % (Auto) 12.3 Eos % (Auto) 3.5 Baso % (Auto) 0.7 Reticulocyte % (Auto) Neut # (Auto) 3.45 Lymph # (Auto) 1.07 L [place] # (Auto) 0.67 H Eos # (Auto) 0.19 Baso # (Auto) 0.04 Reticulocyte # Immature Gran # (Auto) 0.02 Hypochromasia Present Sodium 141 Potassium 3.8 Chloride 96 L Carbon Dioxide 39 H Anion Gap 6 BUN 22 Creatinine 1.66 H D Est Cr Clr Drug Dosing 32.7 Est GFR ( Amer) 34.8 Est GFR (Non-Af Amer) 30.0 BUN/Creatinine Ratio 13.3 Glucose 78 Calcium 8.6 Iron Unsaturated IBC B-Natriuretic Peptide 452 H Vitamin B12 Folate Hepatitis C Ab (EIA) Hep C Ab Signal/Cutoff Medications Administered Current Inpatient Medications Acetaminophen (Acetaminophen 325 Mg Tab) 650 mg PO Q4H PRN PRN Reason: Pain or Fever Stop: 05/20/23 03:54 Albuterol (Albuterol 0.083% Nebu Soln 3 Ml Vial) 2.5 mg INH Q4H PRN; Protocol PRN Reason: shortness of breath or wheezing Stop: 05/20/23 03:54 Albuterol (Albuterol Hfa 8 Gm Inhaler) 2 puffs INH Q4H PRN PRN Reason: shortness of breath Stop: 05/20/23 03:54 Aspirin (Aspirin 81 Mg Ectab) 81 mg PO DAILY [facility] Stop: 05/20/23 08:59 Last Admin: 04/22/23 08:27 Dose: 81 mg Bumetanide (Bumetanide 1 Mg Tab) 1 mg PO QAM [facility] Stop: 05/23/23 08:59 Ferrous Gluconate (Ferrous Gluconate 324 Mg Tab) 324 mg PO BIDM [facility] Stop: 05/21/23 07:59 Last Admin: 04/22/23 08:27 Dose: 324 mg Fluticasone Furoate (Fluticasone Furoate 100mcg 14 Puffs/Inhaler) 1 puffs INH DAILY [facility] Stop: 05/20/23 08:59 Last Admin: 04/22/23 08:22 Dose: 1 puffs Hydroxychloroquine Sulfate (Hydroxychloroquine Sulfate 200 Mg Tab) 200 mg PO BID [facility] Stop: 05/20/23 08:59 Last Admin: 04/22/23 08:27 Dose: 200 mg Lactobacillus Acidophilus (Advanced Probiotic 1250 Mg Capsule) 2 cap PO QAM [facility] Stop: 05/20/23 08:59 Last Admin: 04/22/23 08:28 Dose: 2 cap Metoprolol Tartrate (Metoprolol Tartrate 25 Mg Tab) 25 mg PO DAILY [facility] Stop: 05/20/23 08:59 Last Admin: 04/22/23 08:28 Dose: 25 mg Multivitamins/Folic Acid/Vitamin C (Multivitamin Chewable Tab) 1 tab PO QAM [facility] Stop: 05/21/23 10:44 Last Admin: 04/22/23 08:28 Dose: 1 tab Multivitamins/Minerals (Cerovite Adv Formula Tab) 1 tab PO QAM [facility] Stop: 05/20/23 08:59 Last Admin: 04/22/23 08:28 Dose: 1 tab Polyethylene Glycol (Polyethylene (Miralax) 17 Gm Pack) 17 gm PO DAILY PRN PRN Reason: Constipation Stop: 05/20/23 03:54 Psyllium Hydrophilic Mucilloid (Psyllium Or Guar Gum Fiber Powder Packet) 1 pkt PO DAILY PRN PRN Reason: Constipation Stop: 05/20/23 04:01 Spironolactone (Spironolactone 12.5 Mg Tab) 12.5 mg PO QAM [facility] Stop: 05/23/23 08:59 Umeclidinium/Vilanterol (Umeclidinium/Vilanterol 62.5/25mcg 7 Puffs/Inhaler) 1 puffs INH DAILY [facility] Stop: 05/20/23 08:59 Last Admin: 04/22/23 08:22 Dose: 1 puffs
[2023-04-22] MEDS ORDERED: CYANOCOBALAMIN 1000 MCG/ML VIAL IM ONE (17:06)
--- NOTE | 2023-04-22 17:20 | Procedure Note ---
Procedure Note Date of Service April 22, 2023 Note Bedside Ultrasound: Lung: Right:-Minimal right-sided pleural effusion, B-lines posteriorly Left:-Small-moderate left-sided pleural effusion with dependent atelectasis, B- lines posteriorly Heart: Good ejection fraction, no pericardial effusion Please note the above document was generated using voice recognition software. It may contain grammatical, syntax or spelling errors.Any formal questions or concerns about the content, text or information contained within the body of this dictation should be directly addressed to the provider for clarification. Coding CPT Codes Pulmonary/Thoracic - Pulmonary and Thoracic: 45507 US, Chest, real time with imaging documentation ([id number]) [facility] [place] Procedure Codes (Charges) Pulmonary/Thoracic Procedure 1: Pulmonary and Thoracic: 17837 US, Chest, real time with imaging documentation
--- NOTE | 2023-04-22 17:31 | Pulmonary Consultation ---
Date of Consultation April 22, 2023 Assessment & Plan (1) Pulmonary hypertension: (2) COPD (chronic obstructive pulmonary disease): (3) Anemia: (4) CHF exacerbation: Heart failure type: diastolic Qualified Code(s): I50.33 - Acute on chronic diastolic (congestive) heart failure (5) Abnormal chest CT: (6) Acute on chronic respiratory failure with hypoxemia: (7) COPD (chronic obstructive pulmonary disease): COPD type: unspecified COPD Qualified Code(s): J44.9 - Chronic obstructive pulmonary disease, unspecified (8) Pleural effusion: Plan Chest x-ray 04/21/2023 personally reviewed: PA/lateral view, good inspiratory effort, mild blunting of the right costophrenic angle, left-sided pleural effusion 2D echo 04/20/2023: EF 60-65%, RVSP 30-40 mmHg small posterior pericardial effusion, moderate RVH, moderate decrease in RV systolic function -- Acute on chronic hypoxic respiratory failure On 2 L oxygen at home Likely secondary to HFpEF with pulmonary hypertension Needed with diuretics BiPAP nightly and as needed shortness of breath --Pulmonary hypertension Combination of type II and type III For type III continue with inhalers For type II continue with diuretics -- COPD with emphysema Gold class D Last exacerbation was more than a year ago. Has never been hospitalized for COPD On Trelegy inhaler at home Hardly has to use the rescue inhaler PFT 2personally reviewed: Very severe COPD with emphysema and air trapping, insignificant bronchodilator response moderate decrease in DLCO FVC 1.93 L 58%, FEV1 0.72 L 29%, FEV1/FVC 37%, RV 172%, TLC 111%, RV/TLC 150%, DLCO 50%, DLCO/VA 70% -- Abnormal chest CT with multiple pulmonary nodules Patient seems to have nodularity/tree-in-bud opacities of the lingula She also has a right lower lobe small nodule In a patient was a heavy smoker needs to be followed up CT chest 1personally reviewed: Centrilobular and paraseptal emphysema appreciated bilaterally Lingular nodular opacities appreciated, tree-in-bud opacities appreciated in the left lower lobe as well No mediastinal lymphadenopathy -- Ex-smoker Approximately [id number] smoking history Quit at the age of 67 in 2018 Encouraged to continue abstinence from smoking --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 She is not any respiratory distress. Would recommend to continue with diuretics, no indication for thoracentesis right now Patient's baseline hemoglobin is 12 but postsurgery it has been running around 8. This also plays a major role during exertion in somebody who has moderate pulmonary hypertension and severe COPD Case was discussed with Dr. Pablo Please note the above document was generated using voice recognition software. It may contain grammatical, syntax or spelling errors.Any formal questions or concerns about the content, text or information contained within the body of this dictation should be directly addressed to the provider for clarification. History of Present Illness Attending Physician: David Pablo History of Present Illness 72-year-old female presented to the hospital with worsening shortness of breath Past medical history: severe COPD and chronic hypoxic respiratory failure, Anxiety/depression, hypertension Patient was last seen by me in the office on 10/11/2022 Pulmonary consulted for left-sided pleural effusion Since admission patient has been on diuretics and has been urinating well She is -4 L since coming to the hospital At the time of examination she says that she is feeling much better compared to when she was presented to the hospital There is approximately 90% improvement in her breathing Denies any chest pain right now, no headache, no nausea, no vomiting She has been compliant with her inhalers at home No fever or chills No cough, no hemoptysis Patient had gained weight prior to coming to the hospital Social history: Approximately [id number] smoking history, quit in 2018. Social alcohol, denies any illicit drug use. 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 Verified 04/19/23 16:42 Home Medications Medication Instructions Recorded Confirmed Type ytgmrfybhknd-nafyqhrt-jwqiry tablet 1 tab PO QAM 08/17/19 04/19/23 History albuterol sulfate 2.5 mg/3 mL 2.5 mg (3 mL) inhalation Q4H PRN 08/22/19 04/19/23 Rx (0.083 %) solution for nebulization shortness of breath or wheezing #540 mL bumetanide 1 mg tablet 1 mg PO QAM #90 tabs 09/27/19 04/19/23 History Lactobacillus rhamnosus GG 10 1 cap PO QAM 04/23/22 04/19/23 History billion cell capsule (Culturelle) hydroxychloroquine 200 mg tablet 200 mg PO BID 04/23/22 04/19/23 History Prevagen 50 mcg PO 1XD 06/09/22 04/19/23 History albuterol sulfate 90 mcg/actuation 2 puff inhalation Q4H PRN 08/10/22 04/19/23 Rx aerosol inhaler shortness of breath #3 Inhalers fluticasone fur. 100 mcg-umeclid 1 inh inhalation QAM #3 Inhalers 11/10/22 04/19/23 Rx 62.5 mcg-vilant 25 mcg inhalat.powder (Trelegy Ellipta) sertraline 50 mg tablet See Rx Instructions .Route 11/19/22 04/19/23 Rx .COMPLEX #135 tabs aspirin 81 mg tablet,delayed 81 mg PO DAILY 03/14/23 04/19/23 History release metoprolol tartrate 25 mg tablet 25 mg PO DAILY 03/14/23 04/19/23 History psyllium husk 0.4 gram capsule 1.6 g PO DAILY PRN Constipation 04/19/23 04/19/23 History (Metamucil) Patient History Medical History Atrial tachycardia Basal cell carcinoma of chest s/p excision Congestive heart failure EF 55-59%, Grade I diastolic dysfunction, follows with S cardio COPD (chronic obstructive pulmonary disease) severe Cor pulmonale (chronic) DVT prophylaxis Encounter for pre-operative examination History of COVID-09 October 2020. hospitalized at [facility] for 5 days. COVID pneumonia; symptoms included fever, difficulty standing, hallucinations/brain fog, sob & loss of taste/smell. no current symptoms. HTN (hypertension) Hx of colonic polyps Lung nodule monitoring On home oxygen therapy 2 L HS and prn AIRAM (obstructive sleep apnea) no sleep study done. refused Pulmonary hypertension hx-"no evidence" on 06/16/2021 echo report Rheumatoid arthritis Tricuspid regurgitation Surgical History H/O arthroscopic knee surgery left knee H/O colonoscopy 1 YR AGO H/O exploratory laparotomy (04/03/21) Exploratory Laparotomy, Partial omentectomy, Right Hemicolectomy with Ileocolonic Anastomosis(Not Applicable) - Lavelle José DO History of bilateral tubal ligation History of cataract surgery bilateral Family History Brother Coronary heart disease Father Cardiomegaly Hypertension Stroke Other No family history of adverse response to anesthesia Denies family history of Ovarian cancer Prostate cancer Myocardial infarction Breast cancer Lung cancer Colorectal cancer Social History Smoking Status: Former smoker Tobacco Type: Cigarettes Age Started Using Tobacco: 23; packs per day: 1; Cigarettes Per Day: quit 5-6 yrs ago; Second Hand Exposure: No; Do You Dip or Chew Tobacco: No; Hx Alcohol Use: Yes Alcohol type: wine Hx Substance Use: No Preferred Language: Sami Communication Ability: Effective Visual Impairment: No Limitations Hearing Ability: Normal Manager Orange Required: No Beliefs That Will Affect Care: None marital status: / Current Living Situation: Alone current occupational status: retired Feels Safe at Home: Yes Safety Concerns: Feels Safe At This Time Childhood Exposure to Second-Hand Smoke: No Diet Comment: regular caffeine: Yes (coffee) during the past year weight has: other Dental Care, Regularly: Yes Physical Activity Frequency: 3-4 Times per Week Physical Activity Frequency Comment: walk Seatbelt Use: always Sunscreen Use: Yes Assistive Devices: Oxygen - Continuous and Walker Review of Systems Review of Systems: All systems reviewed & are unremarkable except as noted in HPI & below Physical Exam Physical Exam: Constitutional: No acute distress HEENT: EOMI, PERRLA Respiratory system: Decreased air entry bilaterally, no wheeze, rhonchi, positive crackles bilaterally more on the left side CVS: S1-S2 positive, no murmurs or gallops Abdomen: Soft, nontender, nondistended, positive bowel sounds x4 Extremities: +2 pulses bilaterally radialis/ dorsalis pedis, no cyanosis, +2 pitting edema bilateral lower extremity Neuro: Awake alert oriented x3 Psych: Normal mood and affect G/U: No Nichole Skin: no rashes, warm and dry Lymphatic: no cervical or axillary lymphadenopathy Results & Data Results & Data Vital Signs (Past 12 Hours) Vital Signs Temp Pulse Pulse Pulse Pulse Pulse Pulse 04/22/23 14:45 69 04/22/23 15:53 36.7 C 71 04/22/23 15:21 75 73 90 89 04/22/23 11:42 36.6 C 82 04/22/23 08:20 36.4 C L 65 04/22/23 07:39 04/22/23 07:18 74 Pulse Pulse Resp Resp Resp Resp Resp 04/22/23 14:45 04/22/23 15:53 18 04/22/23 15:21 82 73 18 18 20 20 04/22/23 11:42 18 04/22/23 08:20 18 04/22/23 07:39 04/22/23 07:18 Resp Resp BP BP Pulse Ox Pulse Ox Pulse Ox 04/22/23 14:45 04/22/23 15:53 103/57 L 97 04/22/23 15:21 20 18 88 L 90 04/22/23 11:42 101/57 L 96 04/22/23 08:20 101/62 92 04/22/23 07:39 04/22/23 07:18 Pulse Ox Pulse Ox Pulse Ox Pulse Ox O2 Del Method O2 Flow Rate O2 Flow Rate 04/22/23 14:45 04/22/23 15:53 Nasal Cannula 2.0 04/22/23 15:21 91 87 L 91 87 L 1 04/22/23 11:42 Room Air 04/22/23 08:20 Nasal Cannula 2 04/22/23 07:39 Nasal Cannula 2 04/22/23 07:18 O2 Flow Rate O2 Flow Rate O2 Flow Rate O2 Flow Rate 04/22/23 14:45 04/22/23 15:53 04/22/23 15:21 2 3 2 2 04/22/23 11:42 04/22/23 08:20 04/22/23 07:39 04/22/23 07:18 Laboratory Results 04/22/23 06:55 04/22/23 06:55 PG Care Time/CCT Total # of Minutes Spent Total Time Spent with Patient: Total time spent is greater than 50% in coordination of care (as documented) at patient's floor/unit and/or counseling patient: Coding Level of Care Code 08378 INT INP/OBS CARE MIN Diagnoses Pulmonary hypertension I27.20 COPD (chronic obstructive pulmonary disease) J44.9 Anemia D64.9 CHF exacerbation I50.33 Heart failure type: diastolic Abnormal chest CT R93.89 Acute on chronic respiratory failure with hypoxemia J96.21 Pleural effusion J90
--- NOTE | 2023-04-22 23:08 | Hospitalist Progress Note ---
Date of Service April 22, 2023 Assessment & Plan (1) CHF exacerbation: Plan: *Acute on chronic diastolic (congestive) heart failure Patient presents to ED with complaints of worsening shortness of breath and lower extremity edema. Lab data from ED shows proBNP elevated at 1288 high sensitive troponin slightly elevated 18 with slight elevation in serum creatinine at 1.3. Patient denies any acute chest pain and EKG does not show any ST elevation Patient has a known history of CHF from diastolic heart failure in the past Patient also has severe COPD with accompanying cor pulmonale leading to right heart failure as well. Physical exam reveals bilateral lower extremity edema as well. Start patient on IV loop diuretic therapy and monitor I's and O's closely Patient received BUMEX in AM. Cardio consulted, Patient has been improving with daily diuretics, due to kindey function, did not order twice a day frequency. Patient though has been net negative each day, and will monitor overnight. 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 Patient appears to not be compliant with her sodium diet at home, will recommend she is strict with limited sodium, and will likely place her on a sliding scale for diuretics at home. (2) COPD with emphysema: Plan: Patient is a known history of COPD and is on home oxygen therapy Continue bronchodilators as needed No evidence of acute exacerbation Patient also has a component of cor pulmonale with accompanying right heart failure that contributes to CHF exacerbation (3) Anemia: Plan: Possible acute blood loss anemia (present upon admission) Patient found to have a serum hemoglobin of 8 and prior hemoglobin level was 12 before her bowel surgery. Patient denies any melena or hematochezia. We will recheck CBC in a.m. and anemia could be secondary to blood loss during surgery done in [facility] Obtain records from [place] to see if any acute drop in hemoglobin has occurred since her surgery. Patient does not appear to have iron def. anemia. Hemoglobin has been stable (4) AIRAM (obstructive sleep apnea): Plan: Continue oxygen supplementation and CPAP as tolerated (5) Spontaneous perforation of colon: Plan: Patient has a prior history of bowel perforation with colostomy placed. Colostomy reversal done in [facility] recently and patient has no GI complaints at this time Continue to monitor H&H (6) HTN (hypertension): Plan: Continue home dose of metoprolol 25 mg with hold parameters Monitor blood pressure trend titrate meds as tolerated (7) Rheumatoid arthritis: Plan: Patient on hydroxychloroquine 200 mg p.o. twice daily at home and will be be continued Admission and Anticipated Discharge Date Admission Date: April 20, 2023 Subjective Patient reports no new symptoms. Review of Systems Review of Systems: All systems reviewed & are unremarkable except as noted in HPI & below Physical Exam Physical Exam: Head and ENT no thyroid enlargement trachea midline Cardiovascular S1-S2 are normal no S3 Lungs bilateral air entry fair no wheezing Abdomen soft nondistended positive bowel sounds no rebound tenderness Extremity shows bilateral 2+ edema extending to knee Neurologically no focal deficits Skin shows no rash no cyanosis Results & Data Results & Data Vital Signs (Past 12 Hours) Vital Signs Temp Pulse Pulse Pulse Pulse Pulse Pulse 04/22/23 19:45 04/22/23 19:38 36.5 C 74 04/22/23 14:45 69 04/22/23 15:53 36.7 C 71 04/22/23 15:21 75 73 90 89 04/22/23 11:42 36.6 C 82 Pulse Pulse Resp Resp Resp Resp Resp 04/22/23 19:45 04/22/23 19:38 18 04/22/23 14:45 04/22/23 15:53 18 04/22/23 15:21 82 73 18 18 20 20 04/22/23 11:42 18 Resp Resp BP BP Pulse Ox Pulse Ox Pulse Ox 04/22/23 19:45 04/22/23 19:38 124/68 94 04/22/23 14:45 04/22/23 15:53 103/57 L 97 04/22/23 15:21 20 18 88 L 90 04/22/23 11:42 101/57 L 96 Pulse Ox Pulse Ox Pulse Ox Pulse Ox O2 Del Method O2 Flow Rate O2 Flow Rate 04/22/23 19:45 Nasal Cannula 2 04/22/23 19:38 Nasal Cannula 2 04/22/23 14:45 04/22/23 15:53 Nasal Cannula 2.0 04/22/23 15:21 91 87 L 91 87 L 1 04/22/23 11:42 Room Air O2 Flow Rate O2 Flow Rate O2 Flow Rate O2 Flow Rate 04/22/23 19:45 04/22/23 19:38 04/22/23 14:45 04/22/23 15:53 04/22/23 15:21 2 3 2 2 04/22/23 11:42 PG Care Time/CCT Total # of Minutes Spent Total Time Spent with Patient: Total time spent is greater than 50% in coordination of care (as documented) at patient's floor/unit and/or counseling patient: Coding Level of Care Code 02669 SUB INP/OBS CARE 3/50MIN Diagnoses CHF exacerbation I50.33 Heart failure type: diastolic COPD with emphysema J43.9 Anemia D64.9 AIRAM (obstructive sleep apnea) G47.33 Spontaneous perforation of colon K63.1 HTN (hypertension) I10 Hypertension type: essential hypertension Rheumatoid arthritis M06.9 Rheumatoid arthritis location: unspecified site Rheumatoid factor presence: unspecified presence (1) CHF exacerbation Heart failure type: diastolic Qualified Code(s): I50.33 - Acute on chronic diastolic (congestive) heart failure (6) HTN (hypertension) Hypertension type: essential hypertension Qualified Code(s): I10 - Essential (primary) hypertension (7) Rheumatoid arthritis Rheumatoid arthritis location: unspecified site Rheumatoid factor presence: unspecified presence Qualified Code(s): M06.9 - Rheumatoid arthritis, unspecified
[2023-04-23 07:42] LABS: Hematocrit (blood only) 25.4 % (37.0-47.0); Hemoglobin 7.9 g/dl (12.0-16.0); Mean Corpuscular Hgb Conc 31.1 g/dL (32.0-36.0); Mean Corpuscular Volume 102.8 fL (80.0-100.0); Mean Platelet Volume 9.6 fL (9.4-12.4); Platelet Count 403 K/uL (130-400); RDW Standard Deviation 49.2 fL (36.4-46.3); Red Blood Count 2.47 M/uL (4.20-5.40); White Blood Count 7.56 K/ul (4.8-10.8)
[2023-04-23 07:46] LABS: BUN Creatinine Ratio 17.2 (10-20); Creatinine Clr Calc Pharmacy 37.4 ml/min; Est GFR (Non-African American) 35.4 ml/min; Potassium 4.1 mmol/L (3.5-5.1)
[2023-04-23] MEDS: HYDROXYCHLOROQUINE SULFATE 200 MG TAB PO SCH (08:06)
[2023-04-23] MEDS: FLUTICASONE FUROATE 100MCG 14 PUFFS/INHALER INH SCH (08:07)
[2023-04-23] MEDS: ASPIRIN 81 MG ECTAB PO SCH (08:07)
[2023-04-23] MEDS: CEROVITE ADV FORMULA TAB PO SCH (08:07)
[2023-04-23] MEDS: FERROUS GLUCONATE 324 MG TAB PO SCH (08:07)
[2023-04-23] MEDS: MULTIVITAMIN CHEWABLE TAB PO SCH (08:07)
[2023-04-23] MEDS: METOPROLOL TARTRATE 25 MG TAB PO SCH (08:07)
[2023-04-23] MEDS: ADVANCED PROBIOTIC 1250 MG CAPSULE PO SCH (08:07)
[2023-04-23] MEDS: UMECLIDINIUM/VILANTEROL 62.5/25MCG 7 PUFFS/INHALER INH SCH (08:09)
[2023-04-23] MEDS ORDERED: SPIRONOLACTONE 12.5 MG TAB PO SCH (09:00)
[2023-04-23] MEDS ORDERED: BUMETANIDE 1 MG TAB PO SCH (09:00)
--- NOTE | 2023-04-23 09:58 | Pulmonology Progress Note ---
Date of Service April 23, 2023 Assessment & Plan (1) Pulmonary hypertension: (2) COPD (chronic obstructive pulmonary disease): (3) Anemia: (4) CHF exacerbation: Heart failure type: diastolic Qualified Code(s): I50.33 - Acute on chronic diastolic (congestive) heart failure (5) Abnormal chest CT: (6) Acute on chronic respiratory failure with hypoxemia: (7) Pleural effusion: Plan Chest x-ray 04/21/2023 personally reviewed: PA/lateral view, good inspiratory effort, mild blunting of the right costophrenic angle, left-sided pleural effusion 2D echo 04/20/2023: EF 60-65%, RVSP 30-40 mmHg small posterior pericardial effusion, moderate RVH, moderate decrease in RV systolic function -- Acute on chronic hypoxic respiratory failure On 2 L oxygen at home Likely secondary to HFpEF with pulmonary hypertension Needed with diuretics BiPAP nightly and as needed shortness of breath --Pulmonary hypertension Combination of type II and type III For type III continue with inhalers For type II continue with diuretics -- COPD with emphysema Gold class D Last exacerbation was more than a year ago. Has never been hospitalized for COPD On Trelegy inhaler at home Hardly has to use the rescue inhaler PFT 2personally reviewed: Very severe COPD with emphysema and air trapping, insignificant bronchodilator response moderate decrease in DLCO FVC 1.93 L 58%, FEV1 0.72 L 29%, FEV1/FVC 37%, RV 172%, TLC 111%, RV/TLC 150%, DLCO 50%, DLCO/VA 70% -- Abnormal chest CT with multiple pulmonary nodules Patient seems to have nodularity/tree-in-bud opacities of the lingula She also has a right lower lobe small nodule In a patient was a heavy smoker needs to be followed up CT chest 1personally reviewed: Centrilobular and paraseptal emphysema appreciated bilaterally Lingular nodular opacities appreciated, tree-in-bud opacities appreciated in the left lower lobe as well No mediastinal lymphadenopathy -- Ex-smoker Approximately [id number] smoking history Quit at the age of 67 in 2018 Encouraged to continue abstinence from smoking --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 Pablo Please note the above document was generated using voice recognition software. It may contain grammatical, syntax or spelling errors.Any formal questions or concerns about the content, text or information contained within the body of this dictation should be directly addressed to the provider for clarification. Admission and Anticipated Discharge Date Admission Date: April 20, 2023 Subjective Patient seen and examined at bedside. No acute distress, no adverse events overnight. She was saturating 99% on 2 L nasal cannula at rest. Denied any headache, no nausea, no vomiting Overall she is feeling much better compared to when she came to the hospital Fair appetite No headache, no dizziness Review of Systems Review of Systems: All systems reviewed & are unremarkable except as noted in Subjective Physical Exam Physical Exam: Constitutional: No acute distress HEENT: EOMI, PERRLA Respiratory system:Decreased air entry bilaterally, no wheeze, rhonchi, positive crackles bilaterally more on the left side CVS: S1-S2 positive, no murmurs or gallops Abdomen: Soft, nontender, nondistended, positive bowel sounds x4 Extremities: +2 pulses bilaterally radialis/ dorsalis pedis, no cyanosis,+2 pitting edema bilateral lower extremity Neuro: Awake alert oriented x3 Psych: Normal mood and affect G/U:No Nichole Skin: no rashes, warm and dry Lymphatic: no cervical or axillary lymphadenopathy Results & Data Results & Data Vital Signs (Past 12 Hours) Vital Signs Temp Pulse Pulse Resp BP BP Pulse Ox 04/23/23 08:00 04/23/23 07:09 36.6 C 72 18 111/62 91 04/23/23 03:00 04/23/23 03:06 36.3 C L 80 18 107/61 91 04/22/23 22:00 78 04/22/23 23:27 36.6 C 78 18 109/66 91 Pulse Ox O2 Del Method O2 Del Method O2 Flow Rate O2 Flow Rate 04/23/23 08:00 Nasal Cannula 04/23/23 07:09 Nasal Cannula 2 04/23/23 03:00 92 Nasal Cannula 2 04/23/23 03:06 Nasal Cannula 2 04/22/23 22:00 04/22/23 23:27 Nasal Cannula 2 Laboratory Results 04/23/23 07:06 04/23/23 07:06 PG Care Time/CCT Total # of Minutes Spent Total Time Spent with Patient: Total time spent is greater than 50% in coordination of care (as documented) at patient's floor/unit and/or counseling patient: Coding Level of Care Code 09995 SUB INP/OBS CARE 2/35MIN Diagnoses Pulmonary hypertension I27.20 COPD (chronic obstructive pulmonary disease) J44.9 Anemia D64.9 CHF exacerbation I50.33 Heart failure type: diastolic Abnormal chest CT R93.89 Acute on chronic respiratory failure with hypoxemia J96.21 Pleural effusion J90
--- NOTE | 2023-04-23 13:50 | Discharge Summary ---
Date of Service April 23, 2023 Admission HPI Per Admitting Provider This is a 72-year-old female with past medical history significant for history of CHF, COPD on home oxygen therapy, hypertension, obstructive sleep apnea, who presents to the emergency department with complaints of worsening dyspnea on exertion and worsening lower extremity swelling. Patient reports that she has been noticing increasing lower extremity swelling over the past 10 days and also started experiencing worsening shortness of breath for about the past 3 days. Patient had a colostomy reversal surgery done in [facility] about 2 weeks ago and was discharged home in a stable state. Patient reports that she has been having good appetite and bowel movements since the surgery and denies any nausea vomiting symptoms. Patient however reports that over the last 10 days she has been noticing increasing lower extremity swelling associated with presenting shortness of breath that has been worsening over the past few days. Patient however denies any chest pain or fevers or chills. Lina mendoza has underlying history of COPD and obstructive sleep apnea and is on home oxygen therapy as well. Patient was evaluated in the ED and was found to have oxygen saturation in the 80s on room air which improved with 2 L oxygen supplementation that patient wears at baseline. During evaluation in the ED patient was found to have a high sensitive troponin of 18 along with serum creatinine 1.38. Patient's hemoglobin was 8 . Patient denies any chest pain Patient is being admitted for further management of her symptoms of CHF . Patient also had a lower extremity Dopplers done that was negative for DVT Discharge Exam Head and ENT no thyroid enlargement trachea midline Cardiovascular S1-S2 are normal no S3 Lungs bilateral air entry fair no wheezing Abdomen soft nondistended positive bowel sounds no rebound tenderness Extremity shows bilateral 2+ edema extending to knee Neurologically no focal deficits Skin shows no rash no cyanosis Discharge Data Allergies Allergy/AdvReac Type Severity Reaction Status Date / Time No Known Drug Allergies Allergy Unknown . Verified 04/19/23 16:42 Consultations 04/19/23 23:46 ED Decision to Admit Stat 04/21/23 08:52 Consult Cardiology Routine 04/23/23 12:25 Consult Pulmonology Routine Ordered Studies 04/19/23 21:18 US venous doppler LE BI Stat 04/22/23 16:49 US point of care ultrasound Urgent Hospital Course (1) CHF exacerbation: *Acute on chronic diastolic (congestive) heart failure Patient presents to ED with complaints of worsening shortness of breath and lower extremity edema. Lab data from ED shows proBNP elevated at 1288 high sensitive troponin slightly elevated 18 with slight elevation in serum creatinine at 1.3. Patient denies any acute chest pain and EKG does not show any ST elevation Patient has a known history of CHF from diastolic heart failure in the past Patient also has severe COPD with accompanying cor pulmonale leading to right heart failure as well. Physical exam reveals bilateral lower extremity edema as well. Start patient on IV loop diuretic therapy and monitor I's and O's closely Patient received BUMEX in AM. Cardio consulted, Patient has been improving with daily diuretics, due to kindey function, did not order twice a day frequency. Patient though has been net negative each day, and will monitor overnight. 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 Patient appears to not be compliant with her sodium diet at home, will recommend she is strict with limited sodium, and will likely place her on a sliding scale for diuretics at home. (2) COPD with emphysema: Patient is a known history of COPD and is on home oxygen therapy Continue bronchodilators as needed No evidence of acute exacerbation Patient also has a component of cor pulmonale with accompanying right heart failure that contributes to CHF exacerbation (3) Anemia: Possible acute blood loss anemia (present upon admission) Patient found to have a serum hemoglobin of 8 and prior hemoglobin level was 12 before her bowel surgery. Patient denies any melena or hematochezia. We will recheck CBC in a.m. and anemia could be secondary to blood loss during surgery done in [facility] Obtain records from [place] to see if any acute drop in hemoglobin has occurred since her surgery. Patient does not appear to have iron def. anemia. Hemoglobin has been stable (4) AIRAM (obstructive sleep apnea): Continue oxygen supplementation and CPAP as tolerated (5) Spontaneous perforation of colon: Patient has a prior history of bowel perforation with colostomy placed. Colostomy reversal done in [facility] recently and patient has no GI complaints at this time Continue to monitor H&H (6) HTN (hypertension): Continue home dose of metoprolol 25 mg with hold parameters Monitor blood pressure trend titrate meds as tolerated (7) Rheumatoid arthritis: Patient on hydroxychloroquine 200 mg p.o. twice daily at home and will be be continued Discharge Plan Discharge Items Patient Disposition: Home - Self-Care Reason For Visit: CHF EXACERBATION Discharge Diagnosis: CHF exacerbation Activity: Resume your previous activity Non-emergency contact: Primary Care Provider Call non-emergency contact if: you have any medication questions Follow-up/Referrals: Demetris Gonzalez MD [Primary Care Provider] - Diet: Low Sodium (2gm) Addtl Attending Provider Instructions: If your dry weight increases 3-5 pounds, take double the diuretic dose for 3 days.If your weight does not improve, please call your cableway operator. Please followup a low sodium diet. Call your Primary Care doctor if any of the following symptoms or problems start or get worse: * Shortness of breath or difficulty breathing * Wake up at night short of breath * Chest pain * Cough * Swelling of your hands, feet, or legs * More fatigued or tired with your normal activity * Palpitations - sudden fast heart beats WEIGHT * Weigh yourself every morning after using the bathroom. * Use the same scale. * Wear the same amount of clothing. * Write your weight down on a chart. * Call your Primary Care doctor if you gain more than 2-3 pounds in 1-2 days. MEDICATIONS * Use this discharge instruction sheet for medication instructions. * Take your medications at the time your doctor ordered. * Do not skip a dose of your medicines. * If you miss a dose of medicine, take it as soon as possible, but DO NOT DOUBLE A DOSE. * Read your medicine information when you get home. * Know all of the side effects of your medicine. If in doubt, ask your pharmacist * Call your Primary Care doctor's office if you have any side effects. * Be sure all of your doctors know what medicine and herbs you take (including cold, flu, and herbal medicine). Take the following with you to your follow-up doctor appointments: * Weight Chart * Medication List * List of questions Do not drink excessive alcohol, beer or wine. Pending Studies at Discharge: No Stand-Alone Forms: My [place], Smoking Cessation Medications and DC Order Prescriptions: New spironolactone 25 mg Tablet 12.5 mg PO QAM Qty: 30 0RF metoprolol succinate 25 mg tablet extended release 24 hr 25 mg PO DAILY Qty: 30 0RF Continued Prevagen 50 mcg capsule 50 mcg PO 1XD albuterol sulfate 90 mcg/actuation HFA aerosol inhaler 2 puff inhalation Q4H PRN (Reason: shortness of breath) Qty: 3 1RF Trelegy Ellipta 100-62.5-25 mcg blister with device 1 inh INH QAM Qty: 3 1RF sertraline 50 mg tablet See Rx Instructions .ROUTE .COMPLEX Qty: 135 3RF Dose Instruction: TAKE 1 AND 1/2 TABLETS BY MOUTH DAILY Rx Instructions: TAKE 1 AND 1/2 TABLETS BY MOUTH DAILY albuterol sulfate 2.5 mg /3 mL (0.083 %) solution for nebulization 2.5 mg INH Q4H PRN (Reason: shortness of breath or wheezing) Qty: 540 0RF psyllium husk [Metamucil] 0.4 gram capsule 1.6 g PO DAILY PRN (Reason: Constipation) ydroolcdqclx-wtdjxcbh-msezak tablet 1 tab PO QAM bumetanide 1 mg tablet 1 mg PO QAM Qty: 90 aspirin 81 mg tablet,delayed release (DR/EC) 81 mg PO DAILY hydroxychloroquine 200 mg Tablet 200 mg PO BID Culturelle 10 billion cell Capsule 1 cap PO QAM Discontinued metoprolol tartrate 25 mg tablet 25 mg PO DAILY Discharge Orders: Discharge Order- CHF (Routine); Ordered 04/23/23 Ordered By: David Pablo Admission Data Admit Date/Time: 04/20/23 00:25 Attending Provider: David Pablo Admit Provider: Freddy Bacon Primary Care Provider: Demetris Gonzalez Other Providers: Freddy Bacon ; Rachna Ann ; Emiliano Murray ; Yfn [place] ; Sony Suresh ; Chico Felix ; Jackson Harris ; Nadia Zazueta ; Cristel Wu ; Rachna Lovell ; Sandeep Scanlon ; Bob Blood ; [facility],Home Healthcare ; [facility],Referral Center ; Felix Mcdowell Coding Diagnoses CHF exacerbation I50.33 Heart failure type: diastolic COPD with emphysema J43.9 Anemia D64.9 AIRAM (obstructive sleep apnea) G47.33 Spontaneous perforation of colon K63.1 HTN (hypertension) I10 Hypertension type: essential hypertension Rheumatoid arthritis M06.9 Rheumatoid arthritis location: unspecified site Rheumatoid factor presence: unspecified presence
== END 2023-04-23 15:14 | disposition home or self-care (01) | DRG 291 ==
LOC: ED 18:11 → SUATTDRO 04-20 00:25 → 2S 04-20 00:25